=== PATIENT | female | born 1970 | race Caucasian/White ===

== ENCOUNTER → 2018-02-18 11:32 | Outpatient (CLI) | payer BC, SELFPAY ==
--- NOTE | 2018-02-18 11:43 | RAD_ITS ---
STUDY: X-RAY - LUMBAR SPINE REASON FOR EXAM: Female, 48 years old. Left sciatic nerve pain. TECHNIQUE: 5 view(s) of the lumbar spine were obtained. COMPARISON: None FINDINGS: Normal lumbar lordosis. There is no substantial scoliosis. There is a normal alignment of the vertebrae. Anterior marginal spurs at the L1-L2 disc space level. Normal vertebral bodies and endplates. Normal disc space heights. The soft tissue structures are unremarkable. RAD/L/S Spine Min 4 Views IMPRESSION: Minimal anterior marginal spurring at the L1-L2 disc space level otherwise negative study. Electronically Signed: Steve Wu MD at 12:03 EDT , Service support ,
== END ==
PROVIDERS: Family Provider Family Medicine; PCP Family Medicine; Visit Provider Family Medicine
DX: M54.32 Sciatica, left side (principal)
CPT/HCPCS: 72110

== ENCOUNTER → 2018-03-10 13:22 | Outpatient (CLI) | payer BC, SELFPAY ==
--- NOTE | 2018-03-10 13:27 | RAD_ITS ---
STUDY: X-RAY CHEST REASON FOR EXAM: Female, 48 years old. Bronchitis TECHNIQUE: Frontal and lateral views of the chest COMPARISON: 11/08/2017 FINDINGS: The lungs are clear. There are no pleural effusions. There is no pneumothorax. The heart is normal in size. The visualized osseous structures are within normal limits. RAD/Chest PA and Lateral IMPRESSION: No acute thoracic pathology. Electronically Signed: Morris Quevedo, at 17:02 EDT Tel , Service support ,
== END ==
PROVIDERS: Family Provider Family Medicine; PCP Family Medicine; Visit Provider Family Medicine
DX: J20.9 Acute bronchitis, unspecified (principal)
CPT/HCPCS: 71046

== ENCOUNTER 2018-03-11 23:41 | Emergency (ER) | payer BC, SELFPAY ==
[2018-03-11 23:42] VITALS: BP 130/65; PULSE 131; RESP 22; TEMP 36.6; O2SAT 94; BMI 66.7
[2018-03-12] MEDS: Albuterol 2.5 MG/3 ML VIAL.NEB. INHALATION (00:37)
[2018-03-12] MEDS: Ipratropium/Albuterol Sulfate 3 ML AMPUL.NEB INHALATION (00:37)
--- NOTE | 2018-03-12 00:43 | ED.DCSUM_ITS ---
- ER Visit Summary Date of Service: 03/12/18 Chief Complaint: Cough and wheezing History of Present Illness: The patient is a 48 F past medical history of asthma and insulin-dependent diabetes. Patient has had URI type symptoms for [address] Edge twice. Has been treated with prednisone and nebulizer aerosol treatments at home. Currently is on prednisone 20 mg a day. She is also finished a a Z-Faustino. She is really upset that she cannot stop coughing. She denies any hemoptysis. Physical Examination: Well-appearing middle-age female. Vital signs stable afebrile. Pulse ox 94% on room air. No hypoxia. She is in no distress. HEENT exam unremarkable. Posterior pharynx moist and pink. No erythema or exudate. TMs slightly erythematous and dull bilaterally. Neck nontender no lymphadenopathy. Trachea is nontender. Lungs scattered externally wheezing. No rales or rhonchi. Equal symmetrical. Heart tachycardic no murmur. Abdomen is soft. Obese but nontender. Moving all 4 extremities. Calves nontender without edema. Neurologically she is awake and alert without focal motor deficits. Test Results: Patient had a chest x-ray done 2 days ago which was read as negative. I did review the film myself and agree. Emergency Department Course and Treatment: Patient treated with DuoNeb and albuterol aerosols. Prednisone here. And Tessalon Perles. Treatment Plan: Repeat exam she is doing better. Patient has a URI that is viral. This may last another 1-2 weeks or even longer. She does not need antibiotics. She will continue her current prednisone and I will restart her back on 40 mg a day before they can start tapering it. Continue aerosols. Also write for Tessalon Perles on top of her cough syrup. Disposition: Discharge Impression: Acute viral URI with bronchospasm Acute exacerbation of asthma This note was generated with [employer] dictation software. It may contain incorrect words, spelling, and punctuation that were not noted in review of the chart prior to signing ED Disposition - Plan for ED Patient: Chief Complaint: Cough Referrals: Nilda Edge MD [Primary Care Provider] -
--- NOTE | 2018-03-12 00:43 | ED.DEP ---
ED Disposition - Plan for ED Patient: Disposition: Home or Assisted Living Chief Complaint: Cough Instructions: ED Bronchitis Asthmatic Prescriptions: Benzonatate [Tessalon Perle] 100 mg PO Q4H PRN PRN #20 cap PRN Reason: Cough Referrals: Nilda Edge MD [Primary Care Provider] - Additional Instructions: Continue prednisone and I will increase his dose back to 40 mg a day. Follow-up with Dr. Edge to see when she wants to start tapering the prednisone. Use both the Tessalon Perles and your cough syrup as cough suppressants. Plenty of fluids and rest. Aerosol treatments as needed every 2-4 hours at home. Return if feeling worse.
--- NOTE | 2018-03-12 00:46 | DCINST.ED_ITS ---
ED Disposition - Plan for ED Patient: Disposition: Home or Assisted Living Chief Complaint: Cough Instructions: ED Bronchitis Asthmatic Prescriptions: Benzonatate [Tessalon Perle] 100 mg PO Q4H PRN PRN #20 cap PRN Reason: Cough Referrals: Nilda Edge MD [Primary Care Provider] - Additional Instructions: Continue prednisone and I will increase his dose back to 40 mg a day. Follow- up with Dr. Edge to see when she wants to start tapering the prednisone. Use both the Tessalon Perles and your cough syrup as cough suppressants. Plenty of fluids and rest. Aerosol treatments as needed every 2-4 hours at home. Return if feeling worse.
[2018-03-12] MEDS: Benzonatate 100 MG Capsule 200 MG PO (00:47)
[2018-03-12 00:49] VITALS: PULSE 131; RESP 18
[2018-03-12 00:55] VITALS: O2SAT 92
[2018-03-12] MEDS: predniSONE 20 MG Tablet 60 MG PO (01:04)
== END 2018-03-12 00:58 | disposition home or self-care (01) ==
PROVIDERS: Emergency Provider Emergency Medicine; Family Provider Family Medicine; PCP Family Medicine
DX: J06.9 Acute upper respiratory infection, unspecified (principal); J45.901 Unspecified asthma with (acute) exacerbation; E11.9 Type 2 diabetes mellitus without complications; I10 Essential (primary) hypertension; Z79.82 Long term (current) use of aspirin; Z79.4 Long term (current) use of insulin; Z79.899 Other long term (current) drug therapy
CPT/HCPCS: 94640; 99283

== ENCOUNTER → 2018-05-09 11:43 | Outpatient (CLI) | payer BC, SELFPAY ==
[2018-05-09 16:02] LABS: AST(SGOT) 12 U/L (15-37); Alanine Aminotransfer ALT/SGPT 22 U/L (13-56); Albumin, Serum 3.2 g/dL (3.2-5.0); Alkaline Phosphatase 89 U/L (45-117); Anion Gap 7 (5-15); BUN 15 mg/dL (7-18); BUN/Creat Ratio 18.6 RATIO (10-20); Bilirubin, Direct 0.13 mg/dL (0.00-0.30); Calcium,Total 8.9 mg/dL (8.5-10.1); Chloride 99 mmol/L (98-107); Cholesterol 130 mg/dL (200); EST Glomerular Filtration Rate 81 mL/min (>60); Est Glom Filt Rate - Afr Amer 99 mL/min (>60); Globulin 4.2 g/dL (2.2-4.2); Glucose 214 mg/dL (74-106); High Density Lipoprotein 61 mg/dL; Potassium 4.3 mmol/L (3.5-5.1); Protein, Total 7.4 g/dL (6.4-8.2); Sodium Level 140 mmol/L (136-145); Triglycerides 134 mg/dL; Very Low Density Lipoprotein 27 mg/dL (5-40)
[2018-05-09 16:16] LABS: Microalbumin,Random Urine 37.5 mg/L (NO RANGE EST.)
== END ==
PROVIDERS: Family Provider Family Medicine; PCP Family Medicine; Visit Provider Family Medicine
DX: E11.9 Type 2 diabetes mellitus without complications (principal); I10 Essential (primary) hypertension
CPT/HCPCS: 36415; 80048; 80061; 80076; 82043; 82570

== ENCOUNTER → 2018-08-11 10:11 | Outpatient (CLI) | payer BC, SELFPAY ==
--- NOTE | 2018-08-11 10:21 | BI_ITS ---
MAMMOGRAPHY - BILATERAL SCREENING REASON FOR EXAM: Female, 48 years old. Routine annual screening examination. PERTINENT HISTORY: Non-contributory. TECHNIQUE: Digital bilateral breast shyann (3D mammographic acquisition) in the CC and MLO projections. 2-D mediolateral oblique (MLO) and craniocaudad (CC) views of both breasts were obtained. CAD: Full Field Digital Mammography with Computer Added Detection was performed. COMPARISON: Comparison is made with prior study dated July 01, 2017. FINDINGS: Breast Composition: The breasts are almost entirely fatty. There are no dominant masses or suspicious calcifications. Small benign-appearing bilateral axillary lymph nodes. No other significant abnormalities are identified. There has been no significant change since the prior study. BI/SCREENING MAMM (CAD), BILAT IMPRESSION: Stable bilateral screening mammogram. Yearly follow-up mammogram recommended. (A) ASSESSMENT CATEGORY: BIRADS Category 2: Benign. A letter regarding these results will be sent to the patient by the facility within 30 days. Approximately 10% of breast cancers are not detected by mammography. A normal mammogram should not delay biopsy of a clinically suspicious abnormality. [id number] Electronically Signed: Rocky Yanez MD at 12:58 EDT Tel [phone], Service support ,
== END ==
PROVIDERS: Family Provider Family Medicine; PCP Family Medicine; Visit Provider Nurse Practitioner Women's Health
DX: Z12.31 Encounter for screening mammogram for malignant neoplasm of breast (principal)
CPT/HCPCS: 77063; 77067

== ENCOUNTER → 2018-11-07 10:05 | Outpatient (CLI) | payer BC, SELFPAY ==
[2018-08-11 09:09] VITALS: BMI 68.1
[2018-11-07 13:44] LABS: Anion Gap 7 (5-15); BUN 13 mg/dL (7-18); BUN/Creat Ratio 15.5 RATIO (10-20); Calcium,Total 9.4 mg/dL (8.5-10.1); Chloride 101 mmol/L (98-107); Creatinine, Serum 0.84 mg/dL (0.55-1.02); EST Glomerular Filtration Rate 78 mL/min (>60); Est Glom Filt Rate - Afr Amer 94 mL/min (>60); Glucose 107 mg/dL (74-106); Potassium 3.9 mmol/L (3.5-5.1); Sodium Level 140 mmol/L (136-145)
--- OUTSIDE RECORDS SUMMARY | 2018-12-24 00:32 | XMS RPT_ITS ---
:1970 Author Organization [place] Support Name Relationship Address Phone [facility] Unavailable [address] + [place] [address] OBIE GERARDO Unavailable [address] + [place] [address] [facility] Unavailable [address] + [place] [address] [facility] Unavailable [address] + [place] [address] OBIE GERARDO Unavailable [address] + [place] [address] [facility] Unavailable [address] + [place] [address] [facility] Unavailable [address] + [place] [address] OBIE GERARDO Unavailable [address] + [place] [address] [facility] Unavailable [address] + [place] [address] OBIE GERARDO Unavailable [address] + [place] [address] OVIDIO, NOLA Unavailable [address] + [place] [address] [facility] Unavailable [address] + [place] [address] OBIE GERARDO Unavailable [address] [phone] [place] [address] OVIDIO, NOLA Unavailable [address] + [place] [address] [facility] Unavailable [address] + [place] [address] HUMAIRA, OBIE Unavailable [address] [phone] [place] [address] OVIDIO, NOLA Unavailable [address] + [place] [address] [facility] Unavailable [address] + [place] [address] HUMAIRA, OBIE Unavailable [address] [phone] [place] [address] OVIDIO, NOLA Unavailable [address] + [place] [address] [facility] Unavailable [address] + [place] [address] HUMAIRA, OBIE Unavailable [address] [phone] [place] [address] OVIDIO, NOLA Unavailable [address] + [place] [address] [facility] Unavailable [address] + [place] [address] HUMAIRA, OBIE Unavailable [address] [phone] [place] [address] OVIDIO, NOLA Unavailable [address] + [place] [address] Care Team Providers Name Role Phone Darbyiff, Nilda Attending Unavailable Jolliff, Nilda Primary Care Unavailable Jolliff, Nilda Attending Unavailable Jolliff, Nilda Referring Unavailable Jolliff, Nilda Primary Care Unavailable Jolliff, Nilda Attending Unavailable Jolliff, Nilda Referring Unavailable Jolliff, Nilda Primary Care Unavailable Jolliff, Nilda Primary Care Unavailable Rojelio Spencer Attending Unavailable PROVIDER, ED PHYSICIAN Attending Unavailable Jolliff, Nilda Primary Care Unavailable Jolliff, Nilda Attending Unavailable Jolliff, Nilda Primary Care Unavailable Sachi Sewell Attending Unavailable Stella Lange Attending Unavailable NazarioStella Referring Unavailable Jolliff, Nilda Primary Care Unavailable Stella Lange Attending Unavailable Jolliff, Nilda Referring Unavailable Jolliff, Nilda Primary Care Unavailable PROBLEMS PROBLEMS DATE TYPE CONDITION / CODE ATTENDING STATUS SOURCE 03/10/2018 Unknown J20.9 - Acute Nilda Edge Active [place] bronchitis, Community unspecified / Hospital J20.9(ICD-10) Repository 02/18/2018 Unknown M54.32 - Nilda Edge Active [place] Sci[place], left Community side / Hospital M54.32(ICD-10) Repository PROCEDURES PROCEDURES No Procedure Records FoundRESULTS RESULTS SHOE FOLDER OFFICE VISIT Observed: 12/08/2018 Status: F Source: [place] REPORT 2:43 PM [facility] REPOSITORY [facility] [address] [place] [address] OFFICE VISIT Date of Service: 08/11/18 MR#: [id number] Acct: [id number] Name: NASH GERARDO Rep #: [id number] : 1970 Provider: STACEY Lange Age/Sex: 48/F [place] [facility]: Signed with Addenda ADDENDUM by STACEY Lange on 12/08/18 at 1443 Addendum entered and electronically signed by VALDO Marquez 12/08/18 14:43: Rectal exam was deferred. No masses palpated Assessment AND Plan Problems 1. Encounter for gynecological examination without abnormal finding Z01.419 2. Morbid obesity with BMI of 60.0-69.9, adult E66.01; Z68.44 Plan - VALDO Marquez Completed breast and pelvic exam Reviewed diet and exercise-she has discussed with PCP. 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: No Is patient in pain?: No Allergies Penicillins Allergy (Verified 08/11/18 09:04) Hives Medications Aspirin [Aspir-Low] 81 mg PO DAILY 11/08/17 [History Confirmed 08/11/18] Calcium Carbonate/Vitamin D3 [Calcium 600-Vit D3 200 Tablet] 1 ea PO DAILY 11/08/17 [History Confirmed 08/11/18] Folic Acid 0.8 mg PO DAILY@0800 11/08/17 [History Confirmed 08/11/18] Hydrochlorothiazide [Hctz] 25 mg PO DAILY 11/08/17 [History Confirmed 08/11/18] Insulin Aspart [Novolog Flexpen (BKC)] 0 - 100 units SC TIDCM 11/08/17 [History Confirmed 08/11/18] Insulin Glargine,Hum.rec.anlog [Lantus] 85 unit SQ QHS 11/08/17 [History Confirmed 08/11/18] Liraglutide [Victoza] 1.2 mg SQ DAILY 11/08/17 [History Confirmed 08/11/18] Losartan Potassium 100 mg PO DAILY 11/08/17 [History Confirmed 08/11/18] Multivitamin [Daily Multiple Vitamin] 1 ea PO DAILY 11/08/17 [History Confirmed 08/11/18] Potassium Chloride [K-Dur] 20 meq PO DAILY 11/08/17 [History Confirmed 08/11/18] Atorvastatin Calcium [Lipitor] 20 mg PO QHS 03/11/18 [History Confirmed 08/11/18] amlodipine 5 mg tablet 5 mg PO DAILY 08/11/18 [History Confirmed 08/11/18] Is last menstrual period known: No Post menopausal: No Patient : No : No PFSH Medical History Hyperlipidemia (Chronic) Hypertension (Chronic) Diabetes (Chronic) Asthma (Chronic) Arthritis (Chronic) Surgical History S/P carpal tunnel release (Resolved) Trigger finger (Resolved) Family History Mother Heart disease Diabetes Osteoporosis Social History Smoking Status: Never smoker alcohol intake: current alcohol intake frequency: holidays/special occasions only substance use type: does not use caffeine: No what type of physical activity do you participate in: walking frequency: daily seatbelt use: always do you feel safe at home: Yes 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 Denies concerns Happy with mirena IUD-no menses Last PAP: 06/2017 History of abnormal PAP: no Last mammogram: today/pending History of abnormal mammogram: no ROS Const Constitutional: Denies fatigue, weight gain or weight loss Cardio Card: Denies chest pain Resp Resp: Denies cough or shortness of breath with activity GI GI: Denies abdominal pain, constipation, change in stools, vomiting or bloating : Reports as per HPI; denies urinary frequency, pelvic pain, urinary urgency, vaginal discharge, vaginal itching, urinary incontinence or difficulty urinating Exam Const General: cooperative, no acute distress, well developed Nutritional Appearance: obese morbidy Orientation: alert, oriented to person, oriented to place HENNV Head: normal to inspection Neck Neck: normal visual inspection Thyroid: thyroid normal Lymphatic: no lymphadenopathy noted Chest Breast inspection: normal inspection of the breasts, normal inspection of the axillae Breast palpation: normal palpation of the breasts, normal palpation of the axillae, no axillary lymphadenopathy Resp Effort AND Inspection: normal respiratory effort GI Palpation: soft, nontender, no masses Rectal Exam: mass, deferred External Female Exam: normal external appearance, normal appearance of the urethra Urethra: normal appearance of the urethra, normal palpation Speculum Exam - Vagina: normal appearance of the vagina, normal vaginal discharge Speculum Exam - Cervix: normal appearance of the cervix Bimanual Exam- Vagina AND Uterus: normal bimanual exam, uterine size normal, uterine shape normal, uterus non-tender Bimanual Exam- Adnexa, other: normal adnexae, no adnexal masses, adnexae non-tender, pelvic support normal Pelvic Support: normal Neuro General: alert, oriented x3 Psych Affect: normal affect Assessment AND Plan Problems 1. Encounter for gynecological examination without abnormal finding Z01.419 2. Morbid obesity with BMI of 60.0-69.9, adult E66.01; Z68.44 Plan Completed breast and pelvic exam Reviewed diet and exercise-she has discussed with PCP. Pap up to date Mammogram today Contraception mirena RTO 1 year, prn with problems Stella Lange VAPOR COATER Medications Discontinued: Coding Level of Care Code Off vis,est,prev 40-64yrs Diagnoses Encounter for gynecological examination without abnormal finding Z01.419 Gynecological examination findings: abnormal findings ABSENT Morbid obesity with BMI of 60.0-69.9, adult E66.01; Z68.44 08/11/18 0955 <Electronically signed by Stella Lange NP-C> Date Stella Lange CHAIN PEGGER-C Cosigner Signature: Date (if applicable) CC: BASIC METABOLIC Collected: 11/07/2018 Status: F Source: [place] PROFILE (BMP) 10:06 AM [facility] [place] REPOSITORY TYPE CODE TESTS RESULT OUT OF RANGE REFERENCE UNITS LAB L501.0100 74-106 mg/dL High GLU 107 Result Comment: Fasting Glucose result from 100 to 125 mg/dL suggests IMPAIRED HOMEOSTASIS per A.D.A. criteria. Please note revised GLUCOSE reference range effective 2017. LAB L501.1000 7-18 mg/dL Normal BUN 13 LAB L501.1100 0.55-1.02 mg/dL Normal CREAT,SERUM 0.84 Result Comment: The validity of the calculated GFR AND GFRAA in patients over 70 years has not been determined. Clinical correlation is essential. LAB L501.1110 >60 mL/min Normal EST GFR 78 Result Comment: Non- GFR Calc LAB L501.1115 >60 mL/min Normal EST GFR - AA 94 Result Comment: GFR Calc LAB L501.1300 10-20 RATIO Normal BUN/CRE 15.5 LAB L501.2200 8.5-10.1 mg/dL CA Normal 9.4 LAB L501.5300 136-145 mmol/L NA Normal 140 LAB L501.5600 3.5-5.1 mmol/L K Normal 3.9 LAB L501.5900 98-107 mmol/L CL Normal 101 LAB L501.6100 21.0-32.0 mmol/L Normal CO2 32.0 LAB L501.6200 5-15 Normal GAP 7 Performed By: #### L500.2500 #### [facility] [address] [place], [address] SCREENING MAMM (CAD), Observed: 08/11/2018 Status: F Source: [place] BILAT 10:21 AM [facility] REPOSITORY [facility] Imaging Services [address] [place] [address] SCREENING MAMM (CAD), BILAT MR#: [id number] Acct: [id number] Name: NASH GERARDO Rep #: [id number] : 1970 F 48 From: Rocky Yanez MD PCP: Nilda Edge MD Status: REG CLI Study: SCREENING MAMM (CAD), BILAT Date of Exam: 08/11/18 Exam# [id number] Ordering Dr: Stella Lange CHAIN PEGGER-[place] MAMMOGRAPHY - BILATERAL SCREENING REASON FOR EXAM: Female, 48 years old. Routine annual screening examination. PERTINENT HISTORY: Non-contributory. TECHNIQUE: Digital bilateral breast shyann (3D mammographic acquisition) in the CC and MLO projections. 2-D mediolateral oblique (MLO) and craniocaudad (CC) views of both breasts were obtained. CAD: Full Field Digital Mammography with Computer Added Detection was performed. COMPARISON: Comparison is made with prior study dated July 01, 2017. FINDINGS: Breast Composition: The breasts are almost entirely fatty. There are no dominant masses or suspicious calcifications. Small benign-appearing bilateral axillary lymph nodes. No other significant abnormalities are identified. There has been no significant change since the prior study. BI/SCREENING MAMM (CAD), BILAT IMPRESSION: Stable bilateral screening mammogram. Yearly follow-up mammogram recommended. (A) ASSESSMENT CATEGORY: BIRADS Category 2: Benign. A letter regarding these results will be sent to the patient by the facility within 30 days. Approximately 10% of breast cancers are not detected by mammography. A normal mammogram should not delay biopsy of a clinically suspicious abnormality. [id number] Electronically Signed: Rocky Yanez MD at 12:58 EDT Tel [phone], Service support , CC: STACEY Lange; Nilda Edge MD Pawn Shop Keeper: Signed BASIC METABOLIC Collected: 05/09/2018 Status: F Source: [place] PROFILE (BMP) 11:44 AM [facility] REPOSITORY TYPE CODE TESTS RESULT OUT OF RANGE REFERENCE UNITS LAB L501.0100 74-106 mg/dL High GLU 214 Result Comment: Glucose result greater than or equal to 200 mg/dL suggests DIABETES MELLITUS per A.D.A. criteria. Please note revised GLUCOSE reference range effective 2017. LAB L501.1000 7-18 mg/dL Normal BUN 15 LAB L501.1100 0.55-1.02 mg/dL Normal CREAT,SERUM 0.80 Result Comment: The validity of the calculated GFR AND GFRAA in patients over 70 years has not been determined. Clinical correlation is essential. LAB L501.1110 >60 mL/min Normal EST GFR 81 Result Comment: Non- GFR Calc LAB L501.1115 >60 mL/min Normal EST GFR - AA 99 Result Comment: GFR Calc LAB L501.1300 10-20 RATIO Normal BUN/CRE 18.6 LAB L501.2200 8.5-10.1 mg/dL CA Normal 8.9 LAB L501.5300 136-145 mmol/L NA Normal 140 LAB L501.5600 3.5-5.1 mmol/L K Normal 4.3 LAB L501.5900 98-107 mmol/L CL Normal 99 LAB L501.6100 21.0-32.0 mmol/L High CO2 34.0 LAB L501.6200 5-15 Normal GAP 7 Performed By: #### L500.2500, L500.3400, L500.4100 #### [facility] [address] [place], [place], [id number] LIVER PROFILE Collected: 05/09/2018 Status: F Source: [place] 11:44 AM [facility] REPOSITORY TYPE CODE TESTS RESULT OUT OF RANGE REFERENCE UNITS LAB L501.1500 6.4-8.2 g/dL Normal T PROT 7.4 LAB L501.1800 3.2-5.0 g/dL Normal ALB 3.2 LAB L501.1950 2.2-4.2 g/dL Normal GLOB 4.2 LAB L501.4100 15-37 U/L Low AST 12 LAB L501.4305 45-117 U/L Normal ALK P 89 LAB L501.4405 13-56 U/L Normal ALT 22 LAB L501.4600 0.20-1.00 mg/dL Normal T BILI 0.60 LAB L501.4700 0.00-0.30 mg/dL Normal D BILI 0.13 Performed By: #### L500.2500, L500.3400, L500.4100 #### [facility] [address] [place], [place], [id number] LIPID PROFILE Collected: 05/09/2018 Status: F Source: [place] 11:44 AM [facility] REPOSITORY TYPE CODE TESTS RESULT OUT OF RANGE REFERENCE UNITS LAB L501.4900 200 mg/dL Normal CHOL 130 Result Comment: <200 mg/dL Desirable 200-240 mg/dL Borderline >240 mg/dL High Risk LAB L501.5000 mg/dL Normal TRIG 134 Result Comment: The drugs N-Acetylcysteine and Metamizole may falsely depress this assay. Serum Triglycerides Reference Interval Normal <150 mg/dL Borderline high 150 - 199 mg/dL High 200 - 499 mg/dL Very High > or = 500 mg/dL LAB L501.6400 mg/dL Normal HDL 61 Result Comment: The drugs N-Acetylcysteine and Metamizole may falsely depress this assay. Reference Range HDL <40 mg/dL Low HDL Cholesterol HDL >or= 60 mg/dL High HDL Cholesterol LAB L501.6500 0-130 mg/dL Normal LDL 42 LAB L501.6600 5-40 mg/dL Normal VLDL 27 Performed By: #### L500.2500, L500.3400, L500.4100 #### [facility] [address] [place], [address] MICROALB:CREAT Collected: 05/09/2018 Status: F Source: [place] RATIO,RANDOM UR 11:44 AM [facility] REPOSITORY TYPE CODE TESTS RESULT OUT OF RANGE REFERENCE UNITS LAB L501.1200 NO RANGE EST. mg/dL Normal UR CREAT 163.00 LAB L502.0500 NO RANGE EST. mg/L Normal 37.5 MICROALBUMIN ,UR LAB L502.0600 <30 mg/g CRE mg/g CRE Normal 23.0 MALB:CREAT Performed By: #### L502.0250 #### [facility] [address] [place], [address] EMERGENCY DEPARTMENT Observed: 03/12/2018 Status: F Source: [place] SUMMARY 12:57 AM [facility] REPOSITORY [facility] Medical Records Department [address] [place] [address] Emergency Department Summary 03/12/18 0038 MR#: [id number] Acct: [id number] Name: NASH GERARDO Rep #: [id number] : 1970 48 From: Rojelio Spencer MD PCP: Nilda Edge MD Status: DEP ER - ER Visit Summary Date of Service: 03/12/18 Chief Complaint: Cough and wheezing History of Present Illness: The patient is a 48 F past medical history of asthma and insulin-dependent diabetes. Patient has had URI type symptoms for [address] Edge twice. Has been treated with prednisone and nebulizer aerosol treatments at home. Currently is on prednisone 20 mg a day. She is also finished a a Z-Faustino. She is really upset that she cannot stop coughing. She denies any hemoptysis. Physical Examination: Well-appearing middle-age female. Vital signs stable afebrile. Pulse ox 94% on room air. No hypoxia. She is in no distress. HEENT exam unremarkable. Posterior pharynx moist and pink. No erythema or exudate. TMs slightly erythematous and dull bilaterally. Neck nontender no lymphadenopathy. Trachea is nontender. Lungs scattered externally wheezing. No rales or rhonchi. Equal symmetrical. Heart tachycardic no murmur. Abdomen is soft. Obese but nontender. Moving all 4 extremities. Calves nontender without edema. Neurologically she is awake and alert without focal motor deficits. Test Results: Patient had a chest x-ray done 2 days ago which was read as negative. I did review the film myself and agree. Emergency Department Course and Treatment: Patient treated with DuoNeb and albuterol aerosols. Prednisone here. And Tessalon Perles. Treatment Plan: Repeat exam she is doing better. Patient has a URI that is viral. This may last another 1-2 weeks or even longer. She does not need antibiotics. She will continue her current prednisone and I will restart her back on 40 mg a day before they can start tapering it. Continue aerosols. Also write for Tessalon Perles on top of her cough syrup. Disposition: Discharge Impression: Acute viral URI with bronchospasm Acute exacerbation of asthma This note was generated with MyPrint[employer] dictation software. It may contain incorrect words, spelling, and punctuation that were not noted in review of the chart prior to signing ED Disposition - Plan for ED Patient: Chief Complaint: Cough Referrals: Nilda Edge MD [Primary Care Provider] - What to do if you have Problems For any increased pain, shortness of breath, bleeding, nausea or vomiting, chest pain, or any unexpected problems, contact your Primary Care Provider. Call [facility] ([phone]) or report to the closest Emergency Room. Call 911 if necessary. 03/12/18 0057 <Electronically signed by Rojelio Spencer MD> Date Rojelio Spencer MD Cosigner Signature (If Indicated): Date CC: Nilda Edge MD DISCHARGE INSTRUCTION Observed: 03/12/2018 Status: F Source: [place] 12:57 AM [facility] REPOSITORY [facility] Medical Records Department [address] [place] [address] Discharge Instruction 03/12/18 0043 MR#: [id number] Acct: [id number] Name: NASH GERARDO Rep #: [id number] : 1970 48 From: Rojelio Spencer MD PCP: Nilda Edge MD Status: DEP ER ED Disposition - Plan for ED Patient: Disposition: Home or Assisted Living Chief Complaint: Cough Instructions: ED Bronchitis Asthmatic Prescriptions: Benzonatate [Tessalon Perle] 100 mg PO Q4H PRN PRN #20 cap PRN Reason: Cough Referrals: Nilda Edge MD [Primary Care Provider] - Additional Instructions: Continue prednisone and I will increase his dose back to 40 mg a day. Follow-up with Dr. Edge to see when she wants to start tapering the prednisone. Use both the Tessalon Perles and your cough syrup as cough suppressants. Plenty of fluids and rest. Aerosol treatments as needed every 2-4 hours at home. Return if feeling worse. What to do if you have Problems For any increased pain, shortness of breath, bleeding, nausea or vomiting, chest pain, or any unexpected problems, contact your Primary Care Provider. Call [facility] ([phone]) or report to the closest Emergency Room. Call 911 if necessary. 03/12/18 0057 <Electronically signed by Rojelio Spencer MD> Date Rojelio Spencer MD Cosigner Signature (If Indicated): Date CC: Nilda Edge MD CHEST PA AND LATERAL Observed: 03/10/2018 Status: F Source: [place] 1:27 PM [facility] REPOSITORY [facility] Imaging Services [address] [place] [address] Chest PA and Lateral MR#: [id number] Acct: [id number] Name: NASH GERARDO Rep #: [id number] : 1970 F 48 From: Morris Quevedo MD PCP: Nilda Edge MD Status: REG CLI Study: Chest PA and Lateral Date of Exam: 03/10/18 Exam# [id number] Ordering Dr: Nilda Edge MD STUDY: X-RAY CHEST REASON FOR EXAM: Female, 48 years old. Bronchitis TECHNIQUE: Frontal and lateral views of the chest COMPARISON: 11/08/2017 FINDINGS: The lungs are clear. There are no pleural effusions. There is no pneumothorax. The heart is normal in size. The visualized osseous structures are within normal limits. RAD/Chest PA and Lateral IMPRESSION: No acute thoracic pathology. Electronically Signed: Morris Quevedo, at 17:02 EDT Tel , Service support , CC: Nilda Edge MD Pawn Shop Keeper: Signed L/S SPINE MIN 4 Observed: 02/18/2018 Status: F Source: [place] VIEWS 11:43 AM [facility] REPOSITORY [facility] Imaging Services [address] [place] [address] L/S Spine Min 4 Views MR#: [id number] Acct: [id number] Name: NASH GERARDO Rep #: [id number] : 1970 F 48 From: Steve Wu MD PCP: Nilda Edge MD Status: REG CLI Study: L/S Spine Min 4 Views Date of Exam: 02/18/18 Exam# [id number] Ordering Dr: Nilda Edge MD STUDY: X-RAY - LUMBAR SPINE REASON FOR EXAM: Female, 48 years old. Left sciatic nerve pain. TECHNIQUE: 5 view(s) of the lumbar spine were obtained. COMPARISON: None FINDINGS: Normal lumbar lordosis. There is no substantial scoliosis. There is a normal alignment of the vertebrae. Anterior marginal spurs at the L1-L2 disc space level. Normal vertebral bodies and endplates. Normal disc space heights. The soft tissue structures are unremarkable. RAD/L/S Spine Min 4 Views IMPRESSION: Minimal anterior marginal spurring at the L1-L2 disc space level otherwise negative study. Electronically Signed: Steve Wu MD at 12:03 EDT , Service support , CC: Nilda Edge MD Pawn Shop Keeper: Signed ALLERGIES ALLERGIES DATE TYPE / CODE NAME / CODE REACTION SEVERITY SOURCE 08/11/2018 Drug Penicillins/ Hives Unknown [facility] Allergy/4160 [id number]([facility] 10670(SNOMED XNORM) Repository CT) ENCOUNTERS ENCOUNTERS ADMIT/DISCHARGE ACCOUNT ADMITTING ENCOUNTER LOCATION SOURCE NUMBER CLASS 11/07/2018 [id number] Ambulatory [place] 9 [facility] ing:MFPLAB Repository 08/11/2018 [id number] Ambulatory [place] 7 [facility] ing:OPBI Repository 08/11/2018/ [id number] Ambulatory [facility]:[place] [facility] Repository 08/06/2018 [id number] Ambulatory [facility]Building:B [place] [facility] Repository 05/09/2018 [id number] Ambulatory [place] 8 [facility] ing:MFPLAB Repository 04/01/2018 [id number] Ambulatory [place] 2 [facility] ing:ED Repository 03/11/2018/ [id number] Emergency [place] [facility] 9 [facility] ing:ED Repository 03/10/2018 [id number] Ambulatory [place] 3 [facility] ing:MTRAD Repository 02/18/2018 [id number] Ambulatory [place] 0 [facility] ing:MTRAD Repository PAYERS PAYERS ENCOUNTER GUARANTOR PAYER SUBSCRIBER SOURCE 11/07/2018 NASH S Primary NASH S [place] [id number] S Insurance:ANTHEMPolic RICKARDDOB: Counts Include [facility] HERIBERTO DESIR, y [facility]: [id number] [address]: [id number] Repository Date:[id number], [place] [address]UK: 11/07/2018 Secondary NOT GIVENUNK Jl Insurance:SELF PAY [facility] Number: Effective Repository Date:2018-11-07 08/11/2018 NASH S Primary NASH S Jl [id number] S Insurance:ANTHEMPolic RICKARDDOB: Counts Include [address] B[facility] HERIBERTO DESIR, y Number: [id number] [facility] Hospital [address]Ouw: [id number] Repository Date:6538-72-70KN [address] () [address], [place] [address]XD: 08/11/2018 Secondary NOT GIVENUNK Lyons Insurance:SELF PAY [facility] Number: Effective Repository Date:2018-06-27 08/11/2018 NASH S Primary NASH S Lyons [id number] S Insurance:ANTHEMPolic RICKARDDOB: Counts Include [address]eds At [facility] HERIBERTO DESIR, y Number: [id number] General Hospital [address]Egn: [id number] Repository Date:1110-25-07VJ [address] () [place], [place] [address]WX: 08/11/2018 Secondary NOT GIVENUNK Lyons Insurance:SELF PAY [facility] Number: Effective Repository Date:2018-08-11 08/06/2018 NASH S Primary NASH S Jl [id number] S Insurance:ANTHEMPolic RICKARDDOB: Counts Include [address] At [facility] HERIBERTO DESIR, y Number: [id number] General Hospital [address]Jvp: [id number] Repository Date:6944-14-27OS [address] () [id number] DENG [address]YF: 08/06/2018 Secondary NOT GIVENUNK Jl Insurance:SELF PAY [facility] Number: Effective Repository Date:2018-08-06 05/09/2018 NASH S Primary NASH S Ly[place] [id number] S Insurance:ANTHEMPolic RICKARDDOB: Counts Include [address]eds At [facility] HERIBERTO DESIR, y Number: [id number] General Hospital [address]Rbe: [id number] Repository Date:7961-73-77RJ [address]OX () [id number] DENG [address]IB: 05/09/2018 Secondary NOT GIVENUNK Jl Insurance:SELF PAY [facility] Number: Effective Repository Date:2018-05-09 04/01/2018 NASH S Primary NASH S [place] [id number] S Insurance:ANTHEMPolic RICKARDDOB: Counts Include [address]eds At [facility] HERIBERTO DESIR, y Number: [id number] General Hospital [address]Mqu: [id number] Repository Date:2858-90-32ZR BOX () [id number] DENG [address]HK: 04/01/2018 Secondary NOT GIVENUNK Jl Insurance:SELF PAY [facility] Number: Effective Repository Date:2018-04-01 03/11/2018 NASH S Primary NASH S [place] [id number] S Insurance:ANTHEMPolic RICKARDDOB: Counts Include [address] At [facility] HERIBERTO DESIR, y Number: [id number] General Hospital [address]Okq: [id number] Repository Date:5313-02-73AH BOX () [id number] DENG [address]QH: 03/11/2018 Secondary NOT GIVENUNK Lyons Insurance:SELF PAY [facility] Number: Effective Repository Date:2018-03-11 03/10/2018 NASH S Primary NASH S Lyons [id number] S Insurance:ANTHEMPolic RICKARDDOB: Counts Include [address]eds At [facility], y Number: [id number] General Hospital [address]Mkj: [id number] Repository Date:6673-50-13XB [address]OX () [place], [place] [address]II: 03/10/2018 Secondary NOT GIVENUNK Jl Insurance:SELF PAY [facility] Number: Effective Repository Date:2018-03-10 02/18/2018 NASH S Primary NASH S Jl [id number] S Insurance:ANTHEMPolic RICKARDDOB: [facility], y Number: [id number] General Hospital [address]Tuz: [id number] Repository Date:8841-86-60WV [address] () [id number], [place] [address]UA: 02/18/2018 Secondary NOT GIVENUNK Lyons Insurance:SELF PAY [facility] Number: Effective Repository Date:2018-02-18
== END ==
PROVIDERS: Family Provider Family Medicine; PCP Family Medicine; Visit Provider Family Medicine
DX: E11.9 Type 2 diabetes mellitus without complications (principal); Z79.4 Long term (current) use of insulin
CPT/HCPCS: 36415; 80048

== ENCOUNTER → 2019-04-24 11:20 | Outpatient (CLI) | payer BC, SELFPAY ==
[2018-08-11 09:09] VITALS: BMI 68.1
[2019-04-24 13:11] LABS: Uric Acid 4.4 mg/dL (2.6-6.0)
== END ==
PROVIDERS: Family Provider Family Medicine; PCP Family Medicine; Referring Provider Family Medicine; Visit Provider Family Medicine
DX: M10.9 Gout, unspecified (principal)
CPT/HCPCS: 36415; 84550

== ENCOUNTER 2019-06-09 17:24 | Emergency (ER) | payer OTHER, SELFPAY ==
[2019-06-09 17:24] VITALS: BP 160/88; PULSE 111; RESP 16; TEMP 36.7; O2SAT 97; BMI 64.9
--- NOTE | 2019-06-09 18:42 | ED.VISSUMM ---
- ER Visit Summary Date of Service: 06/09/19 Chief Complaint: Left ankle pain History of Present Illness: The patient is a 49 F presenting with left ankle pain. Patient states she stepped down off a step and missed a step. She states she twisted her left ankle. She did not fall to the ground. She has been able to ambulate with pain. She has taken ibuprofen at home. She denies other injuries. This occurred at work. Physical Examination: Vitals are stable. Patient is afebrile. Alert no acute distress. HEENT exam is unremarkable. Neck is nontender Lungs are clear and equal bilaterally. Heart is regular rate and rhythm. Extremities left medial foot and ankle tenderness. Normal pulses. Knee is nontender. Skin is warm and dry. No focal neurologic deficit. Remainder of exam is unremarkable. Emergency Department Course and Treatment: Ice pack was applied. Left foot and ankle x-ray shows plantar spur without acute findings. Patient is given a postop shoe. She declined crutches. She is advised to ice and elevate. Advised use NSAIDs for pain. Advised to follow-up with [facility]. Advised to return to the ED for worsening complaints. Disposition: Discharge home Impression: Left foot sprain This note was generated with Wisecam dictation software. It may contain incorrect words, spelling, and punctuation that were not noted in review of the chart prior to signing ED Disposition - Plan for ED Patient: Referrals: Nilda Edge MD [Primary Care Provider] -
--- NOTE | 2019-06-09 19:22 | RAD_ITS ---
STUDY: X-RAY - LEFT FOOT CLINICAL: Female, 49 years old. Left foot pain TECHNIQUE: 3 view(s) of the foot. COMPARISON: None. FINDINGS: No acute fracture or dislocation. Large plantar spur. No significant degenerative changes or soft tissue swelling RAD/Foot min 3 Views IMPRESSION: No acute findings Electronically Signed: Wai Bernstein DO at 20:10 EDT Tel , Service support ,
--- NOTE | 2019-06-09 19:40 | RAD_ITS ---
STUDY: X-RAY - LEFT ANKLE REASON FOR EXAM: Female, 49 years old. Left ankle pain TECHNIQUE: 3 view(s) of the ankle. COMPARISON: None. FINDINGS: Normal visualized distal tibia and fibula. Normal medial and lateral malleoli. Normal tibiotalar articulation and ankle mortise. Normal visualized talus and calcaneus. The visualized subtalar, talonavicular, calcaneocuboid and tarsal articulations are normal. Prominent plantar spur The soft tissue structures are unremarkable. RAD/Ankle min 3 Views IMPRESSION: Plantar spur without acute findings Electronically Signed: Wai Bernstein DO at 20:09 EDT Tel , Service support ,
--- NOTE | 2019-06-09 21:21 | ED.DEP ---
ED Disposition - Plan for ED Patient: Instructions: Sprain, Ankle, with X-Ray Prescriptions: Naproxen [Naprosyn] 500 mg PO BID PRN #20 tablet Referrals: Nilda Edge MD [Primary Care Provider] - MED,MED [GROUP OF PHYSICIANS] -
[2019-06-09 21:24] VITALS: BP 127/74; PULSE 102; RESP 17; O2SAT 95
[2019-06-09 21:33] VITALS: BP 127/74; PULSE 102; RESP 17; O2SAT 95
== END 2019-06-09 21:35 | disposition home or self-care (01) ==
PROVIDERS: Emergency Provider Emergency Medicine; Family Provider Family Medicine; PCP Family Medicine
DX: S93.602A Unspecified sprain of left foot, initial encounter (principal); W10.9XXA Fall (on) (from) unspecified stairs and steps, initial encounter; Y93.9 Activity, unspecified; Y92.9 Unspecified place or not applicable; Y99.9 Unspecified external cause status; E11.9 Type 2 diabetes mellitus without complications; I10 Essential (primary) hypertension; J45.909 Unspecified asthma, uncomplicated; Z79.82 Long term (current) use of aspirin; Z79.4 Long term (current) use of insulin; Z79.899 Other long term (current) drug therapy
CPT/HCPCS: 73610; 73630; 99283

== ENCOUNTER → 2019-09-11 08:29 | Outpatient (CLI) | payer BC, SELFPAY ==
[2019-09-11 08:02] VITALS: BMI 64.9
--- NOTE | 2019-09-11 09:03 | BI_ITS ---
MAMMOGRAPHY - BILATERAL SCREENING REASON FOR EXAM: Female, 49 years old. Routine annual screening examination. PERTINENT HISTORY: Non-contributory. TECHNIQUE: Digital bilateral breast jailene (3D mammographic acquisition) in the CC and MLO projections. 2-D mediolateral oblique (MLO) and craniocaudad (CC) views of both breasts were obtained. CAD: Full Field Digital Mammography with Computer Added Detection was performed. COMPARISON: Comparison is made with prior study August 11, 2018 and July 01, 2017. FINDINGS: Breast Composition: The breasts are almost entirely fatty. There are no dominant masses or suspicious calcifications. Stable benign-appearing bilateral axillary lymph nodes. No other significant abnormalities are identified. There has been no significant change since the prior study. BI/SCREEN MAMM (CAD) W/JAILENE BILAT IMPRESSION: Stable bilateral screening mammogram. Yearly follow-up mammogram recommended. (A) ASSESSMENT CATEGORY: BIRADS Category 2: Benign. A letter regarding these results will be sent to the patient by the facility within 30 days. Approximately 10% of breast cancers are not detected by mammography. A normal mammogram should not delay biopsy of a clinically suspicious abnormality. [id number] Electronically Signed: Rocky Yanez, at 13:09 EDT , Service support ,
== END ==
PROVIDERS: Family Provider Family Medicine; PCP Family Medicine; Referring Provider Nurse Practitioner Women's Health; Visit Provider Nurse Practitioner Women's Health
DX: Z12.31 Encounter for screening mammogram for malignant neoplasm of breast (principal)
CPT/HCPCS: 77063; 77067

== ENCOUNTER → 2019-10-30 09:41 | Outpatient (CLI) | payer BC, SELFPAY ==
[2019-09-11 08:02] VITALS: BMI 64.9
[2019-10-30 12:28] LABS: ALB/GLOB Ratio 0.9 RATIO (0.9-2.4); AST(SGOT) 12 U/L (15-37); Alanine Aminotransfer ALT/SGPT 22 U/L (13-56); Albumin, Serum 3.4 g/dL (3.2-5.0); Alkaline Phosphatase 87 U/L (45-117); Anion Gap 8 (5-15); BUN 13 mg/dL (7-18); BUN/Creat Ratio 15.5 RATIO (10-20); Bilirubin, Direct 0.12 mg/dL (0.00-0.30); Calcium,Total 9.5 mg/dL (8.5-10.1); Chloride 102 mmol/L (98-107); Cholesterol 134 mg/dL (200); Creatinine, Serum 0.84 mg/dL (0.55-1.02); EST Glomerular Filtration Rate 77 mL/min (>60); Est Glom Filt Rate - Afr Amer 93 mL/min (>60); Globulin 3.9 g/dL (2.2-4.2); Glucose 174 mg/dL (74-106); High Density Lipoprotein 63 mg/dL; Potassium 3.8 mmol/L (3.5-5.1); Protein, Total 7.3 g/dL (6.4-8.2); Sodium Level 138 mmol/L (136-145); Triglycerides 104 mg/dL; Very Low Density Lipoprotein 21 mg/dL (5-40)
[2019-10-30 12:32] LABS: T4 Free Direct 1.24 ng/dL (0.76-1.46); Thyroid Stim Hormone (TSH) 1.27 uIU/mL (0.358-3.74)
== END ==
PROVIDERS: Nurse Practitioner; Family Provider Family Medicine; PCP Family Medicine; Referring Provider Family Medicine; Visit Provider Family Medicine
DX: E11.65 Type 2 diabetes mellitus with hyperglycemia (principal)
CPT/HCPCS: 36415; 80048; 80053; 80061; 82248; 84439; 84443

== ENCOUNTER → 2020-05-06 13:33 | Outpatient (CLI) | payer BC, SELFPAY ==
[2019-09-11 08:02] VITALS: BMI 64.9
[2020-05-06 15:42] LABS: Hemoglobin A1c 6.8 % (3.8-5.6)
[2020-05-06 15:48] LABS: Microalbumin,Random Urine 22.3 mg/L (NO RANGE EST.); Microalbumin:Creatinine Ratio 12.9 mg/g CRE (<30 mg/g CRE)
[2020-05-06 15:54] LABS: ALB/GLOB Ratio 0.8 RATIO (0.9-2.4); AST(SGOT) 17 U/L (15-37); Alanine Aminotransfer ALT/SGPT 22 U/L (13-56); Albumin, Serum 3.1 g/dL (3.2-5.0); Alkaline Phosphatase 90 U/L (45-117); Anion Gap 9 (5-15); BUN 14 mg/dL (7-18); BUN/Creat Ratio 16.4 RATIO (10-20); Calcium,Total 9.2 mg/dL (8.5-10.1); Chloride 100 mmol/L (98-107); Cholesterol 152 mg/dL (200); Creatinine, Serum 0.86 mg/dL (0.55-1.02); EST Glomerular Filtration Rate 75 mL/min (>60); Est Glom Filt Rate - Afr Amer 91 mL/min (>60); Globulin 4.1 g/dL (2.2-4.2); Glucose 148 mg/dL (74-106); High Density Lipoprotein 77 mg/dL; Potassium 3.7 mmol/L (3.5-5.1); Protein, Total 7.2 g/dL (6.4-8.2); Sodium Level 139 mmol/L (136-145); Triglycerides 107 mg/dL; Very Low Density Lipoprotein 21 mg/dL (5-40)
== END ==
PROVIDERS: PCP Family Medicine; Referring Provider Nurse Practitioner; Visit Provider Nurse Practitioner
DX: E11.65 Type 2 diabetes mellitus with hyperglycemia (principal)
CPT/HCPCS: 36415; 80053; 80061; 82043; 82570; 83036

== ENCOUNTER → 2020-05-31 | Outpatient (CLI) | payer BC, SELFPAY ==
[2019-09-11 08:02] VITALS: BMI 64.9
== END | disposition home or self-care (01) ==
LOC: LABSPEC 06-01 07:35
PROVIDERS: PCP Family Medicine; Visit Provider Family Medicine Hospice and Palliative Medicine
DX: Z11.59 Encounter for screening for other viral diseases (principal)
CPT/HCPCS: 87635; G2023; U0003

== ENCOUNTER → 2020-08-25 07:07 | Outpatient (CLI) | payer BC, SELFPAY ==
[2020-06-03 08:35] VITALS: BMI 64.9
[2020-08-25 10:06] LABS: Hemoglobin A1c 6.9 % (3.8-5.6)
[2020-08-25 10:20] LABS: ALB/GLOB Ratio 0.6 RATIO (0.9-2.4); AST(SGOT) 357 U/L (15-37); Alanine Aminotransfer ALT/SGPT 608 U/L (13-56); Alkaline Phosphatase 911 U/L (45-117); Anion Gap 5 (5-15); BUN 25 mg/dL (7-18); BUN/Creat Ratio 16.4 RATIO (10-20); Calcium,Total 9.5 mg/dL (8.5-10.1); Chloride 102 mmol/L (98-107); Creatinine, Serum 1.52 mg/dL (0.55-1.02); EST Glomerular Filtration Rate 39 mL/min (>60); Est Glom Filt Rate - Afr Amer 47 mL/min (>60); Globulin 4.7 g/dL (2.2-4.2); Glucose 162 mg/dL (74-106); Potassium 3.5 mmol/L (3.5-5.1); Protein, Total 7.7 g/dL (6.4-8.2); Sodium Level 138 mmol/L (136-145)
== END ==
PROVIDERS: PCP Family Medicine; Referring Provider Internal Medicine Endocrinology, Diabetes & Metabolism; Visit Provider Internal Medicine Endocrinology, Diabetes & Metabolism
DX: E11.9 Type 2 diabetes mellitus without complications (principal); L28.2 Other prurigo
CPT/HCPCS: 36415; 80053; 83036

== ENCOUNTER 2020-08-25 14:03 | Emergency (ER) | payer BC, SELFPAY ==
[2020-06-03 08:35] VITALS: BMI 64.9
[2020-08-25 14:04] VITALS: BP 142/111; PULSE 106; RESP 18; TEMP 36.6; O2SAT 100; BMI 65.8
--- NOTE | 2020-08-25 15:30 | CT_ITS ---
STUDY: CT ABDOMEN AND PELVIS WITHOUT CONTRAST REASON FOR EXAM: Female, 50 years old. Abnormal laboratories. Painless jaundice. History of diabetes mellitus with INSULIN pump, hypertension, asthma and IUD. RADIATION DOSAGE (If Supplied By Facility): CTDIvol = ( 26.7 ) mGy, DLP = ( 1812.77 ) mGycm TECHNIQUE: Transaxial images were obtained from the dome of the diaphragm to the symphysis pubis without oral contrast, and without intravenous contrast. Sagittal and coronal images were reconstructed. Individualized dose optimization techniques were used for this CT. COMPARISON: Abdominal ultrasound, 08/25/2020. FINDINGS: The visualized lung bases are unremarkable. The visualized portions of the heart are within normal limits. Normal liver. Gallbladder is well distended with multiple gallstones. There is no wall thickening or inflammatory change. There is no biliary ductal dilatation. Normal spleen. There is diffuse atrophy of the pancreas. Normal bilateral adrenal glands. Normal right kidney. Normal right ureter. There is a 2 mm nonobstructing calculus in the upper pole of an otherwise normal left kidney. Normal left ureter. Normal visualized stomach. Normal small intestine. Normal colon. The appendix is visualized and appears normal. Normal abdominal aorta. Normal inferior vena cava. Normal retroperitoneum. Normal urinary bladder. There is an IUD in satisfactory position within otherwise normal uterus. There is a 3.5 x 3.4 x 3.4 cm right ovarian cyst which lies just below the appendix. Normal left adnexa. There is no pelvic lymphadenopathy. No free air or free fluid is seen within the peritoneal cavity. Normal abdominal wall. There are diffuse degenerative changes of the visualized lumbar spine. CT/Abdomen/Pelvis W IV Cont ONLY IMPRESSION: 1. Gallstones without secondary evidence of acute cholecystitis. 2. Nonobstructing left renal calculus. 3. IUD in satisfactory position. 4. Right ovarian cyst. 5. Degenerative changes of the lumbar spine. Electronically Signed: Terrance Campbell DO at 17:05 EDT Tel [phone], Service support ,
--- NOTE | 2020-08-25 15:30 | US_ITS ---
STUDY: ABDOMINAL ULTRASOUND - RIGHT UPPER QUADRANT REASON FOR VISIT: Female, 50 years old. Abnormal laboratories. Itching.. TECHNIQUE: Ultrasound evaluation of the right upper quadrant was performed with real-time and static schmidt-scale imaging. TECHNICAL QUALITY: Examination limited due to a combination of factors including obesity and bowel gas. COMPARISON: None. FINDINGS: Liver: The liver measures 17.3 cm. There is normal echogenicity of the liver. The bile ducts are within normal limits. There is hepatic color flow. The direction of portal flow is hepatopetal. There is no demonstrated mass lesion. Gallbladder: Normal distended gallbladder. The gallbladder wall measures 5 mm. There is a negative sonographic Hogan''s sign. There is no pericholecystic fluid. There are multiple echogenic structures within the gallbladder, consistent with multiple gallstones. Common Bile Duct (C.B.D.): The common bile duct measures 5 mm. Pancreas: Normal size of the head without the pancreas. Body and tail are obscured. There is normal echogenicity of the pancreas. There is no demonstrated pancreatic mass or cyst. Right Kidney: Normal size of the right kidney. The right kidney measures 13.81 cm. Normal renal cortex. The right cortex measures 1. cm. There is no demonstrated renal mass or cyst. There is no right hydronephrosis. US/Abdomen Limited IMPRESSION: 1. Limited study due to bowel gas patient habitus. The pancreas is incompletely visualized. 2. Gallstones with mild gallbladder wall thickening. There is a negative Hogan''s sign. The findings are equivocal for acute cholecystitis. 3. Otherwise normal right upper quadrant abdominal ultrasound. Electronically Signed: Terrance Campbell DO at 16:55 EDT Tel [phone], Service support ,
--- NOTE | 2020-08-25 15:33 | ED.VIS.GEN ---
History of Present Illness Chief Complaint: Abn Labs Informant: Patient Onset: Days - 9 Narrative: Patient sent in here for abnormal labs by her marketing services specialist. History of diabetes on insulin pump, hypertension, hyperlipidemia, asthma and arthritis. Patient reports been having itching throughout starting 9 days ago. 2 days after noted some darker urine. Today reports some light dark color stools. Denies abdominal pain. Denies any recent vomiting or diarrhea. Denies any recent fevers or travels. Denies alcohol or illicit drug use history. No history of known hepatitis issues. No family history of known GI cancers. States she noticed her skin more yellow yesterday. She was started on new diabetic medicine in May called [facility] with weekly injections by her marketing services specialist. Review outpatient labs noted transaminitis with elevated total bilirubin at 6.4. Creatinine was 1.5. Prior similar symptoms: No Past Medical History - Allergies and Home Meds Allergies/Adverse Reactions: Allergies Penicillins Allergy (Verified 08/25/20 14:06) Hives Primary Care Physician: Nilda Edge MD [Primary Care Provider] - Past Medical History: - - Diabetes with insulin pump, hypertension, hypercholesterolemia, asthma, arthritis Smoking Status: Never smoker Review of Systems General: Denies: Chills, Fever, Sweats Eyes: Denies: Visual changes - bilaterally, Diplopia ENT: Denies: Rhinorrhea, Sore throat Cardiovascular: Denies: Chest pain, Palpitations Respiratory: Denies: Dyspnea, Cough, Dyspnea on exertion Gastrointestinal: Denies: Abdominal pain, Nausea, Vomiting, Diarrhea, Melena, Hematochezia Genitourinary: Denies: Dysuria, Hematuria, Frequency Musculoskeletal: Denies: Back pain, Extremity Pain Skin: Denies: Rash, Wounds Neurological: Denies: Headache, Weakness, Numbness Physical Exam Vital Signs/Narrative: Vital Signs Temp Pulse Resp BP Pulse Ox 08/25/20 14:04 97.8 F 106 H 18 142/111 H 100 Inital Vital Signs reviewed: Yes General: Well nourished, Well developed, No Acute Distress Head: Normocephalic, Atraumatic Eyes: Perrl, EOMI, Scleral icterus ENT: Moist mucous membranes, No rhinorrhea Neck: Supple, Nontender Cardiovascular: Regular rate, Regular rhythm, No murmurs Respiratory: No distress, CTA bilaterally, Chest nontender Abdomen: Soft, Nontender, Nondistended, Normal bowel sounds Back: Nontender, Normal Inspection Extremities: Nontender, No edema Skin: No rash, Jaundice Neurological: Alert, Oriented x3, Cranial nerves II-XII grossly intact, Normal Strength, Normal Sensation Psychological: Normal affect, Normal Mood Diagnostic/Tx/Re-eval Abnormal Lab Results 08/25/20 08/25/20 08/25/20 15:30 16:00 16:00 WBC 7.8 RBC 4.84 Hgb 13.6 Hct 44.5 MCV 91.9 MCH 28.1 MCHC 30.6 L RDW Std Deviation 53.2 H RDW Coeff of Jose 15.9 H Plt Count 225 MPV 10.9 Immature Gran % (Auto) 0.100 Neut % (Auto) 69.6 Lymph % (Auto) 16.8 L [place] % (Auto) 11.7 H Eos % (Auto) 1.5 Baso % (Auto) 0.3 Absolute Neuts (auto) 5.5 Absolute Lymphs (auto) 1.32 Nucleated RBC % 0 PT 11.8 INR 0.9 APTT 27.0 Direct Bilirubin 4.75 H Lipase 114 Clinical Impression(s) from Imaging Studies Abdomen Ultrasound 08/25/20 15:30 IMPRESSION: 1. Limited study due to bowel gas patient habitus. The pancreas is incompletely visualized. 2. Gallstones with mild gallbladder wall thickening. There is a negative Hogan''s sign. The findings are equivocal for acute cholecystitis. 3. Otherwise normal right upper quadrant abdominal ultrasound. Electronically Signed: Terrance Campbell DO at 16:55 EDT Tel [phone], Service support , Abdomen/Pelvis CT 08/25/20 15:30 IMPRESSION: 1. Gallstones without secondary evidence of acute cholecystitis. 2. Nonobstructing left renal calculus. 3. IUD in satisfactory position. 4. Right ovarian cyst. 5. Degenerative changes of the lumbar spine. Electronically Signed: Terrance Campbell DO at 17:05 EDT Tel [phone], Service support , - Medical Decision Making Patient presenting with painless jaundice. She denies any clear exposures no alcohol or drug use. She was started on a new medicine which was reviewed does not seem to cause any hepatitis findings. Work-up initiated added total bilirubin which is 4.5. Creatinine evaluate from her records was 1.5 which can be caused by her medications of Ozempic. She is given fluids. CT scan abdomen pelvis negative for any acute masses noted cholelithiasis. Ultrasound was also obtained noting cholelithiasis with no signs of cholecystitis. Common bile duct was 5 mm. Patient felt her normal self on evaluation. I discussed with her covering PCP Dr. Lin for Dr. Edge, patient will call the office tomorrow for close follow-up recheck labs and follow-up on her hepatitis panel is pending. Signs of discussed return. All questions were answered. ED Disposition - Plan for ED Patient: Disposition: Home or Assisted Living Diagnosis: Transaminitis, Hyperbilirubinemia, Acute renal insufficiency, Cholelithiasis Instructions: Total Bilirubin Blood, What Are Gallstones?, ED Insufficiency Renal Referrals: Nilda Edge MD [Primary Care Provider] - 1-2 Days if not improving Additional Instructions: Creatinine 1.5. Total bilirubin 4.5. Elevated liver enzymes. Hepatitis panel pending. Ultrasound with gallstones. CT scan abdomen pelvis with no masses. Discussed with Dr. Lin, follow-up in the office.
--- NOTE | 2020-08-25 15:43 | NURSING ---
Addendum entered by Patricia Woody 08/25/20 18:50: note written on the wrong patient Original Note: 318 JOPPERI FAILURE TOTHRIVE
[2020-08-25 16:24] LABS: Absolute Lymphocyte Count 1.32 X10^3/uL (0.83-4.51); Absolute Neutrophil Count 5.5 X10^3/uL (2.0-7.7); Basophil# 0.02 X10^3/uL; Basophil% 0.3 % (0-1); Eosinophil# 0.12 X10^3/uL; Eosinophils% 1.5 % (0-5); Hematocrit 44.5 % (37-47); Hemoglobin 13.6 g/dL (12.0-15.0); Lymphocyte # 1.32 X10^3/ul (4.0); Lymphocyte % 16.8 % (19-41); Mean Corp Hgb Conc 30.6 g/dL (32-36); Mean Corpuscular Hgb 28.1 pg (27.0-32.0); Mean Corpuscular Volume 91.9 fL (81-99); Mean Platelet Vol. 10.9 fl (6.2-12.0); Monocyte# 0.92 X10^3/uL; Monocyte% 11.7 % (0-10); NRBC Flagged by Analyzer 0 % (0-5); Neutrophil # 5.45 X10^3/uL (2.7-7.7); Neutrophil % 69.6 % (47-70); Platelet Count 225 K/mm3 (150-450); RBC Distribution Width CV 15.9 % (11.6-14.6); RBC Distribution Width SD 53.2 fl (35.1-43.9); Red Blood Count 4.84 M/mm3 (4.2-5.4); White Blood Count 7.8 K/mm3 (4.4-11.0)
[2020-08-25 16:24] LABS: Bilirubin, Direct 4.75 mg/dL (0.00-0.30); Lipase 114 U/L (73-393)
[2020-08-25 16:36] LABS: International Normalized Ratio 0.9; Prothrombin Time (Protime)PT. 11.8 SECONDS (11.7-14.9)
[2020-08-25 18:00] VITALS: RESP 16
[2020-08-25 19:37] VITALS: BP 126/81
[2020-08-27 05:07] LABS: HEPATITIS B SURFACE AG Negative (Negative); Hepatitis A IgM Antibody Negative (Negative); Hepatitis B Core AB IgM Negative (Negative)
[2020-08-27 06:16] LABS: Hep C Antibodies <0.1 s/co ratio (0.0-0.9)
== END 2020-08-25 19:41 | disposition home or self-care (01) ==
PROVIDERS: Emergency Provider Emergency Medicine; PCP Family Medicine
DX: R74.01 Elevation of levels of liver transaminase levels (principal); R17 Unspecified jaundice; K80.00 Calculus of gallbladder with acute cholecystitis without obstruction; N28.9 Disorder of kidney and ureter, unspecified; E11.9 Type 2 diabetes mellitus without complications; I10 Essential (primary) hypertension; E78.5 Hyperlipidemia, unspecified; L29.9 Pruritus, unspecified; J45.909 Unspecified asthma, uncomplicated; M19.90 Unspecified osteoarthritis, unspecified site; Z96.41 Presence of insulin pump (external) (internal); Z79.4 Long term (current) use of insulin; Z79.82 Long term (current) use of aspirin; Z79.899 Other long term (current) drug therapy
CPT/HCPCS: 74177; 76705; 80074; 82248; 83690; 85025; 85610; 85730; 99285; Q9967; A4216

== ENCOUNTER → 2020-08-26 15:16 | Outpatient (CLI) | payer BC, SELFPAY ==
[2020-08-25 14:04] VITALS: BMI 65.8
[2020-08-26 22:22] LABS: Internal QC Validated? YES +Cl - CLEAR BKGD; Monotest Negative (Negative)
[2020-08-31 08:32] LABS: Vitamin D,25 Hydroxy 24.3 ng/mL
== END ==
PROVIDERS: PCP Family Medicine; Referring Provider Family Medicine; Visit Provider Family Medicine
DX: R17 Unspecified jaundice (principal)
CPT/HCPCS: 36415; 82247; 82306; 86308

== ENCOUNTER → 2020-08-31 10:22 | Outpatient (CLI) | payer BC, SELFPAY ==
[2020-08-25 14:04] VITALS: BMI 65.8
[2020-08-31 12:09] LABS: Prothrombin Time (Protime)PT. 12.6 SECONDS (11.7-14.9)
[2020-08-31 12:10] LABS: Partial Thromboplast Time 28.3 Seconds (24.1-36.2)
[2020-08-31 12:12] LABS: Erythrocyte Sedimentation Rate 126 mm/hr (0-20)
[2020-08-31 13:02] LABS: AST(SGOT) 350 U/L (15-37); Alanine Aminotransfer ALT/SGPT 457 U/L (13-56); Alkaline Phosphatase 1119 U/L (45-117); Bilirubin, Direct 12.74 mg/dL (0.00-0.30); GGTP 1546 U/L (5-55); Globulin 3.9 g/dL (2.2-4.2); Protein, Total 6.9 g/dL (6.4-8.2)
[2020-09-01 15:27] LABS: ANTINUCLEAR ANTIBODIES DIRECT Negative (Negative); Anti-Mitochondrial AB <20.0 Units (0.0-20.0); Anti-Smooth Muscle ABS 6 Units (0-19); Ceruloplasmin 49.6 mg/dL (19.0-39.0)
== END ==
PROVIDERS: PCP Family Medicine; Referring Provider Internal Medicine Gastroenterology; Visit Provider Internal Medicine Gastroenterology
DX: R17 Unspecified jaundice (principal)
CPT/HCPCS: 36415; 80076; 82390; 82977; 83516; 85610; 85652; 85730; 86038

== ENCOUNTER → 2020-09-01 08:07 | Outpatient (CLI) | payer BC, SELFPAY ==
[2020-08-25 14:04] VITALS: BMI 65.8
--- NOTE | 2020-09-01 08:16 | MRI_ITS ---
STUDY: MR MRCP WITHOUT CONTRAST REASON FOR EXAM: Female, 50 years old. jaundice x 2 weeks, elevated liver enzymes and bilirubin x 2 wks TECHNIQUE: Standard MRCP technique was utilized. COMPARISON: CT 08/25/2020 FINDINGS: Gall Bladder: Filling defects within the gallbladder consistent with gallstones. Cystic duct: Normal with no demonstrated fixed filling defect. Intrahepatic ducts: Mild intrahepatic biliary ductal dilatation and the right lobe and moderate intrahepatic biliary ductal dilatation the left lobe with complete loss of signal at the confluence worrisome for stricture or Klatskin tumor (cholangiocarcinoma) is. Common hepatic duct: Complete signal loss of the proximal common hepatic duct at the bifurcation. Common bile duct: Normal with no demonstrated fixed filling defect, dilation or stricture. Pancreatic duct: Normal with no demonstrated fixed filling defect, dilation or stricture. MRI/MRI Abd WITH and W/O Contrast IMPRESSION: Suspect significant stricture or occlusion of the confluence of the right and left hepatic ducts to form the common hepatic duct with mild and moderate intrahepatic biliary ductal dilatation worrisome for biliary stricture or cholangiocarcinoma (Klatskin tumor). Correlation with ERCP is recommended. Electronically Signed: Denver Ferreira MD at 11:55 EDT Tel , Service support ,
[2020-09-01 09:50] VITALS: BP 120/72; PULSE 96; RESP 20
--- NOTE | 2020-09-01 10:48 | NURSING ---
THIS RN CALLED TO MRI TO EVALUATE PT FOR GITTERINESS. PT DENIED PAIN, SOB, RASH, DIZZINESS. STS BLOOD SUGAR NORMAL THIS AM. VS CHECKED AND PT CONVERSIVE THROUGHOUT. PT SAT UP AND GIVEN WATER AND NESS CRACKERS. PT STATED SHE FELT IMMEDIATELY BETTER ONCE UPRIGHT AND THAT SHE NEVER LAYS ON HER BACK AT HOME. PT ABLE TO STAND AND AMBULATE WITHOUT DIFFICULTY AND WITH STEADY GAIT.
== END ==
PROVIDERS: PCP Family Medicine; Referring Provider Internal Medicine Gastroenterology; Visit Provider Internal Medicine Gastroenterology
DX: R17 Unspecified jaundice (principal)
CPT/HCPCS: 74183; A9575; A4216

== ENCOUNTER → 2020-09-07 12:08 | Outpatient (CLI) | payer BC, SELFPAY ==
[2020-08-25 14:04] VITALS: BMI 65.8
[2020-09-07 16:01] LABS: AST(SGOT) 242 U/L (15-37); Alanine Aminotransfer ALT/SGPT 309 U/L (13-56); Albumin, Serum 2.2 g/dL (3.2-5.0); Alkaline Phosphatase 1013 U/L (45-117); Anion Gap 9 (5-15); BUN 14 mg/dL (7-18); BUN/Creat Ratio 13.3 RATIO (10-20); Bilirubin, Direct 10.57 mg/dL (0.00-0.30); Calcium,Total 7.5 mg/dL (8.5-10.1); Chloride 107 mmol/L (98-107); Creatinine, Serum 1.05 mg/dL (0.55-1.02); EST Glomerular Filtration Rate 59 mL/min (>60); Est Glom Filt Rate - Afr Amer 72 mL/min (>60); Globulin 4.3 g/dL (2.2-4.2); Glucose 134 mg/dL (74-106); Lipase 274 U/L (73-393); Potassium 3.5 mmol/L (3.5-5.1); Protein, Total 6.5 g/dL (6.4-8.2); Sodium Level 138 mmol/L (136-145)
== END ==
PROVIDERS: PCP Family Medicine; Referring Provider Family Medicine; Visit Provider Family Medicine
DX: N17.9 Acute kidney failure, unspecified (principal); R10.9 Unspecified abdominal pain; R17 Unspecified jaundice
CPT/HCPCS: 36415; 80048; 80076; 83690

== ENCOUNTER → 2020-09-19 16:55 | Outpatient (CLI) | payer BC, SELFPAY ==
[2020-08-25 14:04] VITALS: BMI 65.8
[2020-09-19 18:39] LABS: ALB/GLOB Ratio 0.6 RATIO (0.9-2.4); AST(SGOT) 50 U/L (15-37); Alanine Aminotransfer ALT/SGPT 85 U/L (13-56); Albumin, Serum 2.9 g/dL (3.2-5.0); Alkaline Phosphatase 499 U/L (45-117); Anion Gap 10 (5-15); BUN 7 mg/dL (7-18); BUN/Creat Ratio 8.1 RATIO (10-20); Calcium,Total 9.1 mg/dL (8.5-10.1); Chloride 100 mmol/L (98-107); Creatinine, Serum 0.86 mg/dL (0.55-1.02); EST Glomerular Filtration Rate 74 mL/min (>60); Est Glom Filt Rate - Afr Amer 90 mL/min (>60); Globulin 4.7 g/dL (2.2-4.2); Glucose 196 mg/dL (74-106); Potassium 3.6 mmol/L (3.5-5.1); Protein, Total 7.6 g/dL (6.4-8.2); Sodium Level 138 mmol/L (136-145)
[2020-09-22 08:46] LABS: Carbohydrate Ag 19-9 2261 362 U/mL (0-35)
[2020-09-22 15:07] LABS: Carcinoembryonic Antigen 5.3 ng/mL (0.0-4.7)
== END ==
PROVIDERS: PCP Family Medicine; Referring Provider Internal Medicine Gastroenterology; Visit Provider Internal Medicine Gastroenterology
DX: R17 Unspecified jaundice (principal); K83.1 Obstruction of bile duct
CPT/HCPCS: 36415; 80053; 82378; 86301

== ENCOUNTER → 2020-10-06 11:34 | Outpatient (CLI) | payer BC, SELFPAY ==
[2019-09-11 08:02] VITALS: BMI 64.9
[2020-10-06 11:12] VITALS: BMI 62.0
--- NOTE | 2020-10-06 11:36 | BI_ITS ---
MAMMOGRAPHY - BILATERAL SCREENING REASON FOR EXAM: Female, 50 years old. Routine annual screening examination. PERTINENT HISTORY: Non-contributory. TECHNIQUE: Digital bilateral breast jailene (3D mammographic acquisition) in the CC and MLO projections. 2-D mediolateral oblique (MLO) and craniocaudad (CC) views of both breasts were obtained. CAD: Full Field Digital Mammography with Computer Added Detection was performed. COMPARISON: Comparison is made with prior study dated 09/11/2019 and 08/11/2018. FINDINGS: Breast Composition: The breasts are almost entirely fatty. There are no dominant masses or suspicious calcifications. Stable small benign appearing bilateral axillary lymph nodes. No other significant abnormalities are identified. There has been no significant change since the prior study. BI/SCREEN MAMM (CAD) W/JAILENE BILAT IMPRESSION: Stable bilateral screening mammogram. Yearly follow-up mammogram recommended. (A) ASSESSMENT CATEGORY: BIRADS Category 2: Benign. A letter regarding these results will be sent to the patient by the facility within 30 days. Approximately 10% of breast cancers are not detected by mammography. A normal mammogram should not delay biopsy of a clinically suspicious abnormality. [id number] Electronically Signed: Rocky Yanez, at 13:12 EST , Service support ,
[2020-10-11 08:59] LABS: HPV APTIMA, High Risk Negative (Negative)
== END ==
PROVIDERS: PCP Family Medicine; Referring Provider Nurse Practitioner Women's Health; Visit Provider Nurse Practitioner Women's Health
DX: Z12.31 Encounter for screening mammogram for malignant neoplasm of breast (principal); Z12.4 Encounter for screening for malignant neoplasm of cervix
CPT/HCPCS: 77063; 77067; 87624; 88175; G0145

== ENCOUNTER 2020-10-23 15:21 | Emergency (ER) | payer BC, SELFPAY ==
[2020-10-06 11:12] VITALS: BMI 62.0
[2020-10-23 15:21] VITALS: BP 138/104; PULSE 122; RESP 24; TEMP 36.3; O2SAT 99; BMI 63.8
--- NOTE | 2020-10-23 15:42 | CT_ITS ---
STUDY: CT ABDOMEN AND PELVIS WITH CONTRAST REASON FOR EXAM: Female, 50 years old. Abdominal pain. Status post liver resection. RADIATION DOSAGE (If Supplied By Facility): CTDIvol = ( 18.74 ) mGy, DLP = ( 1344.68 ) mGycm TECHNIQUE: Transaxial images were obtained from the dome of the diaphragm to the symphysis pubis without oral contrast. 100 ml of ISOVUE-300 contrast was administered. Sagittal and coronal images were reconstructed. Individualized dose optimization techniques were used for this CT. COMPARISON: CT dated 08/25/20. MRI dated 09/01/20. FINDINGS: The visualized lung bases are clear. The visualized portions of the heart and pericardium are within normal limits. The patient is status post cholecystectomy. There are postsurgical changes noted from resection of the left lobe liver with a choledochoduodenal anastomosis present. There is perihepatic free fluid noted. There is a partially loculated fluid collection along the anterior right margin of the liver extending to the midline of the anterior abdomen. This measures approximately 18.5 x 6.7 x 3.3 cm in maximal dimensions and likely represents a developing abscess. There is a drainage catheter noted along the right lobe of the liver inferiorly. The drainage catheter is not within this fluid collection. There is a small amount of free fluid adjacent to the spleen and in the pelvis. There is no free air. The spleen is normal in size. The pancreas is within normal limits. The adrenal glands are within normal limits. There are no renal or ureteral stones. There is no hydronephrosis. There are no focal renal lesions. Normal visualized stomach. There is no bowel obstruction or inflammation. The appendix is visualized and appears normal. The aorta is normal in caliber. There is an intrauterine device noted. There is a left adnexal cyst present. There are no destructive osseous lesions. CT/Abdomen/Pelvis W IV Cont ONLY IMPRESSION: Post surgical changes noted from resection of the left lobe liver with a choledochoduodenal anastomosis present. Perihepatic free fluid noted. Partially loculated 18.5 x 6.7 x 3.3 cm fluid collection along the anterior right margin of the liver extending to the midline of the anterior abdomen. This likely represents a developing abscess. The drainage catheter tip is not within this collection. Electronically Signed: Morris Quevedo, at 17:46 EST Tel , Service support ,
--- NOTE | 2020-10-23 15:45 | ED.DCSUM_ITS ---
- ER Visit Summary Date of Service: 10/23/20 Chief Complaint: Abdominal pain History of Present Illness: The patient is a 50 F who had a liver resection 8 days ago for a biliary stricture by Dr. Oliveira at [facility]. She has an appointment for follow-up in 4 days. She reports that she has pain that has worsened over the past 2 days. It is a continuous sharp pain that waxes and wanes. Is 10 of 10 at worst and 5-10 currently. Is worsened by movement. She taken oxycodone and tramadol without relief. She denies any nausea or vomiting. However she does report a very poor appetite. Patient has had no diarrhea. Her last bowel movement was today. She is passing gas. She reports her stool was not leif colored. She denies any dysuria or frequency. Patient reports that previously her ANUJ drain had been draining 100 to 150 cc of tea colored fluid a day. Overnight she drained 480 cc of a dark back brown fluid. She denies any fever, chills, chest pain, or shortness of breath. She does report that she has bilateral leg swelling that began the day of her surgery and is gradually increased. It is worse over the past 2 days. Physical Examination: Vitals: Stable. Afebrile. General: Well-nourished and well-developed. Head: Normocephalic atraumatic. Neck: Supple, no lymphadenopathy. No JVD. Nontender. Cardiovascular: Tachycardic regular rhythm. No murmurs. Respiratory: No respiratory distress. Clear to auscultation bilaterally. Abdominal: Large L-shaped incision is clean, dry, and intact. The nida are in place. There is minimal erythema. There is no induration or fluctuance. The JPs in place with tea colored drainage of approximately 50 cc. Soft, mild diffuse tenderness to palpation, nondistended, normal bowel sounds. No guarding, rebound, or peritoneal signs. Back: Nontender. Extremities: Nontender, no edema. Skin: Normal color, no rash. Neurologic: Alert and oriented ?3. Cranial nerves II through XII are intact. Normal strength and sensation. Psych: Normal affect. Test Results: CBC shows a white count of 11.2 with 84 segs neutrophils and 7 lymphocytes. H&H is 11.6 and 36.4. Chem-7 shows a glucose 171. LFTs show a direct bili 0.66, alk phos of 244, ALT is 71. Lipase is 39. Clinical Impression(s) from Imaging Studies Abdomen/Pelvis CT 10/23/20 15:42 IMPRESSION: Post surgical changes noted from resection of the left lobe liver with a choledochoduodenal anastomosis present. Perihepatic free fluid noted. Partially loculated 18.5 x 6.7 x 3.3 cm fluid collection along the anterior right margin of the liver extending to the midline of the anterior abdomen. This likely represents a developing abscess. The drainage catheter tip is not within this collection. Electronically Signed: Morris Quevedo, at 17:46 EST Tel , Service support , Emergency Department Course and Treatment: Patient had an IV placed. She was given morphine and Zofran IV. She is resting more comfortably. Treatment Plan: The patient was discussed with Dr. Dupont, the liver transplant fellow on-call for Dr. Oliveira. He reviewed the CT and would like the patient transferred there for further evaluation and treatment. He suspects that she is going to require percutaneous drainage. He does not want her given antibiotics. Disposition: Transferred in stable condition. Impression: 1. 8 days status post liver resection. 2. Intra-abdominal fluid collection. This note was generated with FlowJob dictation software. It may contain incorrect words, spelling, and punctuation that were not noted in review of the chart prior to signing ED Disposition - Plan for ED Patient: Referrals: Nilda Edge MD [Primary Care Provider] -
[2020-10-23] MEDS: Morphine 4 MG/ML Syringe IV ×2 (16:07→22:38)
[2020-10-23] MEDS: 0.9% Normal Saline 1,000 ML 125 ML IV (16:07)
[2020-10-23] MEDS: Ondansetron 4 MG/2 ML Vial IV ×2 (16:07→22:38)
[2020-10-23 16:34] LABS: Absolute Lymphocyte Count 0.78 X10^3/uL (0.83-4.51); Absolute Neutrophil Count 9.4 X10^3/uL (2.0-7.7); Basophil# 0.04 X10^3/uL; Basophil% 0.4 % (0-1); Eosinophil# 0.03 X10^3/uL; Eosinophils% 0.3 % (0-5); Hematocrit 36.4 % (37-47); Hemoglobin 11.6 g/dL (12.0-15.0); Lymphocyte # 0.78 X10^3/ul (4.0); Mean Corp Hgb Conc 31.9 g/dL (32-36); Mean Corpuscular Hgb 30.4 pg (27.0-32.0); Mean Corpuscular Volume 95.3 fL (81-99); Monocyte# 0.84 X10^3/uL; Monocyte% 7.5 % (0-10); NRBC Flagged by Analyzer 0 % (0-5); Neutrophil # 9.42 X10^3/uL (2.7-7.7); Neutrophil % 84.1 % (47-70); Platelet Count 230 K/mm3 (150-450); RBC Distribution Width CV 13.3 % (11.6-14.6); RBC Distribution Width SD 47.1 fl (35.1-43.9); Red Blood Count 3.82 M/mm3 (4.2-5.4); White Blood Count 11.2 K/mm3 (4.4-11.0)
[2020-10-23 16:50] LABS: AST(SGOT) 19 U/L (15-37); Alanine Aminotransfer ALT/SGPT 71 U/L (13-56); Alkaline Phosphatase 244 U/L (45-117); Anion Gap 9 (5-15); BUN 8 mg/dL (7-18); BUN/Creat Ratio 8.3 RATIO (10-20); Bilirubin, Direct 0.66 mg/dL (0.00-0.30); Chloride 106 mmol/L (98-107); Creatinine, Serum 0.96 mg/dL (0.55-1.02); EST Glomerular Filtration Rate 66 mL/min (>60); Est Glom Filt Rate - Afr Amer 79 mL/min (>60); Estimated Creatinine Clearance 56.68 ml/min; Globulin 4.2 g/dL (2.2-4.2); Glucose 171 mg/dL (74-106); Lipase 39 U/L (73-393); Potassium 3.7 mmol/L (3.5-5.1); Protein, Total 6.2 g/dL (6.4-8.2); Sodium Level 143 mmol/L (136-145)
[2020-10-23 20:13] VITALS: BP 134/69; PULSE 109; RESP 16; O2SAT 97
[2020-10-23 22:54] VITALS: BP 119/74; PULSE 91; RESP 16; O2SAT 98
--- NOTE | 2020-10-24 00:39 | ED.RN ---
PHYSICIANS CALLED AND ETA 1 FOR TRANSPORT
--- NOTE | 2020-10-24 00:40 | ED.RN ---
PATIENT HAS BEEN ACCEPTED TO [facility] MAIN H 71 BED 2 [phone]
[2020-10-24 01:23] VITALS: BP 170/84; PULSE 108; RESP 16; TEMP 37; O2SAT 95
[2020-10-24 01:24] VITALS: BP 170/84; PULSE 108; RESP 16; O2SAT 95
[2020-10-24] MEDS: HYDROmorphone 0.5 MG/0.5 ML SYRINGE IV (02:00)
== END 2020-10-24 02:05 | disposition short-term general hospital (02) ==
LOC: ED 16:08
PROVIDERS: Emergency Provider Emergency Medicine; PCP Family Medicine
DX: R18.8 Other ascites (principal); E10.9 Type 1 diabetes mellitus without complications; J44.9 Chronic obstructive pulmonary disease, unspecified; Z79.4 Long term (current) use of insulin
CPT/HCPCS: 74177; 80048; 80076; 83690; 85025; 87426; 87635; 96374; 96375; 96376; 99285; Q9967; A4216; J2405; U0002

== ENCOUNTER → 2020-12-20 13:57 | Outpatient (CLI) | payer BC, SELFPAY ==
[2020-12-20 14:33] LABS: Erythrocyte Sedimentation Rate 116 mm/hr (0-30)
[2020-12-20 14:36] LABS: Absolute Lymphocyte Count 1.33 X10^3/uL (0.83-4.51); Absolute Neutrophil Count 7.7 X10^3/uL (2.0-7.7); Basophil# 0.03 X10^3/uL; Basophil% 0.3 % (0-1); Eosinophil# 0.19 X10^3/uL; Eosinophils% 1.9 % (0-5); Hemoglobin 11.1 g/dL (12.0-15.0); Lymphocyte # 1.33 X10^3/ul (4.0); Lymphocyte % 13.6 % (19-41); Mean Corp Hgb Conc 29.2 g/dL (32-36); Mean Corpuscular Hgb 24.3 pg (27.0-32.0); Mean Corpuscular Volume 83.2 fL (81-99); Mean Platelet Vol. 10.2 fl (6.2-12.0); Monocyte# 0.52 X10^3/uL; Monocyte% 5.3 % (0-10); NRBC Flagged by Analyzer 0 % (0-5); Neutrophil # 7.72 X10^3/uL (2.7-7.7); Neutrophil % 78.7 % (47-70); Platelet Count 229 K/mm3 (150-450); RBC Distribution Width CV 16.4 % (11.6-14.6); RBC Distribution Width SD 50.3 fl (35.1-43.9); Red Blood Count 4.57 M/mm3 (4.2-5.4); White Blood Count 9.8 K/mm3 (4.4-11.0)
[2020-12-20 15:00] LABS: AST(SGOT) 20 U/L (15-37); Alanine Aminotransfer ALT/SGPT 19 U/L (13-56); Albumin, Serum 2.8 g/dL (3.2-5.0); Alkaline Phosphatase 114 U/L (45-117); Creatinine, Serum 0.98 mg/dL (0.55-1.02); EST Glomerular Filtration Rate 64 mL/min (>60); Est Glom Filt Rate - Afr Amer 78 mL/min (>60); Globulin 4.5 g/dL (2.2-4.2); Protein, Total 7.3 g/dL (6.4-8.2)
== END ==
PROVIDERS: PCP Family Medicine
DX: Z45.2 Encounter for adjustment and management of vascular access device (principal); K65.1 Peritoneal abscess
CPT/HCPCS: 36592; 80076; 82565; 85025; 85652; 86140; A4216

== ENCOUNTER 2020-12-26 12:04 | Outpatient (RCR) | payer BC, SELFPAY ==
[2020-12-26 12:55] LABS: Erythrocyte Sedimentation Rate 94 mm/hr (0-30)
[2020-12-26 12:56] LABS: Absolute Lymphocyte Count 1.62 X10^3/uL (0.83-4.51); Absolute Neutrophil Count 6.2 X10^3/uL (2.0-7.7); Basophil# 0.04 X10^3/uL; Basophil% 0.4 % (0-1); Eosinophil# 0.48 X10^3/uL; Eosinophils% 5.3 % (0-5); Hematocrit 34.6 % (37-47); Hemoglobin 10.6 g/dL (12.0-15.0); Lymphocyte # 1.62 X10^3/ul (4.0); Lymphocyte % 17.8 % (19-41); Mean Corp Hgb Conc 30.6 g/dL (32-36); Mean Corpuscular Hgb 25.7 pg (27.0-32.0); Mean Corpuscular Volume 83.8 fL (81-99); Monocyte# 0.69 X10^3/uL; Monocyte% 7.6 % (0-10); NRBC Flagged by Analyzer 0 % (0-5); Neutrophil # 6.22 X10^3/uL (2.7-7.7); Neutrophil % 68.6 % (47-70); Platelet Count 225 K/mm3 (150-450); RBC Distribution Width CV 16.5 % (11.6-14.6); RBC Distribution Width SD 50.3 fl (35.1-43.9); Red Blood Count 4.13 M/mm3 (4.2-5.4); White Blood Count 9.1 K/mm3 (4.4-11.0)
[2020-12-26 13:03] LABS: AST(SGOT) 23 U/L (15-37); Alanine Aminotransfer ALT/SGPT 19 U/L (13-56); Albumin, Serum 2.7 g/dL (3.2-5.0); Alkaline Phosphatase 105 U/L (45-117); Bilirubin, Direct 0.08 mg/dL (0.00-0.30); Creatinine, Serum 0.72 mg/dL (0.55-1.02); EST Glomerular Filtration Rate 92 mL/min (>60); Est Glom Filt Rate - Afr Amer 111 mL/min (>60); Globulin 4.3 g/dL (2.2-4.2)
== END 2020-12-26 18:00 | disposition home or self-care (01) ==
LOC: HHLAB 12:04
PROVIDERS: PCP Family Medicine; Referring Provider Internal Medicine Infectious Disease; Visit Provider Internal Medicine Infectious Disease
DX: E11.9 Type 2 diabetes mellitus without complications (principal); I10 Essential (primary) hypertension
CPT/HCPCS: 80076; 82565; 85025; 85652; 86140

== ENCOUNTER → 2021-02-09 14:03 | Outpatient (CLI) | payer BC, SELFPAY ==
[2020-10-06 11:12] VITALS: BMI 62.0
--- NOTE | 2021-02-09 14:05 | US_ITS ---
STUDY: ULTRASOUND OF THE FEMALE PELVIS - COMPLETE REASON FOR EXAM: Female, 51 years old. Cyst LMP: Unknown. TECHNIQUE: Transvaginal TECHNICAL QUALITY: Limited. Examination limited due to obesity. COMPARISON: None. FINDINGS: The uterus is anteverted and is in a midline position. The uterus measures 8.1 cm x 5.5 cm x 3.4 cm. There is a Nabothian cyst of the cervix. The endometrium measures 8 mm in thickness, and is hyperechoic. There is no demonstrated endometrial mass. There is no demonstrated myometrial mass. I.U.D. - The patient does have an I.U.D. The right ovary is visualized. The right ovary measures 2.4 cm x 1.7 cm x 1.7 cm. There is no right ovarian cyst or ovarian mass. There is no visualized right adnexal mass or complex lesion. There is normal arterial and normal venous vascularity. The left ovary is non-visualized. There is no fluid in the cul-de-sac. US/Transvaginal Non- IMPRESSION: Normal female pelvis. Electronically Signed: Rocky Yanez MD at 10:59 EDT , Service support ,
== END ==
PROVIDERS: PCP Family Medicine; Referring Provider Nurse Practitioner Women's Health; Visit Provider Nurse Practitioner Women's Health
DX: N83.201 Unspecified ovarian cyst, right side (principal)
CPT/HCPCS: 76830

== ENCOUNTER → 2021-07-19 13:55 | Outpatient (CLI) | payer BC, SELFPAY ==
[2021-04-20 08:29] VITALS: BMI 63.8
--- NOTE | 2021-07-19 13:55 | US_ITS ---
STUDY: ULTRASOUND OF THE FEMALE PELVIS - COMPLETE REASON FOR EXAM: Female, 51 years old. Pelvic pain and fullness TECHNIQUE: Transabdominal and Transvaginal TECHNICAL QUALITY: Adequate. COMPARISON: None. FINDINGS: The uterus is anteverted and is in a midline position. The uterus measures 9.1 x 5 x 6 cm. Normal uterine cervix. The endometrium measures 5.5 mm in thickness, and is hyperechoic. There is no demonstrated endometrial mass. There is no demonstrated myometrial mass. I.U.D. - The patient does not have an I.U.D. The right ovary is not visualized. The left ovary is visualized. The left ovary measures 6.6 x 9.2 x 5.4 cm. There is a septated 5.0 x 3.5 x 4.6 cm cyst There is decreased arterial and decreased venous vascularity. There is no fluid in the cul-de-sac. The pre void volume of the bladder was 427 ml. The post void volume of the bladder was less than 10 ml. US/Pelvic (Non ) IMPRESSION: Sonographically normal uterus Septated left ovarian cyst, with decreased vascularity to the left ovary. Short-term follow-up recommended to show resolution Electronically Signed: Jameson Zuniga MD at 16:59 EDT , Service support ,
--- NOTE | 2021-07-19 13:55 | US_ITS ---
STUDY: ULTRASOUND OF THE FEMALE PELVIS - COMPLETE REASON FOR EXAM: Female, 51 years old. Pelvic pain and fullness TECHNIQUE: Transabdominal and Transvaginal TECHNICAL QUALITY: Adequate. COMPARISON: None. FINDINGS: The uterus is anteverted and is in a midline position. The uterus measures 9.1 x 5 x 6 cm. Normal uterine cervix. The endometrium measures 5.5 mm in thickness, and is hyperechoic. There is no demonstrated endometrial mass. There is no demonstrated myometrial mass. I.U.D. - The patient does not have an I.U.D. The right ovary is not visualized. The left ovary is visualized. The left ovary measures 6.6 x 9.2 x 5.4 cm. There is a septated 5.0 x 3.5 x 4.6 cm cyst There is decreased arterial and decreased venous vascularity. There is no fluid in the cul-de-sac. The pre void volume of the bladder was 427 ml. The post void volume of the bladder was less than 10 ml. US/Transvaginal Non- IMPRESSION: Sonographically normal uterus Septated left ovarian cyst, with decreased vascularity to the left ovary. Short-term follow-up recommended to show resolution Electronically Signed: Jameson Zuniga MD at 16:59 EDT , Service support ,
== END ==
PROVIDERS: PCP Family Medicine; Referring Provider Nurse Practitioner Women's Health; Visit Provider Nurse Practitioner Women's Health
DX: R10.2 Pelvic and perineal pain (principal)
CPT/HCPCS: 76830; 76856; 93976

== ENCOUNTER 2021-07-21 09:24 | Day surgery (SDC) | payer BC, SELFPAY ==
[2021-07-21] VITALS (10 sets, daily range): BP systolic 136–164; BP diastolic 49–81; PULSE 84–107; RESP 16–20; TEMP 36.3–36.8; O2SAT 92–100; BMI 61.0
--- NOTE | 2021-07-21 | IMM_PTH ---
PATIENT: NASH GERARDO [place] [facility] [place] U[place][id number] AGE/SX: 51/F ROOM: RE07/21/[address]: Dr. Aishwarya Maxwell MD : 1970 BED: DIS: 07/21/2021 SPEC #: [id number] RECD: 07/25/21 10:06 STATUS: CHEKO REQ #: [id number] MESFIN: 07/21/21 00:[address]: Aishwarya Maxwell DEPT: IMMUNOHISTOCHEMISTRY RECD BY: Lyla Donald ENTERED: 07/25/21 10:13 SP TYPE: IMMUNO OTHR DR: Dr. Nilda Edge MD Tissues: Left ovary Procedures: CA-125 (add) CEA (add) CK20 (add) CK7 (add) CK8 (add) SORENSEN-2 (add) KI-67 (add) P16 (add) P53 (add) TX (add) Pankeratin (add) CDX2 (add) ER (initial) PHYSICIAN & [address] [address] SPECIMEN INFORMATION: Tissue Source: Left ovarian cyst fluid Clinical Info: IUD removal, ovarian torsion Specimen Number: [id number] CPT code: 41248, 61581 x12 METHODOLOGY: Deparaffinized sections of prefer/formalin-fixed tissue or PAP/DQ stained slides are incubated with monoclonal/polyclonal antibodies/oligonucleotide probes. Localization is made via biotin free immunoperoxidase method. Appropriate controls are performed and reacted as expected. Results on target cell population are indicated in the following table: RESULTS: ANTIBODY / CLONE RESULT ER (6F11) negative TX (1E2) negative AE1-3 (AE1/AE3/PCK26) positive CK7 (OV-TL12/30) positive CK8 (13geqlN41) positive CK20 (KS20.8) negative SORENSEN-2 (SP21) positive CDX2 ([id number]) positive CEA (11-7/TF-3HB-1) positive CA125 (OC125) negative P16 (E6H4) negative P53 (DO-7) positive, rare cells Ki-67 (30-9) positive, moderate These tests were developed and their performance characteristics determined by [facility]. They may not have been cleared or approved by the U.S. Food and Drug Administration. The FDA has determined that such clearance or approval is not necessary. The above immunohistochemical/dualISH markers are ordered and reviewed by the Pathologist. INTERPRETATION: Left ovarian cyst fluid: Malignant cells present, consistent with adenocarcinoma. See comment. 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 As per EMR, the patient has history of extrahepatic cholangiocarcinoma. Case has been reviewed in consultation with Dr. Mayen who concurs with the above diagnosis. IDC:[email or web address]
--- NOTE | 2021-07-21 | IMM_PTH ---
PATIENT: NASH GERARDO LOC: [facility] [place] U#:[id number] AGE/SX: 51/F ROOM: RE07/21/[address]: Dr. Aishwarya Maxwell MD : 1970 BED: DIS: 07/21/2021 SPEC #: [id number] RECD: 07/25/21 10:13 STATUS: CHEKO REQ #: [id number] MESFIN: 07/21/21 00:[address]: Aishwarya Maxwell DEPT: IMMUNOHISTOCHEMISTRY RECD BY: Lyla Donald ENTERED: 07/25/21 10:16 SP TYPE: IMMUNO OTHR DR: Dr. Nilda Edge MD Tissues: Left ovary Procedures: CA-125 (add) CEA (add) CK20 (add) CK7 (add) CK8 (add) SORENSEN-2 (add) KI-67 (add) P16 (add) P53 (add) PA (add) Pankeratin (add) CDX2 (add) ER (initial) PHYSICIAN & [address] [address] SPECIMEN INFORMATION: Tissue Source: Left ovary and fallopian tube Clinical Info: IUD removal, ovarian torsion Specimen Number: [id number] #[id number] CPT code: 38808, 16153 x16 METHODOLOGY: Deparaffinized sections of prefer/formalin-fixed tissue or PAP/DQ stained slides are incubated with monoclonal/polyclonal antibodies/oligonucleotide probes. Localization is made via biotin free immunoperoxidase method. Appropriate controls are performed and reacted as expected. Results on target cell population are indicated in the following table: RESULTS: ANTIBODY / CLONE RESULT Block 5 ER (6F11) negative PA (1E2) negative AE1-3 (AE1/AE3/PCK26) positive CK7 (OV-TL12/30) positive CK8 (08nmmvR94) positive CK20 (KS20.8) negative SORENSEN-2 (SP21) positive CDX2 ([id number]) positive CEA (11-7/TF-3HB-1) negative CA125 (OC125) negative P16 (E6H4) negative P53 (DO-7) positive, rare cells Ki-67 (30-9) positive, moderate These tests were developed and their performance characteristics determined by [facility]. They may not have been cleared or approved by the U.S. Food and Drug Administration. The FDA has determined that such clearance or approval is not necessary. The above immunohistochemical/dualISH markers are ordered and reviewed by the Pathologist. INTERPRETATION: Left ovary and fallopian tube, salpingo-oophorectomy: Metastatic adenocarcinoma. See comment. 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 Case has been reviewed in consultation with Dr. Liu who concurs with the above diagnosis. IDC:AM ADDENDUM ADDENDUM ADDENDUM ADDENDUM ADDENDUM ADDENDUM ADDENDUM ADDENDUM ADDENDUM ADDENDUM ADDENDUM ADDENDUM 08/22/2021 10:40 ADDENDUM 08/22/2021 10:40 ADDENDUM 08/22/2021 10:40 ADDENDUM 08/22/2021 10:40 ADDENDUM 08/22/2021 10:40 ANTIBODY / CLONE RESULT Block 5 MLH-1 (M1) positive MSH2 (25D12) positive MSH6 (44) positive PMS2 ([id number]) positive Result of Microsatellite Instability Study: Negative (no loss of mismatch protein; no microsatellite instability detected). AM:seven 08/22/2021
--- NOTE | 2021-07-21 | FALS_PTH ---
PATIENT: NASH GERARDO LOC: [facility] [place] U#:[id number] AGE/SX: 51/F ROOM: RE07/21/[address]: Dr. Aishwarya Maxwell MD : 1970 BED: DIS: 07/21/2021 SPEC #: [id number] RECD: 07/21/21 13:52 STATUS: CHEKO PÉREZ #: [id number] MESFIN: 07/21/21 00:[address]: Aishwarya Maxwell DEPT: SURGICAL PATHOLOGY RECD BY: Robin Clark ENTERED: 07/21/21 13:53 SP TYPE: FALL TUBES OTHR DR: Dr. Nilda Edge MD Tissues: Fallopian tube Procedures: Special Stain Group II Mucicarmine Stain (control) Surgery Specimen Level V HEADER OPERATION: Laparoscopic left salpingo-oophorectomy, IUD removal PRE-OP DIAGNOSIS: IUD removal, ovarian torsion TISSUE SUBMITTED: Left ovary and fallopian tube MICROSCOPIC DIAGNOSIS Left ovary and fallopian tube, salpingo-oophorectomy: Ovary with metastatic adenocarcinoma. Fallopian tube - no pathologic diagnosis. See comment. AM:am 08/03/2021 COMMENT Immunohistochemistry ([id number]) supports the diagnosis of metastatic carcinoma consistent with pancreatobiliary origin. Mucin stain with matched control is also used in the evaluation of the specimen and shows positivity in tumor epithelium. As per EMR, the patient has history of moderately differentiated extrahepatic cholangiocarcinoma ([facility] specimen [id number]). This case is seen in consultation with Dr. Wells of [employer] who concurs with the diagnosis. The complete consultative report is viewable in EMR. Please see corresponding ovarian cytology ([id number]). Case has been reviewed in consultation with Dr. Mayen who concurs with the above diagnosis. IDC:[email or web address] MICROSCOPIC DESCRIPTION Slides are reviewed. GROSS DESCRIPTION Received in fixative is one container labeled with the patient's name and designated left ovary and fallopian tube. The specimen consists of a fallopian tube and ovary. The fallopian tube measures 7 cm in length and 0.5 cm in diameter. The fimbrial end is identified. No tubo-ovarian adhesions are noted. The soft to cystic ovary measures 6 x 4.5 x 1.5 cm and weighs 22.1 gm. No papillations are identified. The outer surface is inked black. Sections reveal multiple cysts filled with clear to hemorrhagic fluid. The largest cyst measures 3.5 cm in greatest dimension. Multiple solid nodules are also noted on the surface of the ovary, largest measuring 1.5 cm in greatest dimension. [employer] sections are submitted in five cassettes as follows: 1 - fallopian tube, 2-5 - ovary (cassette 2 contains the largest solid nodule on the surface of the ovary. / JAYSHREE:seven 07/21/21 More sections are submitted in six more cassettes, 6-11. Almost 90% of the specimen is submitted. / JAYSHREE:seven 07/24/21 TC:0 CPT: 41694, 24341
--- NOTE | 2021-07-21 | FLU_PTH ---
PATIENT: NASH GERARDO LOC: [facility] [place] U#:[id number] AGE/SX: 51/F ROOM: RE07/21/[address]: Dr. Aishwarya Maxwell MD : 1970 BED: DIS: 07/21/2021 SPEC #: [id number] RECD: 07/21/21 13:53 STATUS: CHEKO REMari #: [id number] MESFIN: 07/21/21 00:[address]: Aishwarya Maxwell DEPT: CYTOLOGY RECD BY: Robin Clark ENTERED: 07/21/21 13:53 SP TYPE: Fluid OTHR DR: Dr. Nilda Edge MD Tissues: OVARIAN CYST Procedures: Special Stain Group II Mucicarmine Stain (control) Surgery Specimen Level IV Cytospin Fluid HEADER OPERATION: Laparoscopic left salpingo-oophorectomy, IUD removal PRE-OP DIAGNOSIS: IUD removal, ovarian torsion TISSUE SUBMITTED: Left ovarian cyst fluid for cytology DIAGNOSIS CYTOLOGY Left ovarian cyst fluid for cytology (cytospin and cell block): Malignant cells present derived from metastatic adenocarcinoma. See comment. 2020 COMMENT Immunohistochemistry ([id number]) supports the above diagnosis. Mucin stain with matched control is also used in the evaluation of the specimen. As per EMR, the patient has history of moderately differentiated extrahepatic cholangiocarcinoma ([facility] specimen [id number]). Please see corresponding surgical case ([id number]). Case has been reviewed in consultation with Dr. Mayen who concurs with the above diagnosis. IDC:[email or web address] CYTOLOGY STUDY Slides are reviewed. CYTOLOGY GROSS Received is 20 ml of red cloudy fluid labeled with the patient's name and and designated per the requisition as left ovarian cyst. Submitted for cytology preparation including cell block. / seven 07/21/2021 TC:0 CPT: 16835, 65067, 62418
[2021-07-21 10:17] LABS: Internal QC Validated? YES +Cl - CLEAR BKGD; Pregnancy, Urine Negative Negative
[2021-07-21] MEDS: Lactated Ringers 1,000 ML 100 ML IV ×2 (10:25→13:33)
[2021-07-21 10:32] LABS: Hematocrit 38.9 % (37-47); Hemoglobin 12.2 g/dL (12.0-15.0); Mean Corp Hgb Conc 31.4 g/dL (32-36); Mean Corpuscular Hgb 28.6 pg (27.0-32.0); Mean Corpuscular Volume 91.3 fL (81-99); Mean Platelet Vol. 9.6 fl (6.2-12.0); Platelet Count 260 K/mm3 (150-450); RBC Distribution Width CV 17.7 % (11.6-14.6); RBC Distribution Width SD 59.5 fl (35.1-43.9); Red Blood Count 4.26 M/mm3 (4.2-5.4); White Blood Count 9.4 K/mm3 (4.4-11.0)
[2021-07-21 10:40] LABS: Prothrombin Time (Protime)PT. 12.7 SECONDS (11.7-14.9)
[2021-07-21 10:41] LABS: Partial Thromboplast Time 24.9 Seconds (24.1-36.2)
[2021-07-21 10:41] LABS: Bedside Glucose 142 mg/dL (70-110)
[2021-07-21 10:50] LABS: AST(SGOT) 21 U/L (15-37); Alanine Aminotransfer ALT/SGPT 24 U/L (13-56); Albumin, Serum 2.8 g/dL (3.2-5.0); Alkaline Phosphatase 93 U/L (45-117); Anion Gap 5 (5-15); BUN 11 mg/dL (7-18); BUN/Creat Ratio 13.2 RATIO (10-20); Bilirubin, Direct 0.19 mg/dL (0.00-0.30); Calcium,Total 8.7 mg/dL (8.5-10.1); Chloride 107 mmol/L (98-107); Creatinine, Serum 0.83 mg/dL (0.55-1.02); EST Glomerular Filtration Rate 77 mL/min (>60); Est Glom Filt Rate - Afr Amer 94 mL/min (>60); Estimated Creatinine Clearance 64.85 ml/min; Globulin 3.8 g/dL (2.2-4.2); Glucose 150 mg/dL (74-106); Potassium 3.7 mmol/L (3.5-5.1); Protein, Total 6.6 g/dL (6.4-8.2); Sodium Level 142 mmol/L (136-145)
[2021-07-21] MEDS: Albuterol 2.5 MG/3 ML VIAL.NEB. INHALATION (11:40)
--- NOTE | 2021-07-21 11:48 | HP.PCM_ITS ---
HPI - General HPI Narrative NASH GERARDO, is a 51 F who presents left ovarian torsion. Patient has CT done for follow-up of gallbladder cancer and an ovarian cyst was found so pelvic ultrasound was ordered. On ultrasound a left 5 cm septated cyst was seen with decreased blood flow. Patient has been having intermittent left lower quadrant pelvic pain that has not limited activities. Patient was called with results and instructed to have surgical removal. Per patient's request surgery was delayed to 07/21. [facility] Medical History (Updated 07/21/21 @ 11:[address] Aishwarya Maxwell MD) Anemia Anxiety Arthritis Arthritis Asthma Back pain Biliary stricture Cancer Diabetes Dietary restriction Easy bruising Gallstones Gastric reflux High cholesterol History of pain when walking Hx of cyst of breast Hyperlipidemia Hypertension Insulin dependent diabetes mellitus Leg cramps Migraine headache Non-smoker Obesity Restless legs Home Medications amlodipine 5 mg tablet 5 mg PO QHS 08/11/18 [History Last Taken Unknown] levonorgestrel 20 mcg/24 hours (6 yrs) 52 mg intrauterine device 1 device INTRAUTERINE ONCE 09/11/19 [History Last Taken Unknown] albuterol sulfate 2.5 mg INHALATION Q6H 05/18/20 [History Last Taken Unknown] albuterol sulfate 90 mcg/actuation aerosol inhaler 2 puff INHALATION Q4H PRN g 05/18/20 [History Last Taken Unknown] fluticasone 100 mcg-salmeterol 50 mcg/dose blistr powdr for inhalation 1 inh INHALATION BID 05/18/20 [History Last Taken Unknown] halobetasol propionate 0.05 % topical cream 1 applic TOPICAL DAILY 05/18/20 [History Last Taken Unknown] calcium carbonate-vitamin D3 1 tab PO DAILY 10/23/20 [History Last Taken Unknown] aspirin 81 mg tablet,delayed release 81 mg PO DAILY 04/20/21 [History Last Taken Unknown] atorvastatin 20 mg tablet 20 tablet PO DAILY 04/20/21 [History Last Taken Unkno wn] blood-glucose sensor #9 ea 04/20/21 [Rx Last Taken Unknown] blood-glucose transmitter #1 ea 04/20/21 [Rx Last Taken Unknown] magnesium oxide 400 mg (241.3 mg magnesium) tablet 400 mg PO BID 04/20/21 [History Last Taken Unknown] multivitamin 1 tab PO DAILY 04/20/21 [History Last Taken Unknown] pyridoxine (vitamin B6) 100 mg tablet 100 mg PO DAILY 04/20/21 [History Last Taken Unknown] capecitabine [Xeloda] 2,975 mg PO BID PRN 07/20/21 [History Last Taken Unknown] cholecalciferol (vitamin D3) [Vitamin D3] 25 mcg PO DAILY 07/20/21 [History Last Taken Unknown] insulin aspart U-100 [Novolog U-100 Insulin aspart] 0 unit SC DAILY 07/20/21 [History Last Taken Unknown] pantoprazole [Protonix] 40 mg PO QHS 07/20/21 [History Last Taken Unknown] Allergy/AdvReac Type Severity Reaction Status Date / Time Penicillins Allergy Hives Verified 07/20/21 14:03 Family History Mother Heart disease Diabetes Osteoporosis Father Diabetes Surgical History (Updated 07/20/21 @ 14:19 by Elsie Godoy) Hx of resection of liver S/P carpal tunnel release Trigger finger Social History Smoking Status: Never smoker alcohol intake: current alcohol intake frequency: holidays/special occasions only substance use type: does not use caffeine: No what type of physical activity do you participate in: walking frequency: daily seatbelt use: always do you feel safe at home: Yes 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 [employer] ROS Review of Systems ROS Unobtainable: due to mental status and other Constitutional Constitutional: Reports systems reviewed and no addt'l complaints, except as documented; Denies as per HPI, change in weight, fatigue, fever(s), malaise, weakness or other Eyes Eyes: Reports systems reviewed and no addt'l complaints, except as documented; Denies as per HPI, change in vision or other ENT HEENT: Reports systems reviewed and no addt'l complaints, except as documented Respiratory/Chest Respiratory/Chest: Reports systems reviewed and no addt'l complaints, except as documented Gastrointestinal Gastrointestinal: Reports as per HPI, abdominal pain and bloating Genitourinary Genitourinary: Reports as per HPI Musculoskeletal Musculoskeletal: Reports systems reviewed and no addt'l complaints, except as documented Neurologic Neurologic: Reports systems reviewed and no addt'l complaints, except as documented Psychiatric Psychiatric: Reports systems reviewed and no addt'l complaints, except as documented Endocrine Endocrinology: Reports systems reviewed and no addt'l complaints, except as documented Hematologic/Lymphatic Hematologic/Lymphatic: Reports systems reviewed and no addt'l complaints, except as documented Vital Signs Vital Signs Vital Signs: 07/21/21 10:13 Temperature 98.2 F Temperature Source Temporal Pulse Rate 107 H Respiratory Rate 16 Respiratory Pattern Normal Blood Pressure 164/81 H Blood Pressure Mean 108 Blood Pressure Source Monitor Pulse Ox 100 Oxygen Delivery Method Room Air Weight Weight: 338 lb 13.608 oz Body Mass Index (BMI) 61.0 Physical Exam Const alert, oriented x3 and no apparent distress HEENT normocephalic Head and Scalp: atraumatic Eyes EOMs intact bilaterally and conjunctivae normal Neck full ROM, no lymphadenopathy, supple and thyroid normal General: trachea midline Lymph Lymphatic: no lymphadenopathy noted Resp normal respiratory effort, no retractions, no use of accessory muscles and clear to auscultation bilaterally Cardio regular rhythm GI normal to inspection, nondistended, normoactive bowel sounds, soft to palpation, non-distended and no masses Inspection: Negative for abdominal distention Back/Spine no CVA tenderness Extremity normal to inspection Skin no rashes or lesions noted Neuro moves all extremities and deep tendon reflexes 2+ bilaterally Psych mental status grossly normal Results Lab / Micro Data Result Diagrams: 07/21/21 10:18 07/21/21 10:18 Labs: Laboratory Results - last 24 hr 07/21/21 10:00: Urine Test Negative 07/21/21 10:11: POC Glucose 142 H 07/21/21 10:18: WBC 9.4, RBC 4.26, Hgb 12.2, Hct 38.9, MCV 91.3, MCH 28.6, MCHC 31.4 L, RDW Std Deviation 59.5 H, RDW Coeff of Jose 17.7 H, Plt Count 260, MPV 9.6 07/21/21 10:18: PT 12.7, INR 1.0, APTT 24.9 07/21/21 10:18: Sodium 142, Potassium 3.7, Chloride 107, Carbon Dioxide 30.0, Anion Gap 5, BUN 11, Creatinine 0.83, Estim Creat Clear Calc 64.85, Est GFR (MDRD) Af Amer 94, Est GFR (MDRD) Non-Af 77, BUN/Creatinine Ratio 13.2, Glucose 150 H, Calcium 8.7, Total Bilirubin 0.50, Direct Bilirubin 0.19, AST 21, ALT 24, Alkaline Phosphatase 93, Total Protein 6.6, Albumin 2.8 L, Globulin 3.8 Assessment & Plan Assessment/Plan (1) IUD (intrauterine device) in place: (2) Ovarian torsion: (3) Morbid obesity with BMI of 60.0-69.9, adult: (4) Gallbladder cancer: (5) Hypertension: QUALIFIERS: Hypertension type: essential hypertension Qualified Code(s): I10 - Essential (primary) hypertension (6) Presence of insulin pump: (7) Asthma: (8) Diabetes: QUALIFIERS: Diabetes mellitus type: type 2 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 Peguero Last hemoglobin A1c 6.5 After discussing the patient's diagnosis and treatment plan options, patient wishes to proceed with surgical management. I have discussed with the patient the risks, benefits, and alternatives of the procedure which include but are not limited to risks of anesthesia, bleeding, infection, possible damage to bowel, bladder, or surrounding vasculature which could lead to additional surgery to evaluate any complications. Patient agrees to procedure and wishes to proceed.
--- NOTE | 2021-07-21 12:01 | PCM.OPRPT ---
Problems Associated Problem List Diagnoses (1) Gallbladder cancer: (2) Ovarian torsion: (3) Morbid obesity with BMI of 60.0-69.9, adult: (4) IUD (intrauterine device) in place: (5) Hypertension: (6) Diabetes: (7) Asthma: (8) Insulin pump titration: Report of Operation Date of Procedure: 07/21/21 Pre-Operative Diagnosis: see problem list Post-Operative Diagnosis: same Surgery/Procedure Performed:: laparoscopic left salpingo-oophorectomy, iud removal travel accommodation inspector: Franny Castillo Type of Anesthesia: General and Local Special Medications: none Specimen's removed: left tube and ovary, iUD Drains: none Estimated Blood Loss (mL): 50 Fluids Replaced: crystalloid Description of Procedure: Patient was taken in the operating room and was placed under general anesthesia was prepped and draped in normal sterile fashion in the dorsal lithotomy position. Bladder was drained of clear urine and SCDs were on preoperatively. iud grasped and removed without complications Uterus was sounded and a uterine manipulator was placed after dilating. Attention was then paid to the abdominal portion of the procedure and the umbilicus was elevated with towel clamps and injected with Marcaine and after a 12 mm incision was made and the Veress needle was entered into the abdomen confirmed to be intra-abdominal with a low opening pressure of less than 5 mmHg. Abdomen was insufflated with CO2 gas and a 5 mm optical trocar was placed under direct visualization. A right 12 and left lower quadrant 5 mm ports were placed under direct visualization. Uterus was well visualized and bilateral fallopian tubes and ovaries were identified and the left infundibulopelvic ligament was transected across using the LigaSure device followed by transecting across the mesosalpinx to the attachment to the uterine corpus on the left tube and ovary was removed without complication . One of the cysts did rupture clear serosanguinous fluid that was collected for analysis. Excellent hemostasis was noted. Specimens were removed through the umbilical port site through a bag. The fascial incision was closed using the Gordo Orozco and an 0 Vicryl. Liver and upper abdomen were visualized notably within normal limits and no other gross abnormalities were seen in the abdomen. All instruments removed from the abdomen after gas was desufflated. RLQ port closed with figure of 8 through the fascia with 0 vicryl using the gordo orozco. Port sites were closed with 3-0 Monocryl Steri's and op sites were applied. All instruments removed from the vagina and patient was awoken and taken recovery in stable condition. Grafts/Implants Used: none Complications none Admit VTE Documentation VTE Present on Admission: No VTE Mechan Device Prophylaxis: SCD's Procedures Urinary/Genital 52xxx-59xxx: 94893 Laproscopic BS/O Multi Select Codes Urinary/Genital Urinary/Genital CPT Codes: 30479 Laproscopic BS/O and Other Procedure See Report (IUD removal)
--- NOTE | 2021-07-21 12:12 | DCINST_ITS ---
Discharge Instructions Diet Discharge Diet: No restrictions Activity Discharge Activity: Return to Normal Activity, May Not Drive (for 2 weeks or while taking narcotic pain meds.), May Shower and May Take a Tub Bath (in 7 days) May resume sexual activity in: 1 week Weight Bearing Status: Full weight bearing Dressing / Incision Call your doctor if your incision/area has: Continuous Slow Oozing, Sudden Increased Bleeding, Increased Pain/ Swelling, Increased Redness and Foul Smelling Discharge Call your doctor if you observe: Fever of 101 or Higher, Using more than 1 pad per hour, Shortness of breath, Chest pain and Uncontrolled pain Suture Line Care: Avoid Pulling/Pushing and Avoid Pinching/Bending Remove Dressing in: 1 week (if present) Cleanse incision/area with: Soap & Water and Keep Dressing Clean & Dry Follow Up Care When: Call to make an appointment with your doctor for a fu/incision check in 1- 2 weeks. Test Results: Test results from this visit will be discussed in further detail at your follow-up appointment, if applicable. Discharge Plan Admission Primary Reason for Your Visit: surgery to remove ovary Attending Provider: Aishwarya Maxwell Primary Care Provider: Nilda Edge Discharge Orders/Prescriptions Prescriptions: New naproxen 250 MG tablet 250 - 500 mg PO Q8H PRN PRN (Reason: MILD PAIN) Qty: 30 RF: 1 oxycodone-acetaminophen [Endocet] 5-325 mg tablet 1 tab PO Q4H PRN (Reason: pain) 7 Days Qty: 20 RF: 0 Continued amlodipine [Norvasc] 5 mg tablet 5 mg PO QHS RF: 0 Mirena 20 mcg/24 hours (5 yrs) 52 mg intrauterine device 1 device intrauterine ONCE RF: 0 fluticasone propion-salmeterol [Advair Diskus] 100-50 mcg/dose blister with device 1 inh INHALATION BID RF: 0 albuterol sulfate 90 mcg/actuation HFA aerosol inhaler 2 puff INHALATION Q4H PRN (Reason: Sob &/Or Wheezing) RF: 0 albuterol sulfate 2.5 mg /3 mL (0.083 %) solution for nebulization 2.5 mg INHALATION Q6H RF: 0 halobetasol propionate 0.05 % cream 1 applic TOPICAL DAILY RF: 0 magnesium oxide 400 mg (241.3 mg magnesium) tablet 400 mg PO BID RF: 0 pyridoxine (vitamin B6) 100 mg tablet 100 mg PO DAILY RF: 0 multivitamin [Daily Multi-Vitamin] Tablet 1 tab PO DAILY RF: 0 aspirin [Adult Low Dose Aspirin] 81 mg tablet,delayed release (DR/EC) 81 mg PO DAILY RF: 0 atorvastatin 20 mg tablet 20 tablet PO DAILY RF: 0 (DME) Dexcom G6 Sensor Device See Rx Instructions .ROUTE .MEDSUPPLY Qty: 9 RF: 3 (DME) Dexcom G6 Transmitter Device See Rx Instructions .ROUTE .MEDSUPPLY Qty: 1 RF: 3 calcium carbonate-vitamin D3 1 EACH tablet 1 tab PO DAILY RF: 0 pantoprazole [Protonix] 40 mg Tablet,Delayed Release (Dr/Ec) 40 mg PO QHS RF: 0 cholecalciferol (vitamin D3) [Vitamin D3] 25 mcg (1,000 unit) Tablet 25 mcg PO DAILY RF: 0 capecitabine [Xeloda] 500 mg tablet 2,975 mg PO BID PRN (Reason: MENSES) RF: 0 insulin aspart U-100 [Novolog U-100 Insulin aspart] 100 unit/mL solution 0 unit SC DAILY RF: 0 Referrals / Follow Up: Nilda Edge MD [Primary Care Provider] - Disposition Disposition (needs filled in before D/C Order can be placed): Home, Self Care
[2021-07-21] MEDS: Bupivacaine Mpf 0.5% 30 ML VIAL (12:55)
[2021-07-21 13:25] LABS: Bedside Glucose 158 mg/dL (70-110)
[2021-07-21] MEDS: HYDROcodone Bitartrate/Apap 5/325 Tablet PO (14:53)
[2021-08-07 13:37] LABS: Cytology, Body Fluid / CSF SEE PATHOLOGY REPORT
== END 2021-07-21 17:11 | disposition home or self-care (01) ==
LOC: SDC 09:25 → AC 09:25
PROVIDERS: Anesthesiology; PCP Family Medicine; Referring Provider Obstetrics & Gynecology; Visit Provider Obstetrics & Gynecology
PROC: (CPT 58720; principal; 2021-07-21 11:15)
DX: N83.512 Torsion of left ovary and ovarian pedicle (principal); J45.909 Unspecified asthma, uncomplicated; C23 Malignant neoplasm of gallbladder; E11.65 Type 2 diabetes mellitus with hyperglycemia; I10 Essential (primary) hypertension; E78.5 Hyperlipidemia, unspecified; G25.81 Restless legs syndrome; M19.90 Unspecified osteoarthritis, unspecified site; K21.9 Gastro-esophageal reflux disease without esophagitis; E66.01 Morbid (severe) obesity due to excess calories; Z68.44 Body mass index [BMI] 60.0-69.9, adult; Z96.41 Presence of insulin pump (external) (internal); Z97.5 Presence of (intrauterine) contraceptive device; Z79.3 Long term (current) use of hormonal contraceptives; Z79.51 Long term (current) use of inhaled steroids; Z79.82 Long term (current) use of aspirin; Z79.4 Long term (current) use of insulin; Z79.899 Other long term (current) drug therapy
CPT/HCPCS: 00840; 58301; 58661; 80048; 80076; 81025; 82962; 85027; 85610; 85730; 86850; 86900; 86901; 88108; 88302; 88305; 88307; 88313; 88325; 88341; 88342; 94640; J7120; J2405

== ENCOUNTER → 2021-08-09 | Outpatient (CLI) | payer BC, SELFPAY ==
--- NOTE | 2020-10-14 | SENDIN_PTH ---
PATIENT: NASH GERARDO LOC: [facility]#:[id number] AGE/SX: 51/F ROOM: RE08/09/[address]: Dr. Juauqin Augustin DO : 1970 BED: DIS: 08/09/2021 SPEC #: [id number] RECD: 08/09/21 12:46 STATUS: CHEKO PÉREZ #: [id number] MESFIN: 10/14/20 00:[address]: Juaquin Augustin DEPT: SEND IN SLIDES FOR REVIEW RECD BY: Lyla Donald Procedures: N/C FOR SEND IN SLIDES
== END | disposition home or self-care (01) ==
LOC: LABSPEC 12:41
PROVIDERS: Visit Provider Internal Medicine Hematology & Oncology
DX: K76.9 Liver disease, unspecified (principal)

== ENCOUNTER → 2021-09-14 12:31 | Outpatient (CLI) | payer BC, SELFPAY ==
--- NOTE | 2021-09-14 12:43 | US_ITS ---
STUDY: LIMITED subcutaneous abdominal ultrasound REASON FOR EXAM: Female, 51 years old. Palpable mass at incision site TECHNIQUE: Sonographic evaluation of the recent surgical incision COMPARISON: None. FINDINGS: Sonographic evaluation of the surgical incision shows a small area of edema and fluid at the site of concern. This may represent a seroma or early inflammatory process. There is no hyperemia or solid mass lesion. US/Abdomen Limited IMPRESSION: No suspicious sonographic findings, subcutaneous edema edema and small amount of fluid at the site of concern Electronically Signed: Jameson Zuniga MD at 17:19 EDT , Service support ,
== END ==
PROVIDERS: PCP Family Medicine; Referring Provider Nurse Practitioner; Visit Provider Nurse Practitioner
DX: C24.0 Malignant neoplasm of extrahepatic bile duct (principal); R19.09 Other intra-abdominal and pelvic swelling, mass and lump
CPT/HCPCS: 76705

== ENCOUNTER → 2021-10-10 07:47 | Outpatient (CLI) | payer BC, SELFPAY ==
[2021-04-20 08:29] VITALS: BMI 63.8
--- NOTE | 2021-10-10 07:49 | BI_ITS ---
MAMMOGRAPHY - BILATERAL SCREENING REASON FOR EXAM: Female, 51 years old. Routine annual screening examination. PERTINENT HISTORY: Non-contributory. TECHNIQUE: Digital bilateral breast jailene (3D mammographic acquisition) in the CC and MLO projections. 2-D mediolateral oblique (MLO) and craniocaudad (CC) views of both breasts were obtained. CAD: Full Field Digital Mammography with Computer Added Detection was performed. COMPARISON: Comparison is made with prior study dated 10/06/2020 and 09/11/2019. FINDINGS: Breast Composition: The breasts are almost entirely fatty. There are no dominant masses or suspicious calcifications. Stable small benign-appearing bilateral axillary lymph nodes. No other significant abnormalities are identified. There has been no significant change since the prior study. BI/SCRN MAMM (CAD)W/JAILENE BILAT IMPRESSION: Stable bilateral screening mammogram. Yearly follow-up mammogram recommended. (A) ASSESSMENT CATEGORY: BIRADS Category 2: Benign. A letter regarding these results will be sent to the patient by the facility within 30 days. Approximately 10% of breast cancers are not detected by mammography. A normal mammogram should not delay biopsy of a clinically suspicious abnormality. [id number] Electronically Signed: Rocky Yanez MD at 9:09 EST , Service support ,
== END ==
PROVIDERS: PCP Family Medicine; Visit Provider Nurse Practitioner Women's Health
DX: Z12.31 Encounter for screening mammogram for malignant neoplasm of breast (principal)
CPT/HCPCS: 77063; 77067

== ENCOUNTER → 2021-10-12 | Outpatient (CLI) | payer BC, SELFPAY ==
[2021-10-12 09:47] VITALS: BP 145/70; PULSE 93; RESP 16; TEMP 36.6; O2SAT 100; BMI 61.0
[2021-10-12 12:40] VITALS: BP 125/71; PULSE 81; RESP 16
== END | disposition home or self-care (01) ==
PROVIDERS: PCP Family Medicine; Referring Provider Nurse Practitioner; Visit Provider Nurse Practitioner
DX: E83.42 Hypomagnesemia (principal)
CPT/HCPCS: 96365; 96366; A4216

== ENCOUNTER → 2021-10-13 | Outpatient (CLI) | payer BC, SELFPAY ==
--- NOTE | 2021-07-21 | IMM_PTH ---
PATIENT: NASH GERARDO LOC: [facility] U#:[id number] AGE/SX: 51/F ROOM: RE10/13/[address]: Dr. Juaquin Augustin DO : 1970 BED: DIS: 10/13/2021 SPEC #: [id number] RECD: 10/13/21 13:48 STATUS: CHEKO ELISA #: [id number] MESFIN: 07/21/21 00:[address]: Juaquin Augustin DEPT: IMMUNOHISTOCHEMISTRY RECD BY: Lyla Donald Tissues: Left ovary Procedures: MLH-1 (add) MSH6 (add) Anti-PMS2 (add) MSH2 (initial) PHYSICIAN & INSTITUTION [place] [address] SPECIMEN INFORMATION: Tissue Source: Left ovary and fallopian tube Clinical Info: Ovarian torsion Specimen Number: [id number] #5 CPT code: 22998, 94646 x3 METHODOLOGY: Deparaffinized sections of prefer/formalin-fixed tissue or PAP/DQ stained slides are incubated with monoclonal/polyclonal antibodies/oligonucleotide probes. Localization is made via biotin free immunoperoxidase method. Appropriate controls are performed and reacted as expected. Results on target cell population are indicated in the following table: RESULTS: ANTIBODY / CLONE RESULT Block 5 MLH-1 (M1) positive MSH2 (25D12) positive MSH6 (44) positive PMS2 ([id number]) positive These tests were developed and their performance characteristics determined by [facility]. They may not have been cleared or approved by the U.S. Food and Drug Administration. The FDA has determined that such clearance or approval is not necessary. The above immunohistochemical/dualISH markers are ordered and reviewed by the Pathologist. INTERPRETATION: Left ovary and fallopian tube, salpingo-oophorectomy: Metastatic adenocarcinoma. Result of Microsatellite Instability Study: Negative (no loss of mismatch protein; no microsatellite instability detected). AM:seven 10/16/2021
== END | disposition home or self-care (01) ==
LOC: LABSPEC 13:47
PROVIDERS: Visit Provider Internal Medicine Hematology & Oncology
DX: C79.62 Secondary malignant neoplasm of left ovary (principal); C79.82 Secondary malignant neoplasm of genital organs
CPT/HCPCS: 88341; 88342

== ENCOUNTER → 2021-11-03 08:31 | Outpatient (CLI) | payer BC, SELFPAY ==
[2021-11-03 08:36] VITALS: BP 147/69; PULSE 85; RESP 16; TEMP 36.3; O2SAT 100
[2021-11-03 11:12] VITALS: BP 123/68; PULSE 79; RESP 16
== END ==
PROVIDERS: Referring Provider Internal Medicine Hematology & Oncology; Visit Provider Internal Medicine Hematology & Oncology
DX: E83.42 Hypomagnesemia (principal)
CPT/HCPCS: 96365; 96366; A4216; J3475

== ENCOUNTER 2021-12-04 13:02 | Outpatient (CLI) | payer OTHER, SELFPAY | END 2021-12-04 23:59 | disposition short-term general hospital (02) | LOC: LABSPEC 13:03 | PROVIDERS: Referring Provider Physician Assistant Surgical; Visit Provider Physician Assistant Surgical | DX: Z20.822 Contact with and (suspected) exposure to COVID-19 (principal) | CPT/HCPCS: 87635; U0003; U0005 ==

== ENCOUNTER 2021-12-04 17:52 | Emergency (ER) | payer OTHER, SELFPAY ==
[2021-12-04 17:54] VITALS: BP 138/56; PULSE 127; RESP 18; TEMP 36.1; O2SAT 97; BMI 57.9
[2021-12-04 17:56] VITALS: BP 138/56; PULSE 127; RESP 18; TEMP 36.1; O2SAT 97
--- NOTE | 2021-12-04 19:07 | EKG12_ITS ---
Test Reason : GEN ILL Blood Pressure : / mmHG Vent. Rate : 123 BPM Atrial Rate : 123 BPM P-R Int : 116 ms QRS Dur : 086 ms QT Int : 310 ms P-R-T Axes : 042 020 023 degrees QTc Int : 443 ms Sinus tachycardia Otherwise normal ECG Confirmed by ATA GUZMAN, JAEL ([id number]), editor publications DANDRE KELLY ([id number]) on 12/05/2021 2:14:56 PM Referred By: CRISTA Confirmed By:JAEL BERUMEN MD
--- NOTE | 2021-12-04 19:07 | CT_ITS ---
STUDY: CTA CHEST REASON FOR EXAM: Female, 51 years old. shortness of breath RADIATION DOSAGE (If Supplied By Facility): CTDIvol = ( 17.42 ) mGy, DLP = ( 492.76 ) mGycm TECHNIQUE: The examination was performed with the intravenous administration of IV 100mL Isovue-370. Post-processing of the angiographic images was performed, with multiplanar reformation and 3D reconstruction. Individualized dose optimization techniques were used for this CT. COMPARISON: None. FINDINGS: There is less than optimal enhancement of the pulmonary arteries due to suboptimal bolus timing however there is no definitive evidence for pulmonary embolus to the level of the distal subsegmental vessels which are not well opacified... If strong clinical suspicion for pulmonary embolus DOPPLER scan of the deep venous system of lower extremities recommended for further evaluation Normal thoracic aorta and visualized great vessels. There is no demonstrated aortic dissection. Normal heart and pericardium. Normal mediastinum. Normal hilar regions. Normal visualized trachea and bronchi. The lungs are well expanded. Small left pleural effusion and compressive atelectasis in left lower lobe. Lungs are otherwise clear. Normal chest wall structures. Dorsal spine demonstrates degenerative change. Normal visualized upper abdomen. CT/CTA Chest W/WO Contrast IMPRESSION: Small left pleural effusion and compressive atelectasis in left lower lobe.. Limited study of the pulmonary arteries without definitive evidence for pulmonary embolus. DOPPLER scan of the deep venous system of the lower extremities recommended for further evaluation if indicated Electronically Signed: Rojelio Shaffer MD at 20:30 EST , Service support ,
[2021-12-04 19:35] VITALS: BP 138/56; PULSE 127; RESP 18; TEMP 36.1; O2SAT 97
[2021-12-04 19:35] LABS: Absolute Lymphocyte Count 0.41 X10^3/uL (0.83-4.51); Absolute Neutrophil Count 5.9 X10^3/uL (2.0-7.7); Eosinophil# 0.01 X10^3/uL; Eosinophils% 0.2 % (0-5); Hematocrit 24.5 % (37-47); Hemoglobin 7.5 g/dL (12.0-15.0); Lymphocyte # 0.41 X10^3/ul (0.83-4.51); Lymphocyte % 6.4 % (19-41); Mean Corp Hgb Conc 30.6 g/dL (32-36); Mean Corpuscular Hgb 24.7 pg (27.0-32.0); Mean Corpuscular Volume 80.6 fL (81-99); Mean Platelet Vol. 9.4 fl (6.2-12.0); Monocyte# 0.07 X10^3/uL; Monocyte% 1.1 % (0-10); NRBC Flagged by Analyzer 0 % (0-5); Neutrophil # 5.88 X10^3/uL (2.7-7.7); Neutrophil % 92.1 % (47-70); POSITIVE DIFFERENTIAL YES; Platelet Count 217 K/mm3 (150-450); RBC Distribution Width CV 17.2 % (11.6-14.6); RBC Distribution Width SD 51.3 fl (35.1-43.9); Red Blood Count 3.04 M/mm3 (4.2-5.4); White Blood Count 6.4 K/mm3 (4.4-11.0)
[2021-12-04 19:46] LABS: Differential Indicated SCAN CRITERIA MET
[2021-12-04] MEDS: 0.9% Normal Saline 1,000 ML 999 ML IV (19:51)
[2021-12-04 19:54] LABS: Differential Comment SCANNED
[2021-12-04 19:56] LABS: Anion Gap 8 (5-15); BUN 10 mg/dL (7-18); BUN/Creat Ratio 13.9 RATIO (10-20); Calcium,Total 8.8 mg/dL (8.5-10.1); Chloride 100 mmol/L (98-107); Creatinine, Serum 0.72 mg/dL (0.55-1.02); EST Glomerular Filtration Rate 91 mL/min (>60); Est Glom Filt Rate - Afr Amer 111 mL/min (>60); Estimated Creatinine Clearance 74.75 ml/min; Glucose 170 mg/dL (74-106); Magnesium 1.3 mg/dL (1.6-2.6); Sodium Level 136 mmol/L (136-145); Troponin-I HS 8 pg/mL (3.0-54.0)
[2021-12-04 20:04] VITALS: BP 138/56; PULSE 127; RESP 18; TEMP 36.1; O2SAT 97
[2021-12-04 21:03] VITALS: BP 138/69; PULSE 101; RESP 16; TEMP 36.9; O2SAT 97
--- NOTE | 2021-12-04 22:12 | EDS_ITS ---
HPI History of Present Illness Chief Complaint: General Illness Narrative Narrative: Patient presents with increasing shortness of breath that she has had, and rule out COVID. 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 She restarted chemotherapy because she stated that her carcinoma has metastasized to the peritoneum and ovary. Additionally, she states that she was sent in by her oncologist, Dr. Augustin to rule out pulmonary embolism and COVID. She endorses fatigue and malaise. [facility] Medical History Anemia Anxiety Arthritis Arthritis Asthma Back pain Biliary stricture Cancer Diabetes Dietary restriction Easy bruising Gallstones Gastric reflux High cholesterol History of bile duct cancer History of pain when walking Hx of cyst of breast Hyperlipidemia Hypertension Insulin dependent diabetes mellitus Leg cramps Migraine headache Non-smoker Obesity Restless legs Home Medications amlodipine 5 mg tablet 5 mg PO QHS 08/11/18 [History Last Taken Unknown] albuterol sulfate 2.5 mg INHALATION Q6H 05/18/20 [History Last Taken Unknown] albuterol sulfate 90 mcg/actuation aerosol inhaler 2 puff INHALATION Q4H PRN g 05/18/20 [History Last Taken Unknown] fluticasone 100 mcg-salmeterol 50 mcg/dose blistr powdr for inhalation 1 inh INHALATION BID 05/18/20 [History Last Taken Unknown] halobetasol propionate 0.05 % topical cream 1 applic TOPICAL DAILY 05/18/20 [History Last Taken Unknown] calcium carbonate-vitamin D3 1 tab PO DAILY 10/23/20 [History Last Taken Unknown] aspirin 81 mg tablet,delayed release 81 mg PO DAILY 04/20/21 [History Last Taken Unknown] atorvastatin 20 mg tablet 20 tablet PO DAILY 04/20/21 [History Last Taken Unknown] magnesium oxide 400 mg (241.3 mg magnesium) tablet 400 mg PO BID 04/20/21 [History Last Taken Unknown] multivitamin 1 tab PO DAILY 04/20/21 [History Last Taken Unknown] pyridoxine (vitamin B6) 100 mg tablet 100 mg PO DAILY 04/20/21 [History Last Taken Unknown] cholecalciferol (vitamin D3) [Vitamin D3] 25 mcg PO DAILY 07/20/21 [History Last Taken Unknown] losartan 50 mg tablet 50 mg PO DAILY 08/03/21 [History Last Taken Unknown] insulin aspart U-100 100 unit/mL subcutaneous solution 100 unit CONTINUOUS SUBCUTANEOUS INFUSION .continuous #30 ml 08/25/21 [Rx Last Taken Unknown] cisplatin 1 mg/mL intravenous solution INTRA-ARTERIAL 10/10/21 [History Last Taken Unknown] gemcitabine 1 gram intravenous solution 2,000 mg INTRAVESICAL 2XW 10/10/21 [History Last Taken Unknown] pantoprazole 20 mg tablet,delayed release 40 mg PO DAILY 10/10/21 [History Last Taken Unknown] ondansetron HCl 8 mg PO Q8H PRN 10/12/21 [History Last Taken Unknown] promethazine [Phenergan] 25 mg PO Q6H PRN 10/12/21 [History Last Taken Unknown] blood-glucose sensor #9 ea 11/30/21 [Rx Last Taken Unknown] blood-glucose transmitter #1 ea 11/30/21 [Rx Last Taken Unknown] Allergy/AdvReac Type Severity Reaction Status Date / Time Penicillins Allergy Hives Verified 12/04/21 18:20 Family History Mother Heart disease Diabetes Osteoporosis Father Diabetes Surgical History Hx of resection of liver S/P carpal tunnel release S/P cholecystectomy S/P unilateral salpingo-oophorectomy Trigger finger Social History Smoking Status: Never smoker alcohol intake: current alcohol intake frequency: holidays/special occasions only substance use type: does not use caffeine: No what type of physical activity do you participate in: walking frequency: daily seatbelt use: always do you feel safe at home: Yes 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 Malaise and fatigue. HEENT: No sore throat. No neck pain. No loss of vision. No rhinorrhea. Cardiovascular: No chest pain. No palpitations. No pedal edema. Respiratory: No cough, positive shortness of breath. Abdominal: No abdominal pain. No nausea. No vomiting. Genitourinary: No dysuria. No hematuria. Musculoskeletal: No myalgias. No arthralgias. Neurologic: No headaches. No dizziness. No lightheadedness. Skin: No rash. No change in color. Psychiatric: No depression. No anxiety. EXAM Physical Exam Narrative Exam Narrative: Afebrile. Vital signs noted. HEENT: Normocephalic. Atraumatic. PERRL, EOMI. Neck soft and supple. No point tenderness or step off. Cardiovascular: Regular rate and rhythm. No murmurs, rubs, or gallops appreciated. Respiratory: No tachypnea. Lungs clear to auscultation bilaterally. Gastrointestinal: Abdomen soft, obese, nontender, with normoactive bowel sounds. No rebound or guarding. Neurological: Awake. Alert. Nonfocal, nonlateralizing. Skin: No rash. Normal color. No pallor. Musculoskeletal: No pedal edema. Full range of motion extremities. Const Vital Signs: 12/04/21 17:54 12/04/21 17:56 12/04/21 19:35 Temperature 96.9 F L 96.9 F L 96.9 F L Temperature Source Temporal Temporal Temporal Pulse Rate 127 H 127 H 127 H Respiratory Rate 18 18 18 Respiratory Pattern Normal Blood Pressure 138/56 H 138/56 H 138/56 H Blood Pressure Mean 83 83 83 Pulse Ox 97 97 97 Oxygen Delivery Method Room Air Room Air Room Air 12/04/21 20:04 12/04/21 21:03 Temperature 96.9 F L 98.4 F Temperature Source Temporal Oral Pulse Rate 127 H 101 H Respiratory Rate 18 16 Respiratory Pattern Blood Pressure 138/56 H 138/69 H Blood Pressure Mean 83 92 Pulse Ox 97 97 Oxygen Delivery Method Room Air Room Air MDM MDM MDM Narrative Medical decision making narrative: Comprehensive work-up was pursued. She has normal white count of 6.6, hemoglobin low at 7.5. Platelet count normal. Basic metabolic panel shows potassium normal at 4.0. She was concerned about her magnesium level as she has hypomagnesemia it is slightly low at 1.3 compared to the low normal of 1.6. High-sensitivity troponin is normal at 8. Her EKG demonstrates sinus tachycardia at 123 bpm. She was bolused IV fluids. Her current heart rate is [address] if [address] lower[address] Her CT of the chest does not show definitive pulmonary embolism. There is atelectasis along with adjacent small pleural effusion. I do not feel antibiotics are indicated. COVID test is negative. I was able to discuss the patient with Dr. Chan who agrees with close outpatient follow-up. It was not felt that she requires admission at this time. She is to call the office tomorrow to set up infusion of magnesium and for blood transfusion. I do feel that this may be the cause of her shortness of breath as her low hemoglobin after chemotherapy. I do feel she can be discharged safely home with follow-up. Return instructions to the emergency department were reviewed. Disposition is discharged home in stable condition. Lab Data Labs: Laboratory Results - last 24 hr 12/04/21 12/04/21 19:28 19:28 WBC 6.4 RBC 3.04 L Hgb 7.5 L Hct 24.5 L MCV 80.6 L MCH 24.7 L MCHC 30.6 L RDW Std Deviation 51.3 H RDW Coeff of Jose 17.2 H Plt Count 217 MPV 9.4 Immature Gran % (Auto) 0.200 Neut % (Auto) 92.1 H Lymph % (Auto) 6.4 L [place] % (Auto) 1.1 Eos % (Auto) 0.2 Baso % (Auto) 0.0 Absolute Neuts (auto) 5.9 Absolute Lymphs (auto) 0.41 L Nucleated RBC % 0 Differential Comment SCANNED Sodium 136 Potassium 4.0 Chloride 100 Carbon Dioxide 28.0 Anion Gap 8 BUN 10 Creatinine 0.72 Estim Creat Clear Calc 74.75 Est GFR (MDRD) Af Amer 111 Est GFR (MDRD) Non-Af 91 BUN/Creatinine Ratio 13.9 Glucose 170 H Calcium 8.8 Magnesium 1.3 L Troponin I High Sens 8 Radiography Diagnostic Testing: Clinical Impression(s) from Imaging Studies Chest CTA 12/04/21 19:07 IMPRESSION: Small left pleural effusion and compressive atelectasis in left lower lobe.. Limited study of the pulmonary arteries without definitive evidence for pulmonary embolus. DOPPLER scan of the deep venous system of the lower extremities recommended for further evaluation if indicated Electronically Signed: Rojelio Shaffer MD at 20:30 EST , Service support , Discharge Plan Triage Chief Complaint: General Illness ED Provider: Steve Pruett Dx/Rx/DC Orders Clinical Impression: Shortness of breath, Metastatic adenocarcinoma, Anemia, Hypomagnesemia Instructions: Anemia Chemo, Discharge Instructions for ..., ED Dyspnea Prescriptions: No Action amlodipine [Norvasc] 5 mg tablet 5 mg PO QHS RF: 0 fluticasone propion-salmeterol [Advair Diskus] 100-50 mcg/dose blister with device 1 inh INHALATION BID RF: 0 albuterol sulfate 90 mcg/actuation HFA aerosol inhaler 2 puff INHALATION Q4H PRN (Reason: Sob &/Or Wheezing) RF: 0 albuterol sulfate 2.5 mg /3 mL (0.083 %) solution for nebulization 2.5 mg INHALATION Q6H RF: 0 halobetasol propionate 0.05 % cream 1 applic TOPICAL DAILY RF: 0 magnesium oxide 400 mg (241.3 mg magnesium) tablet 400 mg PO BID RF: 0 pyridoxine (vitamin B6) 100 mg tablet 100 mg PO DAILY RF: 0 multivitamin [Daily Multi-Vitamin] Tablet 1 tab PO DAILY RF: 0 aspirin [Adult Low Dose Aspirin] 81 mg tablet,delayed release (DR/EC) 81 mg PO DAILY RF: 0 atorvastatin 20 mg tablet 20 tablet PO DAILY RF: 0 pantoprazole [Protonix] 20 mg tablet,delayed release (DR/EC) 40 mg PO DAILY RF: 0 gemcitabine 1 gram recon soln 2,000 mg intravesical 2XW RF: 0 cisplatin 1 mg/mL solution intra-arterial RF: 0 losartan 50 mg tablet 50 mg PO DAILY RF: 0 calcium carbonate-vitamin D3 1 EACH tablet 1 tab PO DAILY RF: 0 cholecalciferol (vitamin D3) [Vitamin D3] 25 mcg (1,000 unit) Tablet 25 mcg PO DAILY RF: 0 ondansetron HCl 8 mg Tablet 8 mg PO Q8H PRN (Reason: Nausea) RF: 0 promethazine [Phenergan] 25 mg Tablet 25 mg PO Q6H PRN (Reason: Nausea) RF: 0 insulin aspart U-100 [Novolog U-100 Insulin aspart] 100 unit/mL solution 100 unit continuous subcutaneous infusion .continuous Qty: 30 RF: 3 (DME) Dexcom G6 Transmitter Device See Rx Instructions .ROUTE .MEDSUPPLY Qty: 1 RF: 3 (DME) Dexcom G6 Sensor Device See Rx Instructions .ROUTE .MEDSUPPLY Qty: 9 RF: 3 Primary Care Provider: Nilda Edge Referrals: Nilda Edeg MD [Primary Care Provider] - Juaquin Augustin DO [STAFF PHYSICIAN] - 12/05/21 (Call Dr. Hurley's office tomorrow to set up infusion of magnesium, and blood transfusion for tomorrow.) Disposition Disposition: Home, Self Care
[2021-12-04 22:20] VITALS: BP 134/77; PULSE 92; RESP 16; O2SAT 95
== END 2021-12-04 22:30 | disposition home or self-care (01) ==
PROVIDERS: Emergency Provider Emergency Medicine; PCP Family Medicine; Visit Provider Emergency Medicine
DX: R06.02 Shortness of breath (principal); C78.6 Secondary malignant neoplasm of retroperitoneum and peritoneum; C79.60 Secondary malignant neoplasm of unspecified ovary; C24.0 Malignant neoplasm of extrahepatic bile duct; E11.9 Type 2 diabetes mellitus without complications; Z79.4 Long term (current) use of insulin; D63.0 Anemia in neoplastic disease; E83.42 Hypomagnesemia; I10 Essential (primary) hypertension; M19.90 Unspecified osteoarthritis, unspecified site; E78.00 Pure hypercholesterolemia, unspecified; K21.9 Gastro-esophageal reflux disease without esophagitis; E66.9 Obesity, unspecified; Z79.82 Long term (current) use of aspirin; Z79.899 Other long term (current) drug therapy
CPT/HCPCS: 36591; 71275; 80048; 83735; 84484; 85025; 87426; 93005; 96360; 96361; 99285; Q9967

== ENCOUNTER 2021-12-06 08:03 | Outpatient (CLI) | payer OTHER, SELFPAY ==
[2021-12-06] VITALS (8 sets, daily range): BP systolic 98–133; BP diastolic 49–65; PULSE 83–98; RESP 16; TEMP 35.8–36.1; O2SAT 97–100; BMI 57.9
== END 2021-12-06 23:59 | disposition short-term general hospital (02) ==
PROVIDERS: PCP Family Medicine; Referring Provider Internal Medicine Hematology & Oncology; Visit Provider Internal Medicine Hematology & Oncology
DX: D50.0 Iron deficiency anemia secondary to blood loss (chronic) (principal)
CPT/HCPCS: 36430; 86850; 86900; 86901; 86920; 86922; J7040; P9016; A4216; J3475

== ENCOUNTER 2022-02-05 16:30 | Outpatient (CLI) | payer OTHER, SELFPAY ==
--- NOTE | 2022-02-05 16:30 | LES_PTH ---
PATIENT: NASH GERARDO LOC: [facility]#:[id number] AGE/SX: 52/F ROOM: RE02/05/[address]: Dr. Solitario Perez MD : 1970 BED: DIS: 02/05/2022 SPEC #: [id number] RECD: 02/06/22 09:54 STATUS: CHEKO REMari #: [id number] MESFIN: 02/05/22 16:[address]: Solitario Perez DEPT: SURGICAL PATHOLOGY RECD BY: Roberta Stephenson ENTERED: 02/06/22 13:51 SP TYPE: Lesion OTHR DR: Dr. Nilda Edge MD Tissues: Skin of eyelid, NOS Procedures: Surgery Specimen Level III HEADER OPERATION: Left upper lid biopsy PRE-OP DIAGNOSIS: Left upper lid lesion present x5 years TISSUE SUBMITTED: Left upper lid lesion MICROSCOPIC DIAGNOSIS Left upper eyelid lesion, biopsy: Benign fibroepithelial polyp, mildly inflamed. AM:seven 02/07/2022 MICROSCOPIC DESCRIPTION Slides are reviewed. GROSS DESCRIPTION Received in fixative is one container labeled with the patient's name and designated left upper lid. The specimen consists of an irregular fragment of dark fournier tissue measuring 0.4 x 0.2 x 0.1 cm. The specimen is totally submitted in one cassette. / AM:seven 02/06/2022 TC:5 CPT: 48878
== END 2022-02-05 23:59 | disposition home or self-care (01) ==
LOC: LABSPEC 02-06 11:05
PROVIDERS: PCP Family Medicine; Visit Provider Ophthalmology
DX: H02.9 Unspecified disorder of eyelid (principal)
CPT/HCPCS: 88304; 88305

== ENCOUNTER 2022-02-17 07:52 | Inpatient (IN) | payer OTHER, SELFPAY ==
[2022-02-17] VITALS (18 sets, daily range): BP systolic 84–162; BP diastolic 70–91; PULSE 87–129; RESP 17–20; TEMP 36.7–36.9; O2SAT 82–100; BMI 54.1
--- NOTE | 2022-02-17 08:05 | CT_ITS ---
We are attempting to reach an attending provider to discuss findings. An addendum with communication details will be sent when the communication is complete. STUDY: CTA CHEST REASON FOR EXAM: Female, 52 years old. left pleuritic chest pain RADIATION DOSAGE (If Supplied By Facility): CTDIvol = ( 11.47 ) mGy, DLP = ( 421.02 ) mGycm TECHNIQUE: The examination was performed with the intravenous administration of IV 100mL Isovue-370. Post-processing of the angiographic images was performed, with multiplanar reformation and 3D reconstruction. Individualized dose optimization techniques were used for this CT. COMPARISON: 12/04/2021 FINDINGS: Left internal jugular chest port. Normal enhancement of the main pulmonary artery and right and left pulmonary arteries. Normal enhancement of the bilateral peripheral pulmonary arteries. Tubular filling defect draped across the main pulmonary artery bifurcation consistent with saddle pulmonary embolus. Associated embolus within the descending and descending left pulmonary arteries and a posterior basal branch of the descending right pulmonary artery. Normal thoracic aorta and visualized great vessels. There is no demonstrated aortic dissection. Normal heart and pericardium. Normal mediastinum. Normal hilar regions. Normal visualized trachea and bronchi. The lungs are well expanded. Normal pulmonary parenchyma. Normal pleura. Normal chest wall structures. Normal osseous structures. Normal visualized upper abdomen. CT/CTA Chest W/WO Contrast IMPRESSION: Positive for saddle pulmonary embolus extending into segmental branches. Electronically Signed: Denver Ferreira MD at 9:55 EDT ,
--- NOTE | 2022-02-17 08:05 | RAD_ITS ---
STUDY: X-RAY CHEST REASON FOR EXAM: Female, 52 years old. chest pain TECHNIQUE: Single AP portable view of the chest. COMPARISON: 03/10/2018 FINDINGS: Interval placement of left internal jugular chest port with tip the catheter overlying the superior vena cava with no pneumothorax. The lungs are clear and expanded. Elevated right hemidiaphragm. Normal size heart. Normal mediastinum and sarah. Normal visualized pulmonary arteries. Normal visualized aortic arch and descending thoracic aorta. Normal visualized thoracic spine. Normal visualized ribs, clavicles, and shoulders. There is no demonstrated abnormality of the visualized soft tissue structures of the upper abdomen. RAD/Chest 1 View (Portable) IMPRESSION: No active disease. Electronically Signed: Denver Ferreira MD at 8:42 EDT ,
--- NOTE | 2022-02-17 08:05 | EKG12_ITS ---
Test Reason : Blood Pressure : / mmHG Vent. Rate : 118 BPM Atrial Rate : 118 BPM P-R Int : 122 ms QRS Dur : 112 ms QT Int : 330 ms P-R-T Axes : 036 027 020 degrees QTc Int : 462 ms Sinus tachycardia Otherwise normal ECG Confirmed by JOSÉ MANUEL GUZMAN, NIDHI ([id number]), telegraph editor NILA VINES ([id number]) on 02/20/2022 10:50:02 AM Referred By: KAREY Confirmed By:NIDHI GEORGES MD
--- NOTE | 2022-02-17 08:06 | EDS_ITS ---
HPI History of Present Illness Chief Complaint: Chest Pain Detail of Chief Complaint: Chest pain that started last evening around 7 PM Informant: patient Onset/Context/Timing Current Severity: 07/04 Narrative Narrative: Patient presents to the emergency department complaint of chest pain that started around 7 PM last evening. Patient describes the pain as sharp and worse with deep breath. Pain seems to radiate to the back and left shoulder. She denies nausea or vomiting. She denies significant shortness of breath. She is not had pain like this before. Patient has history of bile duct cancer and last chemotherapy was about 2 weeks ago. Patient called her oncologist who referred her to the emergency department for concern of PE. Patient has no heart history. Patient developed a mild cough yesterday that is dry and nonproductive. She has had the COVID vaccine and booster. She denies any sick contacts. Prior Similar Symptoms: No PFSH PFSH Medical History Anemia Anxiety Arthritis Arthritis Asthma Back pain Biliary stricture Cancer Diabetes Dietary restriction Easy bruising Gallstones Gastric reflux High cholesterol History of bile duct cancer History of pain when walking Hx of cyst of breast Hyperlipidemia Hypertension Insulin dependent diabetes mellitus Leg cramps Migraine headache Non-smoker Obesity Restless legs Home Medications amlodipine 5 mg tablet 5 mg PO QHS 08/11/18 [History Last Taken Unknown] albuterol sulfate 2.5 mg INHALATION Q6H 05/18/20 [History Last Taken Unknown] albuterol sulfate 90 mcg/actuation aerosol inhaler 2 puff INHALATION Q4H PRN g 05/18/20 [History Last Taken Unknown] fluticasone 100 mcg-salmeterol 50 mcg/dose blistr powdr for inhalation 1 inh INHALATION BID 05/18/20 [History Last Taken Unknown] halobetasol propionate 0.05 % topical cream 1 applic TOPICAL DAILY 05/18/20 [History Last Taken Unknown] calcium carbonate-vitamin D3 1 tab PO DAILY 10/23/20 [History Last Taken Unknown] aspirin 81 mg tablet,delayed release 81 mg PO DAILY 04/20/21 [History Last Taken Unknown] atorvastatin 20 mg tablet 20 tablet PO DAILY 04/20/21 [History Last Taken Unknown] magnesium oxide 400 mg (241.3 mg magnesium) tablet 400 mg PO BID 04/20/21 [History Last Taken Unknown] multivitamin 1 tab PO DAILY 04/20/21 [History Last Taken Unknown] pyridoxine (vitamin B6) 100 mg tablet 100 mg PO DAILY 04/20/21 [History Last Taken Unknown] cholecalciferol (vitamin D3) [Vitamin D3] 25 mcg PO DAILY 07/20/21 [History Last Taken Unknown] losartan 50 mg tablet 50 mg PO DAILY 08/03/21 [History Last Taken Unknown] insulin aspart U-100 100 unit/mL subcutaneous solution 100 unit CONTINUOUS SUBCUTANEOUS INFUSION .continuous #30 ml 08/25/21 [Rx Last Taken Unknown] cisplatin 1 mg/mL intravenous solution INTRA-ARTERIAL 10/10/21 [History Last Taken Unknown] gemcitabine 1 gram intravenous solution 2,000 mg INTRAVESICAL 2XW 10/10/21 [History Last Taken Unknown] pantoprazole 20 mg tablet,delayed release 40 mg PO DAILY 10/10/21 [History Last Taken Unknown] ondansetron HCl 8 mg PO Q8H PRN 10/12/21 [History Last Taken Unknown] promethazine [Phenergan] 25 mg PO Q6H PRN 10/12/21 [History Last Taken Unknown] blood-glucose sensor #9 ea 11/30/21 [Rx Last Taken Unknown] blood-glucose transmitter #1 ea 11/30/21 [Rx Last Taken Unknown] Allergy/AdvReac Type Severity Reaction Status Date / Time Penicillins Allergy Hives Verified 02/17/22 07:57 Family History Mother Heart disease Diabetes Osteoporosis Father Diabetes Surgical History Hx of resection of liver S/P carpal tunnel release S/P cholecystectomy S/P unilateral salpingo-oophorectomy Trigger finger Social History Smoking Status: Never smoker alcohol intake: current alcohol intake frequency: holidays/special occasions only substance use type: does not use caffeine: No what type of physical activity do you participate in: walking frequency: daily seatbelt use: always do you feel safe at home: Yes 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 ROS ED Review of Systems ROS Unobtainable: other Constitutional Constitutional ED: Reports lethargy; Denies chills, fever(s), sweats or weight loss Eyes Eyes: Denies blurry vision, change in vision or diplopia ENT ENT ED: Denies rhinorrhea or sore throat Cardiovascular Cardiovascular: Reports chest pain and racing heartbeat; Denies orthopnea Respiratory/Chest Respiratory/Chest: Reports cough, dyspnea and dyspnea on exertion; Denies orthopnea or sputum Gastrointestinal Gastrointestinal: Denies abdominal pain, diarrhea, nausea or vomiting Genitourinary Genitourinary ED: Denies dysuria, hematuria or urinary frequency Musculoskeletal Musculoskeletal: Denies arthralgias, back pain, myalgias or neck pain Integumentary Denies abscess, Abrasions or rash Neurologic Neurologic: Denies headache(s) or weakness Psychiatric Psychiatric: Denies anxiety, depression or suicidal thoughts Endocrine Endocrinology: Denies polydipsia, polyphagia or polyuria Hematologic/Lymphatic Hematologic/Lymphatic: Denies easy bleeding, easy bruising or lymphadenopathy Allergic/Immunologic Allergic/Immunologic ED: Denies mouth swelling, tongue swelling or urticaria EXAM Physical Exam Const Vital Signs: 02/17/22 07:53 02/17/22 07:56 02/17/22 07:58 Temperature 98.4 F 98.4 F Temperature Source Oral Oral Pulse Rate 119 H 119 H Respiratory Rate 20 H 20 H Respiratory Effort Normal Blood Pressure 145/70 H 145/70 H Blood Pressure Mean 95 95 Pulse Ox 99 99 Oxygen Delivery Method Room Air Room Air Oxygen Flow Rate (L/min) 02/17/22 08:00 02/17/22 08:15 02/17/22 08:16 Temperature Temperature Source Pulse Rate 117 H 113 H Respiratory Rate Respiratory Effort Blood Pressure 146/87 H 136/80 H Blood Pressure Mean 106 98 Pulse Ox 100 98 Oxygen Delivery Method Room Air Oxygen Flow Rate (L/min) 02/17/22 08:30 02/17/22 08:45 02/17/22 09:00 Temperature Temperature Source Pulse Rate 109 H 129 H 119 H Respiratory Rate Respiratory Effort Blood Pressure 135/85 H 162/91 H 144/89 H Blood Pressure Mean 101 114 107 Pulse Ox 82 97 100 Oxygen Delivery Method Room Air Nasal Cannula Nasal Cannula Oxygen Flow Rate (L/min) 2 2 02/17/22 09:15 02/17/22 09:30 02/17/22 09:49 Temperature Temperature Source Pulse Rate 105 H 113 H 108 H Respiratory Rate Respiratory Effort Blood Pressure 84/74 L 85/75 L 136/79 H Blood Pressure Mean 77 78 98 Pulse Ox 100 100 100 Oxygen Delivery Method Nasal Cannula Nasal Cannula Nasal Cannula Oxygen Flow Rate (L/min) 2 2 2 02/17/22 10:06 Temperature 98.2 F Temperature Source Oral Pulse Rate 111 H Respiratory Rate 17 Respiratory Effort Blood Pressure 141/85 H Blood Pressure Mean 103 Pulse Ox 100 Oxygen Delivery Method Room Air Oxygen Flow Rate (L/min) Positive well nourished and well developed General Appearance ED: well developed and NAD HEENT Reports TM's clear and moist mucous membranes normocephalic and atraumatic; Negative for trauma or tenderness Tympanic Membrane ED: Yes TM's clear Eyes PERRL and EOMs intact bilaterally General Eye ED: Negative for pale conjunctiva or scleral icterus Neck no lymphadenopathy, supple and no JVD General: Negative for tenderness Chest Wall inspection of chest normal and palpation of chest normal Chest: Negative for tenderness Resp normal respiratory effort and clear to auscultation bilaterally Effort and Inspection: Negative for respiratory distress or pain with movement Auscultation: Negative for rhonchi, wheezes or diminished lung sounds Cardio regular rate, regular rhythm, S1 normal heart sound, S2 normal heart sound and no murmurs Peripheral Pulses: pulses 2+ throughout GI normal to inspection, nondistended, normoactive bowel sounds, soft to palpation, non-tender, non-distended and no masses Back/Spine no CVA tenderness and no thoracic nor lumbar tenderness Extremity normal to inspection General Extremety ED: Negative for edema General Extremity: Negative for edema Neuro oriented x3, CN's II-XII intact bilaterally, no sensory deficits noted and gait normal Sensorium / Orientation: awake, alert, oriented to person, oriented to place and oriented to time Motor Exam: strength 5/5 throughout and strength abnormal Psych mental status grossly normal Skin no rashes or lesions noted and no wounds Heart Score History: Slightly/Non-Suspicious ECG: Normal Age: >45 - <65 years Risk Factors: >/= 3 Risk Factors or History of CAD Troponin: </= Normal Limit Score: 3 MDM MDM MDM Narrative Medical decision making narrative: IV line established on arrival. Patient was medicated morphine and Zofran which did not help her pain much so she was given a milligram of Dilaudid IV. Patient had an episode of severe pain that caused her to hold her breath and her O2 sat dropped down in the 70s but she started taking big breaths again and her O2 sat improved back up into the 90s. Lab work-up was unremarkable. CTA was positive for saddle emboli with peripheral PEs mostly on the left. Patient was started on a heparin drip. Case discussed with hospitalist who will evaluate patient for admission. Also discussed case with her oncologist Dr. Juaquin Augustin. Lab Data Attestation: I reviewed the patient's lab results. Labs: Laboratory Results - last 24 hr 02/17/22 02/17/22 02/17/22 08:02 08:02 08:02 WBC 8.3 RBC 3.28 L Hgb 10.1 L Hct 31.6 L MCV 96.3 MCH 30.8 MCHC 32.0 RDW Std Deviation 93.4 H RDW Coeff of Jose 26.1 H Plt Count 141 L MPV 10.0 Immature Gran % (Auto) 0.600 Neut % (Auto) 72.8 H Lymph % (Auto) 12.8 L [place] % (Auto) 13.3 H Eos % (Auto) 0.4 Baso % (Auto) 0.1 Absolute Neuts (auto) 6.0 Absolute Lymphs (auto) 1.06 Nucleated RBC % 0 Anisocytosis 1+ PT 13.0 INR 1.0 APTT 29.6 Sodium 134 L Potassium 3.9 Chloride 101 Carbon Dioxide 26.0 Anion Gap 7 BUN 15 Creatinine 0.90 Estim Creat Clear Calc 59.15 Est GFR (MDRD) Af Amer 85 Est GFR (MDRD) Non-Af 70 BUN/Creatinine Ratio 16.6 Glucose 182 H Calcium 9.0 Troponin I High Sens 6 Radiography Chest X-Ray - ED: 1 View Diagnostic Testing: Clinical Impression(s) from Imaging Studies Chest CTA 02/17/22 08:05 IMPRESSION: Positive for saddle pulmonary embolus extending into segmental branches. Electronically Signed: Denver Ferreira MD at 9:55 EDT , Chest X-Ray 02/17/22 08:05 IMPRESSION: No active disease. Electronically Signed: Denver Ferreira MD at 8:42 EDT , 1 view chest x-ray obtained interpreted by myself as elevated right hemidiaphragm that appeared chronic otherwise no acute disease process. Radiology in agreement. EKG Initial EKG: Attestation: I personally reviewed and interpreted this EKG as follows: Comments: Sinus tachycardia with a rate of 118. No other acute changes noted. Discharge Plan Triage Chief Complaint: Chest Pain ED Provider: Kandy Cheney Dx/Rx/DC Orders Clinical Impression: Chest pain, Pulmonary emboli, Bile duct cancer Prescriptions: No Action amlodipine [Norvasc] 5 mg tablet 5 mg PO QHS RF: 0 fluticasone propion-salmeterol [Advair Diskus] 100-50 mcg/dose blister with device 1 inh INHALATION BID RF: 0 albuterol sulfate 90 mcg/actuation HFA aerosol inhaler 2 puff INHALATION Q4H PRN (Reason: Sob &/Or Wheezing) RF: 0 albuterol sulfate 2.5 mg /3 mL (0.083 %) solution for nebulization 2.5 mg INHALATION Q6H RF: 0 halobetasol propionate 0.05 % cream 1 applic TOPICAL DAILY RF: 0 magnesium oxide 400 mg (241.3 mg magnesium) tablet 400 mg PO BID RF: 0 pyridoxine (vitamin B6) 100 mg tablet 100 mg PO DAILY RF: 0 multivitamin [Daily Multi-Vitamin] Tablet 1 tab PO DAILY RF: 0 aspirin [Adult Low Dose Aspirin] 81 mg tablet,delayed release (DR/EC) 81 mg PO DAILY RF: 0 atorvastatin 20 mg tablet 20 tablet PO DAILY RF: 0 pantoprazole [Protonix] 20 mg tablet,delayed release (DR/EC) 40 mg PO DAILY RF: 0 gemcitabine 1 gram recon soln 2,000 mg intravesical 2XW RF: 0 cisplatin 1 mg/mL solution intra-arterial RF: 0 losartan 50 mg tablet 50 mg PO DAILY RF: 0 calcium carbonate-vitamin D3 1 EACH tablet 1 tab PO DAILY RF: 0 cholecalciferol (vitamin D3) [Vitamin D3] 25 mcg (1,000 unit) Tablet 25 mcg PO DAILY RF: 0 ondansetron HCl 8 mg Tablet 8 mg PO Q8H PRN (Reason: Nausea) RF: 0 promethazine [Phenergan] 25 mg Tablet 25 mg PO Q6H PRN (Reason: Nausea) RF: 0 insulin aspart U-100 [Novolog U-100 Insulin aspart] 100 unit/mL solution 100 unit continuous subcutaneous infusion .continuous Qty: 30 RF: 3 (DME) Dexcom G6 Transmitter Device See Rx Instructions .ROUTE .MEDSUPPLY Qty: 1 RF: 3 (DME) Dexcom G6 Sensor Device See Rx Instructions .ROUTE .MEDSUPPLY Qty: 9 RF: 3 Primary Care Provider: Nilda Edge Referrals: Nilda Edge MD [Primary Care Provider] - Disposition Disposition: Acute Care Hospital [facility]
[2022-02-17] MEDS: Aspirin 81 MG TAB.CHEW 324 MG PO (08:12)
[2022-02-17] MEDS: Morphine 4 MG/ML Syringe IV (08:13)
[2022-02-17] MEDS: Ondansetron 4 MG/2 ML Vial IV ×2 (08:13→11:19)
[2022-02-17] MEDS: 0.9% Normal Saline 1,000 ML 150 ML IV ×3 (08:14→20:18)
[2022-02-17 08:22] LABS: Absolute Lymphocyte Count 1.06 X10^3/uL (0.83-4.51); Basophil# 0.01 X10^3/uL; Basophil% 0.1 % (0-1); Eosinophil# 0.03 X10^3/uL; Eosinophils% 0.4 % (0-5); Hematocrit 31.6 % (37-47); Hemoglobin 10.1 g/dL (12.0-15.0); Lymphocyte # 1.06 X10^3/ul (0.83-4.51); Lymphocyte % 12.8 % (19-41); Mean Corpuscular Hgb 30.8 pg (27.0-32.0); Mean Corpuscular Volume 96.3 fL (81-99); Monocyte% 13.3 % (0-10); NRBC Flagged by Analyzer 0 % (0-5); Neutrophil # 6.02 X10^3/uL (2.7-7.7); Neutrophil % 72.8 % (47-70); POSITIVE MORPHOLOGY YES; Platelet Count 141 K/mm3 (150-450); RBC Distribution Width CV 26.1 % (11.6-14.6); RBC Distribution Width SD 93.4 fl (35.1-43.9); Red Blood Count 3.28 M/mm3 (4.2-5.4); White Blood Count 8.3 K/mm3 (4.4-11.0)
[2022-02-17 08:24] LABS: Differential Indicated SCAN CRITERIA MET
[2022-02-17 08:45] LABS: Anisocytosis 1+
[2022-02-17 08:48] LABS: Anion Gap 7 (5-15); BUN 15 mg/dL (7-18); BUN/Creat Ratio 16.6 RATIO (10-20); Chloride 101 mmol/L (98-107); EST Glomerular Filtration Rate 70 mL/min (>60); Est Glom Filt Rate - Afr Amer 85 mL/min (>60); Estimated Creatinine Clearance 59.15 ml/min; Glucose 182 mg/dL (74-106); Potassium 3.9 mmol/L (3.5-5.1); Sodium Level 134 mmol/L (136-145); Troponin-I HS 6 pg/mL (3.0-54.0)
[2022-02-17] MEDS: HYDROmorphone 1 MG/ML Syringe IV ×2 (08:53→10:17)
[2022-02-17 10:02] LABS: Partial Thromboplast Time 29.6 Seconds (24.1-36.2)
--- NOTE | 2022-02-17 10:03 | PCM.HP.STD ---
HPI - General HPI Narrative NASH GERARDO, is a 52 F with an extensive PMH as outlined who presents via the ED on 02/17/2022 with a complaint of chest pain which started around 7pm on the night before admission. Pain radiates to her back and left shoulder. She had chemo for her bile duct cancer ~ 2 weeks ago. She denied any shortness of breath, palpitations, nausea, vomiting or diarrhea. Review of systems was otherwise negative. She called her oncologist who told her to come in to the ED due to concerns for PE. Vitals in the ED were NE of 108, BP of 136/79, RR of 20 and she was saturating at 100% on 2L of oxygen. Blood pressure was initially 84/74 on admission. Heart rate had been as high as 129 earlier in the ED. CBC was unremarkable and BMP showed sodium of 134. Initial troponin was 6, and CXR showed no acute cardiopulmonary process. CTA showed a saddle embolus extending into the segmental branches. She is being admitted to be managed for submassive PE, provoked most likely by her cholangiocarcinoma. [facility] Medical History Anemia Anxiety Arthritis Arthritis Asthma Back pain Biliary stricture Cancer Diabetes Dietary restriction Easy bruising Gallstones Gastric reflux High cholesterol History of bile duct cancer History of pain when walking Hx of cyst of breast Hyperlipidemia Hypertension Insulin dependent diabetes mellitus Leg cramps Migraine headache Non-smoker Obesity Restless legs Home Medications amlodipine 5 mg tablet 5 mg PO QHS 08/11/18 [History Last Taken Unknown] albuterol sulfate 2.5 mg INHALATION Q6H 05/18/20 [History Last Taken Unknown] albuterol sulfate 90 mcg/actuation aerosol inhaler 2 puff INHALATION Q4H PRN g 05/18/20 [History Last Taken Unknown] fluticasone 100 mcg-salmeterol 50 mcg/dose blistr powdr for inhalation 1 inh INHALATION BID 05/18/20 [History Last Taken Unknown] halobetasol propionate 0.05 % topical cream 1 applic TOPICAL DAILY 05/18/20 [History Last Taken Unknown] calcium carbonate-vitamin D3 1 tab PO DAILY 10/23/20 [History Last Taken Unknown] aspirin 81 mg tablet,delayed release 81 mg PO DAILY 04/20/21 [History Last Taken Unknown] atorvastatin 20 mg tablet 20 tablet PO DAILY 04/20/21 [History Last Taken Unknown] magnesium oxide 400 mg (241.3 mg magnesium) tablet 400 mg PO BID 04/20/21 [History Last Taken Unknown] multivitamin 1 tab PO DAILY 04/20/21 [History Last Taken Unknown] pyridoxine (vitamin B6) 100 mg tablet 100 mg PO DAILY 04/20/21 [History Last Taken Unknown] cholecalciferol (vitamin D3) [Vitamin D3] 25 mcg PO DAILY 07/20/21 [History Last Taken Unknown] losartan 50 mg tablet 50 mg PO DAILY 08/03/21 [History Last Taken Unknown] insulin aspart U-100 100 unit/mL subcutaneous solution 100 unit CONTINUOUS SUBCUTANEOUS INFUSION .continuous #30 ml 08/25/21 [Rx Last Taken Unknown] cisplatin 1 mg/mL intravenous solution INTRA-ARTERIAL 10/10/21 [History Last Taken Unknown] gemcitabine 1 gram intravenous solution 2,000 mg INTRAVESICAL 2XW 10/10/21 [History Last Taken Unknown] pantoprazole 20 mg tablet,delayed release 40 mg PO DAILY 10/10/21 [History Last Taken Unknown] ondansetron HCl 8 mg PO Q8H PRN 10/12/21 [History Last Taken Unknown] promethazine [Phenergan] 25 mg PO Q6H PRN 10/12/21 [History Last Taken Unknown] blood-glucose sensor #9 ea 11/30/21 [Rx Last Taken Unknown] blood-glucose transmitter #1 ea 11/30/21 [Rx Last Taken Unknown] Allergy/AdvReac Type Severity Reaction Status Date / Time Penicillins Allergy Hives Verified 02/17/22 07:57 Family History Mother Heart disease Diabetes Osteoporosis Father Diabetes Surgical History Hx of resection of liver S/P carpal tunnel release S/P cholecystectomy S/P unilateral salpingo-oophorectomy Trigger finger Social History Smoking Status: Never smoker alcohol intake: current alcohol intake frequency: holidays/special occasions only substance use type: does not use caffeine: No what type of physical activity do you participate in: walking frequency: daily seatbelt use: always do you feel safe at home: Yes 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 Constitutional Constitutional: Denies anorexia, chills, fatigue, fever(s), malaise or weakness Eyes Eyes: Denies change in vision ENT HEENT: Denies dysphagia, ear pain or sore throat Cardiovascular Cardiovascular: Reports chest pain and rapid heart rate; Denies dyspnea on exertion, edema, lightheadedness, orthopnea, palpitations, paroxysmal nocturnal dyspnea or syncope Respiratory/Chest Respiratory/Chest: Reports shortness of breath at rest; Denies cough, dyspnea, excessive phlegm production, hemoptysis or productive cough Gastrointestinal Gastrointestinal: Denies abdominal pain, diarrhea, nausea or vomiting Genitourinary Genitourinary: Reports nocturia; Denies burning urination, dysuria or urinary frequency Musculoskeletal Musculoskeletal: Denies back pain Neurologic Neurologic: Denies confusion, dizziness, focal weakness, headache(s), seizure-like activity, seizures, syncope or tingling Psychiatric Psychiatric: Denies anxiety or depression Vital Signs Vital Signs Vital Signs: 02/17/22 07:53 02/17/22 07:56 02/17/22 07:58 Temperature 98.4 F 98.4 F Temperature Source Oral Oral Pulse Rate 119 H 119 H Respiratory Rate 20 H 20 H Respiratory Effort Normal Blood Pressure 145/70 H 145/70 H Blood Pressure Mean 95 95 Pulse Ox 99 99 Oxygen Delivery Method Room Air Room Air Oxygen Flow Rate (L/min) 02/17/22 08:00 02/17/22 08:15 02/17/22 08:16 Temperature Temperature Source Pulse Rate 117 H 113 H Respiratory Rate Respiratory Effort Blood Pressure 146/87 H 136/80 H Blood Pressure Mean 106 98 Pulse Ox 100 98 Oxygen Delivery Method Room Air Oxygen Flow Rate (L/min) 02/17/22 08:30 02/17/22 08:45 02/17/22 09:00 Temperature Temperature Source Pulse Rate 109 H 129 H 119 H Respiratory Rate Respiratory Effort Blood Pressure 135/85 H 162/91 H 144/89 H Blood Pressure Mean 101 114 107 Pulse Ox 82 97 100 Oxygen Delivery Method Room Air Nasal Cannula Nasal Cannula Oxygen Flow Rate (L/min) 2 2 02/17/22 09:15 02/17/22 09:30 02/17/22 09:49 Temperature Temperature Source Pulse Rate 105 H 113 H 108 H Respiratory Rate Respiratory Effort Blood Pressure 84/74 L 85/75 L 136/79 H Blood Pressure Mean 77 78 98 Pulse Ox 100 100 100 Oxygen Delivery Method Nasal Cannula Nasal Cannula Nasal Cannula Oxygen Flow Rate (L/min) 2 2 2 Weight Weight: 295 lb 10.238 oz Body Mass Index (BMI) 54.1 Physical Exam Const alert, oriented x3 and no apparent distress Constitutional Narrative: super morbid obesity General Appearance: cooperative HEENT normocephalic, head/scalp atraumatic, hearing grossly normal bilaterally and moist oral mucous membranes Eyes PERRL, EOMs intact bilaterally and conjunctivae normal Neck no lymphadenopathy and supple Resp normal respiratory effort, no retractions, no use of accessory muscles and clear to auscultation bilaterally Cardio regular rhythm, S1 normal heart sound, S2 normal heart sound and no murmurs Cardio Narrative: tachycardic GI normal to inspection, nondistended, normoactive bowel sounds, soft to palpation, non-tender and non-distended Extremity normal to inspection, full ROM and no clubbing, cyanosis or edema Peripheral Pulses: Yes pulses 2+ throughout Skin no rashes or lesions noted Neuro oriented x3, CN's II-XII intact bilaterally and moves all extremities Sensorium / Orientation: awake and alert Psych affect normal Results Lab / Micro Data Result Diagrams: 02/17/22 08:02 02/17/22 08:02 Labs: Laboratory Results - last 24 hr 02/17/22 08:02: WBC 8.3, RBC 3.28 L, Hgb 10.1 L, Hct 31.6 L, MCV 96.3, MCH 30.8, MCHC 32.0, RDW Std Deviation 93.4 H, RDW Coeff of Jose 26.1 H, Plt Count 141 L, MPV 10.0, Immature Gran % (Auto) 0.600, Neut % (Auto) 72.8 H, Lymph % (Auto) 12.8 L, [place] % (Auto) 13.3 H, Eos % (Auto) 0.4, Baso % (Auto) 0.1, Absolute Neuts (auto) 6.0, Absolute Lymphs (auto) 1.06, Nucleated RBC % 0, Anisocytosis 1+ 02/17/22 08:02: Sodium 134 L, Potassium 3.9, Chloride 101, Carbon Dioxide 26.0, Anion Gap 7, BUN 15, Creatinine 0.90, Estim Creat Clear Calc 59.15, Est GFR (MDRD) Af Amer 85, Est GFR (MDRD) Non-Af 70, BUN/Creatinine Ratio 16.6, Glucose 182 H, Calcium 9.0, Troponin I High Sens 6 02/17/22 08:02: PT 13.0, INR 1.0, APTT 29.6 Radiology Impression Chest CTA 02/17/22 08:05 IMPRESSION: Positive for saddle pulmonary embolus extending into segmental branches. Electronically Signed: Denver Ferreira MD at 9:55 EDT Reading Location ID and State: [employer] / Last Size Tel , Service support , Chest X-Ray 02/17/22 08:05 IMPRESSION: No active disease. Electronically Signed: Denver Ferreira MD at 8:42 EDT Reading Location ID and State: [employer] Tel , Service support , Assessment & Plan Assessment/Plan (1) Chest pain: (2) Pulmonary emboli: PLAN: #Acute Submassive PE with bilateral saddle emboli likely precipitated by her cholangiocarcinoma and super morbid obesity she is tachycardic, thoough not tachpneic. BP has been in the 130s, but she does appear to have had 2 BP readings of 84/74 and 85/75. she was started on IVF in the ED initial troonin was neative. Will cycle get 2D echo start on heparin drip; BNP pending #Cholangiocarcinoma last had chemotherapy 2 weeks ago follows with Dr Augustin on outpatient basis on gemcitabine and cisplatin #TYpe 2 diabetes mellitus on insulin pump ISS. Accuchecks ACHS #Hypertension; on losartan and amlodipine #Supermorbid obesity: BMI is 54. Complicates acute care, expected recovery and prognosis DVT prophylaxis: lovenox # Charges/Coding Visit Charges Inpatient E&M: 94681 Init Hosp L3
--- NOTE | 2022-02-17 10:04 | NURSING ---
DR BRANDI SANZ
--- NOTE | 2022-02-17 10:12 | NURSING ---
PCU KORAM CP, PULMONARY EMBOLI, BILE DUCT CA
[2022-02-17] MEDS: Heparin Injection (Vial) 5,000 UNIT/ML VIAL 10500 UNIT IV (10:15)
[2022-02-17 10:37] LABS: BNP,B-Type NATRIURETIC PEPTIDE 6.7 pg/mL (0-100)
[2022-02-17 10:58] LABS: Troponin-I HS 6 pg/mL (3.0-54.0)
--- NOTE | 2022-02-17 12:16 | ECHOCS_ITS ---
Reason For Study: PE Procedure This was a 2D Doppler, Color Flow transthoracic echocardiogram. The study was technically difficult. Contrast injection was performed. Exam performed portable in patient room. Left Ventricle Normal LV size. The estimated ejection fraction is 60 %. No evidence for diastolic dysfunction. No regional wall motion abnormalities noted. Right Ventricle Normal RV size. Normal systolic function. Atria Normal left atrium. Normal right atrium. No doppler evidence for ASD. Mitral Valve There is moderate mitral annular calcification. There is no mitral valve stenosis. No mitral valve insufficiency. Tricuspid Valve There is no tricuspid stenosis. Unable to estimate RV systolic pressure due to inadequate jet, pulmonary artery pressure probably normal. Aortic Valve Trisinus/trileaflet aortic valve. There is no aortic stenosis. No aortic valve insufficiency. Pulmonic Valve There is no pulmonic valvular stenosis. No pulmonic valve insufficiency. Great Vessels Normal aortic root. Pericardium/Pleural No pericardial effusion. Medication Diluted definity 2ml given slow IV push to enhance endocardial definition. MMode/2D Measurements & Calculations LVIDd: 4.7 cm IVSd: 1.1 cm LA dimension: 3.7 cm LVIDs: 2.9 cm LVPWd: 1.2 cm FS: 39.0 % LAV(MOD-bp): 40.5 ml LA A4 area: 15.8 cm2 RA A4 area: 10.9 cm2 LAV(MOD-bp) Indexed: 18.0 ml/m2 LAV(MOD-sp2): 42.8 ml LAV(MOD-sp4): 38.4 ml Time Measurements MV dec time: 0.21 sec Doppler Measurements & Calculations MV E max eloy: 106.5 cm/sec Lat Peak E' Eloy: 14.8 cm/sec Med Peak E' Eloy: 7.4 cm/sec MV A max eloy: 99.2 cm/sec E/E' lat: 7.2 E/E' med: 14.5 MV E/A: 1.1 MV V2 max: 121.3 cm/sec MV P1/2t max eloy: 120.8 cm/sec Ao V2 max: 159.5 cm/sec MV max P.9 mmHg MV P1/2t: 56.1 msec Ao max P.2 mmHg MV V2 mean: 81.4 cm/sec MV dec slope: 630.7 cm/sec2 MV mean P.0 mmHg MV V2 VTI: 27.1 cm MVA(P1/2t): 3.9 cm2 LV V1 max: 120.5 cm/sec PA V2 max: 110.6 cm/sec LV V1 max P.8 mmHg ECHO/Echo Complete W/ Contrast Interpretation Summary The estimated ejection fraction is 60 %. No evidence for diastolic dysfunction. Ordering Physician: Jada Crespo Referring Physician: Nilda Edge M.D. Performed By: Jeff Melara RCS
--- NOTE | 2022-02-17 14:25 | EKG12_ITS ---
Test Reason : CP ADMIT Blood Pressure : / mmHG Vent. Rate : 089 BPM Atrial Rate : 089 BPM P-R Int : 138 ms QRS Dur : 088 ms QT Int : 360 ms P-R-T Axes : 035 011 020 degrees QTc Int : 438 ms Normal sinus rhythm Normal ECG When compared with ECG of 17-FEB-2022 07:56, MANUAL COMPARISON REQUIRED, DATA IS UNCONFIRMED Confirmed by JOSÉ MANUEL GUZMAN, NIDHI ([id number]), assignment desk editor NILA VINES ([id number]) on 02/20/2022 11:14:36 AM Referred By: BRANDI Confirmed By:NIDHI GEORGES MD
[2022-02-17] MEDS: Acetaminophen 500 MG Tablet 1000 MG PO (17:00)
[2022-02-17] MEDS: Insulin Lispro 100 UNIT/ML INSULN.PEN SC (18:00)
--- NOTE | 2022-02-17 20:22 | NURSING ---
pt request all lab work be drawn from port. pt states she is a hard stick and bruises very easily.
[2022-02-17 20:45] LABS: Partial Thromboplast Time 95.5 Seconds (24.1-36.2)
[2022-02-17] MEDS: Fluticasone/Salmeterol 232-14 Inhaler 1 PUFF INHALATION (22:33)
--- NOTE | 2022-02-17 22:46 | NURSING ---
pt checked glucose 64 pt ate cupcake at bedside. recheck glucose was 71. pt given peanut butter and jelly sandwich for snack.
[2022-02-18] VITALS (13 sets, daily range): BP systolic 102–137; BP diastolic 54–77; PULSE 75–102; RESP 18–20; TEMP 36.7–37.2; O2SAT 91–100
[2022-02-18] MEDS: 0.9% Saline Lock 10 ML Syringe IV ×2 (00:26→11:58)
[2022-02-18] MEDS: Morphine 2 MG/ML Syringe IV (00:26)
[2022-02-18] MEDS: oxyCODONE 5 MG Tablet PO ×2 (00:26→20:24)
[2022-02-18] MEDS: 0.9% Normal Saline 1,000 ML 150 ML IV (03:08)
[2022-02-18] MEDS: Acetaminophen 500 MG Tablet 1000 MG PO (04:43)
[2022-02-18] MEDS: Magnesium Chloride 64 MG Delay Rel.Tablet 128 MG PO ×3 (04:43→21:27)
--- NOTE | 2022-02-18 04:47 | NURSING ---
pt glucose 117
[2022-02-18 05:17] LABS: Absolute Lymphocyte Count 1.52 X10^3/uL (0.83-4.51); Absolute Neutrophil Count 4.1 X10^3/uL (2.0-7.7); Basophil# 0.01 X10^3/uL; Basophil% 0.2 % (0-1); Eosinophil# 0.05 X10^3/uL; Eosinophils% 0.8 % (0-5); Hematocrit 28.4 % (37-47); Hemoglobin 9.1 g/dL (12.0-15.0); Lymphocyte # 1.52 X10^3/ul (0.83-4.51); Lymphocyte % 23.4 % (19-41); Mean Corpuscular Hgb 30.7 pg (27.0-32.0); Mean Corpuscular Volume 95.9 fL (81-99); Mean Platelet Vol. 10.1 fl (6.2-12.0); Monocyte# 0.81 X10^3/uL; Monocyte% 12.5 % (0-10); NRBC Flagged by Analyzer 0 % (0-5); Neutrophil # 4.08 X10^3/uL (2.7-7.7); Neutrophil % 62.6 % (47-70); POSITIVE MORPHOLOGY YES; Platelet Count 141 K/mm3 (150-450); RBC Distribution Width SD 90.7 fl (35.1-43.9); Red Blood Count 2.96 M/mm3 (4.2-5.4); White Blood Count 6.5 K/mm3 (4.4-11.0)
[2022-02-18 05:18] LABS: Differential Indicated SCAN CRITERIA MET
[2022-02-18 05:23] LABS: Partial Thromboplast Time 38.2 Seconds (24.1-36.2)
[2022-02-18 05:30] LABS: Anion Gap 1 (5-15); BUN 13 mg/dL (7-18); BUN/Creat Ratio 16.4 RATIO (10-20); Chloride 106 mmol/L (98-107); Creatinine, Serum 0.79 mg/dL (0.55-1.02); EST Glomerular Filtration Rate 82 mL/min (>60); Est Glom Filt Rate - Afr Amer 99 mL/min (>60); Estimated Creatinine Clearance 67.38 ml/min; Glucose 95 mg/dL (74-106); Potassium 4.2 mmol/L (3.5-5.1); Sodium Level 137 mmol/L (136-145)
[2022-02-18] MEDS: Heparin Injection (Vial) 5,000 UNIT/ML VIAL IV (05:30)
[2022-02-18 05:40] LABS: Anisocytosis 3+
[2022-02-18 05:44] LABS: Magnesium 1.5 mg/dL (1.6-2.6)
[2022-02-18] MEDS: Famotidine 20 MG Tablet PO (08:49)
--- NOTE | 2022-02-18 08:52 | CON.PCM.CC_ITS ---
Assessment & Plan Assessment/Plan (1) Pulmonary emboli: (2) Bile duct cancer: (3) Metastatic adenocarcinoma: (4) Morbid obesity with BMI of 60.0-69.9, adult: (5) Asthma: PLAN: RECOMMENDATIONS: 1. Await results of echocardiogram 2. Obtain walking oximetry 3. Continue anticoagulation. Consider Lovenox on discharge 4. Outpatient follow-up with pulmonary and Dr. Augustin IMPRESSIONS: 1. Acute hypoxic respiratory insufficiency secondary to submassive PE Patient was significant desaturation and hypotension yesterday. This w ould be signs of submassive PE. Patient's risk factors for PE include malignancy and relative immobility. Would not recommend obtaining lower extremity Dopplers as this will not change overall condition. Patient is currently on heparin, but could be transitioned to Lovenox therapy for potential discharge. Patient will need to have a walking oximetry. If able to ambulate without supplemental oxygen, she could potentially be discharged later today following echocardiogram. Patient does appear to have stabilized on Lovenox therapy. Anticipate Lovenox will need to be continued for least 6 months or until in remission. Patient can follow-up in our office in 4 weeks if able to be discharged. 2. Cholangiocarcinoma/type 2 diabetes mellitus/hypertension/morbid obesity Complicates care, management, recovery and prognosis. Patient follows with Dr. Augustin at baseline. Anticoagulation will be complicated given patient's intermittent thrombocytopenia associated with chemotherapy. Would be happy to address potential sleep apnea as an outpatient. Continue to monitor blood sugars closely. No indications of DKA on lab work. HPI Consult Data Date of Consult: 02/18/22 HPI Narrative HPI Narrative: NASH GERARDO is a 52 F, with past medical history listed below, who presents to [facility] on 02/17/2022 secondary to acute onset of chest pain. Patient had reported some vague symptomatology for about a week, but at 7 PM on the day prior to presentation developed sharp chest pain with radiation to the back and left shoulder. This was worse with deep inhalation and not similar to any pain she had previously. Patient is currently receiving chemotherapy secondary to bile duct cancer and last chemotherapy was 2 weeks ago. Patient actually had her chemo held secondary to thrombocytopenia. Patient had reported a mild nonproductive cough. Patient had denied any sick contacts, sinus congestion or fevers. Patient has been vaccinated and boosted against COVID-19. In the ER, patient was afebrile, but tachycardic at 119 bpm. Patient was saturating 99% on room air, but slightly hypertensive at 146/87. Patient did subsequently require 2 L nasal cannula with exertion and did have an element of hypotension. Laboratory work-up showed a white blood cell count of 8.3, hemoglobin of 10.1 and platelets of 141. Coagulation studies were within normal limits and chemistries were relatively unremarkable. Chest x-ray showed no active disease, but a CTA of the chest was positive for a saddle pulmonary embolus with extension into segmental branches. Patient was treated with morphine and Zofran. Patient was initiated on a heparin drip and admitted to the floor for further evaluation. Since being admitted to the hospital, patient feels subjectively slightly improved. Patient has been maintaining well on room air. Patient states her chest pain is improved compared to previous. Patient denies any nausea or vomiting. No bleeding complications have been reported. 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 Patient states that she is comfortable in giving herself injections. Patient denies any previous DVT, but does state in the past that there was someone that was concerned about it but she did not receive anticoagulation. Patient denies any family history of miscarriages or sudden . Patient has no children. Patient denies any history of lung disease. Patient has not been tested for obstructive sleep apnea despite the diagnosis being added to her chart. Patient does state that she snores and has been tired during the day, but attributes this to her cancer. Patient denies any significant change in lower extremity edema. Review of systems otherwise negative from a constitutional, HEENT, respiratory, cardiovascular, GI, genitourinary, musculoskeletal, skin, neurologic, psychiatric and hematologic system unless stated above. [facility] Medical History Anemia Anxiety Arthritis Arthritis Asthma Back pain Biliary stricture Cancer Diabetes Dietary restriction Easy bruising Gallstones Gastric reflux High cholesterol History of bile duct cancer History of pain when walking Hx of cyst of breast Hyperlipidemia Hypertension Insulin dependent diabetes mellitus Leg cramps Migraine headache Non-smoker Obesity Restless legs Home Medications amlodipine 5 mg tablet 5 mg PO DAILY 08/11/18 [History Last Taken Unknown] albuterol sulfate 2.5 mg INHALATION Q6H PRN PRN 05/18/20 [History Last Taken Unknown] albuterol sulfate 90 mcg/actuation aerosol inhaler 2 puff INHALATION Q2H PRN PRN g 05/18/20 [History Last Taken Unknown] calcium carbonate-vitamin D3 1 tab PO DAILY 10/23/20 [History Last Taken Unknown] aspirin 81 mg tablet,delayed release 81 mg PO DAILY 04/20/21 [History Last Taken Unknown] magnesium oxide 400 mg (241.3 mg magnesium) tablet 400 mg PO TID 04/20/21 [History Last Taken Unknown] multivitamin 1 tab PO DAILY 04/20/21 [History Last Taken Unknown] cholecalciferol (vitamin D3) [Vitamin D3] 25 mcg PO DAILY 07/20/21 [History Last Taken Unknown] losartan 50 mg tablet 50 mg PO DAILY 08/03/21 [History Last Taken Unknown] cisplatin 1 mg/mL intravenous solution INTRA-ARTERIAL 10/10/21 [History Last Taken Unknown] gemcitabine 1 gram intravenous solution 2,000 mg INTRAVESICAL 2XW 10/10/21 [History Last Taken Unknown] ondansetron HCl 8 mg PO Q8H PRN PRN 10/12/21 [History Last Taken Unknown] promethazine [Phenergan] 25 mg PO Q6H PRN PRN 10/12/21 [History Last Taken Unknown] blood-glucose sensor #9 ea 11/30/21 [Rx Last Taken Unknown] blood-glucose transmitter #1 ea 11/30/21 [Rx Last Taken Unknown] acetaminophen 1,000 mg PO Q8H PRN PRN 02/17/22 [History Last Taken Unknown] diphenoxylate-atropine [Lomotil] 1 - 2 tab PO Q6H PRN PRN 02/17/22 [History Last Taken Unknown] famotidine 20 mg PO DAILY 02/17/22 [History Last Taken Unknown] fluticasone propion-salmeterol [Advair Diskus] 1 inh INHALATION BID 02/17/22 [History Last Taken Unknown] ibuprofen 800 mg PO Q8H PRN 02/17/22 [History Last Taken Unknown] insulin lispro [Humalog KwikPen Insulin] 2.8 unit SUBCUT CONT 02/17/22 [History Last Taken Unknown] insulin pump controller 02/17/22 [History Last Taken Unknown] lidocaine-prilocaine [Emla] 1 applic TOPICAL PRN PRN 02/17/22 [History Last Taken Unknown] pyridoxine (vitamin B6) [Vitamin B-6] 100 mg PO DAILY 02/17/22 [History Last Taken Unknown] Allergy/AdvReac Type Severity Reaction Status Date / Time Penicillins Allergy Hives Verified 02/17/22 07:57 Family History Mother Heart disease Diabetes Osteoporosis Father Diabetes Surgical History Hx of resection of liver S/P carpal tunnel release S/P cholecystectomy S/P unilateral salpingo-oophorectomy Trigger finger Social History Smoking Status: Never smoker alcohol intake: current alcohol intake frequency: holidays/special occasions only substance use type: does not use caffeine: No what type of physical activity do you participate in: walking frequency: daily seatbelt use: always do you feel safe at home: Yes 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 ROS ROS Narrative See HPI Physical Exam Const alert, oriented x3 and no apparent distress Constitutional Narrative: super morbid obesity General Appearance: cooperative HEENT normocephalic, head/scalp atraumatic, hearing grossly normal bilaterally and moist oral mucous membranes Eyes PERRL, EOMs intact bilaterally and conjunctivae normal Neck no lymphadenopathy and supple Chest Chest Narrative: Left chest port is accessed, clean, dry and intact Resp normal respiratory effort, no retractions, no use of accessory muscles and clear to auscultation bilaterally Cardio regular rate, regular rhythm, S1 normal heart sound, S2 normal heart sound, no murmurs, no rub and no gallops GI normal to inspection, nondistended, normoactive bowel sounds, soft to palpation, non-tender and non-distended Extremity normal to inspection, full ROM and no clubbing, cyanosis or edema Peripheral Pulses: Yes pulses 2+ throughout Skin no rashes or lesions noted Neuro oriented x3, CN's II-XII intact bilaterally and moves all extremities Sensorium / Orientation: awake and alert Psych affect normal Lab / Micro Data Result Diagrams: 02/18/22 04:40 02/18/22 04:40 Labs: Laboratory Results - last 24 hr 02/17/22 08:02: PT 13.0, INR 1.0, APTT 29.6 02/17/22 08:02: B-Natriuretic Peptide 6.7 02/17/22 10:35: Troponin I High Sens 6 02/17/22 18:58: APTT Cancelled 02/17/22 20:15: APTT 95.5 H* 02/18/22 04:40: WBC 6.5, RBC 2.96 L, Hgb 9.1 L, Hct 28.4 L, MCV 95.9, MCH 30.7, MCHC 32.0, RDW Std Deviation 90.7 H, RDW Coeff of Jose 26.0 H, Plt Count 141 L, MPV 10.1, Immature Gran % (Auto) 0.500, Neut % (Auto) 62.6, Lymph % (Auto) 23.4, [place] % (Auto) 12.5 H, Eos % (Auto) 0.8, Baso % (Auto) 0.2, Absolute Neuts (auto) 4.1, Absolute Lymphs (auto) 1.52, Nucleated RBC % 0, Anisocytosis 3+ 02/18/22 04:40: Sodium 137, Potassium 4.2, Chloride 106, Carbon Dioxide 30.0, Anion Gap 1 L, BUN 13, Creatinine 0.79, Estim Creat Clear Calc 67.38, Est GFR (MDRD) Af Amer 99, Est GFR (MDRD) Non-Af 82, BUN/Creatinine Ratio 16.4, Glucose 95, Calcium 8.0 L 02/18/22 04:40: APTT 38.2 H 02/18/22 04:40: Magnesium 1.5 L Micro: Microbiology 02/17/22 10:00 Nasal Secretion SARS-CoV-2 Antigen (Rapid) - Final Radiology Impression Chest CTA 02/17/22 08:05 IMPRESSION: Positive for saddle pulmonary embolus extending into segmental branches. Electronically Signed: Denver Ferreira MD at 9:55 EDT , ADDENDUM: 02/17/22 1012 IMPRESSION: Positive for saddle pulmonary embolus extending into segmental branches. N.B. : The above Results were Read Back by Denver Ferreira MD to Kandy Cheney;[phone], and understanding confirmed on 02/17/2022 10:05:51 (ET). Electronically Signed: Denver Ferreira MD at 9:55 EDT , ADDENDUM: 02/17/22 1019 IMPRESSION: Positive for saddle pulmonary embolus extending into segmental branches. N.B. : The above Results were Read Back by Denver Ferreira MD to , AA, and understanding confirmed on 02/17/2022 10:13:01 (ET). Electronically Signed: Denver Ferreira MD at 9:55 EDT , Charges/Coding Visit Charges Inpatient E&M: 94977 Init Hosp L3
[2022-02-18] MEDS: Insulin Lispro 100 UNIT/ML INSULN.PEN SC ×2 (11:46→14:00)
[2022-02-18] MEDS: Fluticasone/Salmeterol 232-14 Inhaler 1 PUFF INHALATION ×2 (11:48→21:27)
[2022-02-18] MEDS: Pyridoxine HCl 100 MG Tablet PO (11:49)
[2022-02-18] MEDS: Losartan Potassium 50 MG Tablet PO (11:49)
[2022-02-18] MEDS: amLODIPine 5 MG Tablet PO (11:49)
[2022-02-18] MEDS: Enoxaparin 150 MG/ML Syringe 140 MG SC ×2 (11:57→18:59)
--- NOTE | 2022-02-18 12:13 | PN.HOSP_ITS ---
Subjective Subjective Patient seen and examined. She complained of some pain in the left side of her chest. Review of systems is otherwise negative. She has remained hemodynamically stable. Objective Data Objective Data Vital Signs: Vital Signs Temp Pulse Resp BP Pulse Ox 98.3 F 93 20 H 136/77 H 91 02/18/22 09:00 02/18/22 09:00 02/18/22 09:00 02/18/22 09:00 02/18/22 10:00 Oxygen Flow Rate (L/min) 2 Oxygen Delivery Method Room Air Weight: 295 lb 10.238 oz Body Mass Index (BMI) 54.1 Intake & Output: Intake and Output for Last 24 Hours 02/16/22 02/17/22 02/18/22 23:59 23:59 23:59 Intake Total 3499.33 / 3499.33 Balance 3499.33 / 3499.33 Lab / Micro Data Result Diagrams: 02/18/22 04:40 02/18/22 04:40 Labs: Laboratory Results - last 24 hr 02/17/22 18:58: APTT Cancelled 02/17/22 20:15: APTT 95.5 H* 02/18/22 04:40: WBC 6.5, RBC 2.96 L, Hgb 9.1 L, Hct 28.4 L, MCV 95.9, MCH 30.7, MCHC 32.0, RDW Std Deviation 90.7 H, RDW Coeff of Jose 26.0 H, Plt Count 141 L, MPV 10.1, Immature Gran % (Auto) 0.500, Neut % (Auto) 62.6, Lymph % (Auto) 23.4, [place] % (Auto) 12.5 H, Eos % (Auto) 0.8, Baso % (Auto) 0.2, Absolute Neuts (auto) 4.1, Absolute Lymphs (auto) 1.52, Nucleated RBC % 0, Anisocytosis 3+ 02/18/22 04:40: Sodium 137, Potassium 4.2, Chloride 106, Carbon Dioxide 30.0, Anion Gap 1 L, BUN 13, Creatinine 0.79, Estim Creat Clear Calc 67.38, Est GFR (MDRD) Af Amer 99, Est GFR (MDRD) Non-Af 82, BUN/Creatinine Ratio 16.4, Glucose 95, Calcium 8.0 L 02/18/22 04:40: APTT 38.2 H 02/18/22 04:40: Magnesium 1.5 L Micro: Microbiology 02/17/22 10:00 Nasal Secretion SARS-CoV-2 Antigen (Rapid) - Final Physical Exam Const alert, oriented x3 and no apparent distress Constitutional Narrative: super morbid obesity General Appearance: cooperative Exam Limitations: no limitations HEENT normocephalic, head/scalp atraumatic, hearing grossly normal bilaterally and moist oral mucous membranes Head and Scalp: normocephalic Eyes PERRL, EOMs intact bilaterally and conjunctivae normal Neck no lymphadenopathy and supple Resp normal respiratory effort, no retractions, no use of accessory muscles and clear to auscultation bilaterally Cardio regular rate, regular rhythm, S1 normal heart sound, S2 normal heart sound and no murmurs GI normal to inspection, nondistended, normoactive bowel sounds, soft to palpation, non-tender and non-distended Extremity normal to inspection, full ROM and no clubbing, cyanosis or edema Peripheral Pulses: Yes pulses 2+ throughout Skin no rashes or lesions noted Neuro oriented x3, CN's II-XII intact bilaterally and moves all extremities Sensorium / Orientation: awake and alert Psych affect normal Assessment & Plan Assessment/Plan (1) Chest pain: (2) Pulmonary emboli: PLAN: #Acute Submassive PE with bilateral saddle emboli * has remained hemodynamically stable. * On heparin drip. * will switch to SQ lovenox. * 2D echo ordered; still pending * BNP was not elevated, and troponins were negative. * * #Cholangiocarcinoma * last had chemotherapy 2 weeks ago * follows with Dr Augustin on outpatient basis * on gemcitabine and cisplatin * #Type 2 diabetes mellitus * on insulin pump * ISS. Accuchecks ACHS * #Hypertension; on losartan and amlodipine #Super morbid obesity: BMI is 54. Complicates acute care, expected recovery and prognosis DVT prophylaxis: on therapeutic lovenox for DVT Disposition: to be dc'd home on therapeutic lovenox Charges/Coding Visit Charges Inpatient E&M: 07256 Subs Hosp L2
[2022-02-18] MEDS: Magnesium Sulfate 4gm/100mL 4 GM/100 ML IV.SOLN. IV (16:06)
--- NOTE | 2022-02-18 21:29 | NURSING ---
glucose 143 no insulin taken.
[2022-02-19 03:00] VITALS: PULSE 88
[2022-02-19 04:00] VITALS: BP 119/54; PULSE 84; RESP 18; TEMP 36.6; O2SAT 98
[2022-02-19] MEDS: Magnesium Chloride 64 MG Delay Rel.Tablet 128 MG PO (06:06)
[2022-02-19] MEDS: Enoxaparin 150 MG/ML Syringe 140 MG SC (06:06)
--- NOTE | 2022-02-19 06:09 | NURSING ---
pt glucose 74. snacks at bedside
[2022-02-19 06:22] LABS: Absolute Lymphocyte Count 1.21 X10^3/uL (0.83-4.51); Absolute Neutrophil Count 2.4 X10^3/uL (2.0-7.7); Basophil# 0.01 X10^3/uL; Basophil% 0.2 % (0-1); Eosinophil# 0.07 X10^3/uL; Eosinophils% 1.6 % (0-5); Hematocrit 27.4 % (37-47); Hemoglobin 8.7 g/dL (12.0-15.0); Lymphocyte # 1.21 X10^3/ul (0.83-4.51); Lymphocyte % 27.9 % (19-41); Mean Corp Hgb Conc 31.8 g/dL (32-36); Mean Corpuscular Hgb 31.1 pg (27.0-32.0); Mean Corpuscular Volume 97.9 fL (81-99); Mean Platelet Vol. 8.9 fl (6.2-12.0); Monocyte# 0.58 X10^3/uL; Monocyte% 13.4 % (0-10); NRBC Flagged by Analyzer 0 % (0-5); Neutrophil # 2.43 X10^3/uL (2.7-7.7); Neutrophil % 56.2 % (47-70); POSITIVE MORPHOLOGY YES; Platelet Count 150 K/mm3 (150-450); RBC Distribution Width CV 25.3 % (11.6-14.6); RBC Distribution Width SD 90.8 fl (35.1-43.9); White Blood Count 4.3 K/mm3 (4.4-11.0)
[2022-02-19 06:25] LABS: Differential Indicated SCAN CRITERIA MET
[2022-02-19 06:38] VITALS: PULSE 89
[2022-02-19 06:46] LABS: Anisocytosis 2+; Differential Comment SCANNED
[2022-02-19 06:48] LABS: Microcytosis 1+
[2022-02-19 06:52] LABS: Anion Gap 4 (5-15); BUN 10 mg/dL (7-18); BUN/Creat Ratio 15.4 RATIO (10-20); Calcium,Total 8.1 mg/dL (8.5-10.1); Chloride 110 mmol/L (98-107); Creatinine, Serum 0.65 mg/dL (0.55-1.02); EST Glomerular Filtration Rate 102 mL/min (>60); Est Glom Filt Rate - Afr Amer 124 mL/min (>60); Estimated Creatinine Clearance 81.89 ml/min; Glucose 72 mg/dL (74-106); Sodium Level 140 mmol/L (136-145)
[2022-02-19 07:37] VITALS: O2SAT 95
--- NOTE | 2022-02-19 08:12 | PCM.PN.INT ---
Assessment & Plan Assessment/Plan (1) Pulmonary emboli: (2) Bile duct cancer: (3) Metastatic adenocarcinoma: (4) Morbid obesity with BMI of 60.0-69.9, adult: (5) Asthma: PLAN: RECOMMENDATIONS: 1. Await results of echocardiogram 2. Probable discharge later today pending echo results 3. Continue anticoagulation. Consider Lovenox on discharge 4. Outpatient follow-up with pulmonary and Dr. Augustin IMPRESSIONS: 1. Acute hypoxic respiratory insufficiency secondary to submassive PE Patient was significant desaturation and hypotension yesterday. This would be signs of submassive PE. Patient's risk factors for PE include malignancy and relative immobility. Would not recommend obtaining lower extremity Dopplers as this will not change overall condition. Patient is currently on heparin, but could be transitioned to Lovenox therapy for potential discharge. Patient was tolerating ambulation yesterday on room air. Patient advised to use nasal saline if necessary. Patient can call if hemoptysis worsens. Patient does appear to have stabilized on Lovenox therapy. Anticipate Lovenox will need to be continued for least 6 months or until in remission. Patient can follow-up in our office in 4 weeks if able to be discharged. 2. Cholangiocarcinoma/type 2 diabetes mellitus/hypertension/morbid obesity Complicates care, management, recovery and prognosis. Patient follows with Dr. Augustin at baseline. Anticoagulation will be complicated given patient's intermittent thrombocytopenia associated with chemotherapy. Would be happy to address potential sleep apnea as an outpatient. Continue to monitor blood sugars closely. No indications of DKA on lab work. Subjective Subjective Patient did okay overnight. Patient did desaturate to 91% with ambulation yesterday, but discharge was held secondary to an availability of echo. Patient did report some mild hemoptysis this morning. No epistaxis is been reported. Patient is reporting spasmatic pain in the left chest in the axillary line. Objective Data Objective Data Vital Signs: Vital Signs Temp Pulse Resp BP Pulse Ox 36.6 C 89 18 119/54 L 98 02/19/22 04:00 02/19/22 06:38 02/19/22 04:00 02/19/22 04:00 02/19/22 04:00 Oxygen Flow Rate (L/min) 2 Oxygen Delivery Method Room Air Weight: 134.1 kg Body Mass Index (BMI) 54.1 Intake & Output: Intake and Output for Last 24 Hours 02/17/22 02/18/22 02/19/22 23:59 23:59 23:59 Intake Total 5374.98 / 6174.98 1600 / 1600 Balance 5374.98 / 6174.98 1600 / 1600 Lab / Micro Data Result Diagrams: 02/19/22 06:10 02/19/22 06:10 Labs: Laboratory Results - last 24 hr 02/19/22 06:10: WBC 4.3 L, RBC 2.80 L, Hgb 8.7 L, Hct 27.4 L, MCV 97.9, MCH 31.1, MCHC 31.8 L, RDW Std Deviation 90.8 H, RDW Coeff of Jose 25.3 H, Plt Count 150, MPV 8.9, Immature Gran % (Auto) 0.700, Neut % (Auto) 56.2, Lymph % (Auto) 27.9, [place] % (Auto) 13.4 H, Eos % (Auto) 1.6, Baso % (Auto) 0.2, Absolute Neuts (auto) 2.4, Absolute Lymphs (auto) 1.21, Nucleated RBC % 0, Differential Comment SCANNED, Anisocytosis 2+, Microcytosis 1+ 02/19/22 06:10: Sodium 140, Potassium 4.0, Chloride 110 H, Carbon Dioxide 26.0, Anion Gap 4 L, BUN 10, Creatinine 0.65, Estim Creat Clear Calc 81.89, Est GFR (MDRD) Af Amer 124, Est GFR (MDRD) Non-Af 102, BUN/Creatinine Ratio 15.4, Glucose 72 L, Calcium 8.1 L Micro: Microbiology 02/17/22 10:00 Nasal Secretion SARS-CoV-2 Antigen (Rapid) - Final Physical Exam Const alert, oriented x3 and no apparent distress Constitutional Narrative: super morbid obesity General Appearance: cooperative HEENT normocephalic, head/scalp atraumatic, hearing grossly normal bilaterally and moist oral mucous membranes Eyes PERRL, EOMs intact bilaterally and conjunctivae normal Neck no lymphadenopathy and supple Chest Chest Narrative: Left chest port is accessed, clean, dry and intact Resp normal respiratory effort, no retractions, no use of accessory muscles and clear to auscultation bilaterally Cardio regular rate, regular rhythm, S1 normal heart sound, S2 normal heart sound, no murmurs, no rub and no gallops GI normal to inspection, nondistended, normoactive bowel sounds, soft to palpation, non-tender and non-distended Extremity normal to inspection, full ROM and no clubbing, cyanosis or edema Peripheral Pulses: Yes pulses 2+ throughout Skin no rashes or lesions noted Neuro oriented x3, CN's II-XII intact bilaterally and moves all extremities Sensorium / Orientation: awake and alert Psych affect normal Charges/Coding Visit Charges Inpatient E&M: 83589 Subs Hosp L2
[2022-02-19 08:50] VITALS: BP 135/74; PULSE 92; RESP 18; TEMP 36.7; O2SAT 98
[2022-02-19] MEDS: Fluticasone/Salmeterol 232-14 Inhaler 1 PUFF INHALATION (08:52)
[2022-02-19] MEDS: Losartan Potassium 50 MG Tablet PO (08:53)
[2022-02-19] MEDS: Pyridoxine HCl 100 MG Tablet PO (08:53)
[2022-02-19] MEDS: amLODIPine 5 MG Tablet PO (08:53)
[2022-02-19] MEDS: Famotidine 20 MG Tablet PO (08:55)
[2022-02-19 11:06] VITALS: O2SAT 94; O2SAT 97
--- NOTE | 2022-02-19 11:25 | CASEMGMT ---
RN CM Face to Face with patient for initial transition planning/care coordination assessment. RN CM introduced self and role at [facility]. Patient sitting in chair, alert and oriented. Patient willing to participate in assessment and is able to answer all questions appropriately. Care providers, pharmacy, and demographics verified. Patient wishes to discharge home, denies need for home health at this time. Patient states she has no further needs or concerns at this time. CM to follow for discharge planning needs that may arise. PCP: Minesh Specialists: Charli, oncologist Preferred Pharmacy: [facility] retail at discharge Insurance: [facility] Prescription Benefit: yes Living Will/HPOA: none LNOK: Living Arrangements: Patient lives with in a single story home with 2 steps and grab bar to enter the home. Patient states she is independent at home. Transportation: self, DME/HHC: Patient states she has shower chair, walker, grab bars, nebulizer, and pulse ox at home. Patient has had [facility]HC in the past. Disposition Plan: Patient to discharge home with family support and follow-up plans in place. Kerline POST, RN, CM
--- NOTE | 2022-02-19 11:56 | CASEMGMT ---
Per Fabiana KING, pt does not qualify for home oxygen at discharge. CM to follow for anti-coag. Winston KING CM
--- NOTE | 2022-02-19 12:00 | NURSING ---
Pt reports blood sugar of 110 from insulin pump. No insulin gave for lunch per pt report.
--- NOTE | 2022-02-19 12:19 | DS.PCM_ITS ---
Providers Date of Admission: 02/17/22 Date of Discharge: 02/19/22 Primary Care Physician: Dr. Nilda Edge MD Consultations 02/17/22 12:52 Consult: Stamp Pad Maker / Pulmonary Medicine Routine Consulting Provider: Pulmonary Medicine zeinab [place] Reason for Consult: acute bilateral PE; EMERGENT Consult: No MD Notified: Yes Date Notified: 02/17/22 Time Notified: 11:12 Method of Notification: Text Reason For Visit: BILATERAL PE Diagnosis Discharge Diagnosis (1) Pulmonary emboli: Status: Acute Code(s): I26.99 - Other pulmonary embolism without acute cor pulmonale (2) Bile duct cancer: Status: Chronic Code(s): C24.0 - Malignant neoplasm of extrahepatic bile duct (3) Metastatic adenocarcinoma: Status: Chronic Code(s): C79.9 - Secondary malignant neoplasm of unspecified site (4) Morbid obesity with BMI of 60.0-69.9, adult: Status: Chronic Code(s): E66.01 - Morbid (severe) obesity due to excess calories; Z68.44 - Body mass index [BMI] 60.0-69.9, adult (5) Asthma: Status: Chronic Code(s): J45.909 - Unspecified asthma, uncomplicated Medications at Discharge Home Medications amlodipine 5 mg tablet 5 mg PO DAILY 08/11/18 albuterol sulfate 2.5 mg INHALATION Q6H PRN PRN 05/18/20 albuterol sulfate 90 mcg/actuation aerosol inhaler 2 puff INHALATION Q2H PRN PRN g 05/18/20 calcium carbonate-vitamin D3 1 tab PO DAILY 10/23/20 aspirin 81 mg tablet,delayed release 81 mg PO DAILY 04/20/21 magnesium oxide 400 mg (241.3 mg magnesium) tablet 400 mg PO TID 04/20/21 multivitamin 1 tab PO DAILY 04/20/21 cholecalciferol (vitamin D3) [Vitamin D3] 25 mcg PO DAILY 07/20/21 losartan 50 mg tablet 50 mg PO DAILY 08/03/21 cisplatin 1 mg/mL intravenous solution INTRA-ARTERIAL 10/10/21 gemcitabine 1 gram intravenous solution 2,000 mg INTRAVESICAL 2XW 10/10/21 ondansetron HCl 8 mg PO Q8H PRN PRN 10/12/21 promethazine 25 mg PO Q6H PRN PRN 10/12/21 blood-glucose sensor #9 ea 11/30/21 blood-glucose transmitter #1 ea 11/30/21 acetaminophen 1,000 mg PO Q8H PRN PRN 02/17/22 diphenoxylate-atropine [Lomotil] 1 - 2 tab PO Q6H PRN PRN 02/17/22 famotidine 20 mg PO DAILY 02/17/22 fluticasone propion-salmeterol [Advair Diskus] 1 inh INHALATION BID 02/17/22 ibuprofen 800 mg PO Q8H PRN 02/17/22 insulin lispro [Humalog KwikPen Insulin] 2.8 unit SUBCUT CONT 02/17/22 insulin pump controller 02/17/22 lidocaine-prilocaine 1 applic TOPICAL PRN PRN 02/17/22 pyridoxine (vitamin B6) [Vitamin B-6] 100 mg PO DAILY 02/17/22 enoxaparin 140 mg SUBCUT BID 30 Days #55.998 dose 02/19/22 Hospital Course Operations None Procedures 2-D Echocardiogram Summary of Care Provided Minutes Spent on Discharge: 35 Hospital Course: 52-year-old female with past medical history of cholangiocarcinoma, on chemotherapy who comes in with chest pain that began the night of the admission, radiating to her back and left shoulder. Work-up in the ED was significant for tachycardia. CTA showed saddle embolus extending to the segmental branches. This was most likely related to her cholangiocarcinoma and morbid obesity. Patient was admitted to the PCU, and started on heparin drip. She received IV fluids for relative hypotension with improvement. Pulmonology was consulted. Patient's 2D echo showed EF of 60%, no other abnormality. Patient was evaluated for oxygen at discharge and did not qualify. She was discharged on Lovenox. She was advised to follow up with pulmonology and oncology as well as her primary care doctor. Physical Exam Narrative Physical exam: General: Alert, Oriented x3, Cooperative, No apparent distress, morbidly obese HEENT: Atraumatic Oral: Moist Mucosa Neck: Supple Lungs: Clear to auscultation Cardiovascular: HS I+II, regular, no murmurs Abdomen: Bowel Sounds Present, Soft, Non Tender Extremities: No edema Skin: No rashes, No breakdown Neurological: Grossly intact Psych/Mental Status: Appropriate Weight / BMI Weight Weight: 134.1 kg Body Mass Index (BMI) 54.1 ABG / Lab / Microbiology Data Result Diagrams: 02/19/22 06:10 02/19/22 06:10 Laboratory: Laboratory Results - last 24 hr 02/19/22 06:10: WBC 4.3 L, RBC 2.80 L, Hgb 8.7 L, Hct 27.4 L, MCV 97.9, MCH 31.1, MCHC 31.8 L, RDW Std Deviation 90.8 H, RDW Coeff of Jose 25.3 H, Plt Count 150, MPV 8.9, Immature Gran % (Auto) 0.700, Neut % (Auto) 56.2, Lymph % (Auto) 27.9, [place] % (Auto) 13.4 H, Eos % (Auto) 1.6, Baso % (Auto) 0.2, Absolute Neuts (auto) 2.4, Absolute Lymphs (auto) 1.21, Nucleated RBC % 0, Differential Comment SCANNED, Anisocytosis 2+, Microcytosis 1+ 02/19/22 06:10: Sodium 140, Potassium 4.0, Chloride 110 H, Carbon Dioxide 26.0, Anion Gap 4 L, BUN 10, Creatinine 0.65, Estim Creat Clear Calc 81.89, Est GFR (MDRD) Af Amer 124, Est GFR (MDRD) Non-Af 102, BUN/Creatinine Ratio 15.4, Glucose 72 L, Calcium 8.1 L Microbiology: Microbiology 02/17/22 10:00 Nasal Secretion SARS-CoV-2 Antigen (Rapid) - Final D/C Instructions Discharge Diet: 2000 Calorie Control Diet and 2000 mg Sodium Diet Meaningful Use Info Meaningful Use Diagnoses (Choose all that apply): None applicable Discharge Plan Admission Admit Date/Time: 02/17/22 11:07 Primary Reason for Your Visit: Acute bilateral PE Attending Provider: Mary Nieto Primary Care Provider: Nilda Edge Consulting Providers: Mele Francisco ; Trevon Fraser ; Li Goode LOGGING EQUIPMENT OPERATOR Instructions Additional Instructions / Restrictions: Continue to use incentive spirometer. Follow-up with your primary care doctor within a week. Discharge Orders/Prescriptions Prescriptions: New enoxaparin 150 mg/mL Syringe 140 mg subcut BID 30 Days Qty: 55.998 RF: 0 Continued amlodipine [Norvasc] 5 mg tablet 5 mg PO DAILY RF: 0 albuterol sulfate 90 mcg/actuation HFA aerosol inhaler 2 puff INHALATION Q2H PRN PRN (Reason: Sob &/Or Wheezing) RF: 0 albuterol sulfate 2.5 mg /3 mL (0.083 %) solution for nebulization 2.5 mg INHALATION Q6H PRN PRN (Reason: sob/wheezing) RF: 0 magnesium oxide 400 mg (241.3 mg magnesium) tablet 400 mg PO TID RF: 0 multivitamin [Daily Multi-Vitamin] Tablet 1 tab PO DAILY RF: 0 aspirin [Adult Low Dose Aspirin] 81 mg tablet,delayed release (DR/EC) 81 mg PO DAILY RF: 0 gemcitabine 1 gram recon soln 2,000 mg intravesical 2XW RF: 0 cisplatin 1 mg/mL solution intra-arterial RF: 0 losartan 50 mg tablet 50 mg PO DAILY RF: 0 calcium carbonate-vitamin D3 1 EACH tablet 1 tab PO DAILY RF: 0 cholecalciferol (vitamin D3) [Vitamin D3] 25 mcg (1,000 unit) Tablet 25 mcg PO DAILY RF: 0 ondansetron HCl 8 mg Tablet 8 mg PO Q8H PRN PRN (Reason: Nausea) RF: 0 promethazine 25 mg Tablet 25 mg PO Q6H PRN PRN (Reason: Nausea) RF: 0 ibuprofen 800 mg Tablet 800 mg PO Q8H PRN (Reason: Pain) RF: 0 diphenoxylate-atropine [Lomotil] 2.5-0.025 mg Tablet 1 - 2 tab PO Q6H PRN PRN (Reason: Diarrhea) RF: 0 acetaminophen 500 mg Tablet 1,000 mg PO Q8H PRN PRN (Reason: Pain) RF: 0 lidocaine-prilocaine 2.5-2.5 % Cream 1 applic topical PRN PRN (Reason: port access) RF: 0 famotidine 20 mg Tablet 20 mg PO DAILY RF: 0 pyridoxine (vitamin B6) [Vitamin B-6] 100 mg Tablet 100 mg PO DAILY RF: 0 fluticasone propion-salmeterol [Advair Diskus] 100-50 mcg/dose Blister With Device 1 inh INHALATION BID RF: 0 insulin lispro [Humalog KwikPen Insulin] 100 unit/mL Insulin Pen 2.8 unit SUBCUT CONT RF: 0 (DME) insulin pump controller Misc MISCELLANEOUS RF: 0 (DME) Dexcom G6 Transmitter Device See Rx Instructions .ROUTE .MEDSUPPLY Qty: 1 RF: 3 (DME) Dexcom G6 Sensor Device See Rx Instructions .ROUTE .MEDSUPPLY Qty: 9 RF: 3 Referrals / Follow Up: Nilda Edge MD [Primary Care Provider] - 02/27/22 2:40 pm Juaquin Augustin DO [STAFF PHYSICIAN] - 02/21/22 10:10 am (Pt has appointments for treatment and CT scan at [facility] also on 02-21-22 at 8:20am. Once done please check in with Dr. Augustin's office for an appointment at 10:10am. ) Li Goode LOGGING EQUIPMENT OPERATOR, LOGGING EQUIPMENT OPERATOR-C [Nurse Practitioner] - 03/06/22 8:15 am Disposition Disposition (needs filled in before D/C Order can be placed): Home, Self Care Charges/Coding Visit Charges Inpatient E&M: 28365 Disch Hosp
--- NOTE | 2022-02-19 13:03 | CASEMGMT ---
Addendum entered by Kerline Rogers 02/19/22 13:20: Per Dr. Nieto, they will cover if pt only gets quantity of 15 then insurance will cover, pt will just have to go back to get other 15. Call back to [facility] and per tech, pt has no co-pay. Pt updated and voices no further questions/concerns/needs. Winston KING CM Original Note: Pt to be sent home on Lovenox at discharge and med e-scribed to [facility]. Call to Dion at [facility] and pt's insurance is rejecting to pay for med as it is BID. Per pt's insurance, will only cover once daily. Dr. Nieto aware and states will adjust script. CM to follow. Winston KING CM
--- NOTE | 2022-02-19 14:20 | CHAPLAIN ---
Type of Pastoral Visit _x__ Initial Visit ___ Follow-up Visit ___ On-call Visit ___ General Patient Visit ___ Spiritual Assessment ___ Family Conference ___ Bereavement ___ Rapid Response ___ Code Blue ___ Other (describe below) Pastoral Care Referral From _x__ Patient ___ Family ___ Nurse ___ Physician ___ Occupational Therapy Asst ___ Tire Spotter ___ Other (describe below) Sacrament/Intervention _x__ Active listening ___ Anointing ___ Taoism ___ Bereavement ___ Communion _x__ Ruchi exploration ___ _x__ Life review _x__ Prayer ___ Reconciliation ___ Sacrament of Sick _x__ Supportive presence ___ Wedding ___ Other (describe below) Pastoral Comments 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
[2022-02-19] MEDS: 0.9% Saline Lock 10 ML Syringe IV (14:33)
== END 2022-02-19 15:17 | disposition home or self-care (01) | DRG 176 ==
LOC: ED 10:10 → PCU 12:17
PROVIDERS: Internal Medicine; Admitting Provider Student in an Organized Health Care Education/Training Program; Emergency Provider Emergency Medicine; PCP Family Medicine; Visit Provider Internal Medicine
DX: I26.92 Saddle embolus of pulmonary artery without acute cor pulmonale (principal); C79.9 Secondary malignant neoplasm of unspecified site; Z68.43 Body mass index [BMI] 50.0-59.9, adult; C24.0 Malignant neoplasm of extrahepatic bile duct; D69.6 Thrombocytopenia, unspecified; K21.9 Gastro-esophageal reflux disease without esophagitis; I95.9 Hypotension, unspecified; E11.9 Type 2 diabetes mellitus without complications; E66.01 Morbid (severe) obesity due to excess calories; E78.5 Hyperlipidemia, unspecified; J45.909 Unspecified asthma, uncomplicated; G47.30 Sleep apnea, unspecified; I10 Essential (primary) hypertension; M19.90 Unspecified osteoarthritis, unspecified site; R09.02 Hypoxemia; R00.0 Tachycardia, unspecified; Z20.822 Contact with and (suspected) exposure to COVID-19; Z79.82 Long term (current) use of aspirin; Z79.899 Other long term (current) drug therapy; Z96.41 Presence of insulin pump (external) (internal)
CPT/HCPCS: 36591; 71045; 71275; 80048; 83735; 83880; 84484; 85025; 85610; 85730; 87811; 93005; 93306; 99285; J7030; Q9957; Q9967; A4216; C8929; J2405

== ENCOUNTER 2022-03-16 11:29 | Emergency (ER) | payer OTHER, SELFPAY ==
[2022-03-16] VITALS (7 sets, daily range): BP systolic 137–164; BP diastolic 59–89; PULSE 81–104; RESP 18–20; TEMP 36.6–36.7; O2SAT 100; BMI 53.4
--- NOTE | 2022-03-16 11:48 | EX.ED.DYSGE1 ---
HPI History of Present Illness Chief Complaint: Abn Labs Detail of Chief Complaint: Thrombocytopenia due to Lovenox and hypomagnesemia due to chemo Informant: patient Onset/Context/Timing Onset: - (Recent) Timing: Continuous Quality: Hematologic with abnormal platelet count and magnesium Location: Laboratory results Current Severity: Severe Maximum Severity: Severe Worsened by: Lovenox and chemo Relieved by: Nothing Associated Symptoms Associated Symptoms: Intermittent lower abdominal pain since surgery and chronic diarrhea since Narrative Narrative: Patient is a 52-year-old woman who was sent from Dr. Hurley's office because of platelet count of 18,000 which is felt to be due to Lovenox and hypomagnesemia due to chemo. Patient was sent for transfusion. Patient does report bruising easily. Patient is present on Lovenox because of PE that was diagnosed 3 weeks ago. She had surgery November 07 for biliary and colon cancer. She denies any fever, chills night sweats. She denies any upper respiratory symptoms. She denies nausea or vomiting. She does endorse chronic diarrhea. She has not noted any blood or mucus in the diarrhea. She denies urologic symptoms. She is scheduled to see Dr. Hurley on Saturday. Prior similar symptoms: No Recent Illness/Hospitalization: Yes [facility] RE[facility] BY [facility] Medical History Anemia Anxiety Arthritis Arthritis Asthma Back pain Biliary stricture Cancer Diabetes Dietary restriction Easy bruising Gallstones Gastric reflux High cholesterol History of bile duct cancer History of pain when walking Hx of cyst of breast Hyperlipidemia Hypertension Insulin dependent diabetes mellitus Leg cramps Migraine headache Non-smoker Obesity Pulmonary emboli Restless legs Home Medications amlodipine 5 mg tablet 5 mg PO DAILY 08/11/18 [History Last Taken Unknown] albuterol sulfate 2.5 mg INHALATION Q6H PRN PRN 05/18/20 [History Last Taken Unknown] albuterol sulfate 90 mcg/actuation aerosol inhaler 2 puff INHALATION Q2H PRN PRN g 05/18/20 [History Last Taken Unknown] calcium carbonate-vitamin D3 1 tab PO DAILY 10/23/20 [History Last Taken Unknown] aspirin 81 mg tablet,delayed release 81 mg PO DAILY 04/20/21 [History Last Taken Unknown] magnesium oxide 400 mg (241.3 mg magnesium) tablet 400 mg PO TID 04/20/21 [History Last Taken Unknown] multivitamin 1 tab PO DAILY 04/20/21 [History Last Taken Unknown] losartan 50 mg tablet 50 mg PO DAILY 08/03/21 [History Last Taken Unknown] cisplatin 1 mg/mL intravenous solution INTRA-ARTERIAL 10/10/21 [History Last Taken Unknown] gemcitabine 1 gram intravenous solution 2,000 mg INTRAVESICAL 2XW 10/10/21 [History Last Taken Unknown] ondansetron HCl 8 mg PO Q8H PRN PRN 10/12/21 [History Last Taken Unknown] promethazine 25 mg PO Q6H PRN PRN 10/12/21 [History Last Taken Unknown] blood-glucose sensor #9 ea 11/30/21 [Rx Last Taken Unknown] blood-glucose transmitter #1 ea 11/30/21 [Rx Last Taken Unknown] acetaminophen 1,000 mg PO Q8H PRN PRN 02/17/22 [History Last Taken Unknown] diphenoxylate-atropine [Lomotil] 1 - 2 tab PO Q6H PRN PRN 02/17/22 [History Last Taken Unknown] fluticasone propion-salmeterol [Advair Diskus] 1 inh INHALATION BID 02/17/22 [History Last Taken Unknown] ibuprofen 800 mg PO Q8H PRN 02/17/22 [History Last Taken Unknown] insulin lispro [Humalog KwikPen Insulin] 2.8 unit SUBCUT CONT 02/17/22 [History Last Taken Unknown] insulin pump controller 02/17/22 [History Last Taken Unknown] lidocaine-prilocaine 1 applic TOPICAL PRN PRN 02/17/22 [History Last Taken Unknown] pyridoxine (vitamin B6) [Vitamin B-6] 100 mg PO DAILY 02/17/22 [History Last Taken Unknown] enoxaparin 140 mg SUBCUT BID 30 Days #55.998 dose 02/19/22 [Rx Last Taken Unknown] cholecalciferol (vitamin D3) 125 mcg (5,000 unit) capsule 125 mcg PO DAILY 03/15/22 [History Last Taken Unknown] pantoprazole 40 mg tablet,delayed release 40 mg PO DAILY 03/15/22 [History Last Taken Unknown] Allergy/AdvReac Type Severity Reaction Status Date / Time Penicillins Allergy Hives Verified 03/16/22 11:33 Family History Mother Heart disease Diabetes Osteoporosis Father Diabetes Surgical History Hx of resection of liver S/P carpal tunnel release S/P cholecystectomy S/P unilateral salpingo-oophorectomy Trigger finger Social History (Updated 03/16/22 @ 11:[address] 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 [employer] ROS ROS ED Constitutional Constitutional ED: Denies chills, fever(s), subjective, sweats or weight loss Eyes Eyes: Denies blurry vision or change in vision Cardiovascular Cardiovascular: Denies chest pain Respiratory/Chest Respiratory/Chest: Denies cough, dyspnea or dyspnea on exertion Gastrointestinal Gastrointestinal: Reports abdominal pain and diarrhea; Denies constipation, melena, nausea or vomiting Genitourinary Genitourinary ED: Denies dysuria, hematuria or urinary frequency Musculoskeletal Musculoskeletal: Denies arthralgias, myalgias or neck pain Integumentary Reports other Details: Multiple bruises ; Denies abscess, Abrasions or rash Neurologic Neurologic: Denies headache(s) or weakness Hematologic/Lymphatic Hematologic/Lymphatic: Reports easy bleeding and easy bruising Allergic/Immunologic Allergic/Immunologic ED: Denies mouth swelling, tongue swelling or urticaria EXAM Physical Exam Const Vital Signs: 03/16/22 11:30 03/16/22 12:08 03/16/22 14:12 Temperature 97.8 F Temperature Source Temporal Pulse Rate 104 H 81 Respiratory Rate 20 H 18 Respiratory Pattern Normal Blood Pressure 164/89 H Blood Pressure Mean 114 Blood Pressure Source Blood Pressure Position Blood Pressure Location Pulse Ox 100 100 Oxygen Delivery Method Room Air Room Air 03/16/22 16:08 03/16/22 18:14 03/16/22 18:38 Temperature 97.9 F Temperature Source Oral Pulse Rate 84 83 81 Respiratory Rate 18 18 18 Respiratory Pattern Blood Pressure 137/59 H 141/71 H 148/71 H Blood Pressure Mean 85 94 96 Blood Pressure Source Monitor Blood Pressure Position Semi-Fowlers Blood Pressure Location Right Arm Pulse Ox 100 100 100 Oxygen Delivery Method Room Air Room Air Room Air 03/16/22 18:54 03/16/22 18:59 Temperature 98.0 F 98.0 F Temperature Source Oral Pulse Rate 81 88 Respiratory Rate 18 18 Respiratory Pattern Blood Pressure 152/70 H 152/70 H Blood Pressure Mean 97 Blood Pressure Source Monitor Blood Pressure Position Semi-Fowlers Blood Pressure Location Left Arm Pulse Ox 100 100 Oxygen Delivery Method Room Air Positive well nourished, well developed and obese General Appearance ED: well developed and NAD; Negative for cyanotic, diaphoretic or pallor Nutritional Appearance: obese HEENT Reports moist mucous membranes Negative for trauma Eyes PERRL and EOMs intact bilaterally General Eye ED: Negative for pale conjunctiva or scleral icterus Neck no lymphadenopathy and No supple Resp normal respiratory effort and clear to auscultation bilaterally Cardio regular rate, regular rhythm, S1 normal heart sound, S2 normal heart sound and no murmurs GI normal to inspection, nondistended, normoactive bowel sounds and non-tender GI Narrative: Scar is well-healed. Patient has multiple bruises due to Lovenox injections. Palpation: soft Back/Spine no CVA tenderness Cervical Spine: Negative for cervical spine tenderness Thoracic Spine / Upper Back: Negative for thoracic spinal tenderness or paraspinal muscle tenderness Extremity Negative for normal to inspection Extremity Narrative: Petechiae General Extremety ED: Negative for edema or tenderness General Extremity: Negative for edema Psych mental status grossly normal Skin no rashes or lesions noted and no wounds Skin Narrative: Bruising and petechiae as previously documented General Skin Exam: Negative for jaundice or pallor MDM MDM MDM Narrative Medical decision making narrative: Since patient had blood work prior to arrival blood work was not repeated. Platelets were ordered and magnesium was ordered. Plan is discharge to home once platelets have been infused and magnesium has been infused. She is scheduled to see Dr. Kilgore on Saturday. Lab Data Labs: Laboratory Results - last 24 hr 03/16/22 12:00 Blood Type A POSITIVE Discharge Plan Triage Chief Complaint: Abn Labs ED Provider: Dwain Marx Dx/Rx/DC Orders Clinical Impression: Heparin induced thrombocytopenia, Hypomagnesemia, Pulmonary embolus, Biliary tract cancer Instructions: Thrombocytopenia, Discharge Instructions for ... Prescriptions: No Action amlodipine [Norvasc] 5 mg tablet 5 mg PO DAILY RF: 0 albuterol sulfate 90 mcg/actuation HFA aerosol inhaler 2 puff INHALATION Q2H PRN PRN (Reason: Sob &/Or Wheezing) RF: 0 albuterol sulfate 2.5 mg /3 mL (0.083 %) solution for nebulization 2.5 mg INHALATION Q6H PRN PRN (Reason: sob/wheezing) RF: 0 magnesium oxide 400 mg (241.3 mg magnesium) tablet 400 mg PO TID RF: 0 multivitamin [Daily Multi-Vitamin] Tablet 1 tab PO DAILY RF: 0 aspirin [Adult Low Dose Aspirin] 81 mg tablet,delayed release (DR/EC) 81 mg PO DAILY RF: 0 gemcitabine 1 gram recon soln 2,000 mg intravesical 2XW RF: 0 cisplatin 1 mg/mL solution intra-arterial RF: 0 losartan 50 mg tablet 50 mg PO DAILY RF: 0 cholecalciferol (vitamin D3) 125 mcg (5,000 unit) capsule 125 mcg PO DAILY RF: 0 pantoprazole [Protonix] 40 mg tablet,delayed release (DR/EC) 40 mg PO DAILY RF: 0 calcium carbonate-vitamin D3 1 EACH tablet 1 tab PO DAILY RF: 0 ondansetron HCl 8 mg Tablet 8 mg PO Q8H PRN PRN (Reason: Nausea) RF: 0 promethazine 25 mg Tablet 25 mg PO Q6H PRN PRN (Reason: Nausea) RF: 0 ibuprofen 800 mg Tablet 800 mg PO Q8H PRN (Reason: Pain) RF: 0 diphenoxylate-atropine [Lomotil] 2.5-0.025 mg Tablet 1 - 2 tab PO Q6H PRN PRN (Reason: Diarrhea) RF: 0 acetaminophen 500 mg Tablet 1,000 mg PO Q8H PRN PRN (Reason: Pain) RF: 0 lidocaine-prilocaine 2.5-2.5 % Cream 1 applic topical PRN PRN (Reason: port access) RF: 0 pyridoxine (vitamin B6) [Vitamin B-6] 100 mg Tablet 100 mg PO DAILY RF: 0 fluticasone propion-salmeterol [Advair Diskus] 100-50 mcg/dose Blister With Device 1 inh INHALATION BID RF: 0 insulin lispro [Humalog KwikPen Insulin] 100 unit/mL Insulin Pen 2.8 unit SUBCUT CONT RF: 0 (DME) insulin pump controller Misc MISCELLANEOUS RF: 0 enoxaparin 150 mg/mL Syringe 140 mg subcut BID 30 Days Qty: 55.998 RF: 0 (DME) Dexcom G6 Transmitter Device See Rx Instructions .ROUTE .MEDSUPPLY Qty: 1 RF: 3 (DME) Dexcom G6 Sensor Device See Rx Instructions .ROUTE .MEDSUPPLY Qty: 9 RF: 3 Primary Care Provider: Nilda Edge Referrals: Nilda Edge MD [Primary Care Provider] - Juaquin Augustin DO [STAFF PHYSICIAN] - Keep Eddie appointment Disposition Disposition: Home, Self Care
[2022-03-16] MEDS: Magnesium Sulfate 4gm/100mL 4 GM/100 ML IV.SOLN. IV (12:21)
== END 2022-03-16 19:06 | disposition home or self-care (01) ==
PROVIDERS: Emergency Provider Emergency Medicine; PCP Family Medicine; Visit Provider Emergency Medicine
DX: D75.82 Heparin induced thrombocytopenia (HIT) (principal); T45.515A Adverse effect of anticoagulants, initial encounter; E83.42 Hypomagnesemia; T45.1X5A Adverse effect of antineoplastic and immunosuppressive drugs, initial encounter; C24.9 Malignant neoplasm of biliary tract, unspecified; I26.99 Other pulmonary embolism without acute cor pulmonale; E11.9 Type 2 diabetes mellitus without complications; I10 Essential (primary) hypertension; K52.9 Noninfective gastroenteritis and colitis, unspecified; E78.5 Hyperlipidemia, unspecified; Z79.4 Long term (current) use of insulin; Z79.82 Long term (current) use of aspirin
CPT/HCPCS: 36430; 36591; 86900; 86901; 86965; 96365; 96366; 99284; J7040; P9035; A4216

== ENCOUNTER 2022-04-15 00:47 | Emergency (ER) | payer OTHER, SELFPAY ==
[2022-04-15 00:48] VITALS: BP 152/83; PULSE 122; RESP 20; TEMP 37; O2SAT 100; BMI 51.5
--- NOTE | 2022-04-15 01:32 | US_ITS ---
We are attempting to reach an attending provider to discuss findings. An addendum with communication details will be sent when the communication is complete. STUDY: ULTRASOUND TRANSVAGINAL CLINICAL: Female, 52 years old. Right pelvic pain TECHNIQUE: Transvaginal COMPARISON: None. FINDINGS: Uterus is anteverted and retroflexed with a tilted to the right. The uterus measures 8.5 x 4.9 x 4.8 cm. No uterine parenchymal lesion. There are nabothian cysts noted within the cervix.. Endometrial stripe is hyperechoic and measures 2.6 mm in thickness. The right ovary measures 4.4 x 3.3 x 4.7 cm. There are multiple normal-appearing follicles. There is internal vascular flow to the right ovary on color DOPPLER imaging which appears somewhat diminished. The left ovary is surgically absent. There is free fluid adjacent to the right adnexa and tracking into the cul-de-sac. US/Transvaginal Non- IMPRESSION: Mild enlargement of the right ovary with somewhat diminished internal vascular flow on color DOPPLER imaging and with free fluid adjacent to the right adnexa and tracking into the cul-de-sac. Electronically Signed: Robin Paredes MD at 3:48 EDT ,
[2022-04-15 01:48] LABS: Absolute Lymphocyte Count 1.36 X10^3/uL (0.83-4.51); Absolute Neutrophil Count 4.2 X10^3/uL (2.0-7.7); Basophil# 0.01 X10^3/uL; Basophil% 0.2 % (0-1); Eosinophil# 0.02 X10^3/uL; Eosinophils% 0.3 % (0-5); Hematocrit 32.6 % (37-47); Hemoglobin 10.3 g/dL (12.0-15.0); Lymphocyte # 1.36 X10^3/ul (0.83-4.51); Lymphocyte % 21.3 % (19-41); Mean Corp Hgb Conc 31.6 g/dL (32-36); Mean Corpuscular Hgb 32.3 pg (27.0-32.0); Mean Corpuscular Volume 102.2 fL (81-99); Mean Platelet Vol. 9.8 fl (6.2-12.0); Monocyte# 0.74 X10^3/uL; Monocyte% 11.6 % (0-10); NRBC Flagged by Analyzer 0 % (0-5); Neutrophil # 4.22 X10^3/uL (2.7-7.7); Neutrophil % 66.1 % (47-70); Platelet Count 163 K/mm3 (150-450); RBC Distribution Width CV 15.9 % (11.6-14.6); Red Blood Count 3.19 M/mm3 (4.2-5.4); White Blood Count 6.4 K/mm3 (4.4-11.0)
[2022-04-15] MEDS: Ondansetron 4 MG/2 ML Vial IV (02:00)
[2022-04-15] MEDS: Morphine 4 MG/ML Syringe IV ×2 (02:00→05:27)
[2022-04-15 02:11] LABS: Anion Gap 7 (5-15); BUN 10 mg/dL (7-18); BUN/Creat Ratio 11.2 RATIO (10-20); Calcium,Total 9.3 mg/dL (8.5-10.1); Chloride 102 mmol/L (98-107); Creatinine, Serum 0.89 mg/dL (0.55-1.02); EST Glomerular Filtration Rate 71 mL/min (>60); Est Glom Filt Rate - Afr Amer 86 mL/min (>60); Estimated Creatinine Clearance 59.81 ml/min; Glucose 126 mg/dL (74-106); Potassium 3.7 mmol/L (3.5-5.1); Sodium Level 138 mmol/L (136-145)
--- NOTE | 2022-04-15 02:19 | EDS_ITS ---
HPI HPI - GI History of Present Illness Chief Complaint: Abd Pain Abdominal Pain/Flank Pain Context: Gradual Onset Timing: Continuous Quality: Aching Location: RLQ Current Severity: Severe Maximum Severity: Severe Worsened by: Nothing Relieved by: Nothing Nausea/Vomiting/Emesis GI Symptom: Negative for Nausea and Vomiting Diarrhea/Melena/Hematochezia GI Symptom: Negative for Diarrhea, Melena and Hematochezia Narrative Narrative: Right pelvic pain that started mildly and gradually worsened over the course of the last day, now severe. Radiates into her back a little, and over to the left a little bit mostly in the right pelvis. Feels similar to pain she had in the left pelvis when she was diagnosed with ovarian torsion and had an oophorectomy sometime last year. She states she had this same pain but not as severe several weeks ago, she told her oncologist about it and had a CT scan that was unremarkable. 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 She had surgery to remove the tumor as well as hemicolectomy including appendectomy. She denies any associated fevers, chills, nausea, vomiting, changes in bowel movements or blood/melena, or trouble urinating. [facility] Medical History Anemia Anxiety Arthritis Arthritis Asthma Back pain Biliary stricture Cancer Diabetes Dietary restriction Easy bruising Gallstones Gastric reflux High cholesterol History of bile duct cancer History of pain when walking Hx of cyst of breast Hyperlipidemia Hypertension Insulin dependent diabetes mellitus Leg cramps Migraine headache Non-smoker Obesity Pulmonary emboli Restless legs Home Medications amlodipine 5 mg tablet 5 mg PO DAILY 08/11/18 [History Last Taken Unknown] albuterol sulfate 2.5 mg INHALATION Q4H PRN PRN 05/18/20 [History Last Taken Unknown] albuterol sulfate 90 mcg/actuation aerosol inhaler 2 puff INHALATION Q2H PRN PRN g 05/18/20 [History Last Taken Unknown] calcium carbonate-vitamin D3 1 tab PO DAILY 10/23/20 [History Last Taken Unknown] aspirin 81 mg tablet,delayed release 81 mg PO DAILY 04/20/21 [History Last Taken Unknown] magnesium oxide 400 mg (241.3 mg magnesium) tablet 400 mg PO TID 04/20/21 [History Last Taken Unknown] multivitamin 1 tab PO DAILY 04/20/21 [History Last Taken Unknown] losartan 50 mg tablet 50 mg PO DAILY 08/03/21 [History Last Taken Unknown] ondansetron HCl 8 mg PO Q8H PRN PRN 10/12/21 [History Last Taken Unknown] promethazine 25 mg PO Q6H PRN PRN 10/12/21 [History Last Taken Unknown] blood-glucose sensor #9 ea 11/30/21 [Rx Last Taken Unknown] blood-glucose transmitter #1 ea 11/30/21 [Rx Last Taken Unknown] acetaminophen 1,000 mg PO Q8H PRN PRN 02/17/22 [History Last Taken Unknown] diphenoxylate-atropine [Lomotil] 1 - 2 tab PO Q6H PRN PRN 02/17/22 [History Last Taken Unknown] fluticasone propion-salmeterol [Advair Diskus] 1 inh INHALATION BID 02/17/22 [History Last Taken Unknown] ibuprofen 800 mg PO Q8H PRN 02/17/22 [History Last Taken Unknown] insulin pump controller 02/17/22 [History Last Taken Unknown] lidocaine-prilocaine 1 applic TOPICAL PRN PRN 02/17/22 [History Last Taken Unknown] pyridoxine (vitamin B6) [Vitamin B-6] 100 mg PO DAILY 02/17/22 [History Last Taken Unknown] enoxaparin 140 mg SUBCUT BID 30 Days #55.998 dose 02/19/22 [Rx Last Taken Unknown] cholecalciferol (vitamin D3) 125 mcg (5,000 unit) capsule 125 mcg PO DAILY 03/15/22 [History Last Taken Unknown] pantoprazole 40 mg tablet,delayed release 40 mg PO DAILY 03/15/22 [History Last Taken Unknown] insulin pump cartridge 04/15/22 [History Last Taken Unknown] oxycodone 5 - 10 mg PO Q6H PRN 2 Days #16 cap 04/15/22 [Rx Last Taken Unknown] Allergy/AdvReac Type Severity Reaction Status Date / Time Penicillins Allergy Hives Verified 03/30/22 16:02 Family History Mother Heart disease Diabetes Osteoporosis Father Diabetes Surgical History Hx of resection of liver S/P carpal tunnel release S/P cholecystectomy S/P unilateral salpingo-oophorectomy Trigger finger Social History household members: spouse Smoking Status: Never smoker alcohol intake: current alcohol intake frequency: holidays/special occasions only substance use type: does not use caffeine: No what type of physical activity do you participate in: walking frequency: daily seatbelt use: always do you feel safe at home: Yes 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 ROS ED Constitutional Constitutional ED: Denies chills or fever(s) Eyes Eyes: Denies change in vision or diplopia ENT ENT ED: Denies rhinorrhea or sore throat Cardiovascular Cardiovascular: Denies chest pain or palpitations Respiratory/Chest Respiratory/Chest: Denies cough or dyspnea Gastrointestinal Gastrointestinal: Reports as per HPI and abdominal pain; Denies diarrhea, nausea or vomiting Genitourinary Genitourinary ED: Denies dysuria or hematuria Musculoskeletal Musculoskeletal: Reports as per HPI and back pain; Denies neck pain Integumentary Denies abscess or rash Neurologic Neurologic: Denies headache(s), paresthesias or weakness Psychiatric Psychiatric: Denies anxiety or suicidal thoughts EXAM Physical Exam Const Vital Signs: 04/15/22 00:48 04/15/22 03:41 Temperature 98.6 F Temperature Source Oral Pulse Rate 122 H 104 H Respiratory Rate 20 H 20 H Blood Pressure 152/83 H 128/70 H Blood Pressure Mean 106 89 Pulse Ox 100 98 Oxygen Delivery Method Room Air Positive well nourished and well developed General Appearance ED: well developed and NAD Nutritional Appearance: morbidly obese HEENT Reports moist mucous membranes normocephalic and atraumatic Eyes PERRL and EOMs intact bilaterally Neck full ROM and supple Resp normal respiratory effort and clear to auscultation bilaterally Cardio regular rate, regular rhythm and no murmurs GI non-distended GI Narrative: Tender distal right lower quadrant, beneath pannus. No guarding or rebound tenderness. The exam is limited due to obesity. No other areas of tenderness. Auscultation: normoactive bowel sounds Palpation: soft Back/Spine no CVA tenderness General Back: other FROM Extremity normal to inspection General Extremety ED: Negative for edema, pulses abnormal or tenderness General Extremity: Negative for edema or pulses abnormal Neuro oriented x3, CN's II-XII intact bilaterally and no sensory deficits noted Sensorium / Orientation: awake and alert Motor Exam: strength 5/5 throughout Skin no rashes or lesions noted and no wounds MDM MDM MDM Narrative Medical decision making narrative: Labs are normal. Patient states this felt like her left ovarian pain before it was removed due to torsion, and although she presents at 1:30 AM I felt this was a good enough reason to call an u ltrasound to obtain an emergent study to evaluate her right ovary and its flow. Radiologist called me regarding its slight enlargement and relatively diminished flow although he states the flow is present, and he states partial torsion is in the differential diagnosis. The size of her ovary was measured is 4.4 x 3.3 x 4.7 cm without a cyst or mass. I discussed all this with Dr. 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 Discussed that with the patient, she felt better with morphine here we will give her another dose prior to discharge and prescribe her oxycodone as with her prior liver resection and history of elevated enzymes with acetaminophen she is supposed to stay away from that. She will follow-up as an outpatient. Lab Data Attestation: I reviewed the patient's lab results. Labs: Laboratory Results - last 24 hr 04/15/22 04/15/22 01:10 01:10 WBC 6.4 RBC 3.19 L Hgb 10.3 L Hct 32.6 L MCV 102.2 H MCH 32.3 H MCHC 31.6 L RDW Std Deviation 61.0 H RDW Coeff of Jose 15.9 H Plt Count 163 MPV 9.8 Immature Gran % (Auto) 0.500 Neut % (Auto) 66.1 Lymph % (Auto) 21.3 [place] % (Auto) 11.6 H Eos % (Auto) 0.3 Baso % (Auto) 0.2 Absolute Neuts (auto) 4.2 Absolute Lymphs (auto) 1.36 Nucleated RBC % 0 Sodium 138 Potassium 3.7 Chloride 102 Carbon Dioxide 29.0 Anion Gap 7 BUN 10 Creatinine 0.89 Estim Creat Clear Calc 59.81 Est GFR (MDRD) Af Amer 86 Est GFR (MDRD) Non-Af 71 BUN/Creatinine Ratio 11.2 Glucose 126 H Calcium 9.3 Radiography Diagnostic Testing: Clinical Impression(s) from Imaging Studies Transvaginal US 04/15/22 01:32 IMPRESSION: Mild enlargement of the right ovary with somewhat diminished internal vascular flow on color DOPPLER imaging and with free fluid adjacent to the right adnexa and tracking into the cul-de-sac. Electronically Signed: Robin Paredes MD at 3:48 EDT , ADDENDUM: 04/15/22 0404 IMPRESSION: Mild enlargement of the right ovary with somewhat diminished internal vascular flow on color DOPPLER imaging and with free fluid adjacent to the right adnexa and tracking into the cul-de-sac. N.B. : The above Results were Read Back by Robin Paredes MD to Josue Herzog MD, and understanding confirmed on 04/15/2022 03:57:11 (ET). Electronically Signed: Robin Paredes MD at 3:48 EDT , Discharge Plan Triage Chief Complaint: Abd Pain ED Provider: Josue Herzog Dx/Rx/DC Orders Clinical Impression: Abdominal pain, right lower quadrant Instructions: ED Pelvic Pain, Unknown Cause Prescriptions: New oxycodone 5 mg capsule 5 - 10 mg PO Q6H PRN (Reason: pain) 2 Days Qty: 16 RF: 0 No Action amlodipine [Norvasc] 5 mg tablet 5 mg PO DAILY RF: 0 albuterol sulfate 90 mcg/actuation HFA aerosol inhaler 2 puff INHALATION Q2H PRN PRN (Reason: Sob &/Or Wheezing) RF: 0 albuterol sulfate 2.5 mg /3 mL (0.083 %) solution for nebulization 2.5 mg INHALATION Q4H PRN PRN (Reason: sob/wheezing) RF: 0 magnesium oxide 400 mg (241.3 mg magnesium) tablet 400 mg PO TID RF: 0 multivitamin [Daily Multi-Vitamin] Tablet 1 tab PO DAILY RF: 0 aspirin [Adult Low Dose Aspirin] 81 mg tablet,delayed release (DR/EC) 81 mg PO DAILY RF: 0 losartan 50 mg tablet 50 mg PO DAILY RF: 0 cholecalciferol (vitamin D3) 125 mcg (5,000 unit) capsule 125 mcg PO DAILY RF: 0 pantoprazole [Protonix] 40 mg tablet,delayed release (DR/EC) 40 mg PO DAILY RF: 0 calcium carbonate-vitamin D3 1 EACH tablet 1 tab PO DAILY RF: 0 ondansetron HCl 8 mg Tablet 8 mg PO Q8H PRN PRN (Reason: Nausea) RF: 0 promethazine 25 mg Tablet 25 mg PO Q6H PRN PRN (Reason: Nausea) RF: 0 ibuprofen 800 mg Tablet 800 mg PO Q8H PRN (Reason: Pain) RF: 0 diphenoxylate-atropine [Lomotil] 2.5-0.025 mg Tablet 1 - 2 tab PO Q6H PRN PRN (Reason: Diarrhea) RF: 0 acetaminophen 500 mg Tablet 1,000 mg PO Q8H PRN PRN (Reason: Pain) RF: 0 lidocaine-prilocaine 2.5-2.5 % Cream 1 applic topical PRN PRN (Reason: port access) RF: 0 pyridoxine (vitamin B6) [Vitamin B-6] 100 mg Tablet 100 mg PO DAILY RF: 0 fluticasone propion-salmeterol [Advair Diskus] 100-50 mcg/dose Blister With Device 1 inh INHALATION BID RF: 0 (DME) insulin pump controller Misc MISCELLANEOUS RF: 0 enoxaparin 150 mg/mL Syringe 140 mg subcut BID 30 Days Qty: 55.998 RF: 0 (DME) insulin pump cartridge Cartridge SUBCUT RF: 0 (DME) Dexcom G6 Transmitter Device See Rx Instructions .ROUTE .MEDSUPPLY Qty: 1 RF: 3 (DME) Dexcom G6 Sensor Device See Rx Instructions .ROUTE .MEDSUPPLY Qty: 9 RF: 3 Primary Care Provider: Nilda Edge Referrals: Nilda Edge MD [Primary Care Provider] - Aishwarya Maxwell MD [STAFF PHYSICIAN] - As soon as possible Disposition Disposition: Home, Self Care
[2022-04-15 03:41] VITALS: BP 128/70; PULSE 104; RESP 20; O2SAT 98
[2022-04-15 05:28] VITALS: BP 112/58; PULSE 95; RESP 20; O2SAT 97
== END 2022-04-15 05:36 | disposition home or self-care (01) ==
PROVIDERS: Emergency Provider Emergency Medicine; PCP Family Medicine; Visit Provider Emergency Medicine
DX: R10.31 Right lower quadrant pain (principal); C24.0 Malignant neoplasm of extrahepatic bile duct; Z79.4 Long term (current) use of insulin; E11.9 Type 2 diabetes mellitus without complications; I10 Essential (primary) hypertension; E78.5 Hyperlipidemia, unspecified; J45.909 Unspecified asthma, uncomplicated; K21.9 Gastro-esophageal reflux disease without esophagitis; Z79.82 Long term (current) use of aspirin; Z79.899 Other long term (current) drug therapy
CPT/HCPCS: 76830; 80048; 85025; 93976; 96374; 96375; 96376; 99282; A4216; J2405

== ENCOUNTER 2022-04-24 18:19 | Inpatient (IN) | payer OTHER, SELFPAY ==
[2022-04-24 18:19] VITALS: BP 131/89; PULSE 153; RESP 18; TEMP 36.8; O2SAT 96; BMI 50.3
--- NOTE | 2022-04-24 18:37 | CT_ITS ---
INDICATION: Pain EXAMINATION: CT Abdomen And Pelvis W/O Contrast Injection TECHNIQUE: Helically acquired images were obtained of the abdomen and pelvis without the use of IV contrast. A radiation dose optimization technique was used for this scan. Oral contrast: None. COMPARISON: 10/23/2020 FINDINGS: Evaluation of the solid organs and vascular structures is limited without intravenous contrast. Visualized lung bases: Unremarkable Liver: Status post resection of the left lobe with a choledochoduodenal anastomosis. Small amount of free air seen peripherally in the liver is most likely from choledochoduodenal anastomosis. Gallbladder: Surgically absent. Spleen: Unremarkable Pancreas: Unremarkable Adrenal Glands: Unremarkable Kidneys: Unremarkable Vasculature: Unremarkable GI Tract: Unremarkable Lymphadenopathy: None Peritoneum: There is free fluid in the right paracolic gutter and pelvis which is at least partially loculated. For example in the right paracolic gutter the fluid measures approximately 7.2 x 2.1 x 6.1 cm. The fluid in the pelvis measures approximately 11.6 x 4.8 x 2.9 cm. Bladder: Unremarkable Reproductive organs: Status post left salpingo-oophorectomy with postsurgical changes. Bones/Soft tissues: Postsurgical changes in the anterior abdominal wall. There is a left supraumbilical hernia containing fat and a small portion of bowel. There are soft tissue nodules in the anterior abdominal wall most likely representing injection granulomas. CT/Abdomen/Pelvis without Cont IMPRESSION: Limited examination due to the absence of IV contrast. Despite limitations: Multiple partially loculated intra-abdominal fluid collections concerning for abscess formation as described above. Postsurgical changes status post left salpingo-oophorectomy and left liver lobe resection with choledochoduodenal anastomosis. Left supraumbilical hernia containing fat and a small portion of bowel. Soft tissue nodules in the anterior abdominal wall most likely representing injection granulomas. Electronically Signed: Umberto Cotter MD at 20:59 EDT ,
--- NOTE | 2022-04-24 18:38 | ED.VIS.GI ---
HPI HPI - GI History of Present Illness Chief Complaint: Abd Pain Detail of Chief Complaint: Abdominal pain that she has had off and on for about 3 weeks Informant: patient Abdominal Pain/Flank Pain Current Severity: Severe Maximum Severity: Severe Narrative Narrative: Patient presents to the emergency department complaint of abdominal pain that started about 3 weeks ago. Patient was thought to have a torsion of her ovary and 6 days ago had surgery for this at [facility] with Dr. Lopez. 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 Patient continues to have right lower quadrant pain where she has had the pain even prior to the surgery. Patient last chemo therapy treatment was about 4 weeks ago. Patient had 1 episode of vomiting today. She has been taking Dilaudid 2 to 4 mg p.o. every 3 hours and its not managing the pain today. Patient feels like her abdomen is harder than usual. Patient denies any fevers. Prior similar symptoms: Yes PFSH PFSH Medical History Anemia Anxiety Arthritis Arthritis Asthma Back pain Biliary stricture Cancer Diabetes Dietary restriction Easy bruising Gallstones Gastric reflux High cholesterol History of bile duct cancer History of pain when walking Hx of cyst of breast Hyperlipidemia Hypertension Insulin dependent diabetes mellitus Leg cramps Migraine headache Non-smoker Obesity Pulmonary emboli Restless legs Home Medications amlodipine 5 mg tablet 5 mg PO DAILY 08/11/18 [History Last Taken Unknown] albuterol sulfate 2.5 mg INHALATION Q4H PRN PRN 05/18/20 [History Last Taken Unknown] albuterol sulfate 90 mcg/actuation aerosol inhaler 2 puff INHALATION Q2H PRN PRN g 05/18/20 [History Last Taken Unknown] calcium carbonate-vitamin D3 1 tab PO DAILY 10/23/20 [History Last Taken Unknown] aspirin 81 mg tablet,delayed release 81 mg PO DAILY 04/20/21 [History Last Taken Unknown] magnesium oxide 400 mg (241.3 mg magnesium) tablet 400 mg PO TID 04/20/21 [History Last Taken Unknown] multivitamin 1 tab PO DAILY 04/20/21 [History Last Taken Unknown] losartan 50 mg tablet 50 mg PO DAILY 08/03/21 [History Last Taken Unknown] ondansetron HCl 8 mg PO Q8H PRN PRN 10/12/21 [History Last Taken Unknown] promethazine 25 mg PO Q6H PRN PRN 10/12/21 [History Last Taken Unknown] blood-glucose sensor #9 ea 11/30/21 [Rx Last Taken Unknown] blood-glucose transmitter #1 ea 11/30/21 [Rx Last Taken Unknown] diphenoxylate-atropine [Lomotil] 1 - 2 tab PO Q6H PRN PRN 02/17/22 [History Last Taken Unknown] fluticasone propion-salmeterol [Advair Diskus] 1 inh INHALATION BID 02/17/22 [History Last Taken Unknown] ibuprofen 800 mg PO Q8H PRN 02/17/22 [History Last Taken Unknown] insulin pump controller 02/17/22 [History Last Taken Unknown] lidocaine-prilocaine 1 applic TOPICAL PRN PRN 02/17/22 [History Last Taken Unknown] pyridoxine (vitamin B6) [Vitamin B-6] 100 mg PO DAILY 02/17/22 [History Last Taken Unknown] cholecalciferol (vitamin D3) 125 mcg (5,000 unit) capsule 5,000 mcg PO DAILY 03/15/22 [History Last Taken Unknown] pantoprazole 40 mg tablet,delayed release 40 mg PO DAILY 03/15/22 [History Last Taken Unknown] insulin pump cartridge 04/15/22 [History Last Taken Unknown] enoxaparin 120 mg SUBCUT BID 04/24/22 [History Last Taken Unknown] hydromorphone 2 - 4 mg PO Q3H PRN 04/24/22 [History Last Taken Unknown] insulin aspart U-100 [Novolog U-100 Insulin aspart] 2.4 unit SUBCUT UD 04/24/22 [History Last Taken Unknown] Allergy/AdvReac Type Severity Reaction Status Date / Time Penicillins Allergy Hives Verified 04/24/22 18:22 Family History Mother Heart disease Diabetes Osteoporosis Father Diabetes Surgical History Hx of resection of liver S/P carpal tunnel release S/P cholecystectomy S/P unilateral salpingo-oophorectomy Trigger finger Social History household members: spouse Smoking Status: Never smoker alcohol intake: current alcohol intake frequency: holidays/special occasions only substance use type: does not use caffeine: No what type of physical activity do you participate in: walking frequency: daily seatbelt use: always do you feel safe at home: Yes 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[employer] ROS ROS ED Constitutional Constitutional ED: Reports systems reviewed and no addt'l complaints, except as documented; Denies body ache(s), change in weight or chills Eyes Eyes: Denies acute decrease in peripheral vision, change in vision, double vision or loss of vision ENT ENT ED: Reports none; Denies ear pain, lip swelling, loss taste/smell, neck pain, otalgia or sore throat Cardiovascular Cardiovascular: Reports none; Denies abdominal pain, chest pain with activity, leg edema, lightheadedness, palpitations, rapid heart rate or syncope Respiratory/Chest Respiratory/Chest: Reports none; Denies change in mental status, dry cough, dyspnea, hemoptysis, shortness of breath at rest or shortness of breath with exertion Gastrointestinal Gastrointestinal: Reports none, abdominal pain and vomiting; Denies change in stool character, diarrhea, hematemesis, hematochezia, melena or rectal bleeding Genitourinary Genitourinary ED: Reports none; Denies abdominal discomfort, anuria, dysuria, genital pain or polyuria Musculoskeletal Musculoskeletal: Reports none; Denies arthralgias, back pain, difficulty walking, extremity pain, muscle weakness or myalgias Integumentary Reports none; Denies abscess or rash Neurologic Neurologic: Reports none; Denies abnormal gait, confusion, focal weakness, frequent falls, headache(s), loss of vision, numbness, paresthesias, radicular pain, vertigo or weakness Psychiatric Psychiatric: Reports systems reviewed and no addt'l complaints, except as documented and none; Denies behavioral changes, confusion, difficulty concentrating, hallucinations, suicidal ideation, tactile hallucinations or visual hallucinations Endocrine Endocrinology: Denies none, cold intolerance, excessive sweating, fatigue or heat intolerance Hematologic/Lymphatic Hematologic/Lymphatic: Reports none; Denies anemia, easy bleeding or easy bruising Allergic/Immunologic Allergic/Immunologic ED: Denies as per HPI, none, lip swelling, mouth swelling, throat swelling, tongue swelling or hives EXAM Physical Exam Const Vital Signs: 04/24/22 18:19 04/24/22 20:25 04/24/22 21:15 Temperature 98.3 F Temperature Source Temporal Pulse Rate 153 H 116 H Respiratory Rate 18 17 17 Blood Pressure 131/89 H 135/70 H Blood Pressure Mean 103 91 Pulse Ox 96 100 Oxygen Delivery Method Room Air Room Air Room Air Positive well nourished and well developed General Appearance ED: well developed and NAD HEENT Reports TM's clear and moist mucous membranes normocephalic and atraumatic; Negative for trauma or tenderness Tympanic Membrane ED: Yes TM's clear Eyes PERRL and EOMs intact bilaterally General Eye ED: Negative for pale conjunctiva or scleral icterus Neck no lymphadenopathy, supple and no JVD General: Negative for tenderness Chest Wall inspection of chest normal and palpation of chest normal Chest: Negative for tenderness Resp normal respiratory effort and clear to auscultation bilaterally Effort and Inspection: Negative for respiratory distress or pain with movement Auscultation: Negative for rhonchi, wheezes or diminished lung sounds Cardio regular rate, regular rhythm, S1 normal heart sound, S2 normal heart sound and no murmurs Peripheral Pulses: pulses 2+ throughout GI normal to inspection, nondistended, normoactive bowel sounds, soft to palpation, non-distended and no masses GI Narrative: Patient has tenderness to the right lower quadrant with some guarding. There is no rebound, rigidity, or peritoneal signs. Her ventral incision appears to be healing well without any evidence of erythema or cellulitis or drainage from the wound. There is no dehiscence. Patient does have some ecchymosis and bruising about the abdominal wall as she does give herself Lovenox injections. Back/Spine no CVA tenderness and no thoracic nor lumbar tenderness Extremity normal to inspection General Extremety ED: Negative for edema General Extremity: Negative for edema Neuro oriented x3, CN's II-XII intact bilaterally, no sensory deficits noted and gait normal Sensorium / Orientation: awake, alert, oriented to person, oriented to place and oriented to time Motor Exam: strength 5/5 throughout and strength abnormal Psych mental status grossly normal Skin no rashes or lesions noted and no wounds MDM MDM MDM Narrative Medical decision making narrative: IV line established on arrival. Patient was given Dilaudid 2 mg IV. She had good pain relief with that. Patient lab work-up was unremarkable and her LFTs were slightly elevated about where they chronically are. CT scan of the abdomen pelvis was read by me as multiple partially loculated intra-abdominal fluid collections concerning for abscess formation. Patient had soft tissue nodules in the anterior abdominal wall most likely representing injection granulomas. At this point clinically I do not feel patient has abscesses as she is had no fever and she has a normal WBC count. She patient's also had this pain for 3 weeks and had recent surgery that showed significant peritoneal metastases. I suspect the fluid is likely related to the metastases. Case will be discussed with hospitalist evaluate patient for intractable abdominal pain. Patient is scheduled to see palliative care in 3 days. Lab Data Attestation: I reviewed the patient's lab results. Labs: Laboratory Results - last 24 hr 04/24/22 04/24/22 04/24/22 19:15 19:15 19:15 WBC 8.2 RBC 3.57 L Hgb 11.1 L Hct 35.3 L MCV 98.9 MCH 31.1 MCHC 31.4 L RDW Std Deviation 55.6 H RDW Coeff of Jose 15.0 H Plt Count 288 MPV 9.4 Immature Gran % (Auto) 2.100 H Neut % (Auto) 71.7 H Lymph % (Auto) 13.8 L [place] % (Auto) 11.8 H Eos % (Auto) 0.2 Baso % (Auto) 0.4 Absolute Neuts (auto) 5.9 Absolute Lymphs (auto) 1.13 Nucleated RBC % 0 Sodium 135 L Potassium 3.9 Chloride 98 Carbon Dioxide 28.0 Anion Gap 9 BUN 9 Creatinine 0.95 Estim Creat Clear Calc 56.03 Est GFR (MDRD) Af Amer 80 Est GFR (MDRD) Non-Af 66 BUN/Creatinine Ratio 9.4 L Glucose 157 H Lactic Acid 1.9 Calcium 9.8 Total Bilirubin 0.70 AST 61 H ALT 79 H Alkaline Phosphatase 427 H Total Protein 7.2 Albumin 2.6 L Globulin 4.6 H Albumin/Globulin Ratio 0.6 L Lipase 16 L Urine Color Urine Clarity Urine pH Ur Specific [place] Urine Protein Urine Glucose (UA) Urine Ketones Urine Occult Blood Urine Nitrite Urine Bilirubin Urine Urobilinogen Ur Leukocyte Esterase Urine RBC Urine WBC Ur Squamous Epith Cells Calcium Oxalate Crystal Urine Bacteria Hyaline Casts Coarse Granular Casts Urine Mucus 04/24/22 20:20 WBC RBC Hgb Hct MCV MCH MCHC RDW Std Deviation RDW Coeff of Jose Plt Count MPV Immature Gran % (Auto) Neut % (Auto) Lymph % (Auto) [place] % (Auto) Eos % (Auto) Baso % (Auto) Absolute Neuts (auto) Absolute Lymphs (auto) Nucleated RBC % Sodium Potassium Chloride Carbon Dioxide Anion Gap BUN Creatinine Estim Creat Clear Calc Est GFR (MDRD) Af Amer Est GFR (MDRD) Non-Af BUN/Creatinine Ratio Glucose Lactic Acid Calcium Total Bilirubin AST ALT Alkaline Phosphatase Total Protein Albumin Globulin Albumin/Globulin Ratio Lipase Urine Color Yellow Urine Clarity Cloudy Urine pH 6.0 Ur Specific [place] 1.020 Urine Protein 100 H Urine Glucose (UA) Normal Urine Ketones 150 A* Urine Occult Blood 10 H Urine Nitrite Negative Urine Bilirubin 3 H Urine Urobilinogen 8 H Ur Leukocyte Esterase 100 H Urine RBC 0-5 SEEN Urine WBC 5-10 SEEN Ur Squamous Epith Cells 10-25 SEEN Calcium Oxalate Crystal 3+ Urine Bacteria 2+ Hyaline Casts 25-50 SEEN Coarse Granular Casts 5-10 SEEN Urine Mucus 3+ Radiography Diagnostic Testing: Clinical Impression(s) from Imaging Studies Abdomen/Pelvis CT 04/24/22 18:37 IMPRESSION: Limited examination due to the absence of IV contrast. Despite limitations: Multiple partially loculated intra-abdominal fluid collections concerning for abscess formation as described above. Postsurgical changes status post left salpingo-oophorectomy and left liver lobe resection with choledochoduodenal anastomosis. Left supraumbilical hernia containing fat and a small portion of bowel. Soft tissue nodules in the anterior abdominal wall most likely representing injection granulomas. Electronically Signed: Umberto Cotter MD at 20:59 EDT , Discharge Plan Triage Chief Complaint: Abd Pain ED Provider: Kandy Cheney Dx/Rx/DC Orders Clinical Impression: Intractable abdominal pain, Bile duct cancer Prescriptions: No Action amlodipine [Norvasc] 5 mg tablet 5 mg PO DAILY RF: 0 albuterol sulfate 90 mcg/actuation HFA aerosol inhaler 2 puff INHALATION Q2H PRN PRN (Reason: Sob &/Or Wheezing) RF: 0 albuterol sulfate 2.5 mg /3 mL (0.083 %) solution for nebulization 2.5 mg INHALATION Q4H PRN PRN (Reason: sob/wheezing) RF: 0 magnesium oxide 400 mg (241.3 mg magnesium) tablet 400 mg PO TID RF: 0 multivitamin [Daily Multi-Vitamin] Tablet 1 tab PO DAILY RF: 0 aspirin [Adult Low Dose Aspirin] 81 mg tablet,delayed release (DR/EC) 81 mg PO DAILY RF: 0 losartan 50 mg tablet 50 mg PO DAILY RF: 0 cholecalciferol (vitamin D3) 125 mcg (5,000 unit) capsule 5,000 mcg PO DAILY RF: 0 pantoprazole [Protonix] 40 mg tablet,delayed release (DR/EC) 40 mg PO DAILY RF: 0 calcium carbonate-vitamin D3 1 EACH tablet 1 tab PO DAILY RF: 0 ondansetron HCl 8 mg Tablet 8 mg PO Q8H PRN PRN (Reason: Nausea) RF: 0 promethazine 25 mg Tablet 25 mg PO Q6H PRN PRN (Reason: Nausea) RF: 0 ibuprofen 800 mg Tablet 800 mg PO Q8H PRN (Reason: Pain) RF: 0 diphenoxylate-atropine [Lomotil] 2.5-0.025 mg Tablet 1 - 2 tab PO Q6H PRN PRN (Reason: Diarrhea) RF: 0 lidocaine-prilocaine 2.5-2.5 % Cream 1 applic topical PRN PRN (Reason: port access) RF: 0 pyridoxine (vitamin B6) [Vitamin B-6] 100 mg Tablet 100 mg PO DAILY RF: 0 fluticasone propion-salmeterol [Advair Diskus] 100-50 mcg/dose Blister With Device 1 inh INHALATION BID RF: 0 (DME) insulin pump controller Misc MISCELLANEOUS RF: 0 (DME) insulin pump cartridge Cartridge SUBCUT RF: 0 insulin aspart U-100 [Novolog U-100 Insulin aspart] 100 unit/mL Solution 2.4 unit SUBCUT UD RF: 0 enoxaparin 150 mg/mL syringe 120 mg subcut BID RF: 0 hydromorphone 2 mg tablet 2 - 4 mg PO Q3H PRN (Reason: Pain) RF: 0 (DME) Circalit G6 Transmitter Device See Rx Instructions .ROUTE .MEDSUPPLY Qty: 1 RF: 3 (DME) Dexcom G6 Sensor Device See Rx Instructions .ROUTE .MEDSULY Qty: 9 RF: 3 Primary Care Provider: Nilda Edge Referrals: Nilda Edge MD [Primary Care Provider] - Disposition Disposition: Acute Care Hospital [facility]
[2022-04-24] MEDS: 0.9% Normal Saline 1,000 ML 125 ML IV (19:03)
[2022-04-24] MEDS: Ondansetron 4 MG/2 ML Vial IV (19:03)
[2022-04-24] MEDS: HYDROmorphone 1 MG/ML Syringe 2 MG IV ×2 (19:03→21:57)
[2022-04-24 19:27] LABS: Absolute Lymphocyte Count 1.13 X10^3/uL (0.83-4.51); Absolute Neutrophil Count 5.9 X10^3/uL (2.0-7.7); Basophil# 0.03 X10^3/uL; Basophil% 0.4 % (0-1); Eosinophil# 0.02 X10^3/uL; Eosinophils% 0.2 % (0-5); Hematocrit 35.3 % (37-47); Hemoglobin 11.1 g/dL (12.0-15.0); Lymphocyte # 1.13 X10^3/ul (0.83-4.51); Lymphocyte % 13.8 % (19-41); Mean Corp Hgb Conc 31.4 g/dL (32-36); Mean Corpuscular Hgb 31.1 pg (27.0-32.0); Mean Corpuscular Volume 98.9 fL (81-99); Mean Platelet Vol. 9.4 fl (6.2-12.0); Monocyte# 0.96 X10^3/uL; Monocyte% 11.8 % (0-10); NRBC Flagged by Analyzer 0 % (0-5); Neutrophil # 5.86 X10^3/uL (2.7-7.7); Neutrophil % 71.7 % (47-70); Platelet Count 288 K/mm3 (150-450); RBC Distribution Width SD 55.6 fl (35.1-43.9); Red Blood Count 3.57 M/mm3 (4.2-5.4); White Blood Count 8.2 K/mm3 (4.4-11.0)
--- NOTE | 2022-04-24 19:35 | EKG12_ITS ---
Test Reason : ABDOMINAL PAIN Blood Pressure : / mmHG Vent. Rate : 119 BPM Atrial Rate : 119 BPM P-R Int : 114 ms QRS Dur : 098 ms QT Int : 328 ms P-R-T Axes : 033 029 005 degrees QTc Int : 461 ms Sinus tachycardia Otherwise normal ECG Confirmed by JOSÉ MANUEL GUZMAN, NIDHI ([id number]), avid editor NILA VINES ([id number]) on 04/25/2022 9:04:27 AM Referred By: Confirmed By:NIDHI GEORGES MD
[2022-04-24 19:43] LABS: ALB/GLOB Ratio 0.6 RATIO (0.9-2.4); AST(SGOT) 61 U/L (15-37); Alanine Aminotransfer ALT/SGPT 79 U/L (13-56); Albumin, Serum 2.6 g/dL (3.2-5.0); Alkaline Phosphatase 427 U/L (45-117); Anion Gap 9 (5-15); BUN 9 mg/dL (7-18); BUN/Creat Ratio 9.4 RATIO (10-20); Calcium,Total 9.8 mg/dL (8.5-10.1); Chloride 98 mmol/L (98-107); Creatinine, Serum 0.95 mg/dL (0.55-1.02); EST Glomerular Filtration Rate 66 mL/min (>60); Est Glom Filt Rate - Afr Amer 80 mL/min (>60); Estimated Creatinine Clearance 56.03 ml/min; Globulin 4.6 g/dL (2.2-4.2); Glucose 157 mg/dL (74-106); Lipase 16 U/L (73-393); Potassium 3.9 mmol/L (3.5-5.1); Protein, Total 7.2 g/dL (6.4-8.2); Sodium Level 135 mmol/L (136-145)
[2022-04-24 20:25] VITALS: RESP 17
[2022-04-24 20:47] LABS: Color, Urine Yellow (Yellow); Glucose, Dipstick Normal (Normal); Leukocyte Esterase-Dipstick 100 /ul (Negative); Nitrite-Dipstick Negative (Negative); Occult Blood-Urine 10 /ul (Negative); Protein-Dipstick 100 mg/dl (Negative); Urine Clarity Cloudy (Clear); Urine Urobilinogen 8 mg/dl (Normal)
[2022-04-24 21:11] LABS: Lactic Acid 1.9 mmol/L (0.4-1.9)
[2022-04-24 21:13] LABS: Urine Bilirubin Dipstick 3 mg/dL (Negative)
[2022-04-24 21:15] VITALS: BP 135/70; PULSE 116; RESP 17; O2SAT 100
[2022-04-24 21:15] LABS: Ketone-Dipstick 150 mg/dl (Negative)
[2022-04-24 21:18] LABS: Red Blood Cells-Urine 0-5 SEEN /hpf (0-5); White Blood Cells 5-10 SEEN /hpf (0-5)
[2022-04-24 21:19] LABS: Bacteria 2+ /hpf (None Seen); Calcium Oxalate Crystals Ur 3+ /hpf (<or=2+); Hyaline Cast 25-50 SEEN /lpf (0-5); Mucous, Urine 3+ /hpf (<or=2+); Squamous Epithelial Cells - UA 10-25 SEEN /hpf (5-10)
[2022-04-24 21:20] LABS: Coarse Granular Cast 5-10 SEEN /lpf (0-5 /lpf)
--- NOTE | 2022-04-24 21:32 | PCM.HP.STD ---
HPI - General General Date of Admission: 04/24/22 Date of Service: 04/24/22 Chief Complaint: Acute on chronic abdominal pain. HPI Narrative The patient is a 52 y/o F w/ PMHx: Morbid Obesity, Asthma, Chronic anemia/AOCD, Anxiety and Depression, Hx VTE/PE/DVT, GERD, HTN, HLD, IDDM, recent OR for concern of ovarian torsion with Dr. Lopez at [facility] with at that time noted evidence peritoneal metastatic disease suspected from her known bile duct cancer with last chemotherapy 4 weeks prior to current presentation who now presents to the [facility] ED on 04/24/22 with history of ongoing intermittent abdominal pain worsening over the last 3 weeks, primarily R sided, worse RLQ with associated nausea, 1 episode emesis on day of presentation and sensation of more firm abdomen with only mild improvement with chronic pain regimen including oral dilaudid prompting ED evaluation secondary to intractable pain. She notes she did have the bilateral lower quadrant, right greater than left pain prior to surgery and the reason for the original surgery was to remove the ovary as this could potentially be causing the pain. Work-up in the ED included T98.3, heart rate 153, BP 131/89, respiratory rate 18, 96% on room air, CBC with WC 8.2, 11.1, platelet 288 without marked shift, CMP with sodium 135, glucose 157, total bilirubin 0.70, AST/LT 61/79, alk phos 427, lipase 16, lactic acid pending upon requested evaluation, CT abd/pelvis multiple partially loculated intra-abdominal fluid collections concerning for abscess formation, postsurgical changes status post left salpingo-oophorectomy left liver lobe resection with choledochoduodenal anastomosis, soft tissue nodules anterior abdominal wall likely granulomas, urinalysis with elevated specific gravity 1.020, protein 100, ketones 150, occult blood 10, negative nitrite, leukocyte Estrace 100, no marked urine WBCs however there is 2+ urine bacteria. In the ED patient ministered Zofran, Dilaudid and normal saline. [facility] Medical History Anemia Anxiety Arthritis Arthritis Asthma Back pain Biliary stricture Cancer Diabetes Dietary restriction Easy bruising Gallstones Gastric reflux High cholesterol History of bile duct cancer History of pain when walking Hx of cyst of breast Hyperlipidemia Hypertension Insulin dependent diabetes mellitus Leg cramps Migraine headache Non-smoker Obesity Pulmonary emboli Restless legs Home Medications amlodipine 5 mg tablet 5 mg PO DAILY 08/11/18 [History Last Taken Unknown] albuterol sulfate 2.5 mg INHALATION Q4H PRN PRN 05/18/20 [History Last Taken Unknown] albuterol sulfate 90 mcg/actuation aerosol inhaler 2 puff INHALATION Q2H PRN PRN g 05/18/20 [History Last Taken Unknown] calcium carbonate-vitamin D3 1 tab PO DAILY 10/23/20 [History Last Taken Unknown] aspirin 81 mg tablet,delayed release 81 mg PO DAILY 04/20/21 [History Last Taken Unknown] magnesium oxide 400 mg (241.3 mg magnesium) tablet 400 mg PO TID 04/20/21 [History Last Taken Unknown] multivitamin 1 tab PO DAILY 04/20/21 [History Last Taken Unknown] losartan 50 mg tablet 50 mg PO DAILY 08/03/21 [History Last Taken Unknown] ondansetron HCl 8 mg PO Q8H PRN PRN 10/12/21 [History Last Taken Unknown] promethazine 25 mg PO Q6H PRN PRN 10/12/21 [History Last Taken Unknown] blood-glucose sensor #9 ea 11/30/21 [Rx Last Taken Unknown] blood-glucose transmitter #1 ea 11/30/21 [Rx Last Taken Unknown] diphenoxylate-atropine [Lomotil] 1 - 2 tab PO Q6H PRN PRN 02/17/22 [History Last Taken Unknown] fluticasone propion-salmeterol [Advair Diskus] 1 inh INHALATION BID 02/17/22 [History Last Taken Unknown] ibuprofen 800 mg PO Q8H PRN 02/17/22 [History Last Taken Unknown] insulin pump controller 02/17/22 [History Last Taken Unknown] lidocaine-prilocaine 1 applic TOPICAL PRN PRN 02/17/22 [History Last Taken Unknown] pyridoxine (vitamin B6) [Vitamin B-6] 100 mg PO DAILY 02/17/22 [History Last Taken Unknown] cholecalciferol (vitamin D3) 125 mcg (5,000 unit) capsule 5,000 mcg PO DAILY 03/15/22 [History Last Taken Unknown] pantoprazole 40 mg tablet,delayed release 40 mg PO DAILY 03/15/22 [History Last Taken Unknown] insulin pump cartridge 04/15/22 [History Last Taken Unknown] enoxaparin 120 mg SUBCUT BID 04/24/22 [History Last Taken Unknown] hydromorphone 2 - 4 mg PO Q3H PRN 04/24/22 [History Last Taken Unknown] insulin aspart U-100 [Novolog U-100 Insulin aspart] 2.4 unit SUBCUT UD 04/24/22 [History Last Taken Unknown] Allergy/AdvReac Type Severity Reaction Status Date / Time Penicillins Allergy Hives Verified 04/24/22 18:22 Family History Mother Heart disease Diabetes Osteoporosis Father Diabetes Surgical History Hx of resection of liver S/P carpal tunnel release S/P cholecystectomy S/P unilateral salpingo-oophorectomy Trigger finger Social History household members: spouse Smoking Status: Never smoker alcohol intake: current alcohol intake frequency: holidays/special occasions only substance use type: does not use caffeine: No what type of physical activity do you participate in: walking frequency: daily seatbelt use: always do you feel safe at home: Yes 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 HEENT: Eyes: No visual loss, blurred vision, double vision or yellow sclerae. Ears, Nose, Throat: No hearing loss, sneezing, congestion, runny nose or sore throat. SKIN: + Healing abdominal incision, no drainage. CARDIOVASCULAR: No chest pain, chest pressure or chest discomfort, palpitations, edema, orthopnea, syncopal events. RESPIRATORY: No shortness of breath, cough or sputum, wheezing, hemoptysis. GASTROINTESTINAL: + anorexia, nausea, vomiting, abdominal pain, No melena, BRBPR. GENITOURINARY: No dysuria, frequency, urgency or retention. NEUROLOGICAL: No headache, dizziness, syncope, paralysis, ataxia, numbness or tingling in the extremities, focal weakness, change in bowel or bladder control, seizure. MUSCULOSKELETAL: + muscle, back pain, joint pain or stiffness. HEMATOLOGIC: + anemia, bleeding or bruising. LYMPHATICS: No enlarged nodes. No history of splenectomy. PSYCHIATRIC: + history of depression or anxiety. ENDOCRINOLOGIC: No reports of sweating, cold or heat intolerance. No polyuria or polydipsia. ALLERGIES: + history of asthma, hives, eczema or rhinitis. Vital Signs Vital Signs Vital Signs: 04/24/22 18:19 04/24/22 20:25 04/24/22 21:15 Temperature 98.3 F Temperature Source Temporal Pulse Rate 153 H 116 H Respiratory Rate 18 17 17 Blood Pressure 131/89 H 135/70 H Blood Pressure Mean 103 91 Pulse Ox 96 100 Oxygen Delivery Method Room Air Room Air Room Air Weight Weight: 275 lb Body Mass Index (BMI) 50.3 Physical Exam Narrative Physical Examination: General: Awake, alert, oriented x 3 and cooperative, laying in the ED bed, fatigued, notes pain currently improved with recent Dilaudid. Skin: Normal color, normal turgor, no icterus, no cyanosis except for very staged ecchymoses especially of the abdomen secondary to subcu injections as well as ventral abdominal incision with no drainage, Steri-Strips still in place. HEENT: AT/NC, EOMI, PERRLA, moderately dry MM, no carotid bruits or JVD noted; however, thickened neck makes evaluation difficult. Lungs: Distant, diminished, greater bases, moderate effort, no rales, ronchi or wheezing. Heart: Mildly tachycardic with regular rhythm; no gallop, rub audible. Abdomen: Soft, morbidly obese, midline incision intact with Steri-Strips, no drainage, ecchymoses as noted, discomfort especially bilateral lower quadrant, right greater than left, some voluntary guarding, difficult assess distention given habitus, distant bowel sounds, unable to discern HSM given habitus and pain. Extremities: No cyanosis, clubbing, or edema. Neurological: Patient awake, alert, oriented as noted, cognitive function intact; pupils equally reactive to light and accommodation, cranial nerves II-XII grossly normal, moving all 4 extremities, no focal deficits, strength moderately to severely globally decreased secondary to acute complaints Psychiatric: Affect appears flat, tearful with discussions, underlying history of depression and anxiety. Results Lab / Micro Data Result Diagrams: 04/24/22 19:15 04/24/22 19:15 Labs: Laboratory Results - last 24 hr 04/24/22 19:15: WBC 8.2, RBC 3.57 L, Hgb 11.1 L, Hct 35.3 L, MCV 98.9, MCH 31.1, MCHC 31.4 L, RDW Std Deviation 55.6 H, RDW Coeff of Jose 15.0 H, Plt Count 288, MPV 9.4, Immature Gran % (Auto) 2.100 H, Neut % (Auto) 71.7 H, Lymph % (Auto) 13.8 L, [place] % (Auto) 11.8 H, Eos % (Auto) 0.2, Baso % (Auto) 0.4, Absolute Neuts (auto) 5.9, Absolute Lymphs (auto) 1.13, Nucleated RBC % 0 04/24/22 19:15: Sodium 135 L, Potassium 3.9, Chloride 98, Carbon Dioxide 28.0, Anion Gap 9, BUN 9, Creatinine 0.95, Estim Creat Clear Calc 56.03, Est GFR (MDRD) Af Amer 80, Est GFR (MDRD) Non-Af 66, BUN/Creatinine Ratio 9.4 L, Glucose 157 H, Calcium 9.8, Total Bilirubin 0.70, AST 61 H, ALT 79 H, Alkaline Phosphatase 427 H, Total Protein 7.2, Albumin 2.6 L, Globulin 4.6 H, Albumin/Globulin Ratio 0.6 L, Lipase 16 L 04/24/22 19:15: Lactic Acid 1.9 04/24/22 20:20: Urine Color Yellow, Urine Clarity Cloudy, Urine pH 6.0, Ur Specific [place] 1.020, Urine Protein 100 H, Urine Glucose (UA) Normal, Urine Ketones 150 A*, Urine Occult Blood 10 H, Urine Nitrite Negative, Urine Bilirubin 3 H, Urine Urobilinogen 8 H, Ur Leukocyte Esterase 100 H, Urine RBC 0-5 SEEN, Urine WBC 5-10 SEEN, Ur Squamous Epith Cells 10-25 SEEN, Calcium Oxalate Crystal 3+, Urine Bacteria 2+, Hyaline Casts 25-50 SEEN, Coarse Granular Casts 5-10 SEEN, Urine Mucus 3+ Radiology Impression Abdomen/Pelvis CT 04/24/22 18:37 IMPRESSION: Limited examination due to the absence of IV contrast. Despite limitations: Multiple partially loculated intra-abdominal fluid collections concerning for abscess formation as described above. Postsurgical changes status post left salpingo-oophorectomy and left liver lobe resection with choledochoduodenal anastomosis. Left supraumbilical hernia containing fat and a small portion of bowel. Soft tissue nodules in the anterior abdominal wall most likely representing injection granulomas. Electronically Signed: Umberto Cotter MD at 20:59 EDT , Assessment & Plan Assessment/Plan (1) Intractable abdominal pain: PLAN: The patient is a 52 y/o F w/ PMHx: Morbid Obesity, Asthma, Chronic anemia/AOCD, Anxiety and Depression, Hx VTE/PE/DVT, GERD, HTN, HLD, IDDM, recent OR for concern of ovarian torsion with Dr. Lopez at [facility] with at that time noted evidence peritoneal metastatic disease suspected from her known bile duct cancer with last chemotherapy 4 weeks prior to current presentation who now presents to the [facility] ED on 04/24/22 with history of ongoing intermittent abdominal pain worsening over the last 3 weeks, primarily R sided, worse RLQ with associated nausea, 1 episode emesis on day of presentation and sensation of more firm abdomen with only mild improvement with chronic pain regimen including oral dilaudid prompting ED evaluation secondary to intractable pain. #1. Acute on Chronic Intractable Abdominal Pain suspected secondary to patient's peritoneal metastatic disease status post recent left oophorectomy secondary to concerns of torsion, Lower suspicion Infection: Admission CT abd/pelvis multiple partially loculated intra-abdominal fluid collections concerning for abscess formation, postsurgical changes status post left salpingo-oophorectomy left liver lobe resection with choledochoduodenal anastomosis, soft tissue nodules anterior abdominal wall likely granulomas. Discussed case with general surgery who reviewed imaging and history, will admit to medical surgical floor, maintain on IV and oral pain regimen, allow clears with advance diet as tolerated, will await surgery evaluation for potential consideration of IR involvement for fluid drainage although initial discussions suspect likely would not improve her scenario, palliative consulted and pending. If need IR would need to hold therapeutic lovenox. Procalcitonin pending. UCx also requested. Will continue PRN oral and IV pain regimen, add short course toradol and low dose gabapentin. #2. Metastatic Cholangiocarcinoma with elevated LFTs: Patient following w/ Dr. Augustin, ongoing chemotherapy, last 4 weeks prior, recent OR 4 weeks prior with noted metastatic disease in the peritoneum, will obtain mag and phos levels, continue to trend CMP. #3. IDDM: Patient following w/ Dr. Peguero, will continue insulin pump, allow clears and advance diet as tolerated pending further evaluation, maintain on accu checks w/ insulin SS per home pump regimen. From most recent endocrinology evaluation patient using predominantly basal insulin with an average of 7 g of carbs daily entered, hemoglobin A1c 5.0% although noted to be falsely low likely with a weight loss of 44 pounds over the last year eating approximately 1500 smith/day. #4. Chronic normocytic anemia/AOCD: Admission hemoglobin 11.1, prior baseline appears 10.3 04/15/2022 however it has decreased prior to this in 2021 down to 7.5, likely cancer and chemotherapy associated, will continue to trend. #5. Chronic asthma: We will temporarily hold patient home inhalers and transition to ATC DuoNeb therapy, as needed albuterol, encourage head of bed and I-S. #6. Hypertension: Continue home regimen including amlodipine, losartan with hold parameters as needed, PRN hydralazine. #7. Hyperlipidemia: Not on statin therapy, defer. #8. Anxiety and depression: Not on regimen per current list, encourage continued outpatient evaluation especially given recent metastatic disease diagnosis. #9. Morbid Obesity: Weight loss and lifestyle changes encouraged. #10. GERD: We will maintain on home PPI. #11. Hx VTE: Patient with history of DVT, PE in the setting of CA diagnosis, will continue home therapeutic lovenox regimen. #12. DVT prophylaxis: SCDs, continue home therapeutic lovenox regimen. #13. 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 Encouraged her strongly to consider setting this up especially given her metastatic cancer. 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 She notes that if she was unable to make any decisions it would be her who would make these decisions. Discussed CODE status at length including difference between FULL code, DNR-CCA and DNR-CC status. Following discussions about the differences in these status, requested DNR-CCA, no intubation although pending discussions with palliative and if she worsens further she does seem intent on transition to hospice potentially with DNRCC status transition. Advanced Care Planning Face to Face Time: 16 minutes. Charges/Coding Visit Charges Inpatient E&M: 46118 Init Hosp L3 Procedures Hospitalists Procedures: 88799 Advncd Care Plan 30 Min
[2022-04-24 22:00] VITALS: BP 129/69; PULSE 116; RESP 18; TEMP 36.1; O2SAT 100
[2022-04-24 22:08] LABS: Magnesium 1.2 mg/dL (1.6-2.6); Phosphorus 4.1 mg/dL (2.5-4.9)
[2022-04-24 22:22] LABS: Procalcitonin 0.23 ng/mL (0.00-0.09)
[2022-04-24 22:43] VITALS: BP 134/81; PULSE 115; RESP 18; TEMP 36.9; O2SAT 95
[2022-04-24 22:50] VITALS: BMI 50.5
[2022-04-24] MEDS: 0.9% Normal Saline 1,000 ML 100 ML IV (23:24)
[2022-04-24] MEDS: 0.9% Saline Lock 10 ML Syringe IV (23:24)
[2022-04-25] VITALS (8 sets, daily range): BP systolic 102–153; BP diastolic 50–93; PULSE 99–136; RESP 16–20; TEMP 36.1–38.3; O2SAT 95–98
[2022-04-25] MEDS: Enoxaparin 120 MG/0.8 ML Syringe SC ×3 (00:29→21:46)
[2022-04-25] MEDS: Ketorolac 15 MG/ML Vial IV ×4 (00:30→21:46)
[2022-04-25] MEDS: Gabapentin 100 MG Capsule PO ×4 (00:30→17:08)
[2022-04-25] MEDS: Magnesium Chloride 64 MG Delay Rel.Tablet 128 MG PO ×4 (00:30→17:09)
[2022-04-25] MEDS: Insulin Basal Pump 2.4 UNIT SC (00:31)
[2022-04-25] MEDS: HYDROmorphone 2 MG TABLET PO ×3 (03:01→11:01)
[2022-04-25 05:23] LABS: Absolute Lymphocyte Count 1.87 X10^3/uL (0.83-4.51); Absolute Neutrophil Count 3.9 X10^3/uL (2.0-7.7); Basophil# 0.03 X10^3/uL; Basophil% 0.4 % (0-1); Eosinophil# 0.03 X10^3/uL; Eosinophils% 0.4 % (0-5); Hematocrit 31.3 % (37-47); Hemoglobin 9.8 g/dL (12.0-15.0); Lymphocyte # 1.87 X10^3/ul (0.83-4.51); Lymphocyte % 26.4 % (19-41); Mean Corp Hgb Conc 31.3 g/dL (32-36); Mean Corpuscular Hgb 31.4 pg (27.0-32.0); Mean Corpuscular Volume 100.3 fL (81-99); Mean Platelet Vol. 9.5 fl (6.2-12.0); Monocyte# 1.02 X10^3/uL; Monocyte% 14.4 % (0-10); NRBC Flagged by Analyzer 0 % (0-5); Neutrophil # 3.91 X10^3/uL (2.7-7.7); Neutrophil % 55.3 % (47-70); Platelet Count 220 K/mm3 (150-450); RBC Distribution Width CV 15.1 % (11.6-14.6); Red Blood Count 3.12 M/mm3 (4.2-5.4); White Blood Count 7.1 K/mm3 (4.4-11.0)
[2022-04-25] MEDS: 0.9% Saline Lock 10 ML Syringe IV ×2 (05:24→13:59)
[2022-04-25 05:43] LABS: ALB/GLOB Ratio 0.6 RATIO (0.9-2.4); AST(SGOT) 37 U/L (15-37); Alanine Aminotransfer ALT/SGPT 65 U/L (13-56); Albumin, Serum 2.3 g/dL (3.2-5.0); Alkaline Phosphatase 325 U/L (45-117); Anion Gap 6 (5-15); BUN 12 mg/dL (7-18); BUN/Creat Ratio 14.3 RATIO (10-20); Calcium,Total 8.9 mg/dL (8.5-10.1); Chloride 101 mmol/L (98-107); Creatinine, Serum 0.84 mg/dL (0.55-1.02); EST Glomerular Filtration Rate 76 mL/min (>60); Est Glom Filt Rate - Afr Amer 92 mL/min (>60); Estimated Creatinine Clearance 60.46 ml/min; Globulin 3.9 g/dL (2.2-4.2); Glucose 61 mg/dL (74-106); Potassium 3.7 mmol/L (3.5-5.1); Protein, Total 6.2 g/dL (6.4-8.2); Sodium Level 137 mmol/L (136-145)
[2022-04-25] MEDS: Ipratropium/Albuterol Sulfate 3 ML AMPUL.NEB INHALATION ×2 (07:32→13:00)
--- NOTE | 2022-04-25 07:50 | CON.PCM.SX_ITS ---
Assessment & Plan Assessment/Plan (1) Intractable abdominal pain: (2) Metastatic adenocarcinoma: PLAN: Reviewed CT abdomen pelvis. Patient does have likely a fluid collection however this is likely due to her metastatic disease to her omentum as her white blood count is within normal limits. Patient's abdominal pain is only in the right lower quadrant/right groin and if it was from these fluid collections would be more diffuse. No plans for surgical intervention. Patient's incisions healing well. Pain control per primary Dr. Augustin has stopped by and seen per patient. Rachel Peña M.D. Pager: [phone] [facility] [address] [place] [address], [facility], [address] [place] [id number] Office: [phone] HPI Consult Data Date of Consult: 04/25/22 HPI Narrative HPI Narrative: NASH GERARDO, is a 52 F who presents due to right lower quadrant pain. Patient does have history of metastatic adenocarcinoma?primary was cholangiocarcinoma status post left hepatectomy in 2019 patient also underwent a right hemicolectomy in 2020. Patient did recently undergo surgery on Saturday by Dr. Lopez at [facility] due to a possible torsion of her right ovary. Initially tried to go in laparoscopically due to adhesions unable to did do a lower midline incision however was unable to complete surgery due to the omental caking. Patient was sent home on Dilaudid however patient comes into the ER due to right lower quadrant pain not controlled with the Dilaudid. Patient does see Dr. Augustin?last chemotherapy to 4 weeks ago. Patient states she was going to be changed to FOLFOX as her CT abdomen pelvis was worse when checked.. Patient CT abdomen pelvis question some loculated fluid collections in the pelvis. [facility] Medical History Anemia Anxiety Arthritis Arthritis Asthma Back pain Biliary stricture Cancer Diabetes Dietary restriction Easy bruising Gallstones Gastric reflux High cholesterol History of bile duct cancer History of pain when walking Hx of cyst of breast Hyperlipidemia Hypertension Insulin dependent diabetes mellitus Leg cramps Non-smoker Obesity Pulmonary emboli Restless legs Home Medications amlodipine 5 mg tablet 5 mg PO DAILY 08/11/18 [History Last Taken Unknown] albuterol sulfate 2.5 mg INHALATION Q4H PRN PRN 05/18/20 [History Last Taken Unknown] albuterol sulfate 90 mcg/actuation aerosol inhaler 2 puff INHALATION Q2H PRN PRN g 05/18/20 [History Last Taken Unknown] calcium carbonate-vitamin D3 1 tab PO DAILY 10/23/20 [History Last Taken Unknown] aspirin 81 mg tablet,delayed release 81 mg PO DAILY 04/20/21 [History Last Taken Unknown] magnesium oxide 400 mg (241.3 mg magnesium) tablet 400 mg PO TID 04/20/21 [History Last Taken Unknown] multivitamin 1 tab PO DAILY 04/20/21 [History Last Taken Unknown] losartan 50 mg tablet 50 mg PO DAILY 08/03/21 [History Last Taken Unknown] ondansetron HCl 8 mg PO Q8H PRN PRN 10/12/21 [History Last Taken Unknown] promethazine 25 mg PO Q6H PRN PRN 10/12/21 [History Last Taken Unknown] blood-glucose sensor #9 ea 11/30/21 [Rx Last Taken Unknown] blood-glucose transmitter #1 ea 11/30/21 [Rx Last Taken Unknown] diphenoxylate-atropine [Lomotil] 1 - 2 tab PO Q6H PRN PRN 02/17/22 [History Last Taken Unknown] fluticasone propion-salmeterol [Advair Diskus] 1 inh INHALATION BID 02/17/22 [History Last Taken Unknown] ibuprofen 800 mg PO Q8H PRN 02/17/22 [History Last Taken Unknown] insulin pump controller 02/17/22 [History Last Taken Unknown] lidocaine-prilocaine 1 applic TOPICAL PRN PRN 02/17/22 [History Last Taken Unknown] pyridoxine (vitamin B6) [Vitamin B-6] 100 mg PO DAILY 02/17/22 [History Last Taken Unknown] cholecalciferol (vitamin D3) 125 mcg (5,000 unit) capsule 5,000 mcg PO DAILY 03/15/22 [History Last Taken Unknown] pantoprazole 40 mg tablet,delayed release 40 mg PO DAILY 03/15/22 [History Last Taken Unknown] insulin pump cartridge 04/15/22 [History Last Taken Unknown] enoxaparin 120 mg SUBCUT BID 04/24/22 [History Last Taken Unknown] hydromorphone 2 - 4 mg PO Q3H PRN 04/24/22 [History Last Taken Unknown] insulin aspart U-100 [Novolog U-100 Insulin aspart] 2.4 unit SUBCUT UD 04/24/22 [History Last Taken Unknown] Allergy/AdvReac Type Severity Reaction Status Date / Time Penicillins Allergy Hives Verified 04/24/22 18:22 Family History Mother Heart disease Diabetes Osteoporosis Father Diabetes Surgical History History of appendectomy Hx of resection of liver S/P carpal tunnel release S/P cholecystectomy S/P unilateral salpingo-oophorectomy Trigger finger Social History household members: spouse Smoking Status: Never smoker alcohol intake: current alcohol intake frequency: holidays/special occasions only substance use type: does not use caffeine: No what type of physical activity do you participate in: walking frequency: daily seatbelt use: always do you feel safe at home: Yes 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 [employer] Constitutional Constitutional: Denies chills ENT HEENT: Denies dizziness or dysphagia Cardiovascular Cardiovascular: Denies chest pain Respiratory/Chest Respiratory/Chest: Denies shortness of breath at rest Gastrointestinal Gastrointestinal: Reports abdominal pain and constipation; Denies diarrhea, heartburn, hematemesis, melena or vomiting Genitourinary Genitourinary: Denies burning urination or dysuria Musculoskeletal Musculoskeletal: Denies abnormal gait Integumentary Integumentary: Denies jaundice Neurologic Neurologic: Denies abnormal gait, abnormal hearing, focal weakness, paresthesias or sensory deficit Endocrine Endocrinology: Denies palpitations Hematologic/Lymphatic Hematologic/Lymphatic: Reports easy bleeding and easy bruising; Denies anemia Physical Exam Const alert, oriented x3 and no apparent distress HEENT normocephalic and head/scalp atraumatic Resp normal respiratory effort Cardio regular rate GI soft to palpation; Negative for non-distended GI Narrative: Previous incision healing well with Steri-Strips lower midline, resolving ecchymosis to bilateral lower quadrants due to previous Lovenox shots per patient Palpation: tender RLQ (Almost right groin, no peritoneal signs); Negative for guarding Extremity no clubbing, cyanosis or edema Neuro CN's II-XII intact bilaterally Psych mental status grossly normal Lab / Micro Data Result Diagrams: 04/25/22 05:20 04/25/22 05:20 Labs: Laboratory Results - last 24 hr 04/24/22 19:15: WBC 8.2, RBC 3.57 L, Hgb 11.1 L, Hct 35.3 L, MCV 98.9, MCH 31.1, MCHC 31.4 L, RDW Std Deviation 55.6 H, RDW Coeff of Jose 15.0 H, Plt Count 288, MPV 9.4, Immature Gran % (Auto) 2.100 H, Neut % (Auto) 71.7 H, Lymph % (Auto) 13.8 L, [place] % (Auto) 11.8 H, Eos % (Auto) 0.2, Baso % (Auto) 0.4, Absolute Neuts (auto) 5.9, Absolute Lymphs (auto) 1.13, Nucleated RBC % 0 04/24/22 19:15: Sodium 135 L, Potassium 3.9, Chloride 98, Carbon Dioxide 28.0, Anion Gap 9, BUN 9, Creatinine 0.95, Estim Creat Clear Calc 56.03, Est GFR (MDRD) Af Amer 80, Est GFR (MDRD) Non-Af 66, BUN/Creatinine Ratio 9.4 L, Glucose 157 H, Calcium 9.8, Total Bilirubin 0.70, AST 61 H, ALT 79 H, Alkaline Phosphatase 427 H, Total Protein 7.2, Albumin 2.6 L, Globulin 4.6 H, Albumin/Globulin Ratio 0.6 L, Lipase 16 L 04/24/22 19:15: Lactic Acid 1.9 04/24/22 20:20: Urine Color Yellow, Urine Clarity Cloudy, Urine pH 6.0, Ur Specific [place] 1.020, Urine Protein 100 H, Urine Glucose (UA) Normal, Urine Ketones 150 A*, Urine Occult Blood 10 H, Urine Nitrite Negative, Urine Bilirubin 3 H, Urine Urobilinogen 8 H, Ur Leukocyte Esterase 100 H, Urine RBC 0-5 SEEN, Urine WBC 5-10 SEEN, Ur Squamous Epith Cells 10-25 SEEN, Calcium Oxalate Crystal 3+, Urine Bacteria 2+, Hyaline Casts 25-50 SEEN, Coarse Granular Casts 5-10 SEEN, Urine Mucus 3+ 04/24/22 21:42: Phosphorus 4.1, Magnesium 1.2 L 04/24/22 21:42: Procalcitonin 0.23 H 04/25/22 05:20: WBC 7.1, RBC 3.12 L, Hgb 9.8 L, Hct 31.3 L, MCV 100.3 H, MCH 31.4, MCHC 31.3 L, RDW Std Deviation 56.0 H, RDW Coeff of Jose 15.1 H, Plt Count 220, MPV 9.5, Immature Gran % (Auto) 3.100 H, Neut % (Auto) 55.3, Lymph % (Auto) 26.4, [place] % (Auto) 14.4 H, Eos % (Auto) 0.4, Baso % (Auto) 0.4, Absolute Neuts (auto) 3.9, Absolute Lymphs (auto) 1.87, Nucleated RBC % 0 04/25/22 05:20: Sodium 137, Potassium 3.7, Chloride 101, Carbon Dioxide 30.0, Anion Gap 6, BUN 12, Creatinine 0.84, Estim Creat Clear Calc 60.46, Est GFR (MDRD) Af Amer 92, Est GFR (MDRD) Non-Af 76, BUN/Creatinine Ratio 14.3, Glucose 61 L, Calcium 8.9, Total Bilirubin 0.50, AST 37, ALT 65 H, Alkaline Phosphatase 325 H, Total Protein 6.2 L, Albumin 2.3 L, Globulin 3.9, Albumin/Globulin Ratio 0.6 L Radiology Impression Abdomen/Pelvis CT 04/24/22 18:37 IMPRESSION: Limited examination due to the absence of IV contrast. Despite limitations: Multiple partially loculated intra-abdominal fluid collections concerning for abscess formation as described above. Postsurgical changes status post left salpingo-oophorectomy and left liver lobe resection with choledochoduodenal anastomosis. Left supraumbilical hernia containing fat and a small portion of bowel. Soft tissue nodules in the anterior abdominal wall most likely representing injection granulomas. Electronically Signed: Umberto Cotter MD at 20:59 EDT , Charges/Coding Visit Charges Inpatient E&M: 91779 Init Hosp L3
[2022-04-25] MEDS: Aspirin E.C. 81 MG Tablet PO (09:02)
[2022-04-25] MEDS: Losartan Potassium 50 MG Tablet PO (09:03)
[2022-04-25] MEDS: Pantoprazole Sodium 40 MG Tablet PO (09:04)
[2022-04-25] MEDS: Pyridoxine HCl 100 MG Tablet PO (09:04)
[2022-04-25] MEDS: amLODIPine 5 MG Tablet PO (09:04)
[2022-04-25] MEDS: 0.9% Normal Saline 1,000 ML 100 ML IV (09:05)
--- NOTE | 2022-04-25 09:19 | CASEMGMT ---
Addendum entered by Suki Weaver 04/25/22 14:19: Palliative Care liaison here to see pt. Addendum entered by Suki Weaver 04/25/22 12:18: Notified hospitalist that pt will not be seen in the hospital by palliative. Asked for order to be cancelled. Addendum entered by Suki Weaver 04/25/22 10:13: Received notification from Safia at Palliative who states pt already had been referred and has a meeting this week with the liaison. She states pt will not be seen while in the hospital but will try to get on the [employer]ERIAL[employer] schedule very quickly. Original Note: Emailed palliative care with referral at this time.
--- NOTE | 2022-04-25 09:20 | CASEMGMT ---
RN CM Face to Face with patient for initial transition planning/care coordination assessment. RN CM introduced self and role at [facility]. Patient lying in bed, alert and oriented. Patient willing to participate in assessment and is able to answer all questions appropriately. Care providers, pharmacy, and demographics verified. Patient wishes to discharge home, denies need for home health at this time. Patient states she has no further needs or concerns at this time. CM to follow for discharge planning needs that may arise. PCP: Minesh Specialists: Charli, oncologist Preferred Pharmacy:[facility]; [facility] retail at discharge Insurance: [facility] Prescription Benefit: yes Living Will/HPOA: none LNOK: Living Arrangements: Patient lives with in a single story home with 2 steps and railing to enter the home. Patient states she is independent at home. Transportation: , mother DME/HHC: Patient states she has shower chair, walker, grab bars, and nebulizer at home. Patient has had [facility]HC in the past. Disposition Plan: Patient to discharge home with family support and follow-up plans in place. Kerline POST, RN, CM
[2022-04-25] MEDS: Polyethylene Glycol 3350 17 GM PACKET PO ×2 (12:29→21:46)
[2022-04-25] MEDS: Magnesium Sulfate 4gm/100mL 4 GM/100 ML IV.SOLN. IV (12:41)
[2022-04-25] MEDS: Ondansetron 4 MG/2 ML Vial IV (13:59)
[2022-04-25] MEDS: HYDROmorphone 1 MG/ML Syringe IV (13:59)
--- NOTE | 2022-04-25 14:22 | CASEMGMT ---
Social Work SW met with pt to offer support regarding cancer diagnosis. Pt tearful and reserved throughout conversation. Pt does state she has a good support network and her santy helps with coping. SW offered support and and provided written resources on cancer support groups and a list of area counselors. Pt requesting to complete HCPOA. SW assisted pt with completing this document with pt naming her Obie Arriaga. Pt states she already has a living will. Pt also requesting a copy of her DNRCCA. Copy of documents placed in chart and originals given to pt. MYCHAL Munoz
--- NOTE | 2022-04-25 15:30 | CHAPLAIN ---
Type of Pastoral Visit _x__ Initial Visit ___ Follow-up Visit ___ On-call Visit ___ General Patient Visit ___ Spiritual Assessment ___ Family Conference ___ Bereavement ___ Rapid Response ___ Code Blue ___ Other (describe below) Pastoral Care Referral From _x__ Patient ___ Family ___ Nurse ___ Physician ___ Boss Miner ___ Media Supervisor ___ Other (describe below) Sacrament/Intervention _x__ Active listening ___ Anointing ___ Anabaptism ___ Bereavement ___ Communion _x__ Ruchi exploration ___ _x__ Life review _x__ Prayer ___ Reconciliation ___ Sacrament of Sick _x__ Supportive presence ___ Wedding ___ Other (describe below) Pastoral Comments patient remembers this video game producer from previous admission and asks video game producer to 'have a seat'; after RN completes her work the patient talks about the inability to have a needed surgery and the metastasis of cancer; pt has had visit from her dampener but 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 and leaving family and friends; listening and affirming of patient continues; pt uses ruchi as a source of help and she welcomes prayer and presence of video game producer for spiritual care
--- NOTE | 2022-04-25 20:12 | PCM.PN.HOSP ---
Subjective Subjective Patient was seen and examined today, she appeared to be comfortable as far as her abdominal pain was concerned, she was ambulating in the rosales and in her room. I had a long discussion with her about medications for her abdominal pain, she is agreed to take methadone, she wants to take a low-dose methadone-I will place her on 2.5 mg twice a day. Palliative care have been written to see the patient but they will be seeing her as an outpatient this Saturday and they requested that they not need to see her in the hospital at this time and I do not think they do need to see her in the hospital presently. Also place patient on MiraLAX twice a day due to expected constipation with narcotics. I talked with Dr. Augustin by phone today about her care. Objective Data Objective Data Vital Signs: Vital Signs Temp Pulse Resp BP Pulse Ox 100.6 F H 131 H 18 128/50 H 97 04/25/22 20:10 04/25/22 20:10 04/25/22 20:10 04/25/22 20:10 04/25/22 20:10 Oxygen Delivery Method Room Air Weight: 126.1 kg Body Mass Index (BMI) 50.5 Intake & Output: Intake and Output for Last 24 Hours 04/23/22 04/24/22 04/25/22 23:59 23:59 23:59 Intake Total 2522.33 / 2522.33 Output Total 200 / 200 Balance 2322.33 / 2322.33 Lab / Micro Data Result Diagrams: 04/25/22 05:20 04/25/22 05:20 Labs: Laboratory Results - last 24 hr 04/24/22 19:15: Lactic Acid 1.9 04/24/22 20:20: Urine Color Yellow, Urine Clarity Cloudy, Urine pH 6.0, Ur Specific [place] 1.020, Urine Protein 100 H, Urine Glucose (UA) Normal, Urine Ketones 150 A*, Urine Occult Blood 10 H, Urine Nitrite Negative, Urine Bilirubin 3 H, Urine Urobilinogen 8 H, Ur Leukocyte Esterase 100 H, Urine RBC 0-5 SEEN, Urine WBC 5-10 SEEN, Ur Squamous Epith Cells 10-25 SEEN, Calcium Oxalate Crystal 3+, Urine Bacteria 2+, Hyaline Casts 25-50 SEEN, Coarse Granular Casts 5-10 SEEN, Urine Mucus 3+ 04/24/22 21:42: Phosphorus 4.1, Magnesium 1.2 L 04/24/22 21:42: Procalcitonin 0.23 H 04/25/22 05:20: WBC 7.1, RBC 3.12 L, Hgb 9.8 L, Hct 31.3 L, MCV 100.3 H, MCH 31.4, MCHC 31.3 L, RDW Std Deviation 56.0 H, RDW Coeff of Jose 15.1 H, Plt Count 220, MPV 9.5, Immature Gran % (Auto) 3.100 H, Neut % (Auto) 55.3, Lymph % (Auto) 26.4, [place] % (Auto) 14.4 H, Eos % (Auto) 0.4, Baso % (Auto) 0.4, Absolute Neuts (auto) 3.9, Absolute Lymphs (auto) 1.87, Nucleated RBC % 0 04/25/22 05:20: Sodium 137, Potassium 3.7, Chloride 101, Carbon Dioxide 30.0, Anion Gap 6, BUN 12, Creatinine 0.84, Estim Creat Clear Calc 60.46, Est GFR (MDRD) Af Amer 92, Est GFR (MDRD) Non-Af 76, BUN/Creatinine Ratio 14.3, Glucose 61 L, Calcium 8.9, Total Bilirubin 0.50, AST 37, ALT 65 H, Alkaline Phosphatase 325 H, Total Protein 6.2 L, Albumin 2.3 L, Globulin 3.9, Albumin/Globulin Ratio 0.6 L Radiography Diagnostic Testing: Radiology Impression Abdomen/Pelvis CT 04/24/22 18:37 IMPRESSION: Limited examination due to the absence of IV contrast. Despite limitations: Multiple partially loculated intra-abdominal fluid collections concerning for abscess formation as described above. Postsurgical changes status post left salpingo-oophorectomy and left liver lobe resection with choledochoduodenal anastomosis. Left supraumbilical hernia containing fat and a small portion of bowel. Soft tissue nodules in the anterior abdominal wall most likely representing injection granulomas. Electronically Signed: Umberto Cotter MD at 20:59 EDT , Physical Exam Const alert, oriented x3 and no apparent distress General Appearance: cooperative, well kempt and well developed Orientation / Consciousness: awake, oriented to person, oriented to place and oriented to time Nutritional Appearance: morbidly obese HEENT normocephalic and moist oral mucous membranes Eyes PERRL, EOMs intact bilaterally and conjunctivae normal Neck nuchal rigidity, supple, no JVD, thyroid normal and no carotid bruits General: trachea midline Resp normal respiratory effort and clear to auscultation bilaterally Auscultation: Negative for rales, rhonchi or wheezes Cardio regular rate, regular rhythm, S1 normal heart sound, S2 normal heart sound, no murmurs, no rub and no gallops GI normal to inspection, nondistended, normoactive bowel sounds, soft to palpation, non-tender and non-distended Extremity no clubbing, cyanosis or edema Skin no rashes or lesions noted General Skin Exam: no breakdown Neuro oriented x3, CN's II-XII intact bilaterally, no focal motor deficits and no sensory deficits noted Sensorium / Orientation: awake and alert Speech: speech normal Psych affect normal Assessment & Plan Assessment/Plan (1) Bile duct cancer: PLAN: #1 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 Patient will see palliative care this Saturday. Patient is a DNR CC arrest with no intubation. #2 type 2 diabetes-continue present care, patient has an insulin pump #3 morbid obesity-complicates care and prognosis #4 Central hypertension-continue current home medications #5 anemia of chronic disease-no treatment indicated at this time #6 GERD-patient will remain on a PPI #7 bacteriuria-urine sample obtained on admission showed bacteria but also squamous cells, this is likely contaminated, patient does not have any symptoms of urinary tract infection. Patient's pain is controlled tomorrow, she probably could be discharged home. Charges/Coding Visit Charges Inpatient E&M: 35798 Subs Hosp L2
--- NOTE | 2022-04-25 20:26 | PCM.HOSP.N ---
Hospitalist Note Patient with UA upon presentation with pending UCx. Given SEC were elevated and at that time afebrile no abx started. Given no elevated T, mild tachycardia will start IV rocephin, obtain LA, administer IVF bolus now, obtain repeat UA cath/UCx.
[2022-04-25 21:27] LABS: Lactic Acid 0.7 mmol/L (0.4-1.9)
[2022-04-25 21:30] LABS: Bacteria 0 SEEN /hpf (None Seen); Mucous, Urine 0 SEEN /hpf (<or=2+); Red Blood Cells-Urine 0 SEEN /hpf (0-5)
[2022-04-25] MEDS: Ceftriaxone 1 GM/50 ML BAG IV (21:38)
[2022-04-25 21:43] LABS: Color, Urine Yellow (Yellow); Glucose, Dipstick Normal (Normal); Ketone-Dipstick 50 mg/dl (Negative); Leukocyte Esterase-Dipstick 100 /ul (Negative); Nitrite-Dipstick Negative (Negative); Occult Blood-Urine Negative /ul (Negative); Protein-Dipstick 15 mg/dl (Negative); Specific Gravity, Urine 1.025 (1.002-1.030); Urine Clarity Clear (Clear); Urine Urobilinogen 8 mg/dl (Normal)
[2022-04-25] MEDS: Acetaminophen 325 MG Tablet 650 MG PO (21:46)
[2022-04-25 21:54] LABS: Squamous Epithelial Cells - UA 0-5 SEEN /hpf (5-10); Urine Bilirubin Dipstick 1 mg/dL (Negative); White Blood Cells 0-5 SEEN /hpf (0-5)
[2022-04-26] VITALS (7 sets, daily range): BP systolic 91–119; BP diastolic 48–70; PULSE 88–123; RESP 16–18; TEMP 36.6–38.1; O2SAT 94–98
[2022-04-26] MEDS: 0.9% Normal Saline 1,000 ML 100 ML IV (01:18)
[2022-04-26 04:01] LABS: Magnesium 2.4 mg/dL (1.6-2.6)
[2022-04-26] MEDS: Ketorolac 15 MG/ML Vial IV (05:22)
[2022-04-26] MEDS: Ipratropium/Albuterol Sulfate 3 ML AMPUL.NEB INHALATION ×2 (07:22→19:14)
--- NOTE | 2022-04-26 08:15 | PN.HOSP_ITS ---
Subjective Subjective Patient is a 52-year-old lady with history of metastatic cholangiocarcinoma With intractable abdominal pain admitted to regular nursing floor for symptom management Patient seen did experience low-grade fever last night subsequently started on Rocephin for suspected UTI and culture sent Objective Data Objective Data Vital Signs: Vital Signs Temp Pulse Resp BP Pulse Ox 98.0 F 93 17 109/49 L 96 04/26/22 05:20 04/26/22 07:22 04/26/22 07:22 04/26/22 05:20 04/26/22 05:20 Oxygen Delivery Method Room Air Weight: 130.2 kg Body Mass Index (BMI) 50.5 Intake & Output: Intake and Output for Last 24 Hours 04/24/22 04/25/22 04/26/22 23:59 23:59 23:59 Intake Total 3072.33 / 3872.33 2621.67 / 2621.67 Output Total 200 / 400 200 / 200 Balance 2872.33 / 3472.33 2421.67 / 2421.67 Lab / Micro Data Result Diagrams: 04/25/22 05:20 04/25/22 05:20 Labs: Laboratory Results - last 24 hr 04/25/22 20:50: Lactic Acid 0.7 04/25/22 21:15: Urine Color Yellow, Urine Clarity Clear, Urine pH 6.0, Ur Specific [place] 1.025, Urine Protein 15 H, Urine Glucose (UA) Normal, Urine Ketones 50 H, Urine Occult Blood Negative, Urine Nitrite Negative, Urine Ziyad irubin 1 H, Urine Urobilinogen 8 H, Ur Leukocyte Esterase 100 H, Urine RBC 0 SEEN, Urine WBC 0-5 SEEN, Ur Squamous Epith Cells 0-5 SEEN, Urine Bacteria 0 SEEN, Urine Mucus 0 SEEN 04/26/22 03:23: Magnesium 2.4 Physical Exam Narrative GENERAL: cooperative HEENT: Atraumatic; EYES; Anicteric, Normal Conjunctiva NECK; supple, normal thyroid, RESPIRATORY: Diminished to auscultation CARDIOVASCULAR: Regular S1 S2, GI: soft, normoactive bowel sounds, : No Renal angle tenderness; EXTREMITIES: No edema, no clubbing, MUSCULOSKELETAL: no muscle wasting NEURO: Awake; no lateralizing signs. SKIN: No Rash PSYCH; Flat affect Assessment & Plan Assessment/Plan (1) Bile duct cancer: PLAN: Patient is a 52-year-old lady with history of metastatic cholangiocarcinoma With intractable abdominal pain admitted to regular nursing floor for symptom management 1. Abdominal pain ? In a patient with known metastatic cholangiocarcinoma admitted for pain management 2. Fever suspected to be secondary to acute cystitis. -Patient presented with what was thought to be asymptomatic bacteriuria treatment was therefore not initiated however with patient developing fever and chills patient was started on Rocephin urine culture sent 3. Class III obesity ? With BMI of 54.2 4. Hypertension ? Blood pressure controlled continue home meds 5. Anemia - Secondary to chronic disorder follows anemia of malignancy monitoring H&H and transfuse if patient becomes symptomatic or hemoglobin falls below 7 6. Metastatic cholangiocarcinoma ? Patient currently being managed by Dr. Augustin as outpatient 7. GERD ? On PPI 8. Diabetes mellitus type 2 As patient is on insulin pump. Did review glucose levels with episodes of hypoglycemia 9. History of previous DVT and PE Patient is on therapeutic enoxaparin 10. Mild intermittent asthma ? Aerosol treatments as needed 11. DVT prophylaxis ? Patient is on therapeutic Lovenox Charges/Coding Visit Charges Inpatient E&M: 54136 Subs Hosp L2
--- NOTE | 2022-04-26 08:34 | PCM.PN.SRG ---
Subjective Subjective Patient is a 52 y/o F I am following in conjunction with Dr. Peña for abdominal pain. Patient notes her abdominal pain has resolved this morning. She did note a fever overnight, which medicine has placed her on antibiotics over night. She denies nausea, vomiting. She did have a bowel movement overnight. Objective Data Objective Data Vital Signs: Vital Signs Temp Pulse Resp BP Pulse Ox 98.0 F 93 17 109/49 L 96 04/26/22 05:20 04/26/22 07:22 04/26/22 07:22 04/26/22 05:20 04/26/22 05:20 Oxygen Delivery Method Room Air Weight: 287 lb 0.67 oz Body Mass Index (BMI) 50.5 Intake & Output: Intake and Output for Last 24 Hours 04/24/22 04/25/22 04/26/22 23:59 23:59 23:59 Intake Total 3072.33 / 3872.33 2621.67 / 2621.67 Output Total 200 / 400 200 / 200 Balance 2872.33 / 3472.33 2421.67 / 2421.67 Lab / Micro Data Result Diagrams: 04/25/22 05:20 04/25/22 05:20 Labs: Laboratory Results - last 24 hr 04/25/22 20:50: Lactic Acid 0.7 04/25/22 21:15: Urine Color Yellow, Urine Clarity Clear, Urine pH 6.0, Ur Specific [place] 1.025, Urine Protein 15 H, Urine Glucose (UA) Normal, Urine Ketones 50 H, Urine Occult Blood Negative, Urine Nitrite Negative, Urine Bilirubin 1 H, Urine Urobilinogen 8 H, Ur Leukocyte Esterase 100 H, Urine RBC 0 SEEN, Urine WBC 0-5 SEEN, Ur Squamous Epith Cells 0-5 SEEN, Urine Bacteria 0 SEEN, Urine Mucus 0 SEEN 04/26/22 03:23: Magnesium 2.4 Physical Exam GI soft to palpation, non-tender and non-distended Auscultation: normoactive bowel sounds Assessment & Plan Assessment/Plan (1) Intractable abdominal pain: PLAN: I have discussed this patient with Dr. Peña. At this time, patient's abdominal pain has resolved. No surgical intervention is being recommended. Patient may be discharged from a surgery standpoint. Thank you for allow us to participate in this patient's care. Charges/Coding Visit Charges Inpatient E&M: 38480 Subs Hosp L1
[2022-04-26] MEDS: Magnesium Chloride 64 MG Delay Rel.Tablet 128 MG PO ×3 (09:42→16:34)
[2022-04-26] MEDS: Aspirin E.C. 81 MG Tablet PO (09:42)
[2022-04-26] MEDS: Gabapentin 100 MG Capsule PO ×3 (09:43→16:34)
[2022-04-26] MEDS: Enoxaparin 120 MG/0.8 ML Syringe SC ×2 (09:43→21:18)
[2022-04-26] MEDS: Pyridoxine HCl 100 MG Tablet PO (09:44)
[2022-04-26] MEDS: Pantoprazole Sodium 40 MG Tablet PO (09:44)
[2022-04-26] MEDS: HYDROmorphone 2 MG TABLET PO ×2 (12:16→20:47)
[2022-04-26] MEDS: Diphenoxylate/Atrop 1 Tablet PO (13:54)
[2022-04-26] MEDS: HYDROmorphone 1 MG/ML Syringe IV (13:55)
[2022-04-26] MEDS: Ondansetron 4 MG/2 ML Vial IV (13:55)
[2022-04-26] MEDS: 0.9% Saline Lock 10 ML Syringe IV ×2 (13:55→21:19)
[2022-04-26] MEDS: Ceftriaxone 1 GM/50 ML BAG IV (21:17)
[2022-04-27] VITALS (7 sets, daily range): BP systolic 123–136; BP diastolic 66–79; PULSE 92–111; RESP 16–20; TEMP 36.2–37.2; O2SAT 98–100
[2022-04-27] MEDS: HYDROmorphone 2 MG TABLET PO ×4 (04:50→20:14)
--- NOTE | 2022-04-27 07:31 | PCM.PN.HOSP ---
Subjective Subjective Patient seen complains of abdominal pain this a.m. 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 final sensitivity and identification pending Objective Data Objective Data Vital Signs: Vital Signs Temp Pulse Resp BP Pulse Ox 97.2 F L 92 16 136/66 H 100 04/27/22 04:26 04/27/22 04:26 04/27/22 04:26 04/27/22 04:26 04/27/22 04:26 Oxygen Delivery Method Room Air Weight: 129 kg Body Mass Index (BMI) 50.5 Intake & Output: Intake and Output for Last 24 Hours 04/25/22 04/26/22 04/27/22 23:59 23:59 23:59 Intake Total 3072.33 / 3872.33 4221.67 / 4296.67 865 / 865 Output Total 200 / 400 200 / 200 Balance 2872.33 / 3472.33 4021.67 / 4096.67 865 / 865 Lab / Micro Data Result Diagrams: 04/27/22 08:30 04/27/22 08:30 Micro: Microbiology 04/25/22 05:10 Urine, Clean Catch Urine Culture - Final GNR lactose 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 SKIN: No Rash PSYCH; Flat affect Assessment & Plan Assessment/Plan (1) Bile duct cancer: PLAN: Patient is a 52-year-old lady with history of metastatic cholangiocarcinoma With intractable abdominal pain admitted to regular nursing floor for symptom management 1. Abdominal pain ? In a patient with known metastatic cholangiocarcinoma admitted for pain management -04/27/2022; patient has been experiencing fluctuating pain levels 2. Fever suspected to be secondary to acute cystitis. -Patient presented with what was thought to be asymptomatic bacteriuria treatment was therefore not initiated however with patient developing fever and chills patient was started on Rocephin urine culture sent ? 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 Class III obesity ? With BMI of 54.2 4. Hypertension ? Blood pressure controlled continue home meds 5. Anemia - Secondary to chronic disorder follows anemia of malignancy monitoring H&H and transfuse if patient becomes symptomatic or hemoglobin falls below 7 6. Metastatic cholangiocarcinoma ? Patient currently being managed by Dr. Augustin as outpatient 7. GERD ? On PPI 8. Diabetes mellitus type 2 As patient is on insulin pump. Did review glucose levels with episodes of hypoglycemia 9. History of previous DVT and PE Patient is on therapeutic enoxaparin 10. Mild intermittent asthma ? Aerosol treatments as needed 11. DVT prophylaxis ? Patient is on therapeutic Lovenox 12. Hypomagnesemia ? Patient apparently receives magnesium 4 g 3 times a week magnesium this a.m. is 1.7 we will administer 4 g of magnesium Charges/Coding Visit Charges Inpatient E&M: 56057 Subs Hosp L2
[2022-04-27] MEDS: Ondansetron 4 MG/2 ML Vial IV (07:51)
[2022-04-27] MEDS: HYDROmorphone 1 MG/ML Syringe IV (07:51)
[2022-04-27] MEDS: Aspirin E.C. 81 MG Tablet PO (08:04)
[2022-04-27] MEDS: Magnesium Chloride 64 MG Delay Rel.Tablet 128 MG PO ×3 (08:04→16:00)
[2022-04-27] MEDS: Enoxaparin 120 MG/0.8 ML Syringe SC ×2 (08:05→21:52)
[2022-04-27] MEDS: Pantoprazole Sodium 40 MG Tablet PO (08:05)
[2022-04-27] MEDS: Polyethylene Glycol 3350 17 GM PACKET PO ×2 (08:05→21:50)
[2022-04-27] MEDS: Losartan Potassium 50 MG Tablet PO (08:05)
[2022-04-27] MEDS: amLODIPine 5 MG Tablet PO (08:06)
[2022-04-27] MEDS: Pyridoxine HCl 100 MG Tablet PO (08:06)
[2022-04-27] MEDS: Gabapentin 100 MG Capsule PO ×3 (08:10→16:03)
[2022-04-27 08:36] LABS: Absolute Lymphocyte Count 0.44 X10^3/uL (0.83-4.51); Absolute Neutrophil Count 4.6 X10^3/uL (2.0-7.7); Basophil# 0.01 X10^3/uL; Basophil% 0.2 % (0-1); Eosinophil# 0.05 X10^3/uL; Eosinophils% 0.9 % (0-5); Hematocrit 28.7 % (37-47); Hemoglobin 8.8 g/dL (12.0-15.0); Lymphocyte # 0.44 X10^3/ul (0.83-4.51); Lymphocyte % 7.7 % (19-41); Mean Corp Hgb Conc 30.7 g/dL (32-36); Mean Corpuscular Hgb 31.2 pg (27.0-32.0); Mean Corpuscular Volume 101.8 fL (81-99); Mean Platelet Vol. 9.6 fl (6.2-12.0); Monocyte# 0.59 X10^3/uL; Monocyte% 10.3 % (0-10); NRBC Flagged by Analyzer 0 % (0-5); Neutrophil # 4.58 X10^3/uL (2.7-7.7); Neutrophil % 79.5 % (47-70); POSITIVE DIFFERENTIAL YES; Platelet Count 152 K/mm3 (150-450); RBC Distribution Width CV 15.5 % (11.6-14.6); Red Blood Count 2.82 M/mm3 (4.2-5.4); White Blood Count 5.8 K/mm3 (4.4-11.0)
[2022-04-27 08:38] LABS: Differential Indicated SCAN CRITERIA MET
[2022-04-27 09:04] LABS: Anion Gap 6 (5-15); BUN 9 mg/dL (7-18); Calcium,Total 8.5 mg/dL (8.5-10.1); Chloride 105 mmol/L (98-107); Creatinine, Serum 0.64 mg/dL (0.55-1.02); EST Glomerular Filtration Rate 104 mL/min (>60); Est Glom Filt Rate - Afr Amer 126 mL/min (>60); Estimated Creatinine Clearance 79.36 ml/min; Glucose 68 mg/dL (74-106); Magnesium 1.7 mg/dL (1.6-2.6); Potassium 3.7 mmol/L (3.5-5.1); Sodium Level 136 mmol/L (136-145)
[2022-04-27 09:05] LABS: Differential Comment SCANNED
[2022-04-27] MEDS: Ipratropium/Albuterol Sulfate 3 ML AMPUL.NEB INHALATION ×2 (13:26→18:52)
[2022-04-27] MEDS: 0.9% Saline Lock 10 ML Syringe IV (21:46)
[2022-04-27] MEDS: Ceftriaxone 1 GM/50 ML BAG IV (21:47)
--- NOTE | 2022-04-27 21:59 | NURSING ---
blood sugar is 140 via pt's own machine
[2022-04-28 00:03] VITALS: BP 126/68; PULSE 102; RESP 18; TEMP 37.2; O2SAT 98
[2022-04-28] MEDS: Ondansetron 4 MG/2 ML Vial IV ×2 (00:05→10:29)
[2022-04-28] MEDS: 0.9% Saline Lock 10 ML Syringe IV ×4 (00:08→10:45)
[2022-04-28] MEDS: HYDROmorphone 1 MG/ML Syringe IV ×3 (00:09→10:28)
[2022-04-28] MEDS: HYDROmorphone 2 MG TABLET PO (03:09)
[2022-04-28] MEDS: proCHLORPERazine 10 MG/2 ML Vial 5 MG IV (06:01)
[2022-04-28 06:04] VITALS: BP 145/74; PULSE 101; RESP 20; TEMP 36.8; O2SAT 99
--- NOTE | 2022-04-28 06:09 | NURSING ---
blood sugar 100 per patient meter
[2022-04-28 06:52] VITALS: PULSE 90; RESP 18; O2SAT 97
[2022-04-28] MEDS: Ipratropium/Albuterol Sulfate 3 ML AMPUL.NEB INHALATION (06:52)
--- NOTE | 2022-04-28 07:13 | PN.HOSP_ITS ---
Subjective Subjective Adjusted patient's pain meds plan is for patient to be assessed for possible discharge Objective Data Objective Data Vital Signs: Vital Signs Temp Pulse Resp BP Pulse Ox 98.3 F 101 H 20 H 145/74 H 99 04/28/22 06:04 04/28/22 06:04 04/28/22 06:04 04/28/22 06:04 04/28/22 06:04 Oxygen Delivery Method Room Air Weight: 129.3 kg Body Mass Index (BMI) 50.5 Intake & Output: Intake and Output for Last 24 Hours 04/26/22 04/27/22 04/28/22 23:59 23:59 23:59 Intake Total 4221.67 / 4296.67 1300.25 / 1300.25 460 / 460 Output Total 200 / 200 Balance 4021.67 / 4096.67 1300.25 / 1300.25 460 / 460 Lab / Micro Data Result Diagrams: 04/28/22 07:46 04/27/22 08:30 Labs: Laboratory Results - last 24 hr 04/27/22 08:30: WBC 5.8, RBC 2.82 L, Hgb 8.8 L, Hct 28.7 L, MCV 101.8 H, MCH 31.2, MCHC 30.7 L, RDW Std Deviation 58.0 H, RDW Coeff of Jose 15.5 H, Plt Count 152, MPV 9.6, Immature Gran % (Auto) 1.400 H, Neut % (Auto) 79.5 H, Lymph % (Auto) 7.7 L, [place] % (Auto) 10.3 H, Eos % (Auto) 0.9, Baso % (Auto) 0.2, Absolute Neuts (auto) 4.6, Absolute Lymphs (auto) 0.44 L, Nucleated RBC % 0, Differential Comment SCANNED 04/27/22 08:30: Sodium 136, Potassium 3.7, Chloride 105, Carbon Dioxide 25.0, Anion Gap 6, BUN 9, Creatinine 0.64, Estim Creat Clear Calc 79.36, Est GFR (MDRD) Af Amer 126, Est GFR (MDRD) Non-Af 104, BUN/Creatinine Ratio 14.0, Glucose 68 L, Calcium 8.5, Magnesium 1.7 Micro: Microbiology 04/25/22 21:15 Urine, Clean Catch Urine Culture - Final Mixed Gram Pos & Gram Neg Org 04/25/22 05:10 Urine, Clean Catch Urine Culture - Final GNR lactose social service director Mixed Gram Positive Organisms Physical Exam Narrative GENERAL: cooperative HEENT: Atraumatic; EYES; Anicteric, Normal Conjunctiva NECK; supple, normal thyroid, RESPIRATORY: Diminished to auscultation CARDIOVASCULAR: Regular S1 S2, GI: soft, normoactive bowel sounds, : No Renal angle tenderness; EXTREMITIES: No edema, no clubbing, MUSCULOSKELETAL: no muscle wasting NEURO: Awake; no lateralizing signs. SKIN: No Rash PSYCH; Flat affect Assessment & Plan Assessment/Plan (1) Bile duct cancer: PLAN: Patient is a 52-year-old lady with history of metastatic cholangiocarcinoma With intractable abdominal pain admitted to regular nursing floor for symptom management 1. Abdominal pain ? In a patient with known metastatic cholangiocarcinoma admitted for pain management -04/27/2022; patient has been experiencing fluctuating pain levels 2. Fever suspected to be secondary to acute cystitis. -Patient presented with what was thought to be asymptomatic bacteriuria treatment was therefore not initiated however with patient developing fever and chills patient was started on Rocephin urine culture sent ? 04/27/2022 urine culture so far positive for gram-negative wali lactose social service director final identification and sensitivity pending 3. Class III obesity ? With BMI of 54.2 4. Hypertension ? Blood pressure controlled continue home meds 5. Anemia - Secondary to chronic disorder follows anemia of malignancy monitoring H&H and transfuse if patient becomes symptomatic or hemoglobin falls below 7 6. Metastatic cholangiocarcinoma ? Patient currently being managed by Dr. Augustin as outpatient 7. GERD ? On PPI 8. Diabetes mellitus type 2 As patient is on insulin pump. Did review glucose levels with episodes of hypoglycemia 9. History of previous DVT and PE Patient is on therapeutic enoxaparin 10. Mild intermittent asthma ? Aerosol treatments as needed 11. DVT prophylaxis ? Patient is on therapeutic Lovenox 12. Hypomagnesemia ? Patient apparently receives magnesium 4 g 3 times a week magnesium this a.m. is 1.7 we will administer 4 g of magnesium Charges/Coding Visit Charges Inpatient E&M: 45914 Subs Hosp L2
[2022-04-28 08:00] LABS: Absolute Neutrophil Count 4.2 X10^3/uL (2.0-7.7); Basophil# 0.01 X10^3/uL; Basophil% 0.2 % (0-1); Eosinophil# 0.06 X10^3/uL; Eosinophils% 1.1 % (0-5); Hematocrit 29.3 % (37-47); Hemoglobin 8.9 g/dL (12.0-15.0); Lymphocyte % 12.4 % (19-41); Mean Corp Hgb Conc 30.4 g/dL (32-36); Mean Corpuscular Hgb 30.8 pg (27.0-32.0); Mean Corpuscular Volume 101.4 fL (81-99); Monocyte# 0.62 X10^3/uL; NRBC Flagged by Analyzer 0 % (0-5); Neutrophil # 4.21 X10^3/uL (2.7-7.7); Neutrophil % 74.2 % (47-70); Platelet Count 155 K/mm3 (150-450); RBC Distribution Width CV 15.1 % (11.6-14.6); RBC Distribution Width SD 56.5 fl (35.1-43.9); Red Blood Count 2.89 M/mm3 (4.2-5.4); White Blood Count 5.7 K/mm3 (4.4-11.0)
[2022-04-28] MEDS: Enoxaparin 120 MG/0.8 ML Syringe SC (08:49)
[2022-04-28] MEDS: Losartan Potassium 50 MG Tablet PO (08:49)
[2022-04-28] MEDS: Polyethylene Glycol 3350 17 GM PACKET PO (08:50)
[2022-04-28] MEDS: Pantoprazole Sodium 40 MG Tablet PO (08:50)
[2022-04-28] MEDS: Magnesium Chloride 64 MG Delay Rel.Tablet 128 MG PO (08:50)
[2022-04-28] MEDS: Aspirin E.C. 81 MG Tablet PO (08:50)
[2022-04-28] MEDS: Pyridoxine HCl 100 MG Tablet PO (08:51)
[2022-04-28] MEDS: amLODIPine 5 MG Tablet PO (08:51)
[2022-04-28] MEDS: Gabapentin 100 MG Capsule PO (08:53)
--- NOTE | 2022-04-28 08:57 | PCM.DC.SUM ---
Providers Date of Admission: 04/24/22 Primary Care Physician: Dr. Nilda Edge MD Consultations 04/24/22 23:00 Consult: General Surgery Routine Consulting Provider: Rachel Peña Reason for Consult: Metastatic CA, recent abd surgery, acute on chronic abdominal pain, abn CT EMERGENT Consult: No MD Notified: Yes Date Notified: 04/24/22 Time Notified: 21:36 Method of Notification: called Reason For Visit: INTRACTABLE ABDOMINAL PAIN Diagnosis Discharge Diagnosis (1) Bile duct cancer: Status: Acute Code(s): C24.0 - Malignant neoplasm of extrahepatic bile duct Medications at Discharge Home Medications amlodipine 5 mg tablet 5 mg PO DAILY 08/11/18 albuterol sulfate 2.5 mg INHALATION Q4H PRN PRN 05/18/20 albuterol sulfate 90 mcg/actuation aerosol inhaler 2 puff INHALATION Q2H PRN PRN g 05/18/20 calcium carbonate-vitamin D3 1 tab PO DAILY 10/23/20 aspirin 81 mg tablet,delayed release 81 mg PO DAILY 04/20/21 magnesium oxide 400 mg (241.3 mg magnesium) tablet 400 mg PO TID 04/20/21 multivitamin 1 tab PO DAILY 04/20/21 losartan 50 mg tablet 50 mg PO DAILY 08/03/21 ondansetron HCl 8 mg PO Q8H PRN PRN 10/12/21 promethazine 25 mg PO Q6H PRN PRN 10/12/21 blood-glucose sensor #9 ea 11/30/21 blood-glucose transmitter #1 ea 11/30/21 diphenoxylate-atropine [Lomotil] 1 - 2 tab PO Q6H PRN PRN 02/17/22 fluticasone propion-salmeterol [Advair Diskus] 1 inh INHALATION BID 02/17/22 ibuprofen 800 mg PO Q8H PRN 02/17/22 insulin pump controller 02/17/22 lidocaine-prilocaine 1 applic TOPICAL PRN PRN 02/17/22 pyridoxine (vitamin B6) [Vitamin B-6] 100 mg PO DAILY 02/17/22 cholecalciferol (vitamin D3) 125 mcg (5,000 unit) capsule 5,000 mcg PO DAILY 03/15/22 pantoprazole 40 mg tablet,delayed release 40 mg PO DAILY 03/15/22 insulin pump cartridge 04/15/22 enoxaparin 120 mg SUBCUT BID 04/24/22 insulin aspart U-100 [Novolog U-100 Insulin aspart] 2.4 unit SUBCUT UD 04/24/22 gabapentin 100 mg PO TIDCM 30 Days #90 cap 04/28/22 hydromorphone 4 mg PO Q3H PRN 3 Days #20 tab 04/28/22 methadone 5 mg PO Q12 3 Days #6 tab 04/28/22 polyethylene glycol 3350 17 g PO DAILY #30 ea 04/28/22 Hospital Course Summary of Care Provided Minutes Spent on Discharge: 40 Hospital Course: Patient is a 52-year-old lady with history of metastatic cholangiocarcinoma With intractable abdominal pain admitted to regular nursing floor for symptom management 1. Abdominal pain ? In a patient with known metastatic cholangiocarcinoma admitted for pain management -04/27/2022; patient has been experiencing fluctuating pain levels ? 04/28/2022 methadone was added to patient regimen, discharged on 5 mg p.o. 3 times daily for 3 days in addition to her Dilaudid 4 mg every 3 as needed for breakthrough pain 2. Fever suspected to be secondary to acute cystitis. -Patient presented with what was thought to be asymptomatic bacteriuria treatment was therefore not initiated however with patient developing fever and chills patient was started on Rocephin urine culture sent ? 04/27/2022 urine culture so far positive for gram-negative wali lactose cardiology rn final identification and sensitivity pending 3. Class III obesity ? With BMI of 54.2 4. Hypertension ? Blood pressure controlled continue home meds 5. Anemia - Secondary to chronic disorder follows anemia of malignancy monitoring H&H and transfuse if patient becomes symptomatic or hemoglobin falls below 7 6. Metastatic cholangiocarcinoma ? Patient currently being managed by Dr. Augustin as outpatient 7. GERD ? On PPI 8. Diabetes mellitus type 2 As patient is on insulin pump. Did review glucose levels with episodes of hypoglycemia 9. History of previous DVT and PE Patient is on therapeutic enoxaparin 10. Mild intermittent asthma ? Aerosol treatments as needed 11. DVT prophylaxis ? Patient is on therapeutic Lovenox 12. Hypomagnesemia ? Patient apparently receives magnesium 4 g 3 times a week magnesium this a.m. is 1.7 we will administer 4 g of magnesium Physical Exam Narrative GENERAL: cooperative HEENT: Atraumatic; EYES; Anicteric, Normal Conjunctiva NECK; supple, normal thyroid, RESPIRATORY: Diminished to auscultation CARDIOVASCULAR: Regular S1 S2, GI: soft, normoactive bowel sounds, : No Renal angle tenderness; EXTREMITIES: No edema, no clubbing, MUSCULOSKELETAL: no muscle wasting NEURO: Awake; no lateralizing signs. SKIN: No Rash PSYCH; Flat affect Weight / BMI Weight Weight: 129.3 kg Body Mass Index (BMI) 50.5 ABG / Lab / Microbiology Data Result Diagrams: 04/28/22 07:46 04/27/22 08:30 Laboratory: Laboratory Results - last 24 hr 04/27/22 08:30: Differential Comment SCANNED 04/27/22 08:30: Sodium 136, Potassium 3.7, Chloride 105, Carbon Dioxide 25.0, Anion Gap 6, BUN 9, Creatinine 0.64, Estim Creat Clear Calc 79.36, Est GFR (MDRD) Af Amer 126, Est GFR (MDRD) Non-Af 104, BUN/Creatinine Ratio 14.0, Glucose 68 L, Calcium 8.5, Magnesium 1.7 04/28/22 07:46: WBC 5.7, RBC 2.89 L, Hgb 8.9 L, Hct 29.3 L, MCV 101.4 H, MCH 30.8, MCHC 30.4 L, RDW Std Deviation 56.5 H, RDW Coeff of Jose 15.1 H, Plt Count 155, MPV 9.0, Immature Gran % (Auto) 1.100 H, Neut % (Auto) 74.2 H, Lymph % (Auto) 12.4 L, [place] % (Auto) 11.0 H, Eos % (Auto) 1.1, Baso % (Auto) 0.2, Absolute Neuts (auto) 4.2, Absolute Lymphs (auto) 0.70 L, Nucleated RBC % 0 Microbiology: Microbiology 04/25/22 21:15 Urine, Clean Catch Urine Culture - Final Mixed Gram Pos & Gram Neg Org 04/25/22 05:10 Urine, Clean Catch Urine Culture - Final GNR lactose cardiology rn Mixed Gram Positive Organisms D/C Instructions Discharge Diet: No restrictions Discharge Activity: Return to Normal Activity Call your doctor if you observe: Fever of 101 or Higher, Shortness of breath, Fainting spells and Chest pain Meaningful Use Info Meaningful Use Diagnoses (Choose all that apply): None applicable Discharge Plan Admission Admit Date/Time: 04/24/22 21:34 Attending Provider: Stuart Nam Primary Care Provider: Nilda Edge Consulting Providers: Rachel Peña ; Tomeka Lawrence ; Aleksandr Toney Discharge Orders/Prescriptions Prescriptions: New methadone 5 mg Tablet 5 mg PO Q12 3 Days Qty: 6 RF: 0 polyethylene glycol 3350 17 gram Powder In Packet 17 g PO DAILY Qty: 30 RF: 0 gabapentin 100 mg Capsule 100 mg PO TIDCM 30 Days Qty: 90 RF: 0 hydromorphone 4 mg tablet 4 mg PO Q3H PRN (Reason: pain) 3 Days Qty: 20 RF: 0 Continued amlodipine [Norvasc] 5 mg tablet 5 mg PO DAILY RF: 0 albuterol sulfate 90 mcg/actuation HFA aerosol inhaler 2 puff INHALATION Q2H PRN PRN (Reason: Sob &/Or Wheezing) RF: 0 albuterol sulfate 2.5 mg /3 mL (0.083 %) solution for nebulization 2.5 mg INHALATION Q4H PRN PRN (Reason: sob/wheezing) RF: 0 magnesium oxide 400 mg (241.3 mg magnesium) tablet 400 mg PO TID RF: 0 multivitamin [Daily Multi-Vitamin] Tablet 1 tab PO DAILY RF: 0 aspirin [Adult Low Dose Aspirin] 81 mg tablet,delayed release (DR/EC) 81 mg PO DAILY RF: 0 losartan 50 mg tablet 50 mg PO DAILY RF: 0 cholecalciferol (vitamin D3) 125 mcg (5,000 unit) capsule 5,000 mcg PO DAILY RF: 0 pantoprazole [Protonix] 40 mg tablet,delayed release (DR/EC) 40 mg PO DAILY RF: 0 calcium carbonate-vitamin D3 1 EACH tablet 1 tab PO DAILY RF: 0 ondansetron HCl 8 mg Tablet 8 mg PO Q8H PRN PRN (Reason: Nausea) RF: 0 promethazine 25 mg Tablet 25 mg PO Q6H PRN PRN (Reason: Nausea) RF: 0 ibuprofen 800 mg Tablet 800 mg PO Q8H PRN (Reason: Pain) RF: 0 diphenoxylate-atropine [Lomotil] 2.5-0.025 mg Tablet 1 - 2 tab PO Q6H PRN PRN (Reason: Diarrhea) RF: 0 lidocaine-prilocaine 2.5-2.5 % Cream 1 applic topical PRN PRN (Reason: port access) RF: 0 pyridoxine (vitamin B6) [Vitamin B-6] 100 mg Tablet 100 mg PO DAILY RF: 0 fluticasone propion-salmeterol [Advair Diskus] 100-50 mcg/dose Blister With Device 1 inh INHALATION BID RF: 0 (DME) insulin pump controller Misc MISCELLANEOUS RF: 0 (DME) insulin pump cartridge Cartridge SUBCUT RF: 0 insulin aspart U-100 [Novolog U-100 Insulin aspart] 100 unit/mL Solution 2.4 unit SUBCUT UD RF: 0 enoxaparin 150 mg/mL syringe 120 mg subcut BID RF: 0 (DME) Dexcom G6 Transmitter Device See Rx Instructions .ROUTE .MEDSUPPLY Qty: 1 RF: 3 (DME) Dexcom G6 Sensor Device See Rx Instructions .ROUTE .MEDSUPPLY Qty: 9 RF: 3 Discontinued hydromorphone 2 mg tablet 2 - 4 mg PO Q3H PRN (Reason: Pain) RF: 0 Referrals / Follow Up: Nilda Edge MD [Primary Care Provider] - In 1 Week Disposition Disposition (needs filled in before D/C Order can be placed): Home, Self Care Charges/Coding Visit Charges Inpatient E&M: 53710 Disch Hosp
--- NOTE | 2022-04-28 10:29 | CASEMGMT ---
Addendum entered by Kerline Rogers 04/28/22 11:57: This RN CM received fax from [employer] that prior auth has been approved. Call to [employer] to notify and call to Yanet at [facility] retail to notify and she is able to run thru at this time. Winston KING CM Original Note: Per KANDI Serrato charge, pt needs prior auth for Methadone script and this RN CM placed call to insurance prior auth line and provided with ICD 10 codes for pt diagnoses. Per rep, they are working on prior auth at this time and it will be completed today. Call to [facility] pharmacy and aware of same, per Yanet, pt's out of pocket cost is $12.46 so if prior auth does not come thru prior to pharmacy closing, pt could pay out of pocket then get reimbursed. Call to [employer] and updated on all, voice understanding. CM to follow for fax of prior auth obtained. Winston KING CM
--- NOTE | 2022-04-28 10:43 | NURSING ---
2nd call to pharmacy re:pt meds, they are waiting for preapproval
--- NOTE | 2022-05-03 07:54 | ONC.CONSULT ---
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 -Several major abdominal surgeries. -Current clinical impression small bowel obstruction. -No surgical intervention was recommended here. Transfer to [facility] was recommended for surgical management. -Patient does not want any further systemic chemotherapy. She desires inpatient hospice care. This is very reasonable given the refractory and advanced state of her disease and current bowel obstruction which may not respond to conservative measures. Plan: -Will discuss with Dr. Platt. HPI Consult Data Date of Service:: 05/03/22 PCP / Referring Provider: Dr. Nilda Edge MD Attending: Dr. Stuart Nam MD Chief Complaint Chief Complaint: Metstatic cholangiocarcioma History of Present Illness History of Present Illness: HPI: Briefly, 52-year-old female underwent evaluation for right upper quadrant pain in the fall 2019. She was diagnosed with a Klatskin's tumor and underwent surgical resection. After that surgery was complicated by intra-abdominal abscesses. Several months later she underwent a course of adjuvant chemotherapy with capecitabine. Shortly after completing capecitabine, she developed severe left lower quadrant pain and was diagnosed with a torsion of the ovary. She underwent urgent surgery here at [facility]. Pathology demonstrated metastatic cholangiocarcinoma. Following that a PET scan was obtained which demonstrated an intense area of FDG avid uptake at the hepatic flexure. She subsequently underwent a right hemicolectomy and was found to have a stage III adenocarcinoma of the colon. Radiographically following that she was SHELLI. She started on gemcitabine and cisplatin for primary treatment for metastatic cholangiocarcinoma. She tolerated chemotherapy well but required very frequent magnesium infusions secondary to renal magnesium wasting. Radiographically there remained no evidence of disease. More recently however she developed worsening lower abdominal pain. PET scan demonstrated anterior lower mesenteric metastatic disease. Plans were made to transition from gemcitabine/cisplatin to FOLFOX. Approximately 2 weeks ago she developed worsening right lower quadrant pain. She presented to the ED. Ultrasound was not strongly suggestive of ovarian torsion. Gynecology on-call recommended outpatient follow-up. The next day she was seen by gynecology and was referred to a [place]nie fr[place] surgeon at [facility]. An attempt at laparoscopic diagnosis was not feasible so patient underwent laparotomy. She was found to have extensive carcinomatosis. Pathology consistent with cholangiocarcinoma. Patient was to begin FOLFOX yesterday as an outpatient. However she was admitted earlier this week for worsening abdominal cramping and nausea. CT consistent with partial or full small bowel obstruction. I personally reviewed the images. Significant dilation of the stomach and small bowel loops proximally. She was seen by general surgery. Nothing surgical was indicated. She has not vomited while she is here in the hospital although she has continued sensation of heartburn and occasional waves of cramping and nausea. She has had no stool or flatus since Saturday morning. She remains NPO. She has not yet required NG. She expressed to me this morning that she desires no further cytotoxic chemotherapy and she desires to be transferred to inpatient hospice. Advanced Directives Power of Wiping Rag Washer: Yes Living Will: Yes [facility] Medical History Anemia Anxiety Arthritis Arthritis Asthma Back pain Biliary stricture Cancer Diabetes Dietary restriction Easy bruising Gallstones Gastric reflux High cholesterol History of bile duct cancer History of pain when walking Hx of cyst of breast Hyperlipidemia Hypertension Insulin dependent diabetes mellitus Leg cramps Non-smoker Obesity Pulmonary emboli Restless legs Home Medications amlodipine 5 mg tablet 5 mg PO DAILY 08/11/18 [History Last Taken 05/01/22] albuterol sulfate 2.5 mg INHALATION Q4H PRN PRN 05/18/20 [History Last Taken Unknown] albuterol sulfate 90 mcg/actuation aerosol inhaler 2 puff INHALATION Q2H PRN PRN g 05/18/20 [History Last Taken Unknown] calcium carbonate-vitamin D3 1 tab PO DAILY 10/23/20 [History Last Taken 05/01/22] aspirin 81 mg tablet,delayed release 81 mg PO DAILY 04/20/21 [History Last Taken 05/01/22] magnesium oxide 400 mg (241.3 mg magnesium) tablet 400 mg PO TID 04/20/21 [History Last Taken 05/01/22] multivitamin 1 tab PO DAILY 04/20/21 [History Last Taken 05/01/22] losartan 50 mg tablet 50 mg PO DAILY 08/03/21 [History Last Taken 05/01/22] ondansetron HCl 8 mg PO Q8H PRN PRN 10/12/21 [History Last Taken 05/01/22] promethazine 25 mg PO Q6H PRN PRN 10/12/21 [History Last Taken Unknown] blood-glucose sensor #9 ea 11/30/21 [Rx Last Taken Unknown] blood-glucose transmitter #1 ea 11/30/21 [Rx Last Taken Unknown] diphenoxylate-atropine [Lomotil] 1 - 2 tab PO Q6H PRN PRN 02/17/22 [History Last Taken Unknown] fluticasone propion-salmeterol [Advair Diskus] 1 inh INHALATION BID 02/17/22 [History Last Taken Unknown] ibuprofen 800 mg PO Q8H PRN 02/17/22 [History Last Taken Unknown] insulin pump controller 02/17/22 [History Last Taken Unknown] lidocaine-prilocaine 1 applic TOPICAL PRN PRN 02/17/22 [History Last Taken Unknown] pyridoxine (vitamin B6) [Vitamin B-6] 100 mg PO DAILY 02/17/22 [History Last Taken 05/01/22] cholecalciferol (vitamin D3) 125 mcg (5,000 unit) capsule 5,000 mcg PO DAILY 03/15/22 [History Last Taken 05/01/22] pantoprazole 40 mg tablet,delayed release 40 mg PO DAILY 03/15/22 [History Last Taken 05/01/22] insulin pump cartridge 04/15/22 [History Last Taken Unknown] enoxaparin 120 mg SUBCUT BID 04/24/22 [History Last Taken 05/01/22] insulin aspart U-100 [Novolog U-100 Insulin aspart] 2.4 unit SUBCUT UD 04/24/22 [History Last Taken 05/01/22] gabapentin 100 mg PO TIDCM 30 Days #90 cap 04/28/22 [Rx Last Taken 05/01/22] hydromorphone 4 mg PO Q3H PRN 3 Days #20 tab 04/28/22 [Rx Last Taken Unknown] methadone 5 mg PO Q12 3 Days #6 tab 04/28/22 [Rx Last Taken 05/01/22] polyethylene glycol 3350 17 g PO DAILY #30 ea 04/28/22 [Rx Last Taken Unknown] Allergy/AdvReac Type Severity Reaction Status Date / Time Penicillins Allergy Hives Verified 05/01/22 19:21 Family History Mother Heart disease Diabetes Osteoporosis Father Diabetes Surgical History History of appendectomy Hx of resection of liver S/P carpal tunnel release S/P cholecystectomy S/P unilateral salpingo-oophorectomy Trigger finger Social History household members: spouse Smoking Status: Never smoker alcohol intake: current alcohol intake frequency: holidays/special occasions only substance use type: does not use caffeine: No what type of physical activity do you participate in: walking frequency: daily seatbelt use: always do you feel safe at home: Yes 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 There is a chronic umbilical hernia where healing is impeded. She has generalized tenderness throughout the abdomen. More significant in the right lower quadrant. Vital Signs Temperature 98.3 F 04/28/22 06:04 Temperature Source Oral 04/28/22 06:04 Pulse Rate 90 04/28/22 06:52 Pulse Strength Normal (2+) 04/27/22 11:27 Respiratory Rate 18 04/28/22 06:52 Respiratory Effort 04/27/22 20:21 Respiratory Depth Normal 04/27/22 20:21 Respiratory Pattern Normal 04/27/22 20:21 Blood Pressure 145/74 H 04/28/22 06:04 Blood Pressure Mean 97 04/28/22 06:04 Blood Pressure Source Monitor 04/28/22 06:04 Blood Pressure Position Semi-Fowlers 04/28/22 06:04 Blood Pressure Location Left Arm 04/28/22 06:04 Pulse Ox 97 04/28/22 06:52 Oxygen Delivery Method Room Air 04/28/22 06:52 Diagnostic Data Abdomen/Pelvis CT 04/24/22 18:37 IMPRESSION: Limited examination due to the absence of IV contrast. Despite limitations: Multiple partially loculated intra-abdominal fluid collections concerning for abscess formation as described above. Postsurgical changes status post left salpingo-oophorectomy and left liver lobe resection with choledochoduodenal anastomosis. Left supraumbilical hernia containing fat and a small portion of bowel. Soft tissue nodules in the anterior abdominal wall most likely representing injection granulomas. Electronically Signed: Umberto Cotter MD at 20:59 EDT ,
== END 2022-04-28 13:06 | disposition home or self-care (01) | DRG 948 ==
LOC: ED 21:52 → MS3 22:04
PROVIDERS: Internal Medicine; Admitting Provider Family Medicine; Emergency Provider Emergency Medicine; PCP Family Medicine; Visit Provider Internal Medicine
DX: G89.3 Neoplasm related pain (acute) (chronic) (principal); K56.600 Partial intestinal obstruction, unspecified as to cause; Z68.43 Body mass index [BMI] 50.0-59.9, adult; C24.0 Malignant neoplasm of extrahepatic bile duct; C78.6 Secondary malignant neoplasm of retroperitoneum and peritoneum; N30.00 Acute cystitis without hematuria; D63.0 Anemia in neoplastic disease; E11.9 Type 2 diabetes mellitus without complications; Z79.4 Long term (current) use of insulin; E66.01 Morbid (severe) obesity due to excess calories; K21.9 Gastro-esophageal reflux disease without esophagitis; I10 Essential (primary) hypertension; E78.5 Hyperlipidemia, unspecified; J45.20 Mild intermittent asthma, uncomplicated; E83.42 Hypomagnesemia; Z66 Do not resuscitate; Z79.82 Long term (current) use of aspirin; Z79.01 Long term (current) use of anticoagulants; Z79.899 Other long term (current) drug therapy; Z96.41 Presence of insulin pump (external) (internal)
CPT/HCPCS: 36415; 36591; 74176; 80048; 80053; 81001; 83605; 83690; 83735; 84100; 84145; 85025; 87040; 87086; 87088; 93005; 94640; 99285; J7030; J7040; J7050; Q9967; A4216; J2405

== ENCOUNTER 2022-05-01 19:18 | Inpatient (IN) | payer OTHER, SELFPAY ==
[2022-05-01 19:19] VITALS: BP 121/64; PULSE 139; RESP 24; TEMP 36.4; O2SAT 89; BMI 51.2
--- NOTE | 2022-05-01 19:48 | CT_ITS ---
STUDY: CT Abdomen And Pelvis W/ Contrast Injection 05/01/2022 9:26 PM REASON FOR EXAM: Female, 52 years old. ABDOMINAL PAIN nausea and vomiting Technologist Notes HISTORY OF BILE DUCT, COLON, AND OVARIAN CANCER. CHOLECYSTECTOMY, APPENDECTOMY, PARTIAL LIVER REMOVAL. TECHNIQUE: Transaxial images were obtained without oral contrast, and IV 100mL Isovue-370 intravenous contrast. Individualized dose optimization techniques were used for this CT. COMPARISON: Apr 24 2022 7:34pm FINDINGS: There is a small volume right sided pleural effusion. The visualized portions of the heart are within normal limits. Resection of the left lobe of the liver. There is non-visualization of the gallbladder, which may be secondary to either contraction or a prior cholecystectomy. Unremarkable spleen. There is diffuse atrophy of the pancreas. Pneumobilia. Unremarkable bilateral adrenal glands. No acute findings of the right kidney. No acute findings of the left kidney. Unremarkable visualized stomach. There is a paralytic ileus of the small intestine with mild gaseous distention. Unremarkable colon. There is non-visualization of the appendix. There are calcifications of the abdominal aorta. This is consistent for atherosclerotic disease. There is no abdominal aortic aneurysm. Unremarkable inferior vena cava. Subcentimeter mesenteric lymph nodes. Unremarkable urinary bladder. Minimal inflammatory stranding noted in the right and left subcutaneous fat anteriorly. This can suggest insulin injection sites. The fluid in the pelvis along the anterior abdominal wall measures approximately 43x 126 x 22mm. Fluid along the inferior margin of the right lobe of the liver is 46 x 21 mm. Stable periumbilical fluid collection air. This may suggest an abscess. Unremarkable osseous structures. CT/Abdomen/Pelvis W IV Cont ONLY IMPRESSION: (NOT LISTED IN ORDER OF SIGNIFICANCE) There is a small volume right sided pleural effusion. Stable periumbilical subcutaneous fat fluid collection air. This may suggest an abscess. Overall stable fluid collections in the right hemiabdomen and pelvis. This may suggest an abscess. Bowel gas pattern may suggest an ileus or partial small bowel obstruction. Prospective development of a complete obstruction cannot be excluded. Other findings as above. Electronically Signed: Apolinar Boykin MD at 21:33 EDT ,
--- NOTE | 2022-05-01 19:49 | EDS_ITS ---
HPI HPI - GI History of Present Illness Chief Complaint: Nausea/Vomiting Informant: patient Abdominal Pain/Flank Pain Onset: Days Context: Gradual Onset Timing: Intermittent Current Severity: Gone Maximum Severity: Mild Worsened by: Nothing Relieved by: Nothing Nausea/Vomiting/Emesis GI Symptom: Positive for Nausea and Vomiting Onset: Today, Yesterday and Days Severity: Mild Diarrhea/Melena/Hematochezia GI Symptom: Negative for Diarrhea, Melena and Hematochezia Associated Symptoms Associated Symptoms: Negative for Dysuria, Frequency, Hematuria and Urgency Narrative Narrative: 52-year-old female who has a 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 She has had recent abdominal surgery and endocrine in which they were going to remove her right ovary but were unsuccessful both laparoscopically and with open technique due to the amount of metastases. She has had a prior appendectomy, cholecystectomy, partial liver resection and a right hemicolectomy. She also has a history of diabetes. She denies any dysuria. No fever. Current she is not having any significant abdominal pain. Prior similar symptoms: Yes Recent Illness/Hospitalization: Yes PFSH PFS Medical History Anemia Anxiety Arthritis Arthritis Asthma Back pain Biliary stricture Cancer Diabetes Dietary restriction Easy bruising Gallstones Gastric reflux High cholesterol History of bile duct cancer History of pain when walking Hx of cyst of breast Hyperlipidemia Hypertension Insulin dependent diabetes mellitus Leg cramps Non-smoker Obesity Pulmonary emboli Restless legs Home Medications amlodipine 5 mg tablet 5 mg PO DAILY 08/11/18 [History Last Taken Unknown] albuterol sulfate 2.5 mg INHALATION Q4H PRN PRN 05/18/20 [History Last Taken Unknown] albuterol sulfate 90 mcg/actuation aerosol inhaler 2 puff INHALATION Q2H PRN PRN g 05/18/20 [History Last Taken Unknown] calcium carbonate-vitamin D3 1 tab PO DAILY 10/23/20 [History Last Taken Unknown ] aspirin 81 mg tablet,delayed release 81 mg PO DAILY 04/20/21 [History Last Taken Unknown] magnesium oxide 400 mg (241.3 mg magnesium) tablet 400 mg PO TID 04/20/21 [History Last Taken Unknown] multivitamin 1 tab PO DAILY 04/20/21 [History Last Taken Unknown] losartan 50 mg tablet 50 mg PO DAILY 08/03/21 [History Last Taken Unknown] ondansetron HCl 8 mg PO Q8H PRN PRN 10/12/21 [History Last Taken Unknown] promethazine 25 mg PO Q6H PRN PRN 10/12/21 [History Last Taken Unknown] blood-glucose sensor #9 ea 11/30/21 [Rx Last Taken Unknown] blood-glucose transmitter #1 ea 11/30/21 [Rx Last Taken Unknown] diphenoxylate-atropine [Lomotil] 1 - 2 tab PO Q6H PRN PRN 02/17/22 [History Last Taken Unknown] fluticasone propion-salmeterol [Advair Diskus] 1 inh INHALATION BID 02/17/22 [History Last Taken Unknown] ibuprofen 800 mg PO Q8H PRN 02/17/22 [History Last Taken Unknown] insulin pump controller 02/17/22 [History Last Taken Unknown] lidocaine-prilocaine 1 applic TOPICAL PRN PRN 02/17/22 [History Last Taken Unknown] pyridoxine (vitamin B6) [Vitamin B-6] 100 mg PO DAILY 02/17/22 [History Last Taken Unknown] cholecalciferol (vitamin D3) 125 mcg (5,000 unit) capsule 5,000 mcg PO DAILY 03/15/22 [History Last Taken Unknown] pantoprazole 40 mg tablet,delayed release 40 mg PO DAILY 03/15/22 [History Last Taken Unknown] insulin pump cartridge 04/15/22 [History Last Taken Unknown] enoxaparin 120 mg SUBCUT BID 04/24/22 [History Last Taken Unknown] insulin aspart U-100 [Novolog U-100 Insulin aspart] 2.4 unit SUBCUT UD 04/24/22 [History Last Taken Unknown] gabapentin 100 mg PO TIDCM 30 Days #90 cap 04/28/22 [Rx Last Taken Unknown] hydromorphone 4 mg PO Q3H PRN 3 Days #20 tab 04/28/22 [Rx Last Taken Unknown] methadone 5 mg PO Q12 3 Days #6 tab 04/28/22 [Rx Last Taken Unknown] polyethylene glycol 3350 17 g PO DAILY #30 ea 04/28/22 [Rx Last Taken Unknown] Allergy/AdvReac Type Severity Reaction Status Date / Time Penicillins Allergy Hives Verified 05/01/22 19:21 Family History Mother Heart disease Diabetes Osteoporosis Father Diabetes Surgical History History of appendectomy Hx of resection of liver S/P carpal tunnel release S/P cholecystectomy S/P unilateral salpingo-oophorectomy Trigger finger Social History household members: spouse Smoking Status: Never smoker alcohol intake: current alcohol intake frequency: holidays/special occasions only substance use type: does not use caffeine: No what type of physical activity do you participate in: walking frequency: daily seatbelt use: always do you feel safe at home: Yes 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 Review of Systems ROS Unobtainable: Denies due to encephalopathy Constitutional Constitutional ED: Denies fever(s) ENT ENT ED: Denies ear pain Cardiovascular Cardiovascular: Denies chest pain Respiratory/Chest Respiratory/Chest: Denies cough or dyspnea Gastrointestinal Gastrointestinal: Reports abdominal pain, nausea and vomiting; Denies constipation, diarrhea or melena Genitourinary Genitourinary ED: Denies dysuria, hematuria or urinary frequency Musculoskeletal Musculoskeletal: Denies myalgias Integumentary Denies rash Neurologic Neurologic: Denies headache(s) Psychiatric Psychiatric: Denies depression Endocrine Endocrinology: Denies polyuria Hematologic/Lymphatic Hematologic/Lymphatic: Denies easy bruising Allergic/Immunologic Allergic/Immunologic ED: Denies urticaria EXAM Physical Exam Narrative Exam Narrative: 52-year-old female no acute distress. Vital signs stable is tachycardic heart rate 139. H EENT exam shows dry mucous membranes. Otherwise unremarkable. Lungs clear to auscultation. Heart tachycardic rate about 130. Abdomen soft. Nondistended. Normal bowel sounds. Well-healing midline surgical incision. Dry and clean. Steri-Strips in place. Has a known chronic umbilical hernia which is present but nontender. Abdomen is nondistended and soft. No peritoneal signs. Moving all 4 extremities. Neurologically awake and alert. Const Vital Signs: 05/01/22 19:19 05/01/22 21:04 05/01/22 23:03 Temperature 97.6 F L Temperature Source Temporal Pulse Rate 139 H 114 H 112 H Respiratory Rate 24 H 16 16 Blood Pressure 121/64 H 149/74 H 129/62 H Blood Pressure Mean 83 99 84 Pulse Ox 89 97 97 Oxygen Delivery Method Room Air Room Air Room Air Positive well nourished, well developed and obese; Negative for cachectic, contractures or unkempt General Appearance ED: well developed and NAD; Negative for unkempt, cachectic, contractures or pallor Nutritional Appearance: obese; Negative for cachectic HEENT Reports dry mucous membranes; Denies moist mucous membranes normocephalic and atraumatic; Negative for trauma or tenderness Mouth ED: Yes dry mucous membranes Mouth: dry mucous membranes Eyes PERRL and EOMs intact bilaterally General Eye ED: Negative for pale conjunctiva or scleral icterus Neck no lymphadenopathy, supple and no JVD General: Negative for tenderness Resp normal respiratory effort and clear to auscultation bilaterally Auscultation: Negative for rales, rhonchi or wheezes Cardio regular rhythm, S1 normal heart sound, S2 normal heart sound and no murmurs; Negative for regular rate Rate: tachycardic GI non-tender, non-distended and no masses Inspection: Negative for abdominal distention Auscultation: normoactive bowel sounds; Negative for hyperactive bowel sounds or hypoactive bowel sounds Palpation: soft; Negative for tender, guarding, rigid or rebound tenderness present Back/Spine no CVA tenderness General Back: Negative for CVA tenderness Cervical Spine: Negative for cervical spine tenderness Thoracic Spine / Upper Back: Negative for thoracic spinal tenderness Extremity full ROM General Extremety ED: Negative for edema or tenderness General Extremity: Negative for edema Neuro moves all extremities Sensorium / Orientation: alert, oriented to person, oriented to place and oriented to time; Negative for orientation impaired, confused, lethargic or stuporous Motor Exam: strength 5/5 throughout Psych mental status grossly normal and thought process normal Appearance: Negative for unkempt Mood & Affect: Negative for depressed or tearful Skin General Skin Exam: Negative for jaundice or pallor Lesions: no lesions Rashes: no rashes MDM MDM MDM Narrative Medical decision making narrative: 52-year-old status post open abdominal surgery with nausea and vomiting. Clinically I do not think this is a bowel obstruction. CAT scan and labs are being obtained. To be treated with IV fluids and IV Compazine. She states Zofran and Phenergan have not been helping her nausea at home. She will also be given IV Benadryl. Repeat exams patient is resting comfortable 11:20 PM. Discussed with her treatment options. She would prefer to stay here and be admitted to this facility. Lab Data Attestation: I reviewed the patient's lab results. Lab results narrative: CBC shows a white count 10.3. H&H 9.7 and 32.2 which is her baseline. Platelets 183. Electrolytes show potassium of 3.4. Gap of 12. BUN is 6 creatinine 0.7. Liver enzymes are elevated with a total bilirubin of 2.2 AST of 248 ALT of 231 and alk phos of 775. Lipase is normal at 22. Baseline anemia however the liver enzymes are significantly elevated from prior. CAT scan shows a small bowel obstruction. Labs: Laboratory Results - last 24 hr 05/01/22 05/01/22 20:20 20:20 WBC 10.3 RBC 3.21 L Hgb 9.7 L Hct 32.2 L MCV 100.3 H MCH 30.2 MCHC 30.1 L RDW Std Deviation 56.9 H RDW Coeff of Jose 15.4 H Plt Count 183 MPV 10.1 Immature Gran % (Auto) 2.100 H Neut % (Auto) 82.6 H Lymph % (Auto) 7.5 L [place] % (Auto) 7.5 Eos % (Auto) 0.1 Baso % (Auto) 0.2 Absolute Neuts (auto) 8.5 H Absolute Lymphs (auto) 0.77 L Nucleated RBC % 0.2 Sodium 139 Potassium 3.4 L Chloride 100 Carbon Dioxide 27.0 Anion Gap 12 BUN 6 L Creatinine 0.77 Estim Creat Clear Calc 69.13 Est GFR (MDRD) Af Amer 102 Est GFR (MDRD) Non-Af 85 BUN/Creatinine Ratio 7.8 L Glucose 106 Calcium 9.3 Total Bilirubin 2.20 H AST 248 H ALT 231 H Alkaline Phosphatase 775 H Total Protein 6.3 L Albumin 2.3 L Globulin 4.0 Albumin/Globulin Ratio 0.6 L Lipase 22 L Radiography Diagnostic Testing: Clinical Impression(s) from Imaging Studies Abdomen/Pelvis CT 05/01/22 19:48 IMPRESSION: (NOT LISTED IN ORDER OF SIGNIFICANCE) There is a small volume right sided pleural effusion. Stable periumbilical subcutaneous fat fluid collection air. This may suggest an abscess. Overall stable fluid collections in the right hemiabdomen and pelvis. This may suggest an abscess. Bowel gas pattern may suggest an ileus or partial small bowel obstruction. Prospective development of a complete obstruction cannot be excluded. Other findings as above. Electronically Signed: Apolinar Boykin MD at 21:33 EDT Reading Location ID and State: [facility] / [place] , Service support , Discharge Plan Triage Chief Complaint: Nausea/Vomiting ED Provider: Patrick Spencer Dx/Rx/DC Orders Clinical Impression: Abdominal pain, Nausea & vomiting, Bowel obstruction, History of cholangiocarcinoma Prescriptions: No Action amlodipine [Norvasc] 5 mg tablet 5 mg PO DAILY RF: 0 albuterol sulfate 90 mcg/actuation HFA aerosol inhaler 2 puff INHALATION Q2H PRN PRN (Reason: Sob &/Or Wheezing) RF: 0 albuterol sulfate 2.5 mg /3 mL (0.083 %) solution for nebulization 2.5 mg INHALATION Q4H PRN PRN (Reason: sob/wheezing) RF: 0 magnesium oxide 400 mg (241.3 mg magnesium) tablet 400 mg PO TID RF: 0 multivitamin [Daily Multi-Vitamin] Tablet 1 tab PO DAILY RF: 0 aspirin [Adult Low Dose Aspirin] 81 mg tablet,delayed release (DR/EC) 81 mg PO DAILY RF: 0 losartan 50 mg tablet 50 mg PO DAILY RF: 0 cholecalciferol (vitamin D3) 125 mcg (5,000 unit) capsule 5,000 mcg PO DAILY RF: 0 pantoprazole [Protonix] 40 mg tablet,delayed release (DR/EC) 40 mg PO DAILY RF: 0 calcium carbonate-vitamin D3 1 EACH tablet 1 tab PO DAILY RF: 0 ondansetron HCl 8 mg Tablet 8 mg PO Q8H PRN PRN (Reason: Nausea) RF: 0 promethazine 25 mg Tablet 25 mg PO Q6H PRN PRN (Reason: Nausea) RF: 0 ibuprofen 800 mg Tablet 800 mg PO Q8H PRN (Reason: Pain) RF: 0 diphenoxylate-atropine [Lomotil] 2.5-0.025 mg Tablet 1 - 2 tab PO Q6H PRN PRN (Reason: Diarrhea) RF: 0 lidocaine-prilocaine 2.5-2.5 % Cream 1 applic topical PRN PRN (Reason: port access) RF: 0 pyridoxine (vitamin B6) [Vitamin B-6] 100 mg Tablet 100 mg PO DAILY RF: 0 fluticasone propion-salmeterol [Advair Diskus] 100-50 mcg/dose Blister With Device 1 inh INHALATION BID RF: 0 (DME) insulin pump controller Misc MISCELLANEOUS RF: 0 (DME) insulin pump cartridge Cartridge SUBCUT RF: 0 insulin aspart U-100 [Novolog U-100 Insulin aspart] 100 unit/mL Solution 2.4 unit SUBCUT UD RF: 0 enoxaparin 150 mg/mL syringe 120 mg subcut BID RF: 0 methadone 5 mg Tablet 5 mg PO Q12 3 Days Qty: 6 RF: 0 polyethylene glycol 3350 17 gram Powder In Packet 17 g PO DAILY Qty: 30 RF: 0 gabapentin 100 mg Capsule 100 mg PO TIDCM 30 Days Qty: 90 RF: 0 hydromorphone 4 mg tablet 4 mg PO Q3H PRN (Reason: pain) 3 Days Qty: 20 RF: 0 (DME) Dexcom G6 Transmitter Device See Rx Instructions .ROUTE .MEDSUPPLY Qty: 1 RF: 3 (DME) Dexcom G6 Sensor Device See Rx Instructions .ROUTE .MEDSUPPLY Qty: 9 RF: 3 Primary Care Provider: Nilda Edge Referrals: Nilda Edge MD [Primary Care Provider] - Disposition Disposition: Acute Care [facility]
[2022-05-01] MEDS: 0.9% Normal Saline 1,000 ML 1000 ML IV (20:18)
[2022-05-01] MEDS: proCHLORPERazine 10 MG/2 ML Vial IV (20:18)
[2022-05-01 20:32] LABS: Absolute Lymphocyte Count 0.77 X10^3/uL (0.83-4.51); Absolute Neutrophil Count 8.5 X10^3/uL (2.0-7.7); Basophil# 0.02 X10^3/uL; Basophil% 0.2 % (0-1); Eosinophil# 0.01 X10^3/uL; Eosinophils% 0.1 % (0-5); Hematocrit 32.2 % (37-47); Hemoglobin 9.7 g/dL (12.0-15.0); Lymphocyte # 0.77 X10^3/ul (0.83-4.51); Lymphocyte % 7.5 % (19-41); Mean Corp Hgb Conc 30.1 g/dL (32-36); Mean Corpuscular Hgb 30.2 pg (27.0-32.0); Mean Corpuscular Volume 100.3 fL (81-99); Mean Platelet Vol. 10.1 fl (6.2-12.0); Monocyte# 0.77 X10^3/uL; Monocyte% 7.5 % (0-10); NRBC Flagged by Analyzer 0.2 % (0-5); Neutrophil # 8.54 X10^3/uL (2.7-7.7); Neutrophil % 82.6 % (47-70); Platelet Count 183 K/mm3 (150-450); RBC Distribution Width CV 15.4 % (11.6-14.6); RBC Distribution Width SD 56.9 fl (35.1-43.9); Red Blood Count 3.21 M/mm3 (4.2-5.4); White Blood Count 10.3 K/mm3 (4.4-11.0)
[2022-05-01 20:49] LABS: ALB/GLOB Ratio 0.6 RATIO (0.9-2.4); AST(SGOT) 248 U/L (15-37); Alanine Aminotransfer ALT/SGPT 231 U/L (13-56); Albumin, Serum 2.3 g/dL (3.2-5.0); Alkaline Phosphatase 775 U/L (45-117); Anion Gap 12 (5-15); BUN 6 mg/dL (7-18); BUN/Creat Ratio 7.8 RATIO (10-20); Calcium,Total 9.3 mg/dL (8.5-10.1); Chloride 100 mmol/L (98-107); Creatinine, Serum 0.77 mg/dL (0.55-1.02); EST Glomerular Filtration Rate 85 mL/min (>60); Est Glom Filt Rate - Afr Amer 102 mL/min (>60); Estimated Creatinine Clearance 69.13 ml/min; Glucose 106 mg/dL (74-106); Lipase 22 U/L (73-393); Potassium 3.4 mmol/L (3.5-5.1); Protein, Total 6.3 g/dL (6.4-8.2); Sodium Level 139 mmol/L (136-145)
[2022-05-01 21:04] VITALS: BP 149/74; PULSE 114; RESP 16; O2SAT 97
[2022-05-01 23:03] VITALS: BP 129/62; PULSE 112; RESP 16; O2SAT 97
[2022-05-02] VITALS (10 sets, daily range): BP systolic 131–167; BP diastolic 62–80; PULSE 71–125; RESP 12–22; TEMP 36.6–37.3; O2SAT 94–98; BMI 51.5
--- NOTE | 2022-05-02 00:19 | HP.PCM.HOS_ITS ---
[facility] - General General Date of Admission: 05/02/22 HPI Narrative NASH GERARDO, is a 52 F with a significant history of diabetes mellitus on insulin pump; morbid obesity; hypertension; metastatic bile duct cancer status post cholecystectomy and partial liver resection; and appendectomy who presents to emergency department with persistent nausea and vomiting. Reportedly he is unable to tolerate anything by mouth except high p.o. methadone. Patient came to emergency department at the urging of her oncologist. . Associated with her symptoms is new onset epigastric pain. She has right inguinal pain that is unchanged. On the day of presentation her bowels did not move. However the day before presentation she had a loose bowel movement. Of note patient gets chemotherapy. Patient report that her right ovary and right fallopian tube has been stuck to her abdominal wall. Also her uterus has been stuck to her abdominal wall and bladder. On April 18, 2022 patient was admitted to outside hospital ([facility]) for correction of the adhesion of her right ovary and right fallopian tube. Laparoscopic surgery was also unsuccessful. Open exploratory surgery was also unsuccessful to correct the adhesions above. On 04/27/2022 patient was admitted to the hospital ([facility]) for abdominal pain and a fever suspected to be secondary to acute cystitis. She was discharged home on methadone prescription and gabapentin. [facility] Medical History Anemia Anxiety Arthritis Arthritis Asthma Back pain Biliary stricture Cancer Diabetes Dietary restriction Easy bruising Gallstones Gastric reflux High cholesterol History of bile duct cancer History of pain when walking Hx of cyst of breast Hyperlipidemia Hypertension Insulin dependent diabetes mellitus Leg cramps Non-smoker Obesity Pulmonary emboli Restless legs Home Medications amlodipine 5 mg tablet 5 mg PO DAILY 08/11/18 [History Last Taken Unknown] albuterol sulfate 2.5 mg INHALATION Q4H PRN PRN 05/18/20 [History Last Taken Unknown] albuterol sulfate 90 mcg/actuation aerosol inhaler 2 puff INHALATION Q2H PRN PRN g 05/18/20 [History Last Taken Unknown] calcium carbonate-vitamin D3 1 tab PO DAILY 10/23/20 [History Last Taken Unknown] aspirin 81 mg tablet,delayed release 81 mg PO DAILY 04/20/21 [History Last Taken Unknown] magnesium oxide 400 mg (241.3 mg magnesium) tablet 400 mg PO TID 04/20/21 [History Last Taken Unknown] multivitamin 1 tab PO DAILY 04/20/21 [History Last Taken Unknown] losartan 50 mg tablet 50 mg PO DAILY 08/03/21 [History Last Taken Unknown] ondansetron HCl 8 mg PO Q8H PRN PRN 10/12/21 [History Last Taken Unknown] promethazine 25 mg PO Q6H PRN PRN 10/12/21 [History Last Taken Unknown] blood-glucose sensor #9 ea 11/30/21 [Rx Last Taken Unknown] blood-glucose transmitter #1 ea 11/30/21 [Rx Last Taken Unknown] diphenoxylate-atropine [Lomotil] 1 - 2 tab PO Q6H PRN PRN 02/17/22 [History Last Taken Unknown] fluticasone propion-salmeterol [Advair Diskus] 1 inh INHALATION BID 02/17/22 [History Last Taken Unknown] ibuprofen 800 mg PO Q8H PRN 02/17/22 [History Last Taken Unknown] insulin pump controller 02/17/22 [History Last Taken Unknown] lidocaine-prilocaine 1 applic TOPICAL PRN PRN 02/17/22 [History Last Taken Unknown] pyridoxine (vitamin B6) [Vitamin B-6] 100 mg PO DAILY 02/17/22 [History Last Taken Unknown] cholecalciferol (vitamin D3) 125 mcg (5,000 unit) capsule 5,000 mcg PO DAILY 03/15/22 [History Last Taken Unknown] pantoprazole 40 mg tablet,delayed release 40 mg PO DAILY 03/15/22 [History Last Taken Unknown] insulin pump cartridge 04/15/22 [History Last Taken Unknown] enoxaparin 120 mg SUBCUT BID 04/24/22 [History Last Taken Unknown] insulin aspart U-100 [Novolog U-100 Insulin aspart] 2.4 unit SUBCUT UD 04/24/22 [History Last Taken Unknown] gabapentin 100 mg PO TIDCM 30 Days #90 cap 04/28/22 [Rx Last Taken Unknown] hydromorphone 4 mg PO Q3H PRN 3 Days #20 tab 04/28/22 [Rx Last Taken Unknown] methadone 5 mg PO Q12 3 Days #6 tab 04/28/22 [Rx Last Taken Unknown] polyethylene glycol 3350 17 g PO DAILY #30 ea 06/04/22 [Rx Last Taken Unknown] Allergy/AdvReac Type Severity Reaction Status Date / Time Penicillins Allergy Hives Verified 05/01/22 19:21 Family History Mother Heart disease Diabetes Osteoporosis Father Diabetes Surgical History History of appendectomy Hx of resection of liver S/P carpal tunnel release S/P cholecystectomy S/P unilateral salpingo-oophorectomy Trigger finger Social History household members: spouse Smoking Status: Never smoker alcohol intake: current alcohol intake frequency: holidays/special occasions only substance use type: does not use caffeine: No what type of physical activity do you participate in: walking frequency: daily seatbelt use: always do you feel safe at home: Yes 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 All other systems were reviewed and are negative. Vital Signs Vital Signs Vital Signs: 05/01/22 19:19 05/01/22 21:04 05/01/22 23:03 Temperature 97.6 F L Temperature Source Temporal Pulse Rate 139 H 114 H 112 H Respiratory Rate 24 H 16 16 Blood Pressure 121/64 H 149/74 H 129/62 H Blood Pressure Mean 83 99 84 Pulse Ox 89 97 97 Oxygen Delivery Method Room Air Room Air Room Air 05/02/22 00:04 Temperature 98.4 F Temperature Source Oral Pulse Rate 112 H Respiratory Rate 16 Blood Pressure 158/73 H Blood Pressure Mean 101 Pulse Ox 95 Oxygen Delivery Method Room Air Weight Weight: 127.006 kg Body Mass Index (BMI) 51.2 Physical Exam Narrative Physical exam: General: Well-nourished, well-developed. Head: Normocephalic, atraumatic, no tenderness Eyes: Vision is grossly intact. EOMI ENT, no trauma, moist mucous membranes, no rhinorrhea Neck: Nontender, full range of motion, no spinal tenderness. CVS: Regular rate and rhythm. S1-S2 present. No murmur, gallop or rub. Respiratory : clear to auscultation bilaterally, chest wall nontender, no wheezing Abdomen: Steri-Strips in place. Soft, nontender, nondistended, normal bowel sounds. : Deferred Back: Nontender, no CVA tenderness, no midline spinal tenderness, deformities, step-offs Extremities: Nontender full range of motion, no trauma Skin: Normal color, no trauma, abrasions Neuro: Alert, oriented, cranial nerves II through XII grossly intact. Psychiatry: Normal mood. Normal affect. Not depressed. Not anxious. Results Lab / Micro Data Result Diagrams: 05/01/22 20:20 05/01/22 20:20 Labs: Laboratory Results - last 24 hr 05/01/22 20:20: WBC 10.3, RBC 3.21 L, Hgb 9.7 L, Hct 32.2 L, MCV 100.3 H, MCH 30.2, MCHC 30.1 L, RDW Std Deviation 56.9 H, RDW Coeff of Jose 15.4 H, Plt Count 183, MPV 10.1, Immature Gran % (Auto) 2.100 H, Neut % (Auto) 82.6 H, Lymph % (Auto) 7.5 L, [place] % (Auto) 7.5, Eos % (Auto) 0.1, Baso % (Auto) 0.2, Absolute Neuts (auto) 8.5 H, Absolute Lymphs (auto) 0.77 L, Nucleated RBC % 0.2 05/01/22 20:20: Sodium 139, Potassium 3.4 L, Chloride 100, Carbon Dioxide 27.0, Anion Gap 12, BUN 6 L, Creatinine 0.77, Estim Creat Clear Calc 69.13, Est GFR (MDRD) Af Amer 102, Est GFR (MDRD) Non-Af 85, BUN/Creatinine Ratio 7.8 L, Glucose 106, Calcium 9.3, Total Bilirubin 2.20 H, AST 248 H, ALT 231 H, Alkaline Phosphatase 775 H, Total Protein 6.3 L, Albumin 2.3 L, Globulin 4.0, Albumin/Globulin Ratio 0.6 L, Lipase 22 L Radiology Impression Abdomen/Pelvis CT 05/01/22 19:48 IMPRESSION: (NOT LISTED IN ORDER OF SIGNIFICANCE) There is a small volume right sided pleural effusion. Stable periumbilical subcutaneous fat fluid collection air. This may suggest an abscess. Overall stable fluid collections in the right hemiabdomen and pelvis. This may suggest an abscess. Bowel gas pattern may suggest an ileus or partial small bowel obstruction. Prospective development of a complete obstruction cannot be excluded. Other findings as above. Electronically Signed: Apolinar Boykin MD at 21:33 EDT , Assessment & Plan Assessment/Plan (1) Bowel obstruction: QUALIFIERS: Intestinal obstruction extent: partial Intestinal obstruction type: other intestinal obstruction Qualified Code(s): K56.690 - Other partial intestinal obstruction PLAN: Ileus/partial small bowel obstruction Abdomen and pelvis CT was visualized and independently interpreted and agree with allege interpretation of bowel gas pattern suggesting ileus or partial small bowel obstruction. Supportive treatment with IV fluids. NPO. Of note patient reports tolerating methadone p.o. Okay for patient to have her methadone. On home Dilaudid p.o. change to IV On home Protonix p.o. change to IV General surgery consult. Diabetes mellitus Patient with euglycemia on presentation. With insulin pump. D5 with half-normal saline ordered. Accu-Chek every 4 hours while NPO. Hypertension Blood pressure is not within goal Home p.o. meds held. Vasotec IV scheduled Trend blood pressure and adjust blood pressure medications. Metastatic bile duct surgery Methadone and Dilaudid as above. CMP is abnormal with elevated liver enzymes and bilirubin. Trend. Lovenox continued. Chronic anemia Stable Trend CBC. Morbid obesity BMI: 51.2 kg/m?. Complicates care. Lifestyle modification recommended. DVT prophylaxis: Lovenox as above. Charges/Coding Visit Charges Inpatient E&M: 24665 Init Hosp L3
--- NOTE | 2022-05-02 01:13 | NURSING ---
blood sugar via Dexcom : 80
[2022-05-02] MEDS: Dext 5%-0.45% NS 1,000 ML 75 ML IV ×2 (01:24→15:18)
[2022-05-02] MEDS: Ondansetron 4 MG/2 ML Vial IV ×2 (01:25→21:46)
[2022-05-02] MEDS: Enalaprilat 1.25 MG/ML Vial 0.625 MG IV ×5 (01:37→23:52)
--- NOTE | 2022-05-02 04:18 | NURSING ---
glucose check 89.
[2022-05-02] MEDS: proCHLORPERazine 10 MG/2 ML Vial IV (05:08)
[2022-05-02] MEDS: HYDROmorphone 1 MG/ML Syringe 4 MG IV ×2 (05:14→21:47)
[2022-05-02 06:43] LABS: Absolute Lymphocyte Count 0.88 X10^3/uL (0.83-4.51); Absolute Neutrophil Count 7.6 X10^3/uL (2.0-7.7); Basophil# 0.01 X10^3/uL; Basophil% 0.1 % (0-1); Eosinophil# 0.01 X10^3/uL; Eosinophils% 0.1 % (0-5); Hematocrit 29.7 % (37-47); Lymphocyte # 0.88 X10^3/ul (0.83-4.51); Lymphocyte % 9.3 % (19-41); Mean Corp Hgb Conc 30.3 g/dL (32-36); Mean Corpuscular Hgb 30.9 pg (27.0-32.0); Mean Corpuscular Volume 102.1 fL (81-99); Mean Platelet Vol. 10.1 fl (6.2-12.0); Monocyte# 0.85 X10^3/uL; NRBC Flagged by Analyzer 0 % (0-5); Neutrophil # 7.59 X10^3/uL (2.7-7.7); Neutrophil % 80.3 % (47-70); Platelet Count 141 K/mm3 (150-450); RBC Distribution Width CV 15.8 % (11.6-14.6); RBC Distribution Width SD 58.6 fl (35.1-43.9); Red Blood Count 2.91 M/mm3 (4.2-5.4); White Blood Count 9.5 K/mm3 (4.4-11.0)
[2022-05-02 07:13] LABS: ALB/GLOB Ratio 0.5 RATIO (0.9-2.4); AST(SGOT) 262 U/L (15-37); Alanine Aminotransfer ALT/SGPT 249 U/L (13-56); Alkaline Phosphatase 682 U/L (45-117); Anion Gap 6 (5-15); BUN 6 mg/dL (7-18); BUN/Creat Ratio 9.6 RATIO (10-20); Calcium,Total 8.4 mg/dL (8.5-10.1); Chloride 102 mmol/L (98-107); Creatinine, Serum 0.62 mg/dL (0.55-1.02); EST Glomerular Filtration Rate 108 mL/min (>60); Est Glom Filt Rate - Afr Amer 130 mL/min (>60); Estimated Creatinine Clearance 85.86 ml/min; Globulin 3.7 g/dL (2.2-4.2); Glucose 173 mg/dL (74-106); Potassium 3.3 mmol/L (3.5-5.1); Protein, Total 5.7 g/dL (6.4-8.2); Sodium Level 138 mmol/L (136-145)
--- NOTE | 2022-05-02 07:24 | PN.HOSP_ITS ---
Subjective Subjective still with abdominal pain. Objective Data Objective Data Vital Signs: Vital Signs Temp Pulse Resp BP Pulse Ox 36.6 C 115 H 22 H 133/62 H 97 05/02/22 05:14 05/02/22 05:14 05/02/22 05:14 05/02/22 05:14 05/02/22 05:14 Oxygen Delivery Method Room Air Weight: 127.7 kg Body Mass Index (BMI) 51.5 Intake & Output: Intake and Output for Last 24 Hours 04/30/22 05/01/22 05/02/22 23:59 23:59 23:59 Intake Total 1000 / 1000 Balance 1000 / 1000 Lab / Micro Data Result Diagrams: 05/02/22 06:25 05/02/22 06:25 Labs: Laboratory Results - last 24 hr 05/01/22 20:20: WBC 10.3, RBC 3.21 L, Hgb 9.7 L, Hct 32.2 L, MCV 100.3 H, MCH 30.2, MCHC 30.1 L, RDW Std Deviation 56.9 H, RDW Coeff of Jose 15.4 H, Plt Count 183, MPV 10.1, Immature Gran % (Auto) 2.100 H, Neut % (Auto) 82.6 H, Lymph % (Auto) 7.5 L, [place] % (Auto) 7.5, Eos % (Auto) 0.1, Baso % (Auto) 0.2, Absolute Neuts (auto) 8.5 H, Absolute Lymphs (auto) 0.77 L, Nucleated RBC % 0.2 05/01/22 20:20: Sodium 139, Potassium 3.4 L, Chloride 100, Carbon Dioxide 27.0, Anion Gap 12, BUN 6 L, Creatinine 0.77, Estim Creat Clear Calc 69.13, Est GFR (MDRD) Af Amer 102, Est GFR (MDRD) Non-Af 85, BUN/Creatinine Ratio 7.8 L, Glucose 106, Calcium 9.3, Total Bilirubin 2.20 H, AST 248 H, ALT 231 H, Alkaline Phosphatase 775 H, Total Protein 6.3 L, Albumin 2.3 L, Globulin 4.0, Albumin/Globulin Ratio 0.6 L, Lipase 22 L 05/02/22 06:25: WBC 9.5, RBC 2.91 L, Hgb 9.0 L, Hct 29.7 L, MCV 102.1 H, MCH 30.9, MCHC 30.3 L, RDW Std Deviation 58.6 H, RDW Coeff of Jose 15.8 H, Plt Count 141 L, MPV 10.1, Immature Gran % (Auto) 1.200 H, Neut % (Auto) 80.3 H, Lymph % (Auto) 9.3 L, [place] % (Auto) 9.0, Eos % (Auto) 0.1, Baso % (Auto) 0.1, Absolute Neuts (auto) 7.6, Absolute Lymphs (auto) 0.88, Nucleated RBC % 0 05/02/22 06:25: Sodium 138, Potassium 3.3 L, Chloride 102, Carbon Dioxide 30.0, Anion Gap 6, BUN 6 L, Creatinine 0.62, Estim Creat Clear Calc 85.86, Est GFR (MDRD) Af Amer 130, Est GFR (MDRD) Non-Af 108, BUN/Creatinine Ratio 9.6 L, Glucose 173 H, Calcium 8.4 L, Total Bilirubin 2.50 H, AST 262 H, ALT 249 H, Alkaline Phosphatase 682 H, Total Protein 5.7 L, Albumin 2.0 L, Globulin 3.7, Albumin/Globulin Ratio 0.5 L Radiography Diagnostic Testing: Radiology Impression Abdomen/Pelvis CT 05/01/22 19:48 IMPRESSION: (NOT LISTED IN ORDER OF SIGNIFICANCE) There is a small volume right sided pleural effusion. Stable periumbilical subcutaneous fat fluid collection air. This may suggest an abscess. Overall stable fluid collections in the right hemiabdomen and pelvis. This may suggest an abscess. Bowel gas pattern may suggest an ileus or partial small bowel obstruction. Prospective development of a complete obstruction cannot be excluded. Other findings as above. Electronically Signed: Apolinar Boykin MD at 21:33 EDT , Physical Exam Const alert and no apparent distress Resp normal respiratory effort, no retractions, no use of accessory muscles and clear to auscultation bilaterally Cardio regular rate, regular rhythm, S1 normal heart sound and S2 normal heart sound GI GI Narrative: distended. hypoactive BS Extremity normal to inspection Neuro Sensorium / Orientation: awake and alert Assessment & Plan Assessment/Plan (1) Bowel obstruction: QUALIFIERS: Intestinal obstruction extent: partial Intestinal obstruction type: other intestinal obstruction Qualified Code(s): K56.690 - Other partial intestinal obstruction PLAN: 1. Ileus/partial small bowel obstruction * Supportive treatment with IV fluids. * NPO. Of note patient reports tolerating methadone p.o. Okay for patient to have her methadone. * On home Dilaudid p.o. change to IV * On home Protonix p.o. change to IV * General surgery consult reviewed 2. Diabetes mellitus * Patient with euglycemia on presentation. With insulin pump. * D5 with half-normal saline ordered. Accu-Chek every 4 hours while NPO. 3. Hypertension * Blood pressure is not within goal * Home p.o. meds held. Vasotec IV scheduled * Trend blood pressure and adjust blood pressure medications. 4. Metastatic cholangiocarcinoma * DW Dr. Augustin * Methadone and Dilaudid as above. * CMP is abnormal with elevated liver enzymes and bilirubin. Trend. * Had initial surgery at [facility]. Recent oophorectomy here. Recently attempted at [facility] for other oophorectomy but unable to be performed due to carcinomatosis 5. Chronic anemia * Stable * Trend CBC. 6. Morbid obesity * BMI: 51.2 kg/m?. Complicates care. 7. DVT prophylaxis: Lovenox as above. Charges/Coding Visit Charges Inpatient E&M: 18858 Subs Hosp L2
[2022-05-02] MEDS: Albuterol 2.5 MG/3 ML VIAL.NEB. INHALATION ×2 (07:42→19:09)
[2022-05-02] MEDS: Budesonide Respules 0.5 MG/2 ML AMPUL.NEB. INHALATION ×2 (07:42→19:09)
--- NOTE | 2022-05-02 08:00 | NURSING ---
BS check 94
[2022-05-02] MEDS: Enoxaparin 120 MG/0.8 ML Syringe SC ×2 (08:54→21:54)
[2022-05-02] MEDS: Gabapentin 100 MG Capsule PO ×3 (08:54→17:43)
--- NOTE | 2022-05-02 09:55 | NURSING ---
Patient refusing all PO medications except Gabapentin and Methadone. Patient reports episodes of emesis if other medications are taken.
[2022-05-02 11:23] LABS: Magnesium 1.3 mg/dL (1.6-2.6)
--- NOTE | 2022-05-02 11:27 | CON.PCM.SX_ITS ---
Assessment & Plan Assessment/Plan (1) Bowel obstruction: QUALIFIERS: Intestinal obstruction extent: partial Intestinal obstruction type: other intestinal obstruction Qualified Code(s): K56.690 - Other partial intestinal obstruction PLAN: Patient has a complicated surgical history and therefore I do not feel comfortable performing surgery on this patient - she also has intraabdominal metastatic - probable peritoneal carcinomatosis that would preclude any surgery.. She has had recent exploratory laparotomy (with lower midline incision) for potential salpingo-oopherectomy that was aborted due to the peritoneal carcinomatosis, done on April 18 at [facility]. I have told patient that I recommend transfer back there since she has had recent surgery there, but patient refuses. Patient also refuses NG tube. Patient also refuses drinking gastrografin contrast for better delineation of bowel obstruction by CT scan and also may be a therapeutic osmotic motility agent. If patient needed surgery, she wishes to be transferred to [facility]. Frankly, I believe that patient should consider hospice, but I did not bring that subject because she did not seem that she would be amenable to this. She states that she feels slightly improved. She has not yet passed flatus or had a bowel movement. If she has no flatus or bowel movements tomorrow, then I would recommend transfer to a tertiary medical center - that is - [facility] - if patient wishes I have no surgical options to offer patient. HPI Consult Data Date of Consult: 05/02/22 HPI Narrative HPI Narrative: NASH GERARDO, is a 52 F who presents who presents with bowel obstruction. She has had symptoms of abdominal pain, nausea and emesis - she states that this has been going on for days. She states that this was intermittent and of gradual onset. She last had a bowel movement that was loose, yesterday, and last passed flatus yesterday. She notes abdominal bloating. She is recently s/p exploratory laparotomy for attempted salpingo-oopherectomy on April 18 at [facility]. She refuses to return to that hospital. She was noted to have a significant amount of intra-abdominal metastatic lesions for which were biopsies and found to be metastasis of her cholangiocarcinoma. She was scheduled to begin palliative chemotherapy this week, but this was cancelled due to her admission. ON LICENSE OF [facility] Medical History Anemia Anxiety Arthritis Arthritis Asthma Back pain Biliary stricture Cancer Diabetes Dietary restriction Easy bruising Gallstones Gastric reflux High cholesterol History of bile duct cancer History of pain when walking Hx of cyst of breast Hyperlipidemia Hypertension Insulin dependent diabetes mellitus Leg cramps Non-smoker Obesity Pulmonary emboli Restless legs Home Medications amlodipine 5 mg tablet 5 mg PO DAILY 08/11/18 [History Last Taken 05/01/22] albuterol sulfate 2.5 mg INHALATION Q4H PRN PRN 05/18/20 [History Last Taken Unknown] albuterol sulfate 90 mcg/actuation aerosol inhaler 2 puff INHALATION Q2H PRN PRN g 05/18/20 [History Last Taken Unknown] calcium carbonate-vitamin D3 1 tab PO DAILY 10/23/20 [History Last Taken 05/01/22] aspirin 81 mg tablet,delayed release 81 mg PO DAILY 04/20/21 [History Last Taken 05/01/22] magnesium oxide 400 mg (241.3 mg magnesium) tablet 400 mg PO TID 04/20/21 [H istory Last Taken 05/01/22] multivitamin 1 tab PO DAILY 04/20/21 [History Last Taken 05/01/22] losartan 50 mg tablet 50 mg PO DAILY 08/03/21 [History Last Taken 05/01/22] ondansetron HCl 8 mg PO Q8H PRN PRN 10/12/21 [History Last Taken 05/01/22] promethazine 25 mg PO Q6H PRN PRN 10/12/21 [History Last Taken Unknown] blood-glucose sensor #9 ea 11/30/21 [Rx Last Taken Unknown] blood-glucose transmitter #1 ea 11/30/21 [Rx Last Taken Unknown] diphenoxylate-atropine [Lomotil] 1 - 2 tab PO Q6H PRN PRN 02/17/22 [History Last Taken Unknown] fluticasone propion-salmeterol [Advair Diskus] 1 inh INHALATION BID 02/17/22 [History Last Taken Unknown] ibuprofen 800 mg PO Q8H PRN 02/17/22 [History Last Taken Unknown] insulin pump controller 02/17/22 [History Last Taken Unknown] lidocaine-prilocaine 1 applic TOPICAL PRN PRN 02/17/22 [History Last Taken Unknown] pyridoxine (vitamin B6) [Vitamin B-6] 100 mg PO DAILY 02/17/22 [History Last Taken 05/01/22] cholecalciferol (vitamin D3) 125 mcg (5,000 unit) capsule 5,000 mcg PO DAILY 03/15/22 [History Last Taken 05/01/22] pantoprazole 40 mg tablet,delayed release 40 mg PO DAILY 03/15/22 [History Last Taken 05/01/22] insulin pump cartridge 04/15/22 [History Last Taken Unknown] enoxaparin 120 mg SUBCUT BID 04/24/22 [History Last Taken 05/01/22] insulin aspart U-100 [Novolog U-100 Insulin aspart] 2.4 unit SUBCUT UD 04/24/22 [History Last Taken 05/01/22] gabapentin 100 mg PO TIDCM 30 Days #90 cap 04/28/22 [Rx Last Taken 05/01/22] hydromorphone 4 mg PO Q3H PRN 3 Days #20 tab 04/28/22 [Rx Last Taken Unknown] methadone 5 mg PO Q12 3 Days #6 tab 04/28/22 [Rx Last Taken 05/01/22] polyethylene glycol 3350 17 g PO DAILY #30 ea 04/28/22 [Rx Last Taken Unknown] Allergy/AdvReac Type Severity Reaction Status Date / Time Penicillins Allergy Hives Verified 05/01/22 19:21 Family History Mother Heart disease Diabetes Osteoporosis Father Diabetes Surgical History History of appendectomy Hx of resection of liver S/P carpal tunnel release S/P cholecystectomy S/P unilateral salpingo-oophorectomy Trigger finger Social History household members: spouse Smoking Status: Never smoker alcohol intake: current alcohol intake frequency: holidays/special occasions on ly substance use type: does not use caffeine: No what type of physical activity do you participate in: walking frequency: daily seatbelt use: always do you feel safe at home: Yes 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 Constitutional Constitutional: Reports fatigue; Denies weight loss Cardiovascular Cardiovascular: Denies chest pain at rest Respiratory/Chest Respiratory/Chest: Denies productive cough or wheezing Gastrointestinal Gastrointestinal: Reports abdominal pain and bloating Genitourinary Genitourinary: Reports dysuria; Denies hematuria Musculoskeletal Musculoskeletal: Denies abnormal gait Physical Exam Const alert and oriented x3 General Appearance: cooperative HEENT normocephalic Neck full ROM and supple Resp normal respiratory effort GI GI Narrative: abdomen is obese and soft, with healing lower midline incisional site with periumbilical site appearing to have wound infection - this correlates to air noted on CT scan patient points to most tenderness of left upper quadrant and midline upper abdomen Lab / Micro Data Result Diagrams: 05/02/22 06:25 05/02/22 06:25 Labs: Laboratory Results - last 24 hr 05/01/22 20:20: WBC 10.3, RBC 3.21 L, Hgb 9.7 L, Hct 32.2 L, MCV 100.3 H, MCH 30.2, MCHC 30.1 L, RDW Std Deviation 56.9 H, RDW Coeff of Jose 15.4 H, Plt Count 183, MPV 10.1, Immature Gran % (Auto) 2.100 H, Neut % (Auto) 82.6 H, Lymph % (Auto) 7.5 L, Emm[place] % (Auto) 7.5, Eos % (Auto) 0.1, Baso % (Auto) 0.2, Absolute Neuts (auto) 8.5 H, Absolute Lymphs (auto) 0.77 L, Nucleated RBC % 0.2 05/01/22 20:20: Sodium 139, Potassium 3.4 L, Chloride 100, Carbon Dioxide 27.0, Anion Gap 12, BUN 6 L, Creatinine 0.77, Estim Creat Clear Calc 69.13, Est GFR (MDRD) Af Amer 102, Est GFR (MDRD) Non-Af 85, BUN/Creatinine Ratio 7.8 L, Glucose 106, Calcium 9.3, Total Bilirubin 2.20 H, AST 248 H, ALT 231 H, Alkaline Phosphatase 775 H, Total Protein 6.3 L, Albumin 2.3 L, Globulin 4.0, Albumin/Globulin Ratio 0.6 L, Lipase 22 L 05/02/22 06:25: WBC 9.5, RBC 2.91 L, Hgb 9.0 L, Hct 29.7 L, MCV 102.1 H, MCH 30.9, MCHC 30.3 L, RDW Std Deviation 58.6 H, RDW Coeff of Jose 15.8 H, Plt Count 141 L, MPV 10.1, Immature Gran % (Auto) 1.200 H, Neut % (Auto) 80.3 H, Lymph % (Auto) 9.3 L, Emmet % (Auto) 9.0, Eos % (Auto) 0.1, Baso % (Auto) 0.1, Absolute Neuts (auto) 7.6, Absolute Lymphs (auto) 0.88, Nucleated RBC % 0 05/02/22 06:25: Sodium 138, Potassium 3.3 L, Chloride 102, Carbon Dioxide 30.0, Anion Gap 6, BUN 6 L, Creatinine 0.62, Estim Creat Clear Calc 85.86, Est GFR (MDRD) Af Amer 130, Est GFR (MDRD) Non-Af 108, BUN/Creatinine Ratio 9.6 L, Glucose 173 H, Calcium 8.4 L, Total Bilirubin 2.50 H, AST 262 H, ALT 249 H, Alkaline Phosphatase 682 H, Total Protein 5.7 L, Albumin 2.0 L, Globulin 3.7, Albumin/Globulin Ratio 0.5 L 05/02/22 06:25: Magnesium 1.3 L Radiology Impression Abdomen/Pelvis CT 05/01/22 19:48 IMPRESSION: (NOT LISTED IN ORDER OF SIGNIFICANCE) There is a small volume right sided pleural effusion. Stable periumbilical subcutaneous fat fluid collection air. This may suggest an abscess. Overall stable fluid collections in the right hemiabdomen and pelvis. This may suggest an abscess. Bowel gas pattern may suggest an ileus or partial small bowel obstruction. Prospective development of a complete obstruction cannot be excluded. Other findings as above. Electronically Signed: Apolinar Boykin MD at 21:33 EDT ,
[2022-05-02] MEDS: 0.9% Saline Lock 10 ML Syringe IV ×4 (11:31→23:51)
--- NOTE | 2022-05-02 11:34 | NURSING ---
OT 102
--- NOTE | 2022-05-02 13:42 | CASEMGMT ---
According to the [facility] website, the following are in-network tertiary facilities: [facility], [facility], [facility], [facility], [facility], [facility], [facility], [place], [facility], and . Winston KING CM
--- NOTE | 2022-05-02 15:00 | CHAPLAIN ---
Type of Pastoral Visit _x__ Initial Visit ___ Follow-up Visit ___ On-call Visit ___ General Patient Visit ___ Spiritual Assessment ___ Family Conference ___ Bereavement ___ Rapid Response ___ Code Blue ___ Other (describe below) Pastoral Care Referral From _x__ Patient ___ Family ___ Nurse ___ Physician ___ Cut Out Worker ___ Psychiatric Cns ___ Other (describe below) Sacrament/Intervention _x__ Active listening ___ Anointing ___ Anabaptism ___ Bereavement ___ Communion ___ Ruchi exploration ___ ___ Life review _x__ Prayer ___ Reconciliation ___ Sacrament of Sick _x__ Supportive presence ___ Wedding ___ Other (describe below) Pastoral Comments this patient has been seen by this car hopper in previous admission; listening to feelings and thoughts about progression of cancer and further health complications; mother of patient is with her; pt is quite aware and honest about feelings and frustrations; pt possesses hope but admits that too many things keep happening; pt requests prayer saying, that is what I need right now
--- NOTE | 2022-05-02 17:10 | NURSING ---
MYSTIQUE DENNY'S CHARTING REVIEWED.
--- NOTE | 2022-05-02 20:58 | NURSING ---
Pt tearful. Asking for a hospice consult and states she has a call in to [facility]. Pt states they aren't going to be able to surgery and I doesn't want to do this again. Provided emotional support. Asked pt if she talked to her . pt states yes he is supportive of her decision but it isn't what he wants. 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 This RN asked pt if she still wants to transfer to [facility]. Pt said no and then I don't know. This Rn asks if there is anyone that this Rn can call for her. This RN suggested [id number]. PT states that would be fine. Called [facility] and asked if she could call the pt.
--- NOTE | 2022-05-02 21:37 | NURSING ---
pt states Dr. Augustin called her and agreed that they wouldn't do surgery. Pt states Charli told her that he would be in to see her in the morning and place hospice consult. Pt states she doesn't want to be transfer to another facility. 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 Blood sugar via home machine 90.
--- NOTE | 2022-05-02 22:09 | PCM.PN.BLA ---
Progress Note Nurse reported patient is seeking for hospice consult among others. Also patient has been taking 1 mg of Dilaudid IV instead of 4 mg of Dilaudid IV as needed. Hospice consult placed. Dilaudid dose decreased to 1 mg IV every 3 hours as needed.
[2022-05-02] MEDS: Magnesium Sulfate 4gm/100mL 4 GM/100 ML IV.SOLN. IV (22:21)
--- NOTE | 2022-05-02 23:54 | NURSING ---
blood glucose is 101 via home device.
[2022-05-03 05:56] VITALS: BP 146/76; PULSE 120; RESP 20; TEMP 37.4; O2SAT 92
--- NOTE | 2022-05-03 05:58 | NURSING ---
blood glucose is 118 via dexcom.
[2022-05-03] MEDS: Enalaprilat 1.25 MG/ML Vial 0.625 MG IV (05:59)
[2022-05-03] MEDS: 0.9% Saline Lock 10 ML Syringe IV ×5 (05:59→14:20)
[2022-05-03] MEDS: Dext 5%-0.45% NS 1,000 ML 75 ML IV (06:06)
[2022-05-03 06:08] VITALS: PULSE 116
--- NOTE | 2022-05-03 06:56 | PN.HOSP_ITS ---
Subjective Subjective Called dr. Augustin last night and spoke with him today. She does not want anymore treatment nor surgeries. Wishes to go with Hospice. Does complain of abdominal cramping and heartburn. Objective Data Objective Data Vital Signs: Vital Signs Temp Pulse Resp BP Pulse Ox 37.4 C H 116 H 20 H 146/76 H 92 05/03/22 05:56 05/03/22 06:08 05/03/22 05:56 05/03/22 05:56 05/03/22 05:56 Oxygen Delivery Method Room Air Weight: 127.7 kg Body Mass Index (BMI) 51.5 Intake & Output: Intake and Output for Last 24 Hours 05/01/22 05/02/22 05/03/22 23:59 23:59 23:59 Intake Total 1000 / 1000 2518.75 / 2518.75 381.25 / 381.25 Balance 1000 / 1000 2518.75 / 2518.75 381.25 / 381.25 Lab / Micro Data Result Diagrams: 05/02/22 06:25 05/02/22 06:25 Labs: Laboratory Results - last 24 hr 05/02/22 06:25: Sodium 138, Potassium 3.3 L, Chloride 102, Carbon Dioxide 30.0, Anion Gap 6, BUN 6 L, Creatinine 0.62, Estim Creat Clear Calc 85.86, Est GFR (MDRD) Af Amer 130, Est GFR (MDRD) Non-Af 108, BUN/Creatinine Ratio 9.6 L, Glucose 173 H, Calcium 8.4 L, Total Bilirubin 2.50 H, AST 262 H, ALT 249 H, Alkaline Phosphatase 682 H, Total Protein 5.7 L, Albumin 2.0 L, Globulin 3.7, Albumin/Globulin Ratio 0.5 L 05/02/22 06:25: Magnesium 1.3 L Micro: Microbiology 05/02/22 15:12 Nasal Secretion SARS-CoV-2 Antigen (Rapid) - Final Physical Exam Const alert and no apparent distress Resp normal respiratory effort, no retractions, no use of accessory muscles and clear to auscultation bilaterally Cardio regular rate, regular rhythm, S1 normal heart sound and S2 normal heart sound GI GI Narrative: mildly distended and tender. hypoactive BS Extremity normal to inspection Psych affect normal Assessment & Plan Assessment/Plan (1) Bowel obstruction: QUALIFIERS: Intestinal obstruction extent: partial Intestinal obstruction type: other intestinal obstruction Qualified Code(s): K56.690 - Other partial intestinal obstruction PLAN: 1. Ileus/partial small bowel obstruction * Supportive treatment with IV fluids. * NPO. Of note patient reports tolerating methadone p.o. Okay for patient to have her methadone. * On home Dilaudid p.o. change to IV * On home Protonix p.o. change to IV * General surgery consult reviewed. * 05/02: I discussed and patient was accepted at [facility] (pt preference) for surgical evaluation. Pt accepted by Dr. Yang. 2. Diabetes mellitus * Patient with euglycemia on presentation. With insulin pump. * D5 with half-normal saline ordered. Accu-Chek every 4 hours while NPO. 3. Hypertension * Blood pressure is not within goal * Home p.o. meds held. Vasotec IV scheduled * Trend blood pressure and adjust blood pressure medications. 4. Metastatic cholangiocarcinoma * DW Dr. Augustin * Methadone and Dilaudid as above. I did offer fentanyl patch, but pt would like to continue with methadone. * CMP is abnormal with elevated liver enzymes and bilirubin. Trend. * Had initial surgery at [facility]. Recent oophorectomy here. Recently attempted at [facility] for other oophorectomy but unable to be performed due to carcinomatosis 5. Chronic anemia * Stable * Trend CBC. 6. Morbid obesity * BMI: 51.2 kg/m?. Complicates care. 7. DVT prophylaxis: Lovenox as above. Advanced care planning: Spent additional 60 minutes discussing with the patient. Patient wishing to proceed with hospice services now. Discussed with the patient about her proceeding with hospice that we would de-escalate start medications and lab work though did acknowledge that she does have something such as urinary tract infection that that that could be treated and evaluated. Will focus on treatments and will reach out to hospice to see her and see if she can go to the inpatient care unit which I would think would be reasonable at this point time as patient is still requiring IV medications to help with pain control. Charges/Coding Visit Charges Inpatient E&M: 61611 Subs Hosp L2 Procedures Hospitalists Procedures: 64568 Advncd Care Plan 30 Min
[2022-05-03] MEDS: Albuterol 2.5 MG/3 ML VIAL.NEB. INHALATION (07:22)
[2022-05-03] MEDS: Budesonide Respules 0.5 MG/2 ML AMPUL.NEB. INHALATION (07:22)
[2022-05-03 07:30] VITALS: PULSE 89; RESP 22
[2022-05-03] MEDS: Ondansetron 4 MG/2 ML Vial IV (07:40)
[2022-05-03] MEDS: HYDROmorphone 1 MG/ML Syringe IV ×2 (07:40→11:20)
--- NOTE | 2022-05-03 09:00 | CASEMGMT ---
Social Work Consult: Hospice Referral source: Dr. Platt Met with patient in room. Introduced self and social scientist role. Patient agreeable to speak with this social scientist. This social scientist broached topic of hospice services for patient. Patient states to have made decision to go with hospice on own, I am going to . Patient tearful. This social scientist provided support and active listening. This social scientist inquired about support system for patient. 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 Patient reports that patient mother lives local and is support as well. Patient request for referral to be made to [facility] for the Inpatient Hospice Unit. Patient request to be person to contact to set up meeting with Hospice. 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 Patient declines for family to be contacted and reports to contact family on own. [facility] Referral made. Clinical information faxed. Intake team to call patient to set up time to meet today. Will continue to follow. Brenda CASIANO, PERLA
[2022-05-03] MEDS: Dicyclomine 20 MG/2 ML Vial IM (09:40)
--- NOTE | 2022-05-03 12:36 | CASEMGMT ---
Social Work [facility] met with patient and patient family. Plan is for patient to transition to inpatient hospice unit today. [facility] to set up transportation. Dr. Platt notified. This social work job titles to call hospice when discharge information is in so that transportation can be set up. PLAN: Inpatient hospice unit at [facility]. Brenda CASIANO, YANCY-S
--- NOTE | 2022-05-03 12:42 | CASEMGMT ---
Social Work Updated by [facility] nurse that transportation has been set up for today at 15:00. Brenda CASIANO, PERLA
--- NOTE | 2022-05-03 12:44 | DCINST_ITS ---
Discharge Instructions Diet Discharge Diet: No restrictions Follow Up Care Test Results: Test results from this visit will be discussed in further detail at your follow-up appointment, if applicable. Discharge Plan Admission Admit Date/Time: 05/02/22 00:06 Primary Reason for Your Visit: Small bowel obstruction. Attending Provider: Hardik Platt Primary Care Provider: Nilda Edge Consulting Providers: Eris Newsome ; Amira Wells ; Tonie Edward ; Stuart Cross ; Edyta Gamboa ; Radha Perry ; Johanna Joel ; Mitzi Doherty HEALTH INFORMATION CODER Discharge Orders/Prescriptions Prescriptions: Continued albuterol sulfate 90 mcg/actuation HFA aerosol inhaler 2 puff INHALATION Q2H PRN PRN (Reason: Sob &/Or Wheezing) RF: 0 albuterol sulfate 2.5 mg /3 mL (0.083 %) solution for nebulization 2.5 mg INHALATION Q4H PRN PRN (Reason: sob/wheezing) RF: 0 lidocaine-prilocaine 2.5-2.5 % Cream 1 applic topical PRN PRN (Reason: port access) RF: 0 fluticasone propion-salmeterol [Advair Diskus] 100-50 mcg/dose Blister With Device 1 inh INHALATION BID RF: 0 insulin aspart U-100 [Novolog U-100 Insulin aspart] 100 unit/mL Solution 2.4 unit SUBCUT UD RF: 0 methadone 5 mg Tablet 5 mg PO Q12 3 Days Qty: 6 RF: 0 Discontinued amlodipine [Norvasc] 5 mg tablet 5 mg PO DAILY RF: 0 magnesium oxide 400 mg (241.3 mg magnesium) tablet 400 mg PO TID RF: 0 multivitamin [Daily Multi-Vitamin] Tablet 1 tab PO DAILY RF: 0 aspirin [Adult Low Dose Aspirin] 81 mg tablet,delayed release (DR/EC) 81 mg PO DAILY RF: 0 losartan 50 mg tablet 50 mg PO DAILY RF: 0 cholecalciferol (vitamin D3) 125 mcg (5,000 unit) capsule 5,000 mcg PO DAILY RF: 0 pantoprazole [Protonix] 40 mg tablet,delayed release (DR/EC) 40 mg PO DAILY RF: 0 calcium carbonate-vitamin D3 1 EACH tablet 1 tab PO DAILY RF: 0 ondansetron HCl 8 mg Tablet 8 mg PO Q8H PRN PRN (Reason: Nausea) RF: 0 promethazine 25 mg Tablet 25 mg PO Q6H PRN PRN (Reason: Nausea) RF: 0 ibuprofen 800 mg Tablet 800 mg PO Q8H PRN (Reason: Pain) RF: 0 diphenoxylate-atropine [Lomotil] 2.5-0.025 mg Tablet 1 - 2 tab PO Q6H PRN PRN (Reason: Diarrhea) RF: 0 pyridoxine (vitamin B6) [Vitamin B-6] 100 mg Tablet 100 mg PO DAILY RF: 0 enoxaparin 150 mg/mL syringe 120 mg subcut BID RF: 0 polyethylene glycol 3350 17 gram Powder In Packet 17 g PO DAILY Qty: 30 RF: 0 gabapentin 100 mg Capsule 100 mg PO TIDCM 30 Days Qty: 90 RF: 0 hydromorphone 4 mg tablet 4 mg PO Q3H PRN (Reason: pain) 3 Days Qty: 20 RF: 0 No Action (DME) insulin pump controller Misc MISCELLANEOUS RF: 0 (DME) insulin pump cartridge Cartridge SUBCUT RF: 0 (DME) Dexcom G6 Transmitter Device See Rx Instructions .ROUTE .MEDSUPPLY Qty: 1 RF: 3 (DME) Dexcom G6 Sensor Device See Rx Instructions .ROUTE .MEDSUPPLY Qty: 9 RF: 3 Referrals / Follow Up: Nilda Edge MD [Primary Care Provider] - Disposition Disposition (needs filled in before D/C Order can be placed): Hospice in Medical Facility
[2022-05-03 12:48] VITALS: BP 137/70; PULSE 64; RESP 15; TEMP 37.4; O2SAT 92
--- NOTE | 2022-05-03 12:48 | PCM.DC.SUM ---
Providers Date of Admission: 05/02/22 Primary Care Physician: Dr. Nilda Edge MD Consultations 05/02/22 00:55 Consult: General Surgery Routine Consulting Provider: Amira Wells Reason for Consult: SBO EMERGENT Consult: No MD Notified: Yes Date Notified: 05/02/22 Time Notified: 06:59 Method of Notification: Verbal 05/02/22 22:04 Consult: Hospice / Palliative Care Routine Consulting Provider: [facility] Reason for Consult: Hospice consult request per patient EMERGENT Consult: No MD Notified: Yes Date Notified: 05/03/22 Time Notified: 09:14 Method of Notification: Answering Service Comments:: completed by social welfare administrator 05/03/22 08:05 Consult: Hospice / Palliative Care Routine Consulting Provider: [facility] Reason for Consult: hospice EMERGENT Consult: No MD Notified: Yes Date Notified: 05/03/22 Time Notified: 09:14 Method of Notification: Answering Service Comments:: notified by social welfare administrator Reason For Visit: SMALL BOWEL OBSTRUCTION Diagnosis Discharge Diagnosis (1) Bowel obstruction: Status: Acute Code(s): K56.609 - Unspecified intestinal obstruction, unspecified as to partial versus complete obstruction Qualifiers: Intestinal obstruction type: other intestinal obstruction Intestinal obstruction extent: partial Qualified Code(s): K56.690 - Other partial intestinal obstruction Medications at Discharge Home Medications albuterol sulfate 2.5 mg INHALATION Q4H PRN PRN 05/18/20 albuterol sulfate 90 mcg/actuation aerosol inhaler 2 puff INHALATION Q2H PRN PRN g 05/18/20 blood-glucose sensor #9 ea 11/30/21 blood-glucose transmitter #1 ea 11/30/21 fluticasone propion-salmeterol [Advair Diskus] 1 inh INHALATION BID 02/17/22 insulin pump controller 02/17/22 lidocaine-prilocaine 1 applic TOPICAL PRN PRN 02/17/22 insulin pump cartridge 04/15/22 insulin aspart U-100 [Novolog U-100 Insulin aspart] 2.4 unit SUBCUT UD 04/24/22 methadone 5 mg PO Q12 3 Days #6 tab 04/28/22 Hospital Course Operations None Procedures None Summary of Care Provided Minutes Spent on Discharge: 32 Hospital Course: 1. Ileus/partial small bowel obstruction Supportive treatment with IV fluids. NPO. Of note patient reports tolerating methadone p.o. Okay for patient to have her methadone. On home Dilaudid p.o. change to IV On home Protonix p.o. change to IV General surgery consult reviewed. 05/02: I discussed and patient was accepted at [facility] Main (pt preference) for surgical evaluation. Pt accepted by Dr. Yang. 2. Diabetes mellitus Patient with euglycemia on presentation. With insulin pump. D5 with half-normal saline ordered. Accu-Chek every 4 hours while NPO. 3. Hypertension Blood pressure is not within goal Home p.o. meds held. Vasotec IV scheduled Trend blood pressure and adjust blood pressure medications. 4. Metastatic cholangiocarcinoma DW Dr. Augustin Methadone and Dilaudid as above. I did offer fentanyl patch, but pt would like to continue with methadone. CMP is abnormal with elevated liver enzymes and bilirubin. Trend. Had initial surgery at [facility]. Recent oophorectomy here. Recently attempted at [facility] for other oophorectomy but unable to be performed due to carcinomatosis 5. Chronic anemia Stable Trend CBC. 6. Morbid obesity BMI: 51.2 kg/m?. Complicates care. Patient to go to inpatient hospice center today. Weight / BMI Weight Weight: 127.7 kg Body Mass Index (BMI) 51.5 ABG / Lab / Microbiology Data Result Diagrams: 05/02/22 06:25 05/02/22 06:25 Microbiology: Microbiology 05/02/22 15:12 Nasal Secretion SARS-CoV-2 Antigen (Rapid) - Final D/C Instructions Discharge Diet: No restrictions Meaningful Use Info Meaningful Use Diagnoses (Choose all that apply): None applicable Discharge Plan Admission Admit Date/Time: 05/02/22 00:06 Primary Reason for Your Visit: Small bowel obstruction. Attending Provider: Hardik Platt Primary Care Provider: Nilda Edge Consulting Providers: Eris Newsome ; Amira Wells ; Tonie Edward ; Stuart Cross ; Edyta Gamboa ; Radha Perry ; Johanna Joel ; Mitzi Doherty PSYCHIATRY TEACHER Discharge Orders/Prescriptions Prescriptions: Continued albuterol sulfate 90 mcg/actuation HFA aerosol inhaler 2 puff INHALATION Q2H PRN PRN (Reason: Sob &/Or Wheezing) RF: 0 albuterol sulfate 2.5 mg /3 mL (0.083 %) solution for nebulization 2.5 mg INHALATION Q4H PRN PRN (Reason: sob/wheezing) RF: 0 lidocaine-prilocaine 2.5-2.5 % Cream 1 applic topical PRN PRN (Reason: port access) RF: 0 fluticasone propion-salmeterol [Advair Diskus] 100-50 mcg/dose Blister With Device 1 inh INHALATION BID RF: 0 insulin aspart U-100 [Novolog U-100 Insulin aspart] 100 unit/mL Solution 2.4 unit SUBCUT UD RF: 0 methadone 5 mg Tablet 5 mg PO Q12 3 Days Qty: 6 RF: 0 Discontinued amlodipine [Norvasc] 5 mg tablet 5 mg PO DAILY RF: 0 magnesium oxide 400 mg (241.3 mg magnesium) tablet 400 mg PO TID RF: 0 multivitamin [Daily Multi-Vitamin] Tablet 1 tab PO DAILY RF: 0 aspirin [Adult Low Dose Aspirin] 81 mg tablet,delayed release (DR/EC) 81 mg PO DAILY RF: 0 losartan 50 mg tablet 50 mg PO DAILY RF: 0 cholecalciferol (vitamin D3) 125 mcg (5,000 unit) capsule 5,000 mcg PO DAILY RF: 0 pantoprazole [Protonix] 40 mg tablet,delayed release (DR/EC) 40 mg PO DAILY RF: 0 calcium carbonate-vitamin D3 1 EACH tablet 1 tab PO DAILY RF: 0 ondansetron HCl 8 mg Tablet 8 mg PO Q8H PRN PRN (Reason: Nausea) RF: 0 promethazine 25 mg Tablet 25 mg PO Q6H PRN PRN (Reason: Nausea) RF: 0 ibuprofen 800 mg Tablet 800 mg PO Q8H PRN (Reason: Pain) RF: 0 diphenoxylate-atropine [Lomotil] 2.5-0.025 mg Tablet 1 - 2 tab PO Q6H PRN PRN (Reason: Diarrhea) RF: 0 pyridoxine (vitamin B6) [Vitamin B-6] 100 mg Tablet 100 mg PO DAILY RF: 0 enoxaparin 150 mg/mL syringe 120 mg subcut BID RF: 0 polyethylene glycol 3350 17 gram Powder In Packet 17 g PO DAILY Qty: 30 RF: 0 gabapentin 100 mg Capsule 100 mg PO TIDCM 30 Days Qty: 90 RF: 0 hydromorphone 4 mg tablet 4 mg PO Q3H PRN (Reason: pain) 3 Days Qty: 20 RF: 0 No Action (DME) insulin pump controller Misc MISCELLANEOUS RF: 0 (DME) insulin pump cartridge Cartridge SUBCUT RF: 0 (DME) Dexcom G6 Transmitter Device See Rx Instructions .ROUTE .MEDSUPPLY Qty: 1 RF: 3 (DME) Dexcom G6 Sensor Device See Rx Instructions .ROUTE .MEDSUPPLY Qty: 9 RF: 3 Referrals / Follow Up: Nilda Edge MD [Primary Care Provider] - Disposition Disposition (needs filled in before D/C Order can be placed): Hospice in Medical Facility Charges/Coding Visit Charges Inpatient E&M: 68509 Disch Hosp
--- NOTE | 2022-05-03 14:12 | NURSING ---
report called to oleksandr at [facility]. transport is supposed to last picker at 1500. plan is to premedicate pt
[2022-05-03] MEDS: proCHLORPERazine 10 MG/2 ML Vial IV (14:20)
== END 2022-05-03 15:15 | disposition hospice, inpatient (51) | DRG 389 ==
LOC: ED 23:33 → MS3 05-02 00:25
PROVIDERS: Admitting Provider Hospitalist; Emergency Provider Emergency Medicine; PCP Family Medicine
DX: K56.600 Partial intestinal obstruction, unspecified as to cause (principal); Z68.43 Body mass index [BMI] 50.0-59.9, adult; C22.1 Intrahepatic bile duct carcinoma; C78.6 Secondary malignant neoplasm of retroperitoneum and peritoneum; E11.9 Type 2 diabetes mellitus without complications; D64.9 Anemia, unspecified; Z79.4 Long term (current) use of insulin; E66.01 Morbid (severe) obesity due to excess calories; I10 Essential (primary) hypertension; E78.5 Hyperlipidemia, unspecified; E78.00 Pure hypercholesterolemia, unspecified; J45.909 Unspecified asthma, uncomplicated; M19.90 Unspecified osteoarthritis, unspecified site; F41.9 Anxiety disorder, unspecified; K21.9 Gastro-esophageal reflux disease without esophagitis; Z20.822 Contact with and (suspected) exposure to COVID-19; Z96.41 Presence of insulin pump (external) (internal); Z79.82 Long term (current) use of aspirin; Z79.01 Long term (current) use of anticoagulants; Z79.899 Other long term (current) drug therapy
CPT/HCPCS: 36591; 74177; 80053; 83690; 83735; 85025; 87426; 94640; 99285; J7030; Q9967; A4216; J2405; J7799